=== PATIENT | male | born 1950 | race Caucasian/White ===

== ENCOUNTER 2022-12-23 15:08 | Outpatient (OUT) | payer MEDICARE, SELFPAY ==
[2022-12-23 15:46] LABS: Creatinine Urine Random 82.19 mg/dL (20.00-300.00); Protein Creatinine Ratio Urine 0.14; Total Protein Urine Random 11.1 mg/dL (<=11.9)
[2022-12-23 15:47] LABS: Bilirubin Urine NEGATIVE (NEGATIVE); Blood Urine NEGATIVE (NEGATIVE); Clarity Urine CLEAR (CLEAR); Color Urine LT. YELLOW (YELLOW); Glucose Urine UA NEGATIVE (NEGATIVE); Ketones Urine NEGATIVE (NEGATIVE); Leukocyte Esterase Urine NEGATIVE (NEGATIVE); Nitrite Urine NEGATIVE (NEGATIVE); Protein Urine NEGATIVE (NEG/TRACE); Urobilinogen Urine 0.2 EU/dL (0.2-1.0); pH Urine 5.5 (5.0-9.0)
[2022-12-23 16:27] LABS: Albumin Level 4.1 g/dL (3.4-5.0); Anion Gap 12.2; BUN Creatinine Ratio 14.9; Calcium 8.9 mg/dL (8.5-10.1); Carbon Dioxide 31.7 mmol/L (21.0-32.0); Chloride 103 mmol/L (98-107); Estimated GFR (African America >60 (>=60); Estimated GFR (Non-African Ame 52 (>=60); Glucose 125 mg/dL (74-106); Phosphorus 3.9 mg/dL (2.6-4.7); Potassium 3.9 mmol/L (3.5-5.1); Sodium 143 mmol/L (136-145)
== END 2022-12-23 15:09 ==
PROVIDERS: PCP Family Medicine
DX: E11.21 Type 2 diabetes mellitus with diabetic nephropathy (principal); I13.10 Hypertensive heart and chronic kidney disease without heart failure, with stage 1 through stage 4 chronic kidney disease, or unspecified chronic kidney disease; N20.2 Calculus of kidney with calculus of ureter
CPT/HCPCS: 36415; 80069; 81003; 82570; 84156

== ENCOUNTER 2023-02-07 13:54 | Outpatient (OUT) | payer MEDICARE, OTHER, SELFPAY ==
--- NOTE | 2023-02-07 14:59 | CA_ITS ---
Patient: LAURA JOLLY Exam Date: 02/07/2023 : 1950 Gender:M Ordering : LINDSAY SHELLEY Admission #: [id number] Family : Order #: [id number] CLICK HERE TO VIEW EXAM ECHOCARDIOGRAM REPORT PROCEDURE: CA ECHO DOPPLER COMPLETE INDICATIONS: Atypical atrial flutter COMPARISON: None. DESCRIPTION: COMPLETE ECHOCARDIOGRAM Real-time transthoracic echocardiography with 2D, M-mode, spectral and color flow Doppler performed. QUALITY: Technical quality was good. LEFT VENTRICLE: Normal chamber size. Borderline left ventricular hypertrophy. Global left ventricular systolic function is normal. LV EF: Estimated left ventricular ejection fraction is 55%. DIASTOLIC: Grade I diastolic dysfunction. ATRIAL SEPTUM: LEFT ATRIUM: Normal chamber size. RIGHT ATRIUM: Normal chamber size. RIGHT VENTRICLE: Normal chamber size. Normal right ventricular systolic function. TRICUSPID VALVE: Normal mobility and thickness. No stenosis with trivial regurgitation. No evidence of pulmonary hypertension. RVSP 27 mmHg MITRAL VALVE: Normal mobility and thickness. No evidence of mitral valve stenosis. There is no mitral annular calcification. Trivial mitral regurgitation. AORTIC VALVE: Normal trileaflet appearance. Thickened aortic valve. Normal leaflet mobility. No evidence of aortic valve stenosis. Trivial aortic regurgitation. AORTIC ROOT: Normal diameter and appearance. PULMONIC VALVE: Normal thickness and mobility. No stenosis. Trivial regurgitation. PERICARDIUM: No evidence of pericardial effusion. IVC: Collapses with inspirations. Normal size. PLEURA: CONCLUSION: 1. Normal left ventricular size and systolic function. LVEF is 55%. 2. Normal right ventricular size and systolic function. 3. Mild diastolic dysfunction. 4. No significant valvular dysfunction. 5. Normal right-sided pressures. Adult Echocardiography Procedure Report Left Ventricle LVEDD (3.7 - 5.6 cm): 3.19 cm LVESD (2.2 - 4.0 cm): 2.12 cm LVIVS thickness (0.6 - 1.2 cm): 1.10 cm LVPW thickness (0.5 - 1.0 cm): 0.99 cm e': 0.07 m/s E - e': 8.19 LVOT Max Gradient: 1.95 mm[Hg] LVOT Area (cm2): 0.70 m/s Peak Velocity (LVOT): 0.70 m/s Mean Velocity (LVOT): 0.48 m/s LVOT Diameter 2.25 cm Left Ventricular Ejection Fraction: 55% Left Atrium LA Volume Index (2D A2C): 27.49 ml/m2 Left Atrium Systolic Dimension: 2.74 cm Mitral Valve MV E to A Ratio: 0.57 Mitral Valve A-Wave Peak Velocity: 1.03 m/s Mitral Valve E-Wave Peak Velocity: 0.59 m/s Right Ventricle RV Internal Diastolic Dimension: 3.30 cm Aorta AO Root Diam: 3.42 cm Ascending Ao Diam: 3.27 cm Aortic Valve AoV Area (Peak Yves): 2.76 cm2, 2.76 cm2 AoV Area (VTI): 2.78 cm2, 2.78 cm2 Peak Velocity(Antegrade Flow): 1.01 m/s Peak Gradient(Antegrade Flow): 4.07 mm[Hg] Mean Velocity(Antegrade Flow): 0.70 m/s Mean Gradient(Antegrade Flow): 2.28 mm[Hg] Velocity Time Integral: 21.41 cm Tricuspid Valve Peak Velocity (Regurgitant Flow): 2.42 m/s Pulmonic Valve Mean Gradient: 2.08 mm[Hg] Mean Velocity: 0.66 m/s Peak Velocity: 1.13 m/s, 1.16 m/s Peak Gradient: 5.34 mm[Hg], 5.09 mm[Hg] Right Atrium Right Atrium Systolic Pressure: 37.97 ml, 37.97 ml Dictated by: Manuel Prieto M.D. on 02/09/2023 at 18:01 Approved by: Manuel Prieto M.D. on 02/09/2023 at 18:08
== END 2023-02-07 13:55 | disposition home or self-care (01) ==
LOC: CARD 13:55
PROVIDERS: PCP Family Medicine; Visit Provider Nurse Practitioner
DX: I48.4 Atypical atrial flutter (principal); I51.9 Heart disease, unspecified
CPT/HCPCS: 93306

== ENCOUNTER 2023-03-23 09:20 | Outpatient (OUT) | payer MEDICARE, OTHER, SELFPAY ==
[2023-03-23 11:17] LABS: Creatinine Urine Random 131.38 mg/dL (20.00-300.00); Microalbum Creatinine Ratio Ur 59.3 mg/g (0.0-29.9); Microalbumin Urine Random 7.8 mg/dL (<=30.0)
[2023-03-23 11:40] LABS: Alanine Aminotransferase 7 U/L (16-63); Albumin Globulin Ratio 0.9; Alkaline Phosphatase 92 U/L (46-116); Anion Gap 13.5; Aspartate Amino Transferase 20 U/L (15-37); BUN Creatinine Ratio 17.7; Bilirubin Total 1.7 mg/dL (0.2-1.0); Calcium 9.3 mg/dL (8.5-10.1); Carbon Dioxide 28.6 mmol/L (21.0-32.0); Chloride 102 mmol/L (98-107); Chol HDL Ratio 2.1; Cholesterol 103 mg/dL (<=200); Estimated GFR (African America >60 (>=60); Estimated GFR (Non-African Ame 57 (>=60); Globulin 4.3 g/dL; Glucose 173 mg/dL (74-106); HDL Cholesterol 50 mg/dL (40-60); Potassium 4.1 mmol/L (3.5-5.1); Sodium 140 mmol/L (136-145); Total Protein 8.3 g/dL (6.4-8.2); Triglycerides 115 mg/dL (<=150)
== END 2023-03-23 09:21 | disposition home or self-care (01) ==
LOC: LAB 09:23
PROVIDERS: PCP Family Medicine
DX: E11.22 Type 2 diabetes mellitus with diabetic chronic kidney disease (principal); E78.5 Hyperlipidemia, unspecified; E53.8 Deficiency of other specified B group vitamins
CPT/HCPCS: 36415; 80053; 80061; 82043; 82570; 82607

== ENCOUNTER 2023-05-02 15:19 | Outpatient (OUT) | payer MEDICARE, OTHER, SELFPAY ==
--- NOTE | 2023-05-02 15:28 | XR_ITS ---
[address] [address] Patient Name: LAURA JOLLY MRN: [id number] date: 1950 Sex: M Assigned Patient Location: [facility] Current Patient Location: Accession/Order Number: [id number] Exam Date: 05/02/2023 15:40 Report Date: 05/03/2023 07:32 At the request of: YASIR MOROCHO Procedure: XR abdomen 1V EXAMINATION: XR abdomen 1V HISTORY: Abdominal Pain COMPARISON: No relevant comparison available. FINDINGS: BOWEL GAS PATTERN: No abnormal dilation or deviation. CALCIFICATIONS: None significant. OTHER: Rotatory S-shaped scoliosis of the spine with moderate to severe degenerative changes. Left hip arthroplasty XR/XR abdomen 1V IMPRESSION: Nonobstructive bowel gas pattern Electronically authenticated by: FLYNN LAROSE Date: 05/03/2023 07:32
== END 2023-05-02 15:20 | disposition home or self-care (01) ==
PROVIDERS: PCP Family Medicine; Visit Provider Family Medicine
DX: R10.9 Unspecified abdominal pain (principal)
CPT/HCPCS: 74018

== ENCOUNTER 2023-05-09 11:11 | Outpatient (OUT) | payer MEDICARE, OTHER, SELFPAY ==
--- NOTE | 2023-05-09 11:17 | US_ITS ---
[address] [address] Patient Name: LAURA JOLLY MRN: [id number] date: 1950 Sex: M Assigned Patient Location: US Current Patient Location: Accession/Order Number: [id number] Exam Date: 05/09/2023 11:20 Report Date: 05/09/2023 13:59 At the request of: OBDULIA MELENDEZ Procedure: US abdomen complete EXAMINATION: US abdomen complete, 05/09/2023 11:20 AM EDT COMPARISON: None. HISTORY: Lower abdominal pain TECHNIQUE: The abdomen was scanned in standard fashion with specialized ultrasound transducer(s) using both lind scale and limited color Doppler techniques. Findings: Liver: The liver demonstrates normal homogeneous echotexture. No evidence of a focal hepatic mass or intrahepatic biliary ductal dilatation. The main portal vein is patent with antegrade flow, measuring 14.8 cm. Gallbladder: The gallbladder is well distended and of normal morphology. There is no wall thickening, pericholecystic fluid, sonographic Tiwari's sign nor evidence for cholelithiasis. Layering sludge is seen. Bile Ducts: Both the intra- and extrahepatic biliary system are of normal caliber. The common bile duct measures 2.3 mm in diameter. Pancreas: Visualized portions of the head and body of the pancreas are unremarkable. Kidneys: Both kidneys are of normal echotexture, without mass nor hydronephrosis. The craniocaudal dimensions are: right- 8.3 cm, left- 9.2 cm. Urinary bladder appears unremarkable. Spleen: The spleen is normal in size, measuring 12.3 cm in sagittal dimension. Aorta and IVC: The visualized portions of the aorta and IVC are unremarkable. The aorta measures 2.1cm in diameter and the IVC measures 0.9cm in diameter. Fluid: No evidence of ascites or pleural effusions. US/US abdomen complete Impression: 1. Gallbladder sludge. No evidence for acute cholecystitis. Otherwise no acute findings. Electronically authenticated by: KEEGAN BALBUENA Date: 05/09/2023 13:59
== END 2023-05-09 11:12 | disposition home or self-care (01) ==
LOC: US 11:11
PROVIDERS: PCP Family Medicine; Visit Provider Nurse Practitioner
DX: R10.30 Lower abdominal pain, unspecified (principal)
CPT/HCPCS: 76700

== ENCOUNTER 2023-05-30 08:09 | Emergency (ER) | payer MEDICARE, OTHER, SELFPAY ==
[2023-05-30 08:16] VITALS: BP 141/85; PULSE 78; RESP 20; TEMP 36.4; O2SAT 97; BMI 23.0
[2023-05-30 08:31] LABS: Glucometer 81 mg/dL (74-106)
--- NOTE | 2023-05-30 08:36 | ED.ABDPAIN1 ---
HPI - Abdominal Pain General Chief Complaint: Abdominal Pain Stated Complaint: ABDOMINAL PAIN Time Seen by Provider: 05/30/23 08:29 Source: patient Mode of arrival: walk-in Limitations: no limitations History of Present Illness HPI narrative: 72-year-old male presents for abdominal pain. He's had it for five months and was scheduled for a colonoscopy this afternoon. He did yesterday's bowel prep but hadn't yet taken this mornings. This is the same pain that he's been having for more than five months. No blood in his stool or fever or vomiting. Related Data Home Medications Medication Instructions Recorded Confirmed atorvastatin 40 mg tablet 40 mg PO BEDTIME 05/30/23 05/30/23 carbidopa 25 mg-levodopa 100 mg 1.5 tab PO BID 05/30/23 05/30/23 tablet furosemide 20 mg tablet 20 mg PO DAILY 05/30/23 05/30/23 gemfibrozil 600 mg tablet 600 mg PO DAILY 05/30/23 05/30/23 insulin aspart U-100 100 unit/mL 1 sliding scale dose subcut TID 05/30/23 05/30/23 (3 mL) subcutaneous pen (Novolog FlexPen U-100 Insulin aspart) insulin degludec 100 unit/mL (3 20 unit subcut DAILY 05/30/23 05/30/23 mL) subcutaneous pen (Tresiba FlexTouch U-100 insulin) metformin 1,000 mg tablet 1,000 mg PO DAILY 05/30/23 05/30/23 metoprolol succinate 100 mg 100 mg PO DAILY 05/30/23 05/30/23 tablet,extended release 24 hr potassium chloride 10 mEq 10 meq PO DAILY 05/30/23 05/30/23 tablet,extended release tamsulosin 0.4 mg capsule 0.4 mg PO Q24H 05/30/23 05/30/23 Previous Rx's Medication Instructions Recorded dicyclomine 10 mg capsule 10 mg PO QID PRN abdominal pain 05/30/23 #20 caps ondansetron 4 mg disintegrating 4 mg PO Q6H PRN nausea and 05/30/23 tablet vomiting #20 tabs Allergies Allergy/AdvReac Type Severity Reaction Status Date / Time ciprofloxacin [From Cipro] Allergy Unknown Verified 05/30/23 08:59 codeine Allergy Unknown Verified 05/30/23 08:59 Sulfa (Sulfonamide Allergy Rash Verified 05/30/23 08:16 Antibiotics) epinephrine AdvReac Severe heart Verified 05/30/23 08:59 racing Review of Systems ROS Narrative A ten point review of systems is negative except as noted above. PFSH PFSH Social History Smoking status: Never smoker Exam Narrative Exam Narrative: Nurses note and vital signs reviewed and patient is not hypoxic. General: The patient appears well and in no apparent distress. Patient is resting comfortably on cart. Skin: Warm, dry, no pallor noted. There is no rash noted. Head: Normocephalic, atraumatic Eye: Normal conjunctiva, no drainage Ears, Nose, Mouth, and Throat: oral mucosa is moist. Nares patent. Cardiovascular: Regular Rate and Rhythm Respiratory: Patient is in no distress, no accessory muscle use, lungs are clear to auscultation, no wheezing, rales or rhonchi Back: non-tender GI: soft, nontender, nondistended Musculoskeletal: The patient has no evidence of calf tenderness, no pitting edema, symmetrical pulses noted bilaterally Neurological: A&O, normal speech Psychiatric: Cooperative Constitutional Vital Signs, click to edit/add: Last Vital Signs Temp 97.6 F 05/30/23 08:16 Pulse 70 05/30/23 10:58 Resp 14 05/30/23 10:58 BP 110/74 05/30/23 10:58 Pulse Ox 92 L 05/30/23 10:58 O2 Del Method Room Air 05/30/23 10:58 Course Vital Signs Vital signs: Vital Signs Temperature 97.6 F 05/30/23 08:16 Pulse Rate 78 05/30/23 08:16 Respiratory Rate 20 05/30/23 08:16 Blood Pressure 141/85 05/30/23 08:16 Pulse Oximetry 97 05/30/23 08:16 Oxygen Delivery Method Room Air 05/30/23 08:16 Temperature 97.6 F 05/30/23 08:16 Pulse Rate 70 05/30/23 10:58 Respiratory Rate 14 05/30/23 10:58 Blood Pressure 110/74 05/30/23 10:58 Pulse Oximetry 92 L 05/30/23 10:58 Oxygen Delivery Method Room Air 05/30/23 10:58 MDM - Abdominal Pain MDM Narrative Medical decision making narrative: possible rectal masses identified on the CAT scan. Findings are discussed thoroughly with the patient. I've discussed the case with Dr. Kim as well and follow-up is arranged. The importance of colonoscopy was discussed thoroughly with the patient. Differential Diagnosis Differential diagnosis: Likely abdominal pain, constipation, diverticulitis, gastroenteritis and small bowel obstruction Lab Data Attestation: I reviewed the patient's lab results. Labs: Lab Results 05/30/23 05/30/23 Range/Units 08:29 08:45 WBC 12.7 H (4.0-11.0) 10^3/uL RBC 4.56 L (4.70-6.10) 10^6/uL Hgb 13.1 L (14.0-18.0) g/dL Hct 39.8 L (42.0-54.0) % MCV 87.3 (80.0-94.0) fL MCH 28.7 (25.9-34.0) pg MCHC 32.9 (29.9-35.2) g/dL RDW 13.3 (11.0-15.0) % Plt Count 213 (150-450) 10^3/uL MPV 8.9 L (9.5-13.5) fL Neut % (Auto) 82.6 H (43.0-75.0) % Lymph % (Auto) 10.0 L (20.5-60.0) % [place] % (Auto) 6.0 (1.7-12.0) % Eos % (Auto) 0.7 L (0.9-7.0) % Baso % (Auto) 0.5 (0.2-2.0) % Neut # (Auto) 10.5 H (1.4-6.5) 10^3/uL Lymph # (Auto) 1.3 (1.2-3.8) 10^3/uL [place] # (Auto) 0.8 (0.3-0.8) 10^3/uL Eos # (Auto) 0.1 (0.0-0.7) 10^3/uL Baso # (Auto) 0.1 (0.0-0.1) 10^3/uL Abs Immat Gran (auto) 0.03 (0.00-0.03) 10^3/uL Imm/Tot Granulo (auto) 0.2 (0.0-0.5) % Sodium 141 (136-145) mmol/L Potassium 3.1 L (3.5-5.1) mmol/L Chloride 98 (98-107) mmol/L Carbon Dioxide 30.3 (21.0-32.0) mmol/L Anion Gap 15.8 BUN 20.0 H (7.0-18.0) mg/dL Creatinine 1.17 (0.70-1.30) mg/dL Est GFR ( Amer) >60 (>=60) Est GFR (Non-Af Amer) >60 (>=60) BUN/Creatinine Ratio 17.1 Glucose 89 (74-106) mg/dL Calcium 8.6 (8.5-10.1) mg/dL POC Glucose 81 (74-106) mg/dL Imaging Data CT scan - abdomen: Radiologist's impression: Procedure: CT abdomen pelvis w con CT abdomen pelvis w con, 05/30/2023 10:14 AM EST INDICATION: low abd pain COMPARISON: This study was compared to the prior x-ray of the same date TECHNIQUE: Axial images of the abdomen were obtained after the administration of IV contrast. Multiplanar reformatted images were generated and reviewed as needed. Dose reduction techniques were achieved by using automated exposure control and/or adjustment of mA and/or kV according to patient size and/or use of iterative reconstruction technique. FINDINGS: There is status post left hip arthroplasty causing streak artifact that decreases the sensitivity for evaluation of the pelvis. Lungs: The base of lungs is clear. No pleural effusion is noted. Liver and gallbladder: The liver is unremarkable. There is cholelithiasis without pericholecystic fluid or wall thickening. No enlargement of intra or extrahepatic biliary ducts. Genitourinary system: No hydronephrosis. No nephrolithiasis. No abnormality of the urinary bladder is noted. Other solid abdominal organs: adrenal glands, pancreas, and spleen are unremarkable. Aorta: The infrarenal abdominal aorta is nonaneurysmal. Free fluid: There is minimal free fluid in the in the right upper quadrant. Lymph node: There is a 9 x 9 mm left obturator hypodense lesion likely a necrotic lymph node. No lymph node enlargement by size criteria in the abdomen is noted. Stomach and Bowel: No abnormality of the stomach is noted. No abnormality of small bowel is noted. There is enlargement of the large bowel measuring up to 6.8 cm in the cecum. The distention of the colon extends to the rectum where there is a possible mass versus folded rectum measuring approximately 3.1 x 3.1 x 2.8 cm (AP, transverse, cc). This lesion is approximately 5 cm from anus. Bone: There is no suspicious osteolytic or osteoblastic lesion. S-shaped thoracolumbar scoliosis is noted. Lower lumbar spine degenerative changes are noted. IMPRESSION: Limited study due to presence of the left hip arthroplasty causing a streak artifact for evaluation of pelvis. However, there is a rectal mass (and less likely folded, superimposed rectum) causing distention of the colon. A left obturator hypodense lesion is noted likely necrotic lymph node. Correlation with sigmoidoscopy/colonoscopy is recommended. Electronically authenticated by: NAPOLEON RESTREPO Date: 05/30/2023 11:24 Discharge Plan Discharge Chief Complaint: Abdominal Pain Clinical Impression: Rectal mass, Abdominal pain Patient Disposition: Home, Self-Care Time of Disposition Decision: 11:44 Condition: Good Mode of Transportation: Private Vehicle Prescriptions / Home Meds: New dicyclomine 10 mg capsule 10 mg PO QID PRN (Reason: abdominal pain) Qty: 20 0RF ondansetron 4 mg tablet,disintegrating 4 mg PO Q6H PRN (Reason: nausea and vomiting) Qty: 20 0RF No Action metoprolol succinate 100 mg tablet extended release 24 hr 100 mg PO DAILY metformin 1,000 mg tablet 1,000 mg PO DAILY tamsulosin 0.4 mg capsule 0.4 mg PO Q24H potassium chloride 10 mEq tablet extended release 10 meq PO DAILY furosemide 20 mg tablet 20 mg PO DAILY gemfibrozil 600 mg tablet 600 mg PO DAILY carbidopa-levodopa 25-100 mg tablet 1.5 tab PO BID atorvastatin 40 mg tablet 40 mg PO BEDTIME insulin aspart U-100 [Novolog FlexPen U-100 Insulin] 100 unit/mL (3 mL) insulin pen 1 sliding scale dose SUBCUT TID insulin degludec [Tresiba FlexTouch U-100] 100 unit/mL (3 mL) insulin pen 20 unit SUBCUT DAILY Instructions: Abdominal Pain (ED), Rectal Pain (ED) Stand Alone Forms: Portal Instructions Referrals: YASIR KIM [Primary Care Provider] - 1 week
--- NOTE | 2023-05-30 08:46 | XR_ITS ---
The [address] [address] Patient Name: LAURA JOLLY MRN: [id number] date: 1950 Sex: M Assigned Patient Location: ER Current Patient Location: ER Accession/Order Number: [id number] Exam Date: 05/30/2023 09:13 Report Date: 05/30/2023 09:44 At the request of: ROSELIA HUERTA Procedure: XR acute abdomen series EXAMINATION: XR acute abdomen series HISTORY: pain ; chronic abdominal pain; patient is prepping for a colonoscopy today COMPARISON: No relevant comparison available. FINDINGS: LUNGS: No infiltrate, pneumothorax, or pleural effusion. Loop recorder projecting over left lung base. MEDIASTINUM: No abnormal widening. BOWEL GAS PATTERN: Air throughout the small and large bowel with multiple air-fluid levels within the colon. FREE AIR: None. CALCIFICATIONS: None significant. BONES: Marked scoliosis of thoracic and lumbar spine. Prior right shoulder and left hip replacements. OTHER: Negative. XR/XR acute abdomen series IMPRESSION: 1. No acute cardiopulmonary process. 2. Air and fluid throughout the small and large bowel consistent with history of prepping for colonoscopy today. Consideration would also be given to enteritis, ileus, and partial obstruction. Electronically authenticated by: ADILENE MANE Date: 05/30/2023 09:44
[2023-05-30 08:56] LABS: Basophils Absolute Auto 0.1 10^3/uL (0.0-0.1); Basophils Percent Auto 0.5 % (0.2-2.0); Eosinophils Absolute Auto 0.1 10^3/uL (0.0-0.7); Eosinophils Percent Auto 0.7 % (0.9-7.0); Hematocrit 39.8 % (42.0-54.0); Hemoglobin 13.1 g/dL (14.0-18.0); Immature Granulocytes Abs Auto 0.03 10^3/uL (0.00-0.03); Immature Granulocytes Pct Auto 0.2 % (0.0-0.5); Lymphocytes Absolute Auto 1.3 10^3/uL (1.2-3.8); Mean Corpuscular HGB Conc 32.9 g/dL (29.9-35.2); Mean Corpuscular Hemoglobin 28.7 pg (25.9-34.0); Mean Corpuscular Volume 87.3 fL (80.0-94.0); Mean Platelet Volume 8.9 fL (9.5-13.5); Monocytes Absolute Auto 0.8 10^3/uL (0.3-0.8); Neutrophils Absolute Auto 10.5 10^3/uL (1.4-6.5); Neutrophils Percent Auto 82.6 % (43.0-75.0); Platelet Count 213 10^3/uL (150-450); Red Blood Count 4.56 10^6/uL (4.70-6.10); Red Cell Distribution Width 13.3 % (11.0-15.0); White Blood Count 12.7 10^3/uL (4.0-11.0)
[2023-05-30] MEDS: 0.9 % SODIUM CHLORIDE 500 ML IV (08:56)
[2023-05-30 09:06] LABS: Anion Gap 15.8; BUN Creatinine Ratio 17.1; Calcium 8.6 mg/dL (8.5-10.1); Carbon Dioxide 30.3 mmol/L (21.0-32.0); Chloride 98 mmol/L (98-107); Estimated GFR (African America >60 (>=60); Estimated GFR (Non-African Ame >60 (>=60); Glucose 89 mg/dL (74-106); Potassium 3.1 mmol/L (3.5-5.1); Sodium 141 mmol/L (136-145)
--- NOTE | 2023-05-30 09:55 | CT_ITS ---
The [address] [address] Patient Name: LAURA JOLLY MRN: [id number] date: 1950 Sex: M Assigned Patient Location: ER Current Patient Location: Accession/Order Number: [id number] Exam Date: 05/30/2023 10:14 Report Date: 05/30/2023 11:24 At the request of: ROSELIA HUERTA Procedure: CT abdomen pelvis w con CT abdomen pelvis w con, 05/30/2023 10:14 AM EST INDICATION: low abd pain COMPARISON: This study was compared to the prior x-ray of the same date TECHNIQUE: Axial images of the abdomen were obtained after the administration of IV contrast. Multiplanar reformatted images were generated and reviewed as needed. Dose reduction techniques were achieved by using automated exposure control and/or adjustment of mA and/or kV according to patient size and/or use of iterative reconstruction technique. FINDINGS: There is status post left hip arthroplasty causing streak artifact that decreases the sensitivity for evaluation of the pelvis. Lungs: The base of lungs is clear. No pleural effusion is noted. Liver and gallbladder: The liver is unremarkable. There is cholelithiasis without pericholecystic fluid or wall thickening. No enlargement of intra or extrahepatic biliary ducts. Genitourinary system: No hydronephrosis. No nephrolithiasis. No abnormality of the urinary bladder is noted. Other solid abdominal organs: adrenal glands, pancreas, and spleen are unremarkable. Aorta: The infrarenal abdominal aorta is nonaneurysmal. Free fluid: There is minimal free fluid in the in the right upper quadrant. Lymph node: There is a 9 x 9 mm left obturator hypodense lesion likely a necrotic lymph node. No lymph node enlargement by size criteria in the abdomen is noted. Stomach and Bowel: No abnormality of the stomach is noted. No abnormality of small bowel is noted. There is enlargement of the large bowel measuring up to 6.8 cm in the cecum. The distention of the colon extends to the rectum where there is a possible mass versus folded rectum measuring approximately 3.1 x 3.1 x 2.8 cm (AP, transverse, cc). This lesion is approximately 5 cm from anus. Bone: There is no suspicious osteolytic or osteoblastic lesion. S-shaped thoracolumbar scoliosis is noted. Lower lumbar spine degenerative changes are noted. CT/CT abdomen pelvis w con IMPRESSION: Limited study due to presence of the left hip arthroplasty causing a streak artifact for evaluation of pelvis. However, there is a rectal mass (and less likely folded, superimposed rectum) causing distention of the colon. A left obturator hypodense lesion is noted likely necrotic lymph node. Correlation with sigmoidoscopy/colonoscopy is recommended. Electronically authenticated by: NAPOLEON RESTREPO Date: 05/30/2023 11:24
[2023-05-30 10:58] VITALS: BP 110/74; PULSE 70; RESP 14; O2SAT 92
[2023-05-30 12:10] VITALS: BP 115/77
--- OUTSIDE RECORDS SUMMARY | 2023-07-05 18:38 | XMS_ITS | CCD ---
Author Name Unknown Address [address] [place] [address] Organization [facility] Care Team Providers Care Junior Graphic Designer Name Role Phone ELIDIA MACHADO Referring Unavailable ELIDIA MACHADO Primary Care Unavailable RAMSEY MENDEZ Attending UnaRAMSEY Murillo Admitting Unava ilROBERT Howard Admitting Unavailable ROBERT ORDAZ Attending Unavailable ELIDIA MACHADO Primary Care Unavailable CAROLINE Referring Unavailable GA Procedure Practitioner Unavailab ANGELLA Butler Surgeon Unavailable VI MERCADO Attending Unavailable TRUE PERALTA Attending Unavailable TRUE PERALTA Referring Unavailable PHYSICIAN PHYSICIAN, PCP PCP UNKNOWN~[id number] Primary Care Unavailable [facility] Consulting Unavailable TU BALBUENA Admitting Unavailable ELIDIA MACHADO Primary Care Unavailable JOHN BALBUENA Attending Unavailable DENY PETE Consulting Unavailable ELIDIA MACHADO Primary Care Unavailable [facility] Consulting Unavasyl CRAWFORD, ABBE ESTEBAN Admitting Unavailable ERICKA CHENG Attending Unavailable YEMI SCHUMACHER Consulting Trice VI Meredith Referring Unavailable ELIDIA MACHADO Primary Care Unavailable Mapus, Tondra Unavailable ELIDIA MACHADO Primary Care Physician TRINITY ., DR ELIDIA Sierra Primary Care Unavailable MAPUS, TONDRA Consulting Unavailable REQUEST, DR RICHARDS LISTED Admitting Unavaila ble REQUEST, DR RICHARDS LISTED Attending Unavaila ble MACHADO ., DR ELIDIA Sierra Consulting Unavailable MACHADO ., DR ELIDIA Sierra Primary Care Unavailable MACHADO ., DR ELIDIA Sierra Attending Unavailable MACHADO ., DR ELIDIA Sierra Admitting Unavailable MACHADO ., DR ELIDIA Sierra Primary Care Unavailable DANTE HOLLOWAY Attending Unavailable AKKINA, DANTE Admitting Unavailable AKKINA, DANTE Consulting Unavailable MACHADO ., DR ELIDIA Sierra Primary Care Unavailable MACHADO ., DR ELIDIA Sierra Consulting Unavailable MACHADO ., DR ELIDIA Sierra Attending Unavailable MACHADO ., DR ELIDIA Sierra Admitting Unavailable YASIR MOROCHO Primary Care Unavailable MACHADO ., DR ELIDIA Sierra Attending Unavailable MACHADO ., DR ELIDIA Sirera Admitting Unavailable MACHADO ., DR ELIDIA Sierra Consulting Unavailable MACHADO ., DR ELIDIA Sierra Primary Care Unavailable ALBER SANCHEZ Attending Unavailable ALBER SANCHEZ Admitting Unavailable MACHADO ., DR ELIDIA Sierra Primary Care Unavailable ZAHLER, LORENZA Attending Unavailable ZAHLER, LORENZA Admitting Unavailable ZAHLER, LORENZA Consulting Unavailable MACHADO ., DR ELIDIA Sierra Primary Care Unavailable MACHADO ., DR ELIDIA Sierra Attending Unavailable MACHADO ., DR ELIDIA Sierra Admitting Unavailable ESTIVEN, ASTRID Admitting Unavailable YASIR MOROCHO Primary Care Unavailable ESTIVEN, ASTRID Attending Unavailable MACHADO ., DR ELIDIA Sierra Primary Care Unavailable RUFF ., DR BANUELOS Attending Unavailable RUFF ., DR BANUELOS Admitting Unavailable RUFF ., DR BANUELOS Consulting Unavailable [place], DR FLYNN Clifton Consulting Unavailable MACHADO ., DR ELIDIA Sierra Primary Care Unavailable RUFF ., DR BANUELOS Attending Unavailable RUFF ., DR BANUELOS Admitting Unavailable RUFF ., DR BANUELOS Consulting Unavailable ZIEBER, DR ADILENE Pack Consulting Unavailable MACHADO ., DR ELIDIA Sierra Primary Care Unavailable AKKINA, DANTE Attending Unavailable AKKINA, DANTE Admitting Unavailable AKKINA, DANTE Consulting Unavailable MACHADO ., DR ELIDIA Sierra Primary Care Unavailable ALBER SANCHEZ Attending Unavailable ALBER SANCHEZ Admitting Unavailable ALBER SANCHEZ Consulting Unavailable Yasir Morocho. Primary Care Physician Nusrat Chapman Attending Unavailable Nusrat Chapman Admitting Unavailable MachadoElidia Primary Care Unavailable ALBER SANCHEZ Attending Unavailable BERENICE SHARPE Attending Unavailable ALBER SANCHEZ Referring Unavailable LINDSAY SHELLEY Attending Unavailable LINDSAY SHELLEY Attending Unavailable ALBER SANCHEZ Referring Unavailable ALBER SANCHEZ Referring Unavailable ALBER SANCHEZ Admitting Unavailable ALBER SANCHEZ Attending Unavailable ALBER SANCHEZ Admitting Unavailable ALBER SANCHEZ Attending Unavailable CHARI MEADE Attending Unavailable Yasir Morocho. Attending Unavailable Mourany, Mango E. Attending Unavailable Ross, Yasir E. Referring Unavailable Mourany, Mango E. Attending Unavailable Ross, Yasir E. Referring Unavailable Ross, Yasir E. Attending Unavailable Ross, Yasir E. Attending Unavailable Ross, Yasir E. Attending Unavailable Ross, Yasir E. Attending Unavailable RUFF, Jens Pack Attending Unavailable Ross, Yasir E. Attending Unavailable Ross, Yasir E. Attending Unavailable RUFFJens R Attending Unavailable Ross, Yasir E. Admitting Unavailable Ross, Yasir E. Attending Unavailable Ross, Yasir E. Referring Unavailable Ross, Yasir E. Admitting Unavailable Ross, Yasir E. Attending Unavailable Ross, Yasir E. Admitting Unavailable Ross, Yasir E. Attending Unavailable Ross, Yasir E. Admitting Unavailable Ross, Yasir E. Attending Unavailable Carrillo, Ganga X Consulting Unavailable Deny Chicas Attending Unavailabl e RADHA, Paoa Admitting Unavailable Carrillo, Ganga X Consulting Unavailable Carrillo, Ganga X Consulting Unavailable Sridhar, Angeles Consulting Unavailable Sridhar, Angeles Consulting Unavailable Sridhar, Angeles Consulting Unavailable Mourany, Mango E. Admitting Unavailable Mourany, Mango E. Attending Unavailable Mourany, Mango E. Referring Unavailable Ross, Yasir E. Attending Unavailable Allergies Allergy Classification Reported Allergen(s) Allergy Type Date of Onset Reaction(s) Facility (2 sources) Ciprofloxacin Drug Allergy 02-07-20 13 [facility] (1 source) Codeine Drug Allergy 10-18-19 19 [facility] (6 sources) EPINEPHrine; Translations: [EPINEPHRINE] Drug Allergy 02-07-20 13 [facility] (2 sources) Sulfonamides (Antibiotic) Drug allergy (disorder) 03-13-20 12 [facility] (3 sources) Ciprofloxacin; Translations: [CIPROFLOXACIN HCL] Drug Allergy 08-30-19 22 [facility] Repository (4 sources) Sulfonamides (Antibiotic); Translations: [SULFA (SULFONAMIDE ANTIBIOTICS)] Propensity to adverse reactions to drug (disorder) 08-25-19 18 [facility] (6 sources) Sulfonamides (Antibiotic) Propensity to adverse reactions Unknown [employer] Other (6 sources) epinefrine Propensity to adverse reactions Unknown [employer] Other (11 sources) Allopurinol; Translations: [allopurinol] Drug Allergy 10-06-19 Eruption of skin (disorder) [facility] (11 sources) Codeine; Translations: [codeine] Drug Allergy 10-06-19 Unknown (qualifier value) [facility] (9 sources) EPINEPHrine; Translations: [epinephrine] Drug Allergy Tachycardia (finding) [facility] (10 sources) Sulfonamides (Antibiotic); Translations: [sulfa drugs] Drug allergy Unknown (qualifier value) [facility] (2 sources) Amoxicillin Drug Allergy 01-25-20 14 [facility] (1 source) Codeine Drug Allergy 02-07-20 13 [facility] (1 source) EPINEPHrine Drug Allergy 08-25-19 18 [facility] Repository Medications Current Medications Medication Drug Class(es) Dates Sig (Normalized) Sig (Original) Acetaminophen (2 sources) Start: 06-17-2023 take 640 mg by mouth every six hours as needed for pain acetaminophen 160 mg/5 mL oral liquid 640 mg = 20 mL, Oral, q6hr, PRN Pain, Refills(s) 0 Start Date: 06/17/23 Status: Ordered albuterol 0.83 mg/ml inhalation solution (2 sources) beta2-Adrenergic Agonist Start: 06-17-2023 take 2.5 mg by inhalation every four hours albuterol 0.083% Inh Lizbeth 3 mL 2.5 mg, 3 mL, NEB, q4hr Shortness of breath or wheezing, Refill(s) 0 Start Date: 06/17/23 Status: Ordered amantadine hydrochloride 100 mg oral capsule (9 sources) Influenza A M2 Protein Inhibitor Start: 04-27-2021 take 1 capsule by mouth once daily amantadine 100 mg Cap 100 mg = 1 cap(s), Oral, Daily, Other (see comment) Start Date: 04/27/21 Status: Ordered amoxicillin 500 mg oral tablet (1 source) Penicillin-class Antibacterial Start: 04-20-2023 End: 04-25-2023 take 1 tablet by mouth twice daily amoxicillin 500 mg oral tablet 500 mg = 1 tab(s), Oral, BID, X 5 day(s), # 10 tab(s), Refills(s) 0, Pharmacy: [facility], 172, cm, 04/19/23 16:43:00 EDT, Height/Length Dosing, 75.8, kg, 04/19/23 16:43:00 EDT, Weight Dosing Start Date: 04/20/23 Stop Date: 04/25/23 Status: Ordered apixaban 5 mg oral tablet (9 sources) Factor Xa Inhibitor Start: 04-27-2021 take 1 tablet by mouth twice daily Eliquis 5 mg oral tablet 5 mg = 1 tab(s), Oral, BID, Blood Thinner Start Date: 04/27/21 Status: Ordered Artificial Tears (2 sources) Start: 06-17-2023 take 1 drop(s) into the eye(s) twice daily Artificial Tears 1 drop(s), OPTH, BID Dry eyes, Refill(s) 0 Start Date: 06/17/23 Status: Ordered atorvastatin 40 mg oral tablet (15 sources) HMG-CoA Reductase Inhibitor Start: 06-17-2023 take 1 tablet by mouth once daily atorvastatin 40 mg Tab 40 mg = 1 tab(s), Oral, Daily, Refills(s) 0 Start Date: 06/17/23 Status: Ordered Start: 04-27-2021 take 1 tablet by margie th once daily atorvastatin 40 mg Tab 40 mg = 1 tab(s), Oral, Daily, Refills(s) 0, High cholesterol Start Date: 04/27/21 Status: Ordered carbidopa 25 mg oral tablet (1 source) Aromatic Amino Acid Decarboxylation Inhibitor Start: 04-27-2021 take 1 mg by mouth three times daily carbidopa 25 mg oral tablet mg tab(s), Oral, TID, Refills(s) 0 Start Date: 04/27/21 Status: Ordered carbidopa 25 mg / levodopa 100 mg oral tablet (14 sources) Aromatic Amino Acid Decarboxylation Inhibitor, Aromatic Amino Acid Start: 06-17-2023 take 1 tablet by mouth three times daily carbidopa-levodop a 25 mg-100 mg Tab 1 tab(s), Oral, TID, Refill(s) 0 Start Date: 06/17/23 Status: Ordered Start: 01-05-2023 carbidopa-levo dopa 25-100 mg, Oral, TID, Refill(s) 0, Other (see comment) Start Date: 01/05/23 Status: Ordered Start: 01-05-2023 carbidopa-levo dopa 25-100 mg, Oral, TID, Refill(s) 0 Start Date: 01/05/23 Status: Ordered take 1 tablet by margie two times weekly Carbidopa-Levodopa 25-100 MG 1 tablet Orally Two times a Week for 30 day(s) Active take 1 tablet by margie th two times weekly Carbidopa-Levodopa 25-100 MG 1 tablet Orally Two times a Week for 30 day(s) Active take 1 tablet by margie th every eight hours Carbidopa-Levodopa 25-250 MG 1 tablet Orally Three times a day for 30 day(s) Active take 1 tablet by margie th every twelve hours Carbidopa-Levodopa 25-100 MG 1 tablet Orally 2 times a day for 30 day(s) Active take 1 tablet by margie every twelve hours Carbidopa-Levodopa 25-250 MG 1 tablet Orally 2 times a day for 30 day(s) Active dicyclomine hydrochloride 10 mg oral capsule (1 source) Anticholinergic Start: 05-31-2023 End: 06-10-2023 take 1 capsule by mouth four times daily dicyclomine 10 mg Cap 10 mg = 1 cap(s), Oral, QID, X 10 day(s), # 40 cap(s), Refills(s) 0 Start Date: 05/31/23 Stop Date: 06/10/23 Status: Ordered docusate sodium 100 mg oral tablet (2 sources) Start: 01-05-2023 take 100 mg by mouth once daily Dulcolax Stool Softener 100 mg, Oral, Daily, Refills(s) 0, Constipation Start Date: 01/05/23 Status: Ordered Fish Oils (15 sources) Start: 04-27-2021 Fish Oil Oral, Refill(s) 0, Prophylaxis Start Date: 04/27/21 Status: Ordered Start: 04-27-2021 Fish Oil Oral, Refill(s) 0 Start Date: 04/27/21 Status: Ordered take 1 capsule by mo [facility] once daily Fish Oil 1000 mg 1 capsule Orally Daily Active furosemide 20 mg oral tablet (12 sources) Loop Diuretic Start: 06-13-2023 take 1 tablet by mouth once daily in the morning furosemide 20 mg Tab See Instructions, TAKE ONE TABLET BY MOUTH ONCE DAILY IN THE MORNING, # 30 EA, Refills(s) 0, Pharmacy: [facility], 172, cm, 05/31/23 13:36:00 EST, Height/Length Dosing, 71.1, kg, 05/31/23 13:36:00 EST, Weight Dosing Start Date: 06/13/23 Status: Ordered Start: 05-18-2023 take 1 tablet by margie th once daily in the morning furosemide 20 mg Tab See Instructions, TAKE ONE TABLET BY MOUTH ONCE DAILY IN THE MORNING, # 30 EA, Refills(s) 0, Pharmacy: [facility], 172, cm, 05/02/23 14:54:00 EDT, Height/Length Dosing, 74, kg, 05/02/23 14:54:00 EDT, Weight Dosing Start Date: 05/18/23 Status: Ordered Start: 04-11-2023 take 1 tablet by margie th once daily in the morning furosemide 20 mg Tab See Instructions, TAKE ONE TABLET BY MOUTH ONCE DAILY IN THE MORNING, # 30 EA, Refills(s) 0, Pharmacy: [facility], 172, cm, 03/31/23 13:39:00 EDT, Height/Length Dosing, 78, kg, 03/31/23 13:39:00 EDT, Weight Dosing Start Date: 04/11/23 Status: Ordered Start: 03-14-2023 take 1 tablet by margie th once daily in the morning furosemide 20 mg Tab See Instructions, TAKE ONE TABLET BY MOUTH ONCE DAILY IN THE MORNING , # 30 EA, Refills(s) 0, Pharmacy: [facility], 172, cm, 01/11/23 10:25:00 EDT, Height/Length Dosing, 78, kg, 01/11/23 10:25:00 EDT, Weight Dosing Start Date: 03/14/23 Status: Ordered Start: 07-30-2022 take 1 tablet by margie th once daily in the morning furosemide 20 mg Tab See Instructions, TAKE ONE TABLET BY MOUTH ONCE DAILY IN THE MORNING , # 30 EA, Refills(s) 0, Pharmacy: [facility], 177.8, cm, 12/06/22 10:45:00 EDT, Height/Length Dosing, 79.3, kg, 12/06/22 10:45:00 EDT, Weight Dosing Start Date: 12/16/22 Status: Ordered Furosemide Activ e gemfibrozil 600 mg oral tablet (15 sources) Peroxisome Proliferator Receptor alpha Agonist Start: 05-18-2023 take 1 tablet by mouth once daily gemfibrozil 600 mg Tab 600 mg = 1 tab(s), Oral, Daily, # 90 tab(s), Refills(s) 1, Pharmacy: [facility], 172, cm, 05/02/23 14:54:00 EDT, Height/Length Dosing, 74, kg, 05/02/23 14:54:00 EDT, Weight Dosing Start Date: 05/18/23 Status: Ordered Start: 04-27-2021 take 1 tablet by margie th once daily gemfibrozil 600 mg Tab 600 mg = 1 tab(s), Oral, Daily, High cholesterol Start Date: 04/27/21 Status: Ordered HYDROmorphone (2 sources) Opioid Agonist Start: 06-17-2023 take 0.2 mg intravenously every four hours as needed for pain HYDROmorphone 0.2 mg = 0.2 mL, IV Push, q4hr, PRN Breakthrough Pain, Refills(s) 0 Start Date: 06/17/23 Status: Ordered Insulin, Aspart, Human (10 sources) Insulin Analog Start: 01-05-2023 insulin aspart SubCutaneous, TIDAC, Refills(s) 0, Blood glucose Start Date: 01/05/23 Status: Ordered Start: 01-05-2023 insulin aspart SubCutaneous, TIDAC, Refills(s) 0 Start Date: 01/05/23 Status: Ordered Start: 09-01-2022 NovoLOG FlexPe n 100 UNIT/ML 1:10 ac tid. Corrective scale 1:40 ac tid Subcutaneous As Directed for 30 day(s) (expect up to 30 units/day) Aug, Active Tresiba (10 sources) Insulin Analog Start: 01-05-2023 inject 16 [IU] by subcutaneous injection once daily Tresiba 16 unit(s), SubCutaneous, Daily, Refills(s) 0, Blood glucose Start Date: 01/05/23 Status: Ordered Start: 01-05-2023 inject 16 [IU] by jones bcutaneous injection once daily Tresiba 16 unit(s), SubCutaneous, Daily, Refills(s) 0 Start Date: 01/05/23 Status: Ordered Start: 09-01-2022 inject 20 [IU] by jones bcutaneous injection once daily in the morning Tresiba FlexTouch 100 UNIT/ML 20 units in am Subcutaneous as directed for 30 days (titrate up to max 30 units/day) Aug, Active inject 16 [IU] by jones bcutaneous injection once daily in the morning Tresiba FlexTouch 100 UNIT/ML 16 units in am Subcutaneous as directed for 30 days (titrate up to max 30 units/day) Active insulin isophane, human 100 unt/ml injectable suspension (4 sources) NovoLIN N ReliOn 100 UNIT/ML 20 units in am Subcutaneous as directed Active inject 25 [IU] by jones bcutaneous injection in the morning, then inject 11 [IU] by subcutaneous injection once daily at bedtime NovoLIN N ReliOn 100 UNIT/ML 25 units in am 11 units qhs Subcutaneous as directed Active insulin isophane / insulin, regular, human (1 source) Insulin Start: 04-27-2021 Novolin 70/30 SubCutaneous, Refill(s) 0 Start Date: 04/27/21 Status: Ordered insulin, regular, human 100 unt/ml injectable solution (4 sources) Insulin NovoLIN R ReliOn 100 UNIT/ML 1:10carb ratio ac tid Corrective scale 1:40 ac tid SQ As Directed Active NovoLIN R ReliOn 100 UNIT/ML 1:5 carb ratio ac tid Corrective scale 1:20 ac tid SQ As Directed Active melatonin 3 mg oral tablet (2 sources) Start: 06-17-2023 take 1 tablet by mouth at bedtime as needed for sleep melatonin 3 mg Tab 3 mg = 1 tab(s), Oral, Bedtime, PRN Sleep, Refills(s) 0 Start Date: 06/17/23 Status: Ordered metFORMIN hydrochloride 1000 mg oral tablet (15 sources) Biguanide Start: 06-13-2023 take 1 tablet by mouth once daily metformin 1000 mg Tab See Instructions, TAKE ONE TABLET BY MOUTH ONCE DAILY, # 30 EA, Refills(s) 0, Pharmacy: [facility], 172, cm, 05/31/23 13:36:00 EST, Height/Length Dosing, 71.1, kg, 05/31/23 13:36:00 EST, Weight Dosing Start Date: 06/13/23 Status: Ordered Start: 05-18-2023 take 1 tablet by margie th once daily metformin 1000 mg Tab See Instructions, TAKE ONE TABLET BY MOUTH DAILY, # 30 EA, Refills(s) 0, Pharmacy: [facility], 172, cm, 05/02/23 14:54:00 EDT, Height/Length Dosing, 74, kg, 05/02/23 14:54:00 EDT, Weight Dosing Start Date: 05/18/23 Status: Ordered Start: 04-12-2023 take 1 tablet by margie th once daily metformin 1000 mg Tab 1,000 mg, Oral, Daily, Pt needs an apt, # 30 tab(s), Refills(s) 0, Pharmacy: [facility], 172, cm, 03/31/23 13:39:00 EDT, Height/Length Dosing, 78, kg, 03/31/23 13:39:00 EDT, Weight Dosing Start Date: 04/12/23 Status: Ordered Start: 04-27-2021 take 1000 mg by mout h twice daily metformin 1,000 mg, Oral, BID, Refills(s) 0, Blood Thinner Start Date: 04/27/21 Status: Ordered take 1 tablet by margie th once daily metFORMIN HCl 1000 MG 1 tablet with meal Orally daily Active 24 hr metoprolol succinate 100 mg extended release oral tablet (12 sources) beta-Adrenergic Pedro Start: 05-23-2023 take 1 tablet by mouth once daily metoprolol 100 mg ER Tab 100 mg = 1 tab(s), Oral, Daily, # 90 tab(s), Refills(s) 0, Pharmacy: [facility], 172, cm, 05/02/23 14:54:00 EDT, Height/Length Dosing, 74, kg, 05/02/23 14:54:00 EDT, Weight Dosing Start Date: 05/23/23 Status: Ordered Start: 02-16-2023 take 1 tablet by margie th once daily metoprolol 100 mg ER Tab 100 mg = 1 tab(s), Oral, Daily, # 90 tab(s), Refills(s) 0, Pharmacy: [facility], 172, cm, 01/11/23 10:25:00 EDT, Height/Length Dosing, 78, kg, 01/11/23 10:25:00 EDT, Weight Dosing Start Date: 02/16/23 Status: Ordered Start: 12-16-2022 take 1 tablet by margie th once daily metoprolol 100 mg ER Tab 100 mg = 1 tab(s), Oral, Daily, # 90 tab(s), Refills(s) 0, Pharmacy: [facility], 177.8, cm, 12/06/22 10:45:00 EDT, Height/Length Dosing, 79.3, kg, 12/06/22 10:45:00 EDT, Weight Dosing Start Date: 12/16/22 Status: Ordered Start: 07-30-2022 metoprolol 100 mg ER Tab 60 tab(s), Refills(s) 0 Start Date: 07/30/22 Status: Ordered take 1 tablet by margie th every twelve hours Metoprolol Tartrate 100 MG 1 tablet with food Orally Twice a day Active Metoprolol Tartr ate Active OneTouch Ultra 2 (6 sources) GamisfactionTouch Ultra 2 To test blood sugar SQ TID for 90 days E11.65 Active OneTouch Ultra 2 w/Device (6 sources) Start: 12-18-2019 OneTouch Ultra 2 w/Device as directed In vitro Daily for 365 days Dec, Active oxyCODONE hydrochloride 10 mg oral tablet (2 sources) Opioid Agonist Start: 06-17-2023 oxyCODONE 10 mg ER Tab 10 mg = 1 tab(s), Oral, q4hr, PRN Pain 8-10, Refills(s) 0 Start Date: 06/17/23 Status: Ordered potassium bicarbonate 25 meq effervescent oral tablet (2 sources) take 2 tablets by mouth every twenty-four hours Effer-K 25 MEQ 2 tablets Orally Once a day Active Potassium Chloride (12 sources) Start: 06-13-2023 take 1 tablet by mouth once daily Potassium Chloride (Brt-Vjrq-Qad 10) 10 mEq oral tablet, extended release See Instructions, TAKE ONE TABLET BY MOUTH ONCE DAILY, # 30 EA, Refills(s) 0, Pharmacy: [facility], 172, cm, 05/31/23 13:36:00 EST, Height/Length Dosing, 71.1, kg, 05/31/23 13:36:00 EST, Weight Dosing Start Date: 06/13/23 Status: Ordered Start: 05-18-2023 take 1 tablet by margie th once daily Potassium Chloride (Kdo-Vtiy-Wrf 10) 10 mEq oral tablet, extended release See Instructions, TAKE ONE TABLET BY MOUTH ONCE DAILY, # 30 EA, Refills(s) 0, Pharmacy: [facility], 172, cm, 05/02/23 14:54:00 EDT, Height/Length Dosing, 74, kg, 05/02/23 14:54:00 EDT, Weight Dosing Start Date: 05/18/23 Status: Ordered Start: 04-11-2023 take 1 tablet by margie th once daily Potassium Chloride (Gqh-Fobs-Tfn 10) 10 mEq oral tablet, extended release See Instructions, TAKE ONE TABLET BY MOUTH ONCE DAILY, # 30 EA, Refills(s) 0, Pharmacy: [facility], 172, cm, 03/31/23 13:39:00 EDT, Height/Length Dosing, 78, kg, 03/31/23 13:39:00 EDT, Weight Dosing Start Date: 04/11/23 Status: Ordered Start: 03-14-2023 take 1 tablet by margie th once daily Potassium Chloride (Ieo-Gbqj-Tjd 10) 10 mEq oral tablet, extended release See Instructions, TAKE ONE TABLET BY MOUTH ONCE DAILY , # 30 EA, Refills(s) 0, Pharmacy: [facility], 172, cm, 01/11/23 10:25:00 EDT, Height/Length Dosing, 78, kg, 01/11/23 10:25:00 EDT, Weight Dosing Start Date: 03/14/23 Status: Ordered Start: 12-16-2022 take 1 tablet by margie th once daily Potassium Chloride (Mbv-Jyvv-Znp 10) 10 mEq oral tablet, extended release See Instructions, TAKE ONE TABLET BY MOUTH ONCE DAILY , # 30 EA, Refills(s) 0, Pharmacy: [facility], 177.8, cm, 12/06/22 10:45:00 EDT, Height/Length Dosing, 79.3, kg, 12/06/22 10:45:00 EDT, Weight Dosing Start Date: 12/16/22 Status: Ordered Start: 07-30-2022 Potassium Chlo ride (Utu-Rqdu-Neb 10) 10 mEq oral tablet, extended release Refills(s) 0 Start Date: 07/30/22 Status: Ordered take 1 tablet by margie th every twenty-four hours Potassium Chloride ER 10 MEQ 1 tablet with food Orally Once a day Active Potassium Chlori de Active tamsulosin hydrochloride 0.4 mg oral capsule (15 sources) alpha-Adrenergic Pedro Start: 05-23-2023 End: 06-16-2023 take 1 capsule by mouth once daily Flomax 0.4 mg Cap 0.4 mg = 1 cap(s), Oral, Daily, # 90 cap(s), Refills(s) 3, Pharmacy: [facility], 172, cm, 05/02/23 14:54:00 EDT, Height/Length Dosing, 74, kg, 05/02/23 14:54:00 EDT, Weight Dosing Start Date: 05/23/23 Status: Ordered Start: 04-14-2022 take 1 capsule by mo [facility] once daily Flomax 0.4 mg Cap 0.4 mg = 1 cap(s), Oral, Daily, # 90 cap(s), Refills(s) 3, Pharmacy: [facility], 178, cm, 07/27/21 15:05:00 EST, Height/Length Dosing, 81.8, kg, 07/27/21 15:05:00 EST, Weight Dosing Start Date: 04/14/22 Status: Ordered vitamin b12 1 mg oral tablet (3 sources) Vitamin B12 take 1 tablet by margie th every twenty-four hours Vitamin B-12 1000 MCG 1 tablet Orally Once a day Active Completed/Discontinued Medications Medication Drug Class(es) Dates Sig (Normalized) Sig (Original) aspirin 81 mg chewable tablet (4 sources) Platelet Aggregation Inhibitor, Nonsteroidal Anti-inflammatory Drug take 1 tablet by mouth every twenty-four hours Aspirin 81 MG 1 tablet Orally Once a day Not-Taking atenolol 25 mg oral tablet (4 sources) beta-Adrenergic Pedro Atenolol 25 MG Oral for 30 Not-Taking Insulin Lispro (3 sources) Insulin Analog Start: 06-10-2023 End: 06-10-2023 Insulin Lispro Sliding Scale 0-10 Unit(s), Injection-Insulin , SubCutaneous, Start date 06/10/23 6:00:00 AM EST Start Date: 06/10/23 Stop Date: 06/10/23 Status: Completed Start: 06-10-2023 End: 06-10-2023 Insulin Lispro Sliding Scale 0-10 Unit(s), Injection-Insulin, SubCutaneous, Start date 06/10/23 12:00:00 AM EST Start Date: 06/10/23 Stop Date: 06/10/23 Status: Completed Start: 06-08-2023 End: 06-08-2023 Insulin Lispro Sliding Scale 0-10 Unit(s), Injection-Insulin, SubCutaneous, Start date 06/08/23 6:00:00 PM EST Start Date: 06/08/23 Stop Date: 06/08/23 Status: Completed lisinopril 10 mg oral tablet (4 sources) Angiotensin Converting Enzyme Inhibitor take 1 tablet by mouth every twenty-four hours Lisinopril 10 MG 1 tablet Orally Once a day Not-Taking metoprolol 1 mg/mL Inj (2 sources) Start: End: metoprolol 1 mg/mL Inj 5 mg = 5 mL, Injection, IV Push, Start date 06/16/23 6:00:00 PM EST, 06/04/23 6:00:00 EST Start Date: 06/16/23 Stop Date: 06/16/23 Status: Completed Start: 06-16-2023 End: 06-16-2023 metoprolol 1 mg/mL Inj 5 mg = 5 mL, Injection, IV Push, Start date 06/16/23 12:00:00 PM EST, 06/04/23 6:00:00 EST Start Date: 06/16/23 Stop Date: 06/16/23 Status: Completed One Touch Ultra Mini Glucome ter 1 meter (4 sources) Start: 12-18-2019 One Touch Ultr a Mini Glucometer 1 meter one touch ultra 2 SQ as directed for 365 days Dec, Not-Taking Start: 12-18-2019 One Touch Ultr a Mini Glucometer 1 meter one touch ultra 2 SQ as directed for 365 days Dec, Active sotalol hydrochloride 80 mg oral tablet (4 sources) Antiarrhythmic take 0.5 tablet by mouth every twelve hours Sotalol HCl 80 MG 0.5 tablet Orally every 12 hrs for 30 day(s) Not-Taking Vitamin B-12 1000 MCG (1 source) take 1 tablet by mouth once daily Vitamin B-12 1000 MCG 1 tablet Orally Once a day Not-Taking Problems Active Problems Problem Classification Problem Date Documented Date Episodic/Chronic Abdominal pain (5 sources) Lower abdominal pain; Translations: [Lower abdominal pain, unspecified] Onset: 3 Episodic Acute and unspecified renal failure (1 source) Acute renal failure syndrome; Translations: [Acute kidney failure, unspecified] Onset: 3 Episodic Administrative/social admission (6 sources) Dietary counseling and surveillance; Translations: [Dietary counseling and surveillance Z71.3] Onset: 1 Resolved: 2 Episodic Allergic reactions (1 source) Allergy status to sulfonamides status; Translations: [ALLERGY STATUS TO SULFONAMIDES STATUS] Onset: 9 Episodic Anal and rectal conditions (2 sources) Anorectal disorder; Translations: [Other specified diseases of anus and rectum] Onset: 3 Episodic Calculus of urinary tract (20 sources) Kidney stone; Translations: [Calculus of kidney] Onset: 3 Episodic Cardiac dysrhythmias (20 sources) Unspecified atrial fibrillation; Translations: [Unspecified atrial flutter] Onset: 9 Chronic Cataract (4 sources) Age-related nuclear cataract, left eye; Translations: [AGE-REL NUCLEAR CATARACT LT EYE] Onset: 3 Chronic Chronic kidney disease (10 sources) Chronic kidney disease, stage 3 (moderate); Translations: [Chronic kidney disease stage 3] Onset: 9 11-17-2022 Chronic Congestive heart failure; nonhypertensive (16 sources) Acute combined systolic (congestive) and diastolic (congestive) heart failure; Translations: [Heart failure, unspecified] Onset: 2 Chronic Coronary atherosclerosis and other heart disease (1 source) Atherosclerotic heart disease of [place] coronary artery without angina pectoris; Translations: [ATHSCL HEART DISEASE OF [place] CORONARY ARTERY W/O ANG PCTRS] Onset: 9 Chronic Deficiency and other anemia (1 source) Iron deficiency anemia secondary to blood loss (chronic); Translations: [IRON DEFIC ANEMIA SEC BLD LOSS CHRN] Onset: 2 Chronic Deficiency and other anemia (9 sources) Anemia; Translations: [Anemia, unspecified] Onset: 3 11-17-2022 Episodic Diabetes mellitus with complications (20 sources) Type 2 diabetes mellitus with diabetic chronic kidney disease; Translations: [Type II diabetes mellitus uncontrolled] Onset: 9 Resolved: 2 Chronic Diabetes mellitus without complication (16 sources) Type 2 diabetes mellitus; Translations: [Type 2 diabetes mellitus without complications] Onset: 3 04-24-2021 Chronic Diabetes mellitus without complication (1 source) Diabetes mellitus without complication; Translations: [Type 2 diabetes mellitus with diabetic chronic kidney disease] Onset: 3 Disorders of lipid metabolism (20 sources) Hyperlipidemia, unspecified; Translations: [Hypertriglyceridemia] Onset: 9 Resolved: 2 Chronic Essential hypertension (20 sources) Essential hypertension; Translations: [Essential (primary) hypertension] Onset: 1 Resolved: 2 Chronic Fluid and electrolyte disorders (2 sources) Hypokalemia; Translations: [Hypokalemia] Onset: 3 Episodic Gastrointestinal hemorrhage (13 sources) Melena; Translations: [Hemorrhage of rectum and anus] Onset: 3 Episodic Genitourinary symptoms and ill-defined conditions (20 sources) Albuminuria ; Translations: [Proteinuria, unspecified] 04-27-2021 Episodic Hyperplasia of prostate (16 sources) Benign prostatic hypertrophy without outflow obstruction; Translations: [Benign prostatic hyperplasia without lower urinary tract symptoms] Onset: 3 Chronic Hypertension with complications and secondary hypertension (1 source) Hypertensive chronic kidney disease with stage 1 through stage 4 chronic kidney disease, or unspecified chronic kidney disease; Translations: [HYPERTENSIVE CHRONIC KIDNEY DISEASE W STG 1-4/UNSP CHR KDNY] Onset: 9 Chronic Nonspecific chest pain (1 source) Chest pain, unspecified; Translations: [CHEST PAIN, UNSPECIFIED] Onset: 9 Episodic Nutritional deficiencies (16 sources) Vitamin D deficiency; Translations: [Vitamin D deficiency, unspecified] Onset: 1 Resolved: 2 Chronic Nutritional deficiencies (7 sources) Deficiency of other specified B group vitamins; Translations: [Vitamin B 12 deficiency E53.8] Onset: 1 Resolved: 2 Episodic Other aftercare (1 source) termite helper (current) use of anticoagulants; Translations: [CLEANER FURNITURE (CURRENT) USE OF ANTICOAGULANTS] Onset: 9 Episodic Other aftercare (1 source) residential (current) use of aspirin; Translations: [CORRECTION (CURRENT) USE OF ASPIRIN] Onset: 9 Episodic Other aftercare (1 source) termite helper (current) use of antithrombotics/antipla telets; Translations: [CLEANER FURNITURE (CURRENT) USE OF ANTITHROMBOTICS/ANTIPLA TELETS] Onset: 9 Episodic Other aftercare (7 sources) Long-term current use of insulin; Translations: [termite helper (current) use of insulin] Onset: 3 Episodic Other connective tissue disease (1 source) Presence of right artificial shoulder joint; Translations: [PRESENCE RT ARTIFICIAL SHOULDER JNT] Onset: 3 Chronic Other connective tissue disease (1 source) Presence of unspecified artificial hip joint; Translations: [PRESENCE UNS ARTIFICIAL HIP JOINT] Onset: 3 Chronic Other endocrine disorders (6 sources) 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; Translations: [Other hypoglycemia] Chronic Other injuries and conditions due to external causes (8 sources) H/O: hip fracture 12-06-2022 Episodic Other lower respiratory disease (1 source) Shortness of breath; Translations: [SHORTNESS OF BREATH] Onset: 9 Episodic Other nervous system disorders (1 source) Other abnormalities of gait and mobility; Translations: [OTHER ABNORMALITIES GAIT AND MOBILITY] Onset: 3 Episodic Other nutritional; endocrine; and metabolic disorders (6 sources) Obese class II; Translations: [Body mass index (BMI) 38.0-38.9, adult] Chronic Other nutritional; endocrine; and metabolic disorders (2 sources) Hypocalcemia; Translations: [HYPOCALCEMIA] Onset: 2 Chronic Other nutritional; endocrine; and metabolic disorders (8 sources) Hyperbilirubinemia 12-07-2022 Chronic Other nutritional; endocrine; and metabolic disorders (8 sources) Hypocalcemia 11-17-2022 Chronic Other nutritional; endocrine; and metabolic disorders (15 sources) Overweight; Translations: [Overweight] Onset: 3 Episodic Other nutritional; endocrine; and metabolic disorders (9 sources) Overweight in adulthood with body mass index of 25 or more but less than 30; Translations: [Body mass index (BMI) 26.0-26.9, adult] Onset: 3 Episodic Parkinson`s disease (16 sources) Parkinson's disease; Translations: [Parkinson's disease] Onset: 2 Chronic Residual codes; unclassified (3 sources) Body mass index (BMI) 24.0-24.9, adult Onset: 2 Resolved: 2 Episodic Screening and history of mental health and substance abuse codes (1 source) Personal history of nicotine dependence; Translations: [PERSONAL HISTORY OF NICOTINE DEPENDENCE] Onset: 9 Episodic Unclassified (2 sources) ABN EKG/ CATH Onset: 9 Unclassified (9 sources) Finding of sensation of bladder 04-27-2021 Unclassified (1 source) CONTACT W/AND (SUSP) EXPOS COVID-19; Translations: [CONTACT W/AND (SUSP) EXPOS COVID-19] Onset: 2 Unclassified (2 sources) A FLUTTER Onset: 2 Past or Other Problems Problem Classification Problem Date Documented Da te Episodic/Chronic Malaise and fatigue (1 source) Other fatigue; Translations: [OTHER FATIGUE] Onset: 12-23-2021 Episodic Other aftercare (2 sources) termite helper (current) use of insulin; Translations: [CORRECTION (CURRENT) USE OF INSULIN] Onset: 09-22-2018 Episodic Other aftercare (1 source) residential (current) use of oral hypoglycemic drugs; Translations: [CLEANER FURNITURE USE ORAL HYPOGLYCEMIC DX] Onset: 08-20-2022 Episodic Other connective tissue disease (2 sources) Repeated falls; Translations: [Repeated falls] Onset: 06-16-2022 Episodic Other eye disorders (1 source) Floppy iris syndrome; 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] Onset: 08-20-2022 Episodic Other nutritional; endocrine; and metabolic disorders (1 source) Body mass index (BMI) 26.0-26.9, adult; Translations: [BMI 26.0-26.9,adult Z68.26] Onset: 04-14-2021 Resolved: 04-14-2021 Episodic Other nutritional; endocrine; and metabolic disorders (1 source) Body mass index (BMI) 25.0-25.9, adult Onset: 08-03-2021 Resolved: 08-03-2021 Episodic Residual codes; unclassified (1 source) Body mass index (BMI) 23.0-23.9, adult Onset: 03-29-2022 Resolved: 03-29-2022 Episodic Results Test Name Value Interpretation Reference Range Facil ity Coding Queryon 06-30-2023 Coding Query Normal [facility] RAD - MISCon 06-27-2023 RAD - MISC [id number] IFF Normal [facility] Insurance Correspondence Off iceon 06-24-2023 Insurance Correspondence Office [id number] Normal [facility] Consultation Noteon 06-22-20 Consultation Note Normal [facility] Comment on above: Result Comment: Elec tronically Signed By: Xiao Laguerre PA-C\.br\Date and Time Signed: 06/03/23 11:57 EST\.br\Electronically Co-Signed By: Ganga Carrillo MD\.br\Date and Time Co- Signed: 06/22/23 16:06 EST KRAS Mutation Analysis, [facility] n 06-21-2023 Amino acid change Molgen Nom (Bld/Tiss) p.Ryp70Xqb Invalid Interpretation Code [facility] Comment on above: Performed By: #### 1 [id number] ####[facility] [address] [place] [address] DNA change Molgen Nom (Bld/Tiss) c.35G>A Invalid Interpretation Code [facility] Comment on above: Performed By: #### 1 [id number] ####[facility] [address] [place] [address] KRAS gene mutations tested for [employer] Nom (Bld/Tiss) Comment Invalid Interpretation Code [facility] Comment on above: Result Comment: The therascreen KRAS RGQ PCR Kit is a real- time qualitative PCRassay used on the [employer] (PEX Card) instrument for thedetection of 7 somatic mutations in the human KRAS oncogene usingDNA extracted from formalin fixed paraffin embedded (FFPE) colorectalcancer (CRC) tissue and non-small cell lung cancer (NSCLC) tissue.The therascreen KRAS RGQ PCR Kit is intended to aid in theidentification of CRC patients for treatment with Erbitux(R)(cetuximab) or with Vectibix(R) (panitumumab) based on a KRAS NoMutation Detected test result. The therascreen KRAS RGQ PCR Kit isalso intended to aid in the identification of NSCLC patients fortreatment with LUMAKRASTM (sotorasib) based on a KRAS G12C MutationDetected result.Mutations in the KRAS oncogene are frequently found in human cancers(1-3). The presence of these mutations correlates with a lack ofresponse to certain EGFR inhibitor cancer therapies in patients withmetastatic colorectal cancer (mCRC) (4, 5-13). Such mutations in theKRAS oncogene are present in around 40% of mCRC cases (14). The MWTRL20D mutation specifically results in the expression of a form of theKRAS protein in which the Glycine residue at amino acid position 12is replaced by a Cysteine residue. In NSCLC patients, this indicatespotential eligibility for treatment with the targeted KRas inhibitorLUMAKRASTM (sotorasib). This mutation is estimated to be present inaround 13% of NSCLC cases. The therascreen KRAS RGQ PCR Kit enablesthe detection of seven mutations in codons 12 and 13 of the KRASoncogene against a background of wildtype genomic DNA (below). Basedon data in the COSMIC database (2011 v59), the seven mutationsdetected by the KRAS Kit account for >97% of all reported KRASmutations in CRC patients.Samples with results reported as no mutations detected may harborKRAS mutations that are not detected by the assay.Detection of mutation is dependent on sample integrity and the amountof amplifiable DNA present in the specimen. The methods used in thisassay are highly selective and, depending on the total amount of DNApresent, can detect approximately 1-5% of mutant in a background ofwild-type genomic DNA.Mutations: c.35G>A (p.Lpn26Qmo), c.35G>C (p.Tdj89Vwq),c.35G>T (p.Lhn06Wxl), c.34G>A (p.Mzu33Dxn),c.34G>C (p.Vns08Nmt), c.34G>T (p.Trv31Hid),c.38G>A (p.Juo61Ide)Methodology:DNA is isolated from FFPE specimen. DNA analysis of the mutations inthe KRAS gene is performed using ARMS and Scorpions technology.References:1. Qiagen therascreen KRAS RGQ PCR Kit Instructions for Use(Handbook),12/2020.2. Teodoro Vang et al.(2007) Clinical relevance of KRAS mutationdetection in metastatic colorectal cancer treated by Cetuximab pluschemotherapy. [place] Journal of Cancer 96:1166.3. Jana Pereira et al. (2012) Addition of Cetuximab to chemotherapy asfirst-line treatment for KRAS wild-type metastatic colorectalcancer: pooled analysis of the CRYSTAL and OPUS randomized clinicaltrials. Eur J Cancer 48(10): 5925-9538.4. Grzegorz Wilson et al. (2012) Association of KRAS G13D tumor mutationwith outcome in patients with metastatic colorectal cancer treatedwith first-line chemotherapy with or without cetuximab.J Clin Oncol. January 09 (Epub ahead of print)5. Nessa Garrett et al (2009) Evolving role of cetuximab in the treatmentof colorectal cancer. Cancer Manag Res. 23(1):79-88. Performed By: #### 1 [id number] ####[facility] [address] [place] [address] KRAS gene targeted mutation analysis [facility] Nom (Bld/Tiss) Comment Invalid Interpretation Code [facility] Comment on above: Result Comment: K-ra s mutation was identified in the provided specimen of thisindividual. Results should be interpreted in conjunction withclinical and other laboratory findings for the most accurateinterpretation. Performed By: #### 1 [id number] ####[facility] [address] [place] [address] director sales support name Nom (Provider) Comment Invalid Interpretation Code [facility] Comment on above: Result Comment: Karina Campbell, PhD, FACMGDirector, Molecular OncologyLabco Center for Molecular Biology and PathologyPagosa [place], [place] [phone] therascreen KRAS RGQ PCR Kit is a real-time qualitative PCRassay used on the [employer] (PEX Card) instrument for thedetection of 7 somatic mutations in the human KRAS oncogeneusing DNA extracted from formalin fixed paraffin embedded(FFPE) colorectal cancer (CRC) tissue and non-small cell lungcancer (NSCLC) tissue. The therascreen KRAS RGQ PCR Kit isintended to aid in the identification of CRC patients fortreatment with Erbitux(R) (cetuximab) or with Vectibix(R)(panitumumab) based on a KRAS No Mutation Detected test result.The therascreen KRAS RGQ PCR Kit is also intended to aid in theidentification of NSCLC patients for treatment with LUMAKRASTM(sotorasib) or KRAZATI(R) (adagrasib) based on a KRAS D50SKdxnurkl Detected result.Mutations in the KRAS oncogene are frequently found in humancancers (1-3). The presence of these mutations correlates witha lack of response to certain EGFR inhibitor cancer therapiesin patients with metastatic colorectal cancer (mCRC). Suchmutations in the KRAS oncogene are present in around 40% ofmCRC cases. The KRAS G12C mutation specifically results in theexpression of a form of the KRAS protein in which the Glycineresidue at amino acid position 12 is replaced by a Cysteineresidue. In NSCLC patients, this indicates potentialeligibility for treatment with the targeted KRAS inhibitorLUMAKRASTM (sotorasib). This mutation is estimated to bepresent in around 13% of NSCLC cases. The therascreen KRAS RGQPCR Kit enables the detection of seven mutations in codons 12and 13 of the KRAS oncogene against a background of wildtypegenomic DNA (below). Based on data in the COSMIC database(2011 v59), the seven mutations detected by the KRAS Kitaccount for >97% of all reported KRAS mutations in CRCpatients.Samples with results reported as no mutations detected [place] KRAS mutations that are not detected by the assay.Detection of mutation is dependent on sample integrity and theamount of amplifiable DNA present in the specimen. The methodsused in this assay are highly selective and, depending on thetotal amount of DNA present, can detect approximately 1-5% ofmutant in a background of wild-type genomic DNA.Mutations: c.35G>A (p.Vcr63Ycg), c.35G>C (p.Drz04Pue),c.35G>T (p.Qym26Gxr), c.34G>A (p.Caa15Zcy),c.34G>C (p.Ksc94Lqv), c.34G>T (p.Hig20Gtd),c.38G>A (p.Amd85Vqw)DNA is isolated from FFPE specimen. DNA analysis of the mutationsin the KRAS gene is performed using ARMS and ScorpionstechnologyReferences:1. Jana Pereira et al. (2012) Addition of Cetuximab tochemotherapy as first-line treatment for KRAS wild- typecolorectal cancer: pooled analysis of the of the CRYSTAL andOPUS randomized clinical trials. Eur J Cancer 48(10):1466- 1475.2. Teodoro Vang et al.(2007) Clinical relevance of KRAS mutationdetection in metastatic colorectal cancer treated byCetuximab plus chemotherapy. [place] Journal of Btqrfa27:1166.3. Qiagen therascreen KRAS RGQ PCR Kit Instructions for Use(Handbook), 07/2022.4. Schmike G et al (2009) Evolving role of cetuximab in thetreatment of colorectal cancer. Cancer Manag Res.23(1):79-88.5. Grzegorz Wilson et al. (2012) Association of KRAS G13D tumormutation with outcome in patients with metastatic colorectalcancer treated with first-line chemotherapy with or withoutcetuximab. J Clin Oncol. January 09 (Epub ahead of print)Performed at: [facility] [id number] [facility] [place], [place] [id number] [facility] Jalil ChaveznPerformed at: [place] [facility] [id number] [facility], [place] [id number] [facility] Jalil Marquez Performed By: #### 1 [id number] ####[facility] [address] [place] [address] Specimen preparation Nom (Unsp spec) Completed Invalid Interpretation Code [facility] Comment on above: Performed By: #### 1 [id number] ####[facility] [address] [place] [address] Unique bar code number Nom (Current sample) [ID] Comment: Invalid Interpretation Code [facility]as[facility] Comment on above: Result Comment: 162-[id number] Performed By: #### 1 [id number] ####[facility] [place] [address] Discharge Instructionson Discharge Instructions [id number] Normal [facility] EMS Documentationon 06-18-20 23 EMS Documentation [id number] Normal [facility] Transfer Documentson 023 Transfer Documents [id number] Normal [facility] Inpatient Clinical Summaryon 06-17-2023 Inpatient Clinical Summary Normal [facility] Inpatient Patient Summaryon 06-17-2023 Inpatient Patient Summary Normal [address] [place] [address]- \.br\ New Follow Up Appointments after Discharge\.br\ Follow Up with Paramedicine When: \.br\ Comments:\.br\ Paramedicine will contact you for a home visit once a week x4 weeks. Thank you.\.br\ Follow Up with Yasir Morocho When: Within 1 to 2 weeks\.br\ Comments:\.br\ Please follow up with your PCP if needed. Thank you.\.br\ Where:\.br\ [address]\.br\ [place] [address]-\.br\ Business (2)\.br\ Medications\.br\ What How Much When Why Instructions Next Dose\.br\ New acetaminophen (acetaminophen 160 mg/ 5 mL oral liquid) 20 Milliliter By Mouth Every 6 hours as needed for Pain\.br\ New albuterol (albuterol 0.083% Inh Lizbeth 3 mL) 3 Milliliter Nebulized inhalation (aerosol) Every 4 hours as needed for Shortness of breath or wheezing\.br\ New HYDROmorphone 0.2 Milligram IV Push Every 4 hours as needed for Breakthrough Pain\.br\ New melatonin (melatonin 3 mg Tab) 1 Tablets By Mouth At bedtime as needed for Sleep Rectal mass CHRIS (acute kidney injury) Hypokalemia Atrial fibrillation Anemia\.br\ New ocular lubricant (Artificial Tears) 1 Drops Ophthalmic 2 times a day as needed for Dry eyes\.br\ New oxycodone (oxyCODONE 10 mg ER Tab) 1 Tablets By Mouth Every 4 hours as needed for Pain 8-10\.br\ Changed atorvastatin (atorvastatin 40 mg Tab) 1 Tablets By Mouth Every day\.br\ Changed carbidopa-levodopa (carbidopa-levodopa 25 mg-100 mg Tab) 1 Tablets By Mouth 3 times a day\.br\ Changed metformin (metformin 1000 mg Tab) See instructions TAKE ONE TABLET BY MOUTH ONCE DAILY \.br\ Unchanged furosemide (furosemide 20 mg Tab) See instructions TAKE ONE TABLET BY MOUTH ONCE DAILY IN THE MORNING \.br\ Unchanged gemfibrozil (gemfibrozil 600 mg Tab) 1 Tablets By Mouth Every day\.br\ Unchanged insulin aspart Subcutaneous Before meals\.br\ Unchanged insulin degludec (Tresiba) 16 Units Subcutaneous Every day\.br\ Unchanged metoprolol (metoprolol 100 mg ER Tab) 1 Tablets By Mouth Every day\.br\ Unchanged omega-3 polyunsaturated fatty acids (Fish Oil) By Mouth\.br\ Unchanged potassium chloride (Potassium Chloride (Dqe-Zrtm-Zfg 10) 10 mEq oral tablet, extended release) See instructions TAKE ONE TABLET BY MOUTH ONCE DAILY \.br\ Unchanged tamsulosin (Flomax 0.4 mg Cap) 1 Capsules By Mouth Every day\.br\ Test Results\.br\ CBC \.br\ BMP \.br\ WBC: 13.6 E9/L High (06/15/23 06:05:00)\.br\ Glucose Lvl: 153 mg/dL (06/15/23 06:06:00)\.br\ RBC: 2.4 E12/L Low (06/15/23 06:05:00)\.br\ BUN: 9 mg/dL (06/15/23 06:06:00)\.br\ HGB: 6.9 gm/dL Critical (06/15/23 06:05:00)\.br\ Creatinine: 0.7 mg/dL (06/15/23 06:06:00)\.br\ Hct: 19.9 % Low (06/15/23 06:05:00)\.br\ BUN/Creat Ratio: 13 (06/15/23 06:06:00)\.br\ MCV: 84 fL (06/15/23 06:05:00)\.br\ Sodium Lvl: 137 mmol/L (06/15/23 06:06:00)\.br\ MCH: 29.2 pg (06/15/23 06:05:00)\.br\ Potassium Lvl: 2.9 mmol/L Low (06/15/23 06:06:00)\.br\ MCHC: 34.7 gm/dL (06/15/23 06:05:00)\.br\ Chloride: 108 mmol/L (06/15/23 06:06:00)\.br\ RDW: 14.7 % High (06/15/23 06:05:00)\.br\ CO2: 28 mmol/L (06/15/23 06:06:00)\.br\ Platelet: 330 E9/L (06/15/23 06:05:00)\.br\ AGAP: 4 mEq/L Low (06/15/23 06:06:00)\.br\ MPV: 6.1 fL Low (06/15/23 06:05:00)\.br\ Calcium Lvl: 7.1 mg/dL Low (06/15/23 06:06:00)\.br\ Allergies\.br\ EPINEPHrine (Racing heart beat)\.br\ allopurinol (Rash)\.br\ codeine (Unknown)\.br\ sulfa drugs (Unknown)\.br\ Problems\.br\ Ongoing - Any problem that you are currently receiving treatment for.\.br\ Anemia\.br\ Atrial fibrillation\.br\ BMI 26.0-26.9,adult\.br\ BPH (benign prostatic hyperplasia)\.br\ BRBPR (bright red blood per rectum)\.br\ CHF (congestive heart failure)\.br\ Chronic kidney disease (CKD), stage III (moderate)\.br\ Feeling of incomplete bladder emptying\.br\ Hx of fracture of hip\.br\ Hyperbilirubinemia\.br\ Hypercholesterolemia\.br\ Hypertension\.br\ Hypocalcemia\.br\ Kidney stone\.br\ Lower abdominal pain\.br\ Nephrolithiasis, uric acid\.br\ Nocturia\.br\ Overweight\.br\ Parkinson's disease\.br\ Poor urinary stream\.br\ Type 2 diabetes mellitus with diabetic dermatitis, with long-term current use of insulin\.br\ Vitamin D deficiency\.br\ Devices Implanted/Removed This Visit\.br\ Notice: You have devices implanted this visit that may not be MRI compatible.\.br\ Implanted\.br\ COLON RESECTION\.br\ Ureter L\.br\ STENT URETERAL 6FR LENGTH 22-32CM [[id number]] 06/04/2023, Unknown - LEIDA: {[id number]{[id number]\.br\ Education Materials\.br\ Acute Kidney Injury, Adult\.br\ \.br\ Acute kidney injury is a sudden worsening of kidney function. The kidneys are a pair of organs that do many important jobs in the body, including:\.br\ ? \.br\ Make urine.\.br\ ? \.br\ Make hormones.\.br\ ? \.br\ Keep the right amount of fluids and chemicals in the body.\.br\ This condition ranges from mild to severe. Over time, it may develop into long-lasting (chronic) kidney disease. Finding it and treating it early may keep it from becoming a long-lasting disease.\.br\ What are the causes?\.br\ Common causes of this condition include:\.br\ ? \.br\ A problem with blood flow to the kidneys. This may be caused by:\.br\ ? \.br\ Low blood pressure or shock.\.br\ ? \.br\ Blood loss.\.br\ ? \.br\ Heart and blood vessel disease.\.br\ ? \.br\ Severe lo.\.br\ ? \.br\ Liver disease.\.br\ ? \.br\ Direct damage to the kidneys. This may be caused by:\.br\ ? \.br\ Certain medicines.\.br\ ? \.br\ A kidney infection.\.br\ ? \.br\ Poisoning.\.br\ ? \.br\ Being around or in contact with toxic substances.\.br\ ? \.br\ A wound from surgery.\.br\ ? \.br\ A hard, direct hit to the kidney area.\.br\ ? \.br\ A sudden block in urine flow. This may be caused by:\.br\ ? \.br\ Cancer.\.br\ ? \.br\ Kidney stones.\.br\ ? \.br\ An enlarged prostate.\.br\ What increases the risk?\.br\ ? \.br\ Being older than age 65.\.br\ ? \.br\ Being female.\.br\ ? \.br\ Being in the hospital. This is especially true if you are very sick.\.br\ ? \.br\ Having certain conditions, such as:\.br\ ? \.br\ Long-lasting kidney or liver disease.\.br\ ? \.br\ Diabetes.\.br\ ? \.br\ Heart disease and heart failure.\.br\ ? \.br\ Lung disease.\.br\ What are the signs or symptoms?\.br\ This condition may not cause symptoms until it becomes severe. Symptoms can include:\.br\ ? \.br\ Feeling very tired or having trouble staying awake.\.br\ ? \.br\ Nausea or vomiting.\.br\ ? \.br\ Swelling (edema) of the face, legs, ankles, or feet.\.br\ ? \.br\ Pain in the belly or pain along the side of your stomach (flank).\.br\ ? \.br\ Urine changes, such as:\.br\ ? \.br\ Making little or no urine.\.br\ ? \.br\ Passing urine with a weak flow.\.br\ ? \.br\ Muscle twitches and cramps, most often in the legs.\.br\ ? \.br\ Confusion or trouble concentrating.\.br\ ? \.br\ Not feeling the urge to eat.\.br\ ? \.br\ Fever.\.br\ How is this diagnosed?\.br\ This condition may be diagnosed based on:\.br\ ? \.br\ Your symptoms.\.br\ ? \.br\ Your medical history.\.br\ ? \.br\ A physical exam.\.br\ You may have other tests, such as:\.br\ ? [facility] Inpatient Patient Summary Normal [facility] Interdisciplinary Note - Abdelrahman e Manageron 06-17-2023 Interdisciplinary Note - Abdelrahman e Rotational Moulding Operator CRM met family and pt on elevator down to transport. Pt will dc to [facility] for respite stay. [facility] to transport this AM. Pt will then dc to [facility], then home to [facility]. ANt dc today. CRM to follow. Normal [facility] Comment on above: Result Comment: Elec tronically Signed By: Demi Franz\.br\Date and Time Signed: 06/17/23 08:48 EST Progress Note-Physicianon Progress Note-Physician Normal [facility] Comment on above: Result Comment: Elec tronically Signed By: Jeferson May PA-C\.br\Date and Time Signed: 06/11/23 13:12 EST\.br\Electronically Co-Signed By: Deny Chicas DO\.br\Date and Time Co-Signed: 06/17/23 09:37 EST Progress Note-Physician Normal [facility] Comment on above: Result Comment: Elec tronically Signed By: Xiao Laguerre PA-C\.br\Date and Time Signed: 06/16/23 13:25 EST\.br\Electronically Co-Signed By: Anila Alvarado MD\.br\Date and Time Co- Signed: 06/17/23 06:38 EST CHEMISTRYOrdered By: Miah GUERRIER User on 06-16-2023 Glucose [Mass/Vol] 155 mg/dL High 55 - 99 mg/dL [facility] C POC Subsection Comment on above: Result Comment: Chidi bustamante RN/ POC Username CHACHO LAI Invalid Interpre tation Code [facility] [place] Subsection Sodium [Moles/Vol] 520840922815 mmol/L Invalid I nterpretation Code [facility] [place] POC Subsection Sodium [Moles/Vol] 941676660 mmol/L Invalid Inte rpretation Code [facility] [place] POC Subsection Capillary Glucose POCon 05-20 Glucose [Mass/Vol] 155 mg/dL High 55-99 [facility] Comment on above: Result Comment: Chidi bustamante RN/ Performed By: #### 2 [id number] ####[facility] [address] [place] [address] Glucose [Mass/Vol] 172 mg/dL High 55-99 [facility] Comment on above: Result Comment: Chidi bustamante RN/ Performed By: #### 2 [id number] ####[facility] [address] [place] [address] Interdisciplinary Note - Abdelrahman e Manageron 06-16-2023 Interdisciplinary Note - Systems Test Analyst Normal [facility] Comment on above: Result Comment: Elec tronically Signed By: Demi Franz\.br\Date and Time Signed: 06/16/23 13:29 EST Progress Note-Physicianon Progress Note-Physician Normal [facility] Comment on above: Result Comment: Elec tronically Signed By: Xiao Laguerre PA-C\.br\Date and Time Signed: 06/15/23 13:51 EST\.br\Electronically Co-Signed By: Anila Alvarado MD\.br\Date and Time Co- Signed: 06/16/23 09:53 EST Auto Diffon 06-15-2023 Basophils/100 WBC (Bld) 0.4 % Normal 0.0-2.0 [facility] Comment on above: Order Comment: Order Added by Discern Expert. Performed By: #### 2 134895, 1264958, 0347102, 7157776, 2049275, 61871731 ####[facility] [address] [place] [address] Basophils/Leukocytes Auto (B ld) [Pure # fraction] 0.0 E9/L Normal 0.0-0.2 [facility] Comment on above: Order Comment: Order Added by Discern Expert. Performed By: #### 2 178502, 6533396, 7090097, 1163842, 0502136, 34459428 ####[address] [address] Eosinophils/100 WBC (Bld) 0.8 % Normal 0.0-8.0 [facility] Comment on above: Order Comment: Order Added by Discern Expert. Performed By: #### 2 549919, 2846997, 0185124, 7061361, 1183179, 26053686 ####[address] [address] Eosinophils/Leukocytes Auto (Bld) [Pure # fraction] 0.1 E9/L Normal 0.0-0.5 [facility] Comment on above: Order Comment: Order Added by Discern Expert. Performed By: #### 2 412660, 1186131, 3591064, 9005755, 7683215, 74668939 ####[address] [address] Lymphocytes/100 WBC (Bld) 11.1 % Low 14.0-50.0 [facility] Comment on above: Order Comment: Order Added by Discern Expert. Performed By: #### 2 723951, 8240696, 6617402, 0862958, 2851350, 33836224 ####[address] [address] Lymphocytes/Leukocytes Auto (Bld) [Pure # fraction] 1.5 E9/L Normal 1.0-4.0 [facility] Comment on above: Order Comment: Order Added by Discern Expert. Performed By: #### 2 882535, 3553150, 7117854, 9596868, 9027469, 62087913 ####[address] [address] Monocytes/100 WBC (Bld) 6.7 % Normal 4.0-14.0 [facility] Comment on above: Order Comment: Order Added by Discern Expert. Performed By: #### 2 747948, 1055101, 3117311, 8362522, 2537004, 37817856 ####[facility] [address] [place] [address] Monocytes/Leukocytes Auto (B ld) [Pure # fraction] 0.9 E9/L Normal 0.2-1.0 [facility] Comment on above: Order Comment: Order Added by Discern Expert. Performed By: #### 2 213064, 2586986, 8340975, 0123520, 5137624, 50053076 ####[address] [place] [address] Neutrophils/100 WBC (Bld) 81.0 % High 36.0-75.0 [facility] Comment on above: Order Comment: Order Added by Discern Expert. Performed By: #### 2 070845, 2690484, 2323467, 3300207, 2857629, 86070404 ####[address] [place] [address] Neutrophils/Leukocytes Auto (Bld) [Pure # fraction] 11.0 E9/L High 2.0-7.5 [facility] Comment on above: Order Comment: Order Added by Discern Expert. Performed By: #### 2 514288, 3149086, 0261190, 1417197, 5563834, 35935564 ####[address] [place] [address] BMPon 06-15-2023 Anion gap [Moles/Vol] 4 mmol/L Low 6-16 [facility] Comment on above: Performed By: #### 2 570247, 3826042, 7439822, 4719638, 5112543, 74636226 ####[address] [place] [address] Calcium [Mass/Vol] 7.1 mg/dL Low 8.9-11.1 [facility] Comment on above: Performed By: #### 2 718430, 0789311, 0423592, 6069286, 8144392, 10478895 ####[facility] [address] [place] [address] Chloride [Moles/Vol] 108 mmol/L Normal 101-111 [facility] Comment on above: Performed By: #### 2 398110, 3545516, 9211905, 7953733, 4973482, 40322933 ####[facility] [address] [place] [address] CO2 [Moles/Vol] 28 mmol/L Normal 21-31 [facility] Comment on above: Performed By: #### 2 002788, 8376506, 2622148, 8393103, 2414367, 33700966 ####[facility] [address] [place] [address] Creatinine [Mass/Vol] 0.7 mg/dL Normal 0.5-1.3 [facility] Comment on above: Performed By: #### 2 462630, 9608346, 7877598, 0583374, 0970342, 33478483 ####[facility] [address] [place] [address] Glucose [Mass/Vol] 153 mg/dL Normal 55-199 [facility] Comment on above: Result Comment: If t his glucose result represents a fasting glucose, interpretation should refer to the following reference range: 55-99 mg/dL Performed By: #### 2 088219, 1475828, 8455444, 4056922, 8339936, 36524033 ####[facility] [address] [place] [address] Potassium [Moles/Vol] 2.9 mmol/L Low 3.5-5.3 [facility] Comment on above: Performed By: #### 2 338007, 0116025, 0277275, 7113854, 6061961, 48051029 ####[facility] [address] [place] [address] Sodium [Moles/Vol] 137 mmol/L Normal 135-145 [facility] Comment on above: Performed By: #### 2 811498, 5431110, 3887557, 3245229, 4907444, 56095608 ####[facility] [address] [place] [address] Urea nitrogen [Mass/Vol] 9 mg/dL Normal 5-21 [facility] Comment on above: Performed By: #### 2 850510, 8782238, 2078202, 8172585, 1500087, 51579395 ####[facility] [address] [place] [address] Urea nitrogen/Creatinine [Ma ss ratio] 13 No Units Normal 10-20 [facility] Comment on above: Performed By: #### 2 450113, 5947496, 0892608, 1214008, 2412289, 83844920 ####[facility] [address] [place] [address] CBC w/ Auto Diffon 3 Erythrocyte distribution wid th (RBC) [Ratio] 14.7 % High 10.9-14.2 [facility] Comment on above: Performed By: #### 2 681977, 5667256, 3103300, 7660264, 5389312, 00043728 ####[facility] [address] [place] [address] Hematocrit (Bld) [Volume fraction] 19.9 % Low 3 7.7-49.0 [facility] Comment on above: Performed By: #### 2 748225, 3943400, 4838533, 3231897, 2131648, 98196610 ####[facility] [address] [place] [address] Hemoglobin (Bld) [Mass/Vol] 6.9 g/dL Abnormal 13.5-17. 5 [facility] Comment on above: Result Comment: Slid e reviewed by KDResults Called To Mira Delong/Manda By AYAKA And Read Back For Confirmation On 06/15/2023 07:32:03 ESTResults Verified By Repeat Analysis. Performed By: #### 2 289669, 2991073, 1054475, 7682563, 7517033, 69540848 ####[facility] [address] [place] [address] MCH (RBC) [Entitic mass] 29.2 pg Normal 27.0-34.0 [facility] Comment on above: Performed By: #### 2 338690, 3542685, 5076953, 6922897, 9218681, 53106762 ####[facility] [address] [place] [address] MCHC (RBC) [Mass/Vol] 34.7 g/dL Normal 31.4-36.0 [facility] Comment on above: Performed By: #### 2 548667, 2130774, 5606405, 4457282, 2945840, 46376445 ####[address] [place] [address] MCV (RBC) [Entitic vol] 84.0 fL Normal 80.0-100.0 [facility] Comment on above: Performed By: #### 2 784284, 0418787, 8851724, 0055214, 7841628, 39032279 ####[address] [address] Platelet mean volume (Bld) [ Entitic vol] 6.1 fL Low 6.4-10.8 [facility] Comment on above: Performed By: #### 2 352314, 2491614, 6725248, 8194683, 9883754, 41661801 ####[address] [address] Platelets (Bld) [#/Vol] 330.0 E9/L Normal 150.0-500.0 [facility] Comment on above: Performed By: #### 2 887949, 6929007, 1656647, 3568650, 8960896, 02151537 ####[facility] [address] [place] [address] RBC (Bld) [#/Vol] 2.4 E12/L Low 4.3-5.9 [facility] Comment on above: Performed By: #### 2 941973, 8753628, 3065738, 0409140, 7673868, 11513377 ####[facility] [address] [place] [address] WBC corrected for nucl RBC A uto (Bld) [#/Vol] 13.6 E9/L High 4.0-11.0 [facility] Comment on above: Performed By: #### 2 358491, 6957944, 0530329, 7854281, 1230737, 16786181 ####[facility] [address] [place] [address] CHEMISTRYOrdered By: Lab ROP User on 06-15-2023 Glucose [Mass/Vol] 172 mg/dL High 55 - 99 mg/dL [facility] C POC Subsection Comment on above: Result Comment: Chidi bustamante RN/ POC Username DAVID BOWLING Invalid Interpr etation Code FT POC Subsection Sodium [Moles/Vol] 820705093935 mmol/L Invalid Interpretation Code FT POC Subsection Sodium [Moles/Vol] 076958322 mmol/L Invalid Interpretation Code FT POC Subsection Glucose [Mass/Vol] 196 mg/dL High 55 - 99 mg/dL [facility] POC Subsection Comment on above: Result Comment: Chidi bustamante RN/ POC Username SHONNA DOWNING Invalid Interpre tation Code FT POC Subsection Sodium [Moles/Vol] 774788465231 mmol/L Invalid I nterpretation Code FT POC Subsection Sodium [Moles/Vol] 654064501 mmol/L Invalid Inte rpretation Code [facility] [place] P[place] Subsection CHEMISTRYOrdered By: SYSTEM SYSTEM on 06-15-2023 Anion gap [Moles/Vol] 4 mmol/L Low 6 - 16 mEq/L [facility] Calcium [Mass/Vol] 7.1 mg/dL Low 8.9 - 11.1 mg/dL [facility] Chloride [Moles/Vol] 108 mmol/L Normal 101 - 111 mmol/ L [facility] CO2 [Moles/Vol] 28 mmol/L Normal 21 - 31 mmol/L [facility] Creatinine [Mass/Vol] 0.7 mg/dL Normal 0.5 - 1.3 mg/d L [facility] GFR/1.73 sq M.predicted among non-blacks MDRD (S/P/Bld) [Vol rate/Area] 97 mL/min/1.73 m2 Normal >=59mL/min/1.73 m2 [facility] Comment on above: Interpretive Data: C hronic kidney disease could be indicated at eGFR's of less than 60 mL/min/1.73m2. Kidney failure is indicated at less than 15 mL/min/1.73m2. Glucose [Mass/Vol] 153 mg/dL Normal 55 - 199 mg/dL [facility]isol Comment on above: Interpretive Data: I f this glucose result represents a fasting glucose, interpretation should refer to the following reference range: 55-99 mg/dL Magnesium [Mass/Vol] 1.6 mg/dL Normal 1.3 - 2.4 mg/dL [facility] Remisol Phosphate [Mass/Vol] 1.4 mg/dL Low 1.9 - 4.6 mg/dL [facility] Remisol Potassium [Moles/Vol] 2.9 mmol/L Low 3.5 - 5.3 mmol /L [facility] Remisol Sodium [Moles/Vol] 137 mmol/L Normal 135 - 145 mmol/L [facility] Remisol Urea nitrogen [Mass/Vol] 9 mg/dL Normal 5 - 21 mg/d L [facility] Remisol Urea nitrogen/Creatinine [Mass ratio] 13 mg/mg Normal 10 - 20 [facility] Remisol Capillary Glucose POCon 05-19 Glucose [Mass/Vol] 196 mg/dL High 55-99 [facility] Comment on above: Result Comment: Chidi CLINTON Performed By: #### 2 [id number] ####[facility] [address] [place] [address] Glucose [Mass/Vol] 191 mg/dL High 55-99 [facility] Comment on above: Result Comment: Chidi [place]ON Performed By: #### 2 01703891 ####[facility] [address] [place] [address] Glucose [Mass/Vol] 136 mg/dL High 55-99 [facility] Comment on above: Result Comment: Chidi [place]ON Performed By: #### 2 24863678 ####[facility] [address] [place] [address] Glucose [Mass/Vol] 160 mg/dL High 55-99 [facility] Comment on above: Result Comment: Chidi bustamante RN/ Performed By: #### 2 [id number] ####[facility] [address] [place] [address] HEMATOLOGYOrdered By: SYSTEM SYSTEM on 06-15-2023 Basophils/100 WBC (Bld) 0.4 % Normal 0.0 - 2.0 % [facility] HemeAutoSS Basophils/Leukocytes Auto (B ld) [Pure # fraction] 0.0 E9/L Normal 0.0 - 0.2 E9/L [facility] HemeAutoSS Eosinophils/100 WBC (Bld) 0.8 % Normal 0.0 - 8.0 % [facility] HemeAutoSS Eosinophils/Leukocytes Auto (Bld) [Pure # fraction] 0.1 E9/L Normal 0.0 - 0.5 E9/L [facility] HemeAutoS S Lymphocytes/100 WBC (Bld) 11.1 % Low 14.0 - 50. 0 % [facility] HemeAutoSS Lymphocytes/Leukocytes Auto (Bld) [Pure # fraction] 1.5 E9/L Normal 1.0 - 4.0 E9/L [facility] HemeAutoS S Monocytes/100 WBC (Bld) 6.7 % Normal 4.0 - 14.0 % [facility] HemeAutoSS Monocytes/Leukocytes Auto (B ld) [Pure # fraction] 0.9 E9/L Normal 0.2 - 1.0 E9/L [facility] HemeAutoSS Neutrophils/100 WBC (Bld) 81.0 % High 36.0 - 75. 0 % [facility] HemeAutoSS Neutrophils/Leukocytes Auto (Bld) [Pure # fraction] 11.0 E9/L High 2.0 - 7.5 E9/L [facility] HemeAutoS S HEMATOLOGYOrdered By: Candace Cannon on 06-15-2023 Erythrocyte distribution width (RBC) [Ratio] 14.7 % High 10.9 - 14.2 % [facility] HemeAutoSS Hematocrit (Bld) [Volume fraction] 19.9 % Low 37.7 - 49.0 % [facility] HemeAutoS S Hemoglobin (Bld) [Mass/Vol] 6.9 g/dL Invalid Interpretation Code 13.5 - 17.5 gm/dL [facility]eAutoSS Comment on above: Result Comment: Wadeid e reviewed by KD Results Called To Mira Delong/Manda By KD And Read Back For Confirmation On 06/15/2023 07:32:03 EST Results Verified By Repeat Analysis. MCH (RBC) [Entitic mass] 29.2 pg Normal 27.0 - 34.0 pg [facility] HemeAutoSS MCHC (RBC) [Mass/Vol] 34.7 g/dL Normal 31.4 - 36.0 gm /dL [facility] HemeAutoSS MCV (RBC) [Entitic vol] 84.0 fL Normal 80.0 - 100.0 fL [facility] HemeAutoSS Platelet mean volume (Bld) [Entitic vol] 6.1 fL Low 6.4 - 10.8 fL [facility] HemeAutoSS Platelets (Bld) [#/Vol] 330.0 E9/L Normal 150.0 - 500. 0 E9/L [facility] HemeAutoSS RBC (Bld) [#/Vol] 2.4 E12/L Low 4.3 - 5.9 E12/L [facility] HemeAutoSS WBC corrected for nucl RBC A uto (Bld) [#/Vol] 13.6 E9/L High 4.0 - 11.0 E9/L [facility] HemeAutoSS Interdisciplinary Note - Abdelrahman e Manageron 06-15-2023 Interdisciplinary Note - Systems Test Analyst Normal [facility] Comment on above: Result Comment: Elec tronically Signed By: Demi Franz\Date and Time Signed: 06/15/23 12:50 EST Magnesiumon 06-15-2023 Magnesium [Mass/Vol] 1.6 mg/dL Normal 1.3-2.4 [facility] Comment on above: Performed By: #### 2 464092, 2146259, 7186250, 5128271, 3877573, 44286299 ####[facility] [address] [place] [address] Phosphoruson 06-15-2023 Phosphate [Mass/Vol] 1.4 mg/dL Low 1.9-4.6 [facility] Comment on above: Performed By: #### 2 022441, 3978220, 5507741, 0979342, 1375973, 19484993 ####[place] [address] Physician Orderon 06-15-2023 Physician Order [id number] Normal [facility] eGFRon 06-15-2023 GFR/1.73 sq M.predicted adin g non-blacks MDRD (S/P/Bld) [Vol rate/Area] 97 mL/min/1.73 m2 Normal >=59 [facility] Comment on above: Order Comment: Order added by Discern Expert. 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 Kidney failure is indicated at less than 15 mL/min/1.73m2. Performed By: #### 2 926347, 2053835, 0415285, 6498433, 4199170, 95092375 ####[facility] [address] [place] [address] Auto Diffon 06-14-2023 Basophils/100 WBC (Bld) 0.1 % Normal 0.0-2.0 [facility] Comment on above: Order Comment: Order Added by Discern Expert. Performed By: #### 2 234421, 22599384, 5956480, 5330954, 9957378, 6317798 ####[facility] [address] [place] [address] Basophils/Leukocytes Auto (B ld) [Pure # fraction] 0.0 E9/L Normal 0.0-0.2 [facility] Comment on above: Order Comment: Order Added by Discern Expert. Performed By: #### 2 326716, 33582941, 4258186, 3848916, 4541715, 0173033 ####[address] [address] Eosinophils/100 WBC (Bld) 0.7 % Normal 0.0-8.0 [facility] Comment on above: Order Comment: Order Added by Discern Expert. Performed By: #### 2 457971, 09930660, 8011232, 0047780, 9152483, 6314109 ####[facility] [address] [place] [address] Eosinophils/Leukocytes Auto (Bld) [Pure # fraction] 0.1 E9/L Normal 0.0-0.5 [facility] Comment on above: Order Comment: Order Added by Discern Expert. Performed By: #### 2 664500, 13013770, 2343937, 9136831, 3138773, 0821021 ####[address] [place] [address] Lymphocytes/100 WBC (Bld) 7.8 % Low 14.0-50.0 [facility] Comment on above: Order Comment: Order Added by Discern Expert. Performed By: #### 2 581506, 05251532, 5045981, 7186866, 8734104, 9327379 ####[address] [address] Lymphocytes/Leukocytes Auto (Bld) [Pure # fraction] 1.2 E9/L Normal 1.0-4.0 [facility] Comment on above: Order Comment: Order Added by Discern Expert. Performed By: #### 2 833486, 06857575, 6987693, 3478241, 1879547, 5367666 ####[address] [place] [address] Monocytes/100 WBC (Bld) 7.1 % Normal 4.0-14.0 [facility] Comment on above: Order Comment: Order Added by Discern Expert. Performed By: #### 2 784554, 15376910, 3117284, 5047899, 9540876, 7248790 ####[address] [place] [address] Monocytes/Leukocytes Auto (B ld) [Pure # fraction] 1.1 E9/L High 0.2-1.0 [facility] Comment on above: Order Comment: Order Added by Discern Expert. Performed By: #### 2 147684, 01948047, 3861294, 0964346, 3226600, 9911364 ####[facility] [address] [place] [address] Neutrophils/100 WBC (Bld) 84.3 % High 36.0-75.0 [facility] Comment on above: Order Comment: Order Added by Discern Expert. Performed By: #### 2 232128, 27615505, 6001507, 5682849, 9289820, 6778373 ####[facility] [address] [place] [address] Neutrophils/Leukocytes Auto (Bld) [Pure # fraction] 13.2 E9/L High 2.0-7.5 [facility] Comment on above: Order Comment: Order Added by Discern Expert. Performed By: #### 2 781963, 48245917, 8836933, 8963596, 6086220, 5905066 ####[facility] [address] [place] [address] BMPon 06-14-2023 Potassium [Moles/Vol] 3.2 mmol/L Low 3.5-5.3 [facility] Comment on above: Performed By: #### 2 000787, 49363094, 6345924, 3775849, 4199935, 0373843 ####[facility] [address] [place] [address] Anion gap [Moles/Vol] 9 mmol/L Normal 6-16 [facility] Comment on above: Performed By: #### 2 908545, 85581685, 1706330, 6212847, 5550298, 9790283 ####[facility] [address] [place] [address] Calcium [Mass/Vol] 7.4 mg/dL Low 8.9-11.1 [facility] Comment on above: Performed By: #### 2 707397, 07939622, 5699724, 4491813, 2302270, 2823753 ####[facility] [address] [place] [address] Chloride [Moles/Vol] 107 mmol/L Normal 101-111 [facility] Comment on above: Performed By: #### 2 705946, 09132288, 0923366, 2977509, 9009134, 9635381 ####[facility] [address] [place] [address] CO2 [Moles/Vol] 27 mmol/L Normal 21-31 [facility] Comment on above: Performed By: #### 2 126332, 81496887, 3101872, 0186558, 9427078, 4604056 ####[facility] [address] [place] [address] Creatinine [Mass/Vol] 0.8 mg/dL Normal 0.5-1.3 [facility] Comment on above: Performed By: #### 2 707287, 74337682, 3477390, 1551741, 0521132, 1316713 ####[facility] [address] [place] [address] Glucose [Mass/Vol] 184 mg/dL Normal 55-199 [facility] Comment on above: Result Comment: If t his glucose result represents a fasting glucose, interpretation should refer to the following reference range: 55-99 mg/dL Performed By: #### 2 504887, 76146041, 8301093, 4490321, 7917511, 2269438 ####[facility] [address] [place] [address] Sodium [Moles/Vol] 140 mmol/L Normal 135-145 [facility] Comment on above: Performed By: #### 2 594968, 40290171, 3881447, 8177006, 7280238, 0595759 ####[facility] [address] [place] [address] Urea nitrogen [Mass/Vol] 9 mg/dL Normal 5-21 [facility] Comment on above: Performed By: #### 2 807512, 34697373, 4398478, 8365606, 7247842, 2364414 ####[facility] [address] [place] [address] Urea nitrogen/Creatinine [Ma ss ratio] 11 No Units Normal 10-20 [facility] Comment on above: Performed By: #### 2 869118, 85622042, 8569265, 8134283, 3285969, 7140258 ####[facility] [address] [place] [address] CBC w/ Auto Diffon 3 Erythrocyte distribution wid th (RBC) [Ratio] 14.7 % High 10.9-14.2 [facility] Comment on above: Performed By: #### 2 773714, 96128880, 7420155, 0513428, 2047104, 2861413 ####[facility] [address] [place] [address] Hematocrit (Bld) [Volume fraction] 22.3 % Low 3 7.7-49.0 [facility] Comment on above: Performed By: #### 2 488598, 33577842, 1379058, 0249459, 3888739, 7669588 ####[address] [address] Hemoglobin (Bld) [Mass/Vol] 7.4 g/dL Low 13.5-17. 5 [facility] Comment on above: Performed By: #### 2 950864, 55924953, 5507897, 2557654, 0088132, 8337557 ####[address] [address] MCH (RBC) [Entitic mass] 28.1 pg Normal 27.0-34.0 [facility] Comment on above: Performed By: #### 2 406223, 64310083, 1128336, 2414757, 4452405, 4062391 ####[address] [place] [address] MCHC (RBC) [Mass/Vol] 33.4 g/dL Normal 31.4-36.0 [facility] Comment on above: Performed By: #### 2 779525, 94998248, 3967340, 0161798, 2487353, 6027401 ####[address] [place] [address] MCV (RBC) [Entitic vol] 84.2 fL Normal 80.0-100.0 [facility] Comment on above: Performed By: #### 2 516596, 47004642, 6674195, 7197435, 3108243, 8274546 ####[facility] [address] [place] [address] Platelet mean volume (Bld) [ Entitic vol] 6.2 fL Low 6.4-10.8 [facility] Comment on above: Performed By: #### 2 807019, 96211001, 3501336, 7458164, 9595635, 1590370 ####[address] [place] [address] Platelets (Bld) [#/Vol] 292.0 E9/L Normal 150.0-500.0 [facility] Comment on above: Performed By: #### 2 556978, 10457306, 3359398, 4424543, 2158117, 0453941 ####[address] [address] RBC (Bld) [#/Vol] 2.6 E12/L Low 4.3-5.9 [facility] Comment on above: Performed By: #### 2 105034, 24568493, 9686183, 7168130, 2425229, 1968947 ####[facility] [address] [place] [address] WBC corrected for nucl RBC A uto (Bld) [#/Vol] 15.6 E9/L High 4.0-11.0 [facility] Comment on above: Result Comment: Slid e reviewed by BRChinyere Performed By: #### 2 859365, 36649362, 7772340, 6173717, 3565695, 1206222 ####[address] [place] [address] CHEMISTRYOrdered By: SYSTEM SYSTEM on 06-14-2023 Anion gap [Moles/Vol] 9 mmol/L Normal 6 - 16 mEq/L [facility] [place]isol Calcium [Mass/Vol] 7.4 mg/dL Low 8.9 - 11.1 mg/dL [facility] Chloride [Moles/Vol] 107 mmol/L Normal 101 - 111 mmol/ L [facility] CO2 [Moles/Vol] 27 mmol/L Normal 21 - 31 mmol/L [facility] Creatinine [Mass/Vol] 0.8 mg/dL Normal 0.5 - 1.3 mg/d L [facility] [place] Remisol GFR/1.73 sq M.predicted among non-blacks MDRD (S/P/Bld) [Vol rate/Area] 93 mL/min/1.73 m2 Normal >=59mL/min/1.73 m2 F [facility] Chem S Comment on above: Interpretive Data: C hronic kidney disease could be indicated at eGFR's of less than 60 mL/min/1.73m2. Kidney failure is indicated at less than 15 mL/min/1.73m2. Glucose [Mass/Vol] 184 mg/dL Normal 55 - 199 mg/dL [facility] Comment on above: Interpretive Data: I f this glucose result represents a fasting glucose, interpretation should refer to the following reference range: 55-99 mg/dL Magnesium [Mass/Vol] 1.7 mg/dL Normal 1.3 - 2.4 mg/dL [facility] [place] Remisol Phosphate [Mass/Vol] 1.2 mg/dL Low 1.9 - 4.6 mg/dL [facility] [place] Remisol Sodium [Moles/Vol] 140 mmol/L Normal 135 - 145 mmol/L [facility] [place] Remisol Urea nitrogen [Mass/Vol] 9 mg/dL Normal 5 - 21 mg/d L [facility] [place] Remisol Urea nitrogen/Creatinine [Mass ratio] 11 mg/mg Normal 10 - 20 [facility] [place] Remisol CHEMISTRYOrdered By: Erica cha on 06-14-2023 Potassium [Moles/Vol] 3.2 mmol/L Low 3.5 - 5.3 mmol /L [facility] [place] Remisol Capillary Glucose POCon 05-19 Glucose [Mass/Vol] 172 mg/dL High 55-99 [facility] Comment on above: Result Comment: Chidi bustamante RN/ Performed By: #### 2 [id number] ####[facility] [address] [place] [address] Glucose [Mass/Vol] 170 mg/dL High 55-99 [facility] Comment on above: Result Comment: Chidi bustamante RN/ Performed By: #### 2 [id number] ####[facility] [address] [place] [address] Glucose [Mass/Vol] 157 mg/dL High 55-99 [facility] Comment on above: Result Comment: Chidi bustamante RN/ Performed By: #### 2 [id number] ####[facility] [address] [place] [address] Glucose [Mass/Vol] 182 mg/dL High 55-99 [facility] Comment on above: Result Comment: Chidi bustamante RN/ Performed By: #### 2 [id number] ####[facility] [address] [place] [address] Coding Queryon 06-14-2023 Coding Query Normal [facility] HEMATOLOGYOrdered By: SYSTEM SYSTEM on 06-14-2023 Basophils/100 WBC (Bld) 0.1 % Normal 0.0 - 2.0 % [facility] HemeAutoSS Basophils/Leukocytes Auto (B ld) [Pure # fraction] 0.0 E9/L Normal 0.0 - 0.2 E9/L [facility] HemeAutoSS Eosinophils/100 WBC (Bld) 0.7 % Normal 0.0 - 8.0 % [facility] HemeAutoSS Eosinophils/Leukocytes Auto (Bld) [Pure # fraction] 0.1 E9/L Normal 0.0 - 0.5 E9/L [facility] HemeAutoS S Lymphocytes/100 WBC (Bld) 7.8 % Low 14.0 - 50. 0 % [facility] HemeAutoSS Lymphocytes/Leukocytes Auto (Bld) [Pure # fraction] 1.2 E9/L Normal 1.0 - 4.0 E9/L [facility] HemeAutoS S Monocytes/100 WBC (Bld) 7.1 % Normal 4.0 - 14.0 % [facility] HemeAutoSS Monocytes/Leukocytes Auto (B ld) [Pure # fraction] 1.1 E9/L High 0.2 - 1.0 E9/L [facility]eAutoSS Neutrophils/100 WBC (Bld) 84.3 % High 36.0 - 75. 0 % [facility] HemeAutoSS Neutrophils/Leukocytes Auto (Bld) [Pure # fraction] 13.2 E9/L High 2.0 - 7.5 E9/L [facility] HemeAutoS S HEMATOLOGYOrdered By: Brennon Carter on 06-14-2023 Erythrocyte distribution wid th (RBC) [Ratio] 14.7 % High 10.9 - 14.2 % [facility] HemeAutoSS Hematocrit (Bld) [Volume fraction] 22.3 % Low 37.7 - 49.0 % [facility] HemeAutoSS Hemoglobin (Bld) [Mass/Vol] 7.4 g/dL Low 13.5 - 1 7.5 gm/dL [facility] HemeAutoSS MCH (RBC) [Entitic mass] 28.1 pg Normal 27.0 - 34.0 pg [facility] HemeAutoSS MCHC (RBC) [Mass/Vol] 33.4 g/dL Normal 31.4 - 36.0 gm /dL [facility] HemeAutoSS MCV (RBC) [Entitic vol] 84.2 fL Normal 80.0 - 100.0 fL [facility] HemeAutoSS Platelet mean volume (Bld) [Entitic vol] 6.2 fL Low 6.4 - 10.8 fL [facility] HemeAutoSS Platelets (Bld) [#/Vol] 292.0 E9/L Normal 150.0 - 500. 0 E9/L [facility]eAutoSS RBC (Bld) [#/Vol] 2.6 E12/L Low 4.3 - 5.9 E12/L [facility] HemeAutoSS WBC corrected for nucl RBC A uto (Bld) [#/Vol] 15.6 E9/L High 4.0 - 11.0 E9/L [facility]eAutoSS Comment on above: Result Comment: Slid e reviewed by BRChinyere Interdisciplinary Note - Abdelrahman e Manageron 06-14-2023 Interdisciplinary Note - Systems Test Analyst [facility] Comment on above: Result Comment: Elec tronically Signed By: Demi Franz\Date and Time Signed: 06/14/23 12:07 EST Magnesiumon 06-14-2023 Magnesium [Mass/Vol] 1.7 mg/dL Normal 1.3-2.4 [facility] Comment on above: Performed By: #### 2 540095, 42363375, 3914920, 5235295, 5795468, 8340684 ####[facility] [address] [place] [address] Oncology Progress Noteon Oncology Progress Note Normal Fi [facility] Phosphoruson 06-14-2023 Phosphate [Mass/Vol] 1.2 mg/dL Low 1.9-4.6 Fish [facility] Comment on above: Performed By: #### 2 787059, 72206176, 3877092, 1577120, 6864495, 0536263 ####[facility] [address] [place] [address] Progress Note-Physicianon Progress Note-Physician Normal [facility] Comment on above: Result Comment: Elec tronically Signed By: Xiao Laguerre PA-C\.br\Date and Time Signed: 06/14/23 13:06 EST\.br\Electronically Co-Signed By: Anila Alvarado MD\.br\Date and Time Co- Signed: 06/14/23 19:41 EST Progress Note-Physician Normal [facility] Comment on above: Result Comment: Elec tronically Signed By: Xiao Laguerre PA-C\.br\Date and Time Signed: 06/13/23 11:06 EST\.br\Electronically Co-Signed By: Anila Alvarado MD\.br\Date and Time Co- Signed: 06/13/23 22:13 EST eGFRon 06-14-2023 GFR/1.73 sq M.predicted adin g non-blacks MDRD (S/P/Bld) [Vol rate/Area] 93 mL/min/1.73 m2 Normal >=59 [facility] Comment on above: Order Comment: Order added by Discern Expert. 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 Kidney failure is indicated at less than 15 mL/min/1.73m2. Performed By: #### 2 579743, 18209472, 9032371, 4991408, 0687964, 1782937 ####[facility] [address] [place] [address] Auto Diffon 06-13-2023 Basophils/100 WBC (Bld) 0.1 % Normal 0.0-2.0 [facility] Comment on above: Order Comment: Order Added by Discern Expert. Performed By: #### 2 484869, 0831410, 0463388, 8963401, 4906256, 1098928, 1363174, 5739140, 6823786, 2445876, 50118320, 4031287 ####[facility] [address] [place] [address] Basophils/Leukocytes Auto (B ld) [Pure # fraction] 0.0 E9/L Normal 0.0-0.2 [facility] Comment on above: Order Comment: Order Added by Discern Expert. Performed By: #### 2 726481, 4894638, 0589280, 2069185, 8057708, 7286452, 5180848, 6988554, 4529225, 7173216, 56192988, 7810161 ####[facility] [address] [place] [address] Eosinophils/100 WBC (Bld) 0.5 % Normal 0.0-8.0 [facility] Comment on above: Order Comment: Order Added by Discern Expert. Performed By: #### 2 000523, 3684809, 3563270, 4463981, 5708751, 4100701, 1489928, 2238417, 7178249, 8000839, 35166956, 8351524 ####[facility] [address] [place] [address] Eosinophils/Leukocytes Auto (Bld) [Pure # fraction] 0.1 E9/L Normal 0.0-0.5 [facility] Comment on above: Order Comment: Order Added by Discern Expert. Performed By: #### 2 511574, 7280492, 6805714, 0081628, 5433948, 4121786, 9389083, 5133946, 1826217, 9176692, 96534336, 1869485 ####[facility] [address] [place] [address] Lymphocytes/100 WBC (Bld) 7.0 % Low 14.0-50.0 [facility] Comment on above: Order Comment: Order Added by Discern Expert. Performed By: #### 2 897140, 5436293, 8600204, 5359784, 2883655, 4612228, 0113774, 3711720, 4508733, 6873236, 40599718, 3291283 ####[facility] [address] [place] [address] Lymphocytes/Leukocytes Auto (Bld) [Pure # fraction] 1.2 E9/L Normal 1.0-4.0 [facility] Comment on above: Order Comment: Order Added by Discern Expert. Performed By: #### 2 325163, 8521246, 7702299, 4555490, 8618585, 0123857, 7418586, 6185091, 1192532, 5339351, 70331007, 8840226 ####[facility] [address] [place] [address] Monocytes/100 WBC (Bld) 6.6 % Normal 4.0-14.0 [facility] Comment on above: Order Comment: Order Added by Discern Expert. Performed By: #### 2 471222, 7171776, 0177375, 4467608, 2678067, 8728052, 2386872, 7642732, 9106103, 6228510, 85666425, 7193026 ####[facility] [address] [place] [address] Monocytes/Leukocytes Auto (B ld) [Pure # fraction] 1.2 E9/L High 0.2-1.0 [facility] Comment on above: Order Comment: Order Added by Discern Expert. Performed By: #### 2 779785, 9115098, 9185192, 9233989, 4489623, 3681150, 0002783, 9532599, 8304884, 9613848, 10524900, 0073942 ####[facility] [address] [place] [address] Neutrophils/100 WBC (Bld) 85.8 % High 36.0-75.0 [facility] Comment on above: Order Comment: Order Added by Discern Expert. Performed By: #### 2 260062, 3331322, 4429631, 4148081, 7908868, 2512018, 4798916, 0735927, 5327404, 3250819, 26772777, 2535511 ####[facility] [address] [place] [address] Neutrophils/Leukocytes Auto (Bld) [Pure # fraction] 15.1 E9/L High 2.0-7.5 [facility] Comment on above: Order Comment: Order Added by Discern Expert. Performed By: #### 2 627954, 0244362, 8803554, 4241840, 0371778, 2666260, 7868655, 4338947, 5295110, 1427839, 39899119, 9349514 ####[facility] [address] [place] [address] BMPon 06-13-2023 Anion gap [Moles/Vol] 10 mmol/L Normal 6-16 [facility] Comment on above: Performed By: #### 2 277973, 0704939, 2331017, 6972247, 3483797, 5327555, 3413536, 4128381, 5272353, 8250435, 62606074, 5136123 ####[facility] [address] [place] [address] Calcium [Mass/Vol] 7.3 mg/dL Low 8.9-11.1 [facility] Comment on above: Performed By: #### 2 506225, 0010547, 1126047, 5269691, 3787956, 7391432, 7195678, 2133887, 1567976, 2637664, 31811722, 7495539 ####[facility] [address] [place] [address] Chloride [Moles/Vol] 108 mmol/L Normal 101-111 [facility] Comment on above: Performed By: #### 2 853857, 4356351, 9783682, 0966729, 2993522, 3733341, 8956133, 3880260, 7808998, 3773978, 24345763, 5803537 ####[facility] [address] [place] [address] CO2 [Moles/Vol] 23 mmol/L Normal 21-31 [facility] Comment on above: Performed By: #### 2 533683, 9511719, 3018481, 9885213, 9359827, 1051162, 3396521, 4708334, 5960772, 8693937, 13461382, 3803704 ####[facility] [address] [place] [address] Creatinine [Mass/Vol] 0.7 mg/dL Normal 0.5-1.3 [facility] Comment on above: Performed By: #### 2 293130, 6965891, 3735079, 4720900, 6570909, 9450371, 1662548, 1830953, 4736419, 4659169, 07706349, 8890708 ####[facility] [address] [place] [address] Glucose [Mass/Vol] 152 mg/dL Normal 55-199 [facility] Comment on above: Result Comment: If t his glucose result represents a fasting glucose, interpretation should refer to the following reference range: 55-99 mg/dL Performed By: #### 2 086440, 7969290, 7322116, 7451383, 9571093, 2293524, 9089713, 3253167, 0862066, 0235322, 60647317, 6522700 ####[facility] [address] [place] [address] Potassium [Moles/Vol] 2.7 mmol/L Abnormal 3.5-5.3 [facility] Comment on above: Result Comment: Crit ical Result verified by repeat analysis\Critical Result S_K:2.7 Called to SARAH DOWD AT 3S by ERICA PRASAD And Read Back For Confirmation at: 06/13/2023 07:22:06 Performed By: #### 2 721328, 0766940, 4838653, 8423973, 7602625, 7117281, 6956627, 7343985, 9512508, 4675493, 34401267, 4247476 ####[facility] [address] [place] [address] Sodium [Moles/Vol] 138 mmol/L Normal 135-145 [facility] Comment on above: Performed By: #### 2 179157, 3209430, 6837677, 0094743, 8645914, 0062633, 1088162, 0431998, 9457966, 6741373, 61258295, 8114958 ####[facility] [address] [place] [address] Urea nitrogen [Mass/Vol] 9 mg/dL Normal 5-21 [facility] Comment on above: Performed By: #### 2 141809, 3946243, 0275508, 9978024, 1403425, 7043534, 6066585, 4958636, 0482687, 5743005, 66180697, 0693971 ####[facility] [address] [place] [address] Urea nitrogen/Creatinine [Ma ss ratio] 13 No Units Normal 10-20 [facility] Comment on above: Performed By: #### 2 109377, 1225143, 5325584, 2136689, 3136012, 6275778, 2846731, 2297068, 5577045, 7897188, 79366062, 9390506 ####[facility] [address] [place] [address] CBC w/ Auto Diffon 3 Erythrocyte distribution wid th (RBC) [Ratio] 14.6 % High 10.9-14.2 [facility] Comment on above: Performed By: #### 2 945561, 1018750, 0633547, 5960964, 4413636, 4918985, 2706010, 4869997, 8026743, 0308595, 42332776, 3381553 ####[facility] [address] [place] [address] Hematocrit (Bld) [Volume fraction] 24.0 % Low 3 7.7-49.0 [facility] Comment on above: Performed By: #### 2 817572, 9709773, 9431739, 9157376, 0157912, 0743540, 6128996, 8994408, 6824643, 4460432, 44801030, 2800991 ####[facility] [address] [place] [address] Hemoglobin (Bld) [Mass/Vol] 8.1 g/dL Low 13.5-17. 5 [facility] Comment on above: Performed By: #### 2 198384, 3413946, 2017002, 3855256, 9522393, 4384344, 4321245, 8033775, 9259791, 9921821, 81217727, 7282831 ####[facility] [address] [place] [address] MCH (RBC) [Entitic mass] 27.8 pg Normal 27.0-34.0 [facility] Comment on above: Performed By: #### 2 685401, 3567622, 2827309, 9001430, 6478879, 9156604, 3144370, 2485320, 2769373, 2160195, 16316436, 0909209 ####[facility] [address] [place] [address] MCHC (RBC) [Mass/Vol] 33.6 g/dL Normal 31.4-36.0 [facility] Comment on above: Performed By: #### 2 380704, 6203046, 4910249, 7753111, 5920959, 1921200, 1503316, 8446221, 2861099, 7302457, 24252422, 7673424 ####[facility] [address] [place] [address] MCV (RBC) [Entitic vol] 83.0 fL Normal 80.0-100.0 [facility] Comment on above: Performed By: #### 2 283663, 5528883, 6204713, 3017886, 6763090, 2330992, 4675252, 5045509, 6890313, 9277565, 11563155, 4283589 ####[facility] [address] [place] [address] Platelet mean volume (Bld) [ Entitic vol] 6.1 fL Low 6.4-10.8 [facility] Comment on above: Performed By: #### 2 696539, 7760552, 8188878, 9275186, 1492242, 1340836, 6947649, 0993015, 4898682, 0188824, 48230903, 0821601 ####[facility] [address] [place] [address] Platelets (Bld) [#/Vol] 302.0 E9/L Normal 150.0-500.0 [facility] Comment on above: Performed By: #### 2 967224, 4605858, 0205169, 8903969, 3855457, 9413817, 4064413, 8236774, 1206252, 6900994, 32284129, 1243884 ####[facility] [address] [place] [address] RBC (Bld) [#/Vol] 2.9 E12/L Low 4.3-5.9 [facility] Comment on above: Performed By: #### 2 938133, 6587136, 9926875, 4463425, 5462179, 1148132, 0969700, 4512582, 3155708, 8515869, 33709183, 3809775 ####[facility] [address] [place] [address] WBC corrected for nucl RBC A uto (Bld) [#/Vol] 17.6 E9/L High 4.0-11.0 [facility] Comment on above: Result Comment: Slid e reviewed by BRChinyere Performed By: #### 2 041906, 0218188, 5762609, 1436888, 0148644, 2421922, 7339751, 7502198, 9398730, 0906626, 01762183, 2664443 ####[facility] [address] [place] [address] CHEMISTRYOrdered By: SYSTEM SYSTEM on 06-13-2023 Anion gap [Moles/Vol] 10 mmol/L Normal 6 - 16 mEq/L [facility] Calcium [Mass/Vol] 7.3 mg/dL Low 8.9 - 11.1 mg/dL [facility] Chloride [Moles/Vol] 108 mmol/L Normal 101 - 111 mmol/ L [facility] CO2 [Moles/Vol] 23 mmol/L Normal 21 - 31 mmol/L [facility] Cobalamin (Vitamin B12) [Mass/Vol] 1213 pg/mL Normal 5 0 - 1500 pg/mL [facility] Creatinine [Mass/Vol] 0.7 mg/dL Normal 0.5 - 1.3 mg/d L [facility] Ferritin [Mass/Vol] 134 ng/mL Normal 24 - 336 ng/mL [facility] Comment on above: Interpretive Data: N ORMALS MEN <30 YRS 16-132 ng/mL MEN >30 YRS 8-338 ng/mL WOMEN (PREMEN) 6-104 ng/mL WOMEN (POSTMEN) 12-210 ng/mL Folate [Mass/Vol] 5.3 ng/mL Low >=6.7ng/mL [facility] Re misol GFR/1.73 sq M.predicted among non-blacks MDRD (S/P/Bld) [Vol rate/Area] 97 mL/min/1.73 m2 Normal >=59mL/min/1.73 m2 F [facility] Chem S Comment on above: Interpretive Data: C hronic kidney disease could be indicated at eGFR's of less than 60 mL/min/1.73m2. Kidney failure is indicated at less than 15 mL/min/1.73m2. Glucose [Mass/Vol] 152 mg/dL Normal 55 - 199 mg/dL [facility] Comment on above: Interpretive Data: I f this glucose result represents a fasting glucose, interpretation should refer to the following reference range: 55-99 mg/dL Iron [Mass/Vol] 25 ug/dL Low 35 - 153 mcg/dL [facility] Iron binding capacity [Mass/Vol] 161 ug/dL Low 250 - 400 mcg/dL [facility] Iron saturation [Mass fraction] 16 % Low 20 - 50 % [facility] Magnesium [Mass/Vol] 1.7 mg/dL Normal 1.3 - 2.4 mg/dL [facility] Phosphate [Mass/Vol] 1.5 mg/dL Low 1.9 - 4.6 mg/dL [facility] Potassium [Moles/Vol] 2.7 mmol/L Invalid In terpretation Code 3.5 - 5.3 mmol/L [facility] Comment on above: Result Comment: Crit ical Result verified by repeat analysis\Critical Result S_K:2.7 Called to SARAH DOWD AT 3S by ERICA PRASAD And Read Back For Confirmation at: 06/13/2023 07:22:06 Sodium [Moles/Vol] 138 mmol/L Normal 135 - 145 mmol/L [facility] Transferrin [Mass/Vol] 115 mg/dL Low 200 - 370 mg/ dL [facility] Urea nitrogen [Mass/Vol] 9 mg/dL Normal 5 - 21 mg/d L [facility] Urea nitrogen/Creatinine [Ma ss ratio] 13 mg/mg Normal 10 - 20 [facility] Vancomycin peak [Moles/Vol] 31 microgram/mL Normal 20 - 40 mcg/mL [facility] Capillary Glucose POCon 11-2 Glucose [Mass/Vol] 196 mg/dL High 55-99 [facility] Comment on above: Result Comment: Chidi [place] Performed By: #### 2 [id number] ####[facility] [address] [place] [address] Glucose [Mass/Vol] 150 mg/dL High 55-99 [facility] Comment on above: Result Comment: Chidi [place] Performed By: #### 2 [id number] ####[facility] [address] [place] [address] Glucose [Mass/Vol] 140 mg/dL High 55-99 [facility] Comment on above: Result Comment: Eri villa Meter Performed By: #### 2 [id number] ####[facility] [address] [place] [address] Glucose [Mass/Vol] 145 mg/dL High 55-99 [facility] Comment on above: Result Comment: Chidi bustamante RN/ Performed By: #### 2 [id number] ####[facility] [address] [place] [address] Ferritinon 06-13-2023 Ferritin [Mass/Vol] 134 ng/mL Normal 24-336 [facility] Comment on above: Result Comment: NORM ALS MEN <30 YRS 16-132 ng/mL MEN >30 YRS 8-338 ng/mL WOMEN (PREMEN) 6-104 ng/mL WOMEN (POSTMEN) 12-210 ng/mL Performed By: #### 2 [id number], [id number], [id number], [id number], [id number], [id number], [id number], [id number], [id number], [id number] ####[facility] [id number] [place] [address] Folateon 06-13-2023 Folate [Mass/Vol] 5.3 ng/mL Low >=6.7 [facility] Comment on above: Performed By: #### 2 [id number], [id number], [id number], [id number], [id number], 9876047, 0671523, [id number], [id number], [id number], [id number] ####[facility] [id number] [place] [address] HEMATOLOGYOrdered By: SYSTEM SYSTEM on 06-13-2023 Basophils/100 WBC (Bld) 0.1 % Normal 0.0 - 2.0 % [facility] Basophils/Leukocytes Auto (B ld) [Pure # fraction] 0.0 E9/L Normal 0.0 - 0.2 E9/L [facility] Eosinophils/100 WBC (Bld) 0.5 % Normal 0.0 - 8.0 % [facility] Eosinophils/Leukocytes Auto (Bld) [Pure # fraction] 0.1 E9/L Normal 0.0 - 0.5 E9/L [facility] S Lymphocytes/100 WBC (Bld) 7.0 % Low 14.0 - 50. 0 % [facility] Lymphocytes/Leukocytes Auto (Bld) [Pure # fraction] 1.2 E9/L Normal 1.0 - 4.0 E9/L [facility] S Monocytes/100 WBC (Bld) 6.6 % Normal 4.0 - 14.0 % [facility] Monocytes/Leukocytes Auto (B ld) [Pure # fraction] 1.2 E9/L High 0.2 - 1.0 E9/L [facility] Neutrophils/100 WBC (Bld) 85.8 % High 36.0 - 75. 0 % [facility] Neutrophils/Leukocytes Auto (Bld) [Pure # fraction] 15.1 E9/L High 2.0 - 7.5 E9/L [facility] S HEMATOLOGYOrdered By: Brennon Carter on 06-13-2023 Erythrocyte distribution wid th (RBC) [Ratio] 14.6 % High 10.9 - 14.2 % [facility] Hematocrit (Bld) [Volume fraction] 24.0 % Low 37.7 - 49.0 % [facility] Hemoglobin (Bld) [Mass/Vol] 8.1 g/dL Low 13.5 - 1 7.5 gm/dL [facility] MCH (RBC) [Entitic mass] 27.8 pg Normal 27.0 - 34.0 pg [facility] MCHC (RBC) [Mass/Vol] 33.6 g/dL Normal 31.4 - 36.0 gm /dL [facility] MCV (RBC) [Entitic vol] 83.0 fL Normal 80.0 - 100.0 fL [facility] Platelet mean volume (Bld) [Entitic vol] 6.1 fL Low 6.4 - 10.8 fL [facility] Platelets (Bld) [#/Vol] 302.0 E9/L Normal 150.0 - 500. 0 E9/L [facility] RBC (Bld) [#/Vol] 2.9 E12/L Low 4.3 - 5.9 E12/L [facility] WBC corrected for nucl RBC A uto (Bld) [#/Vol] 17.6 E9/L High 4.0 - 11.0 E9/L [facility] Comment on above: Result Comment: Slid e reviewed by BR. Interdisciplinary Note - Abdelrahman e Manageron 06-13-2023 Interdisciplinary Note - Systems Test Analyst Normal [facility] Comment on above: Result Comment: Elec tronically Signed By: Radha HUGHES, Leatha.br\Date and Time Signed: 06/13/23 12:04 EST Ironon 06-13-2023 Iron [Mass/Vol] 25 microgram/dL Low 35-153 [facility] Comment on above: Performed By: #### 2 765824, 9344179, 1136255, 2568637, 6391387, 5384616, 2869458, 8322027, 0361393, 4250829, 76336742, 2077176 ####[facility] [address] [place] [address] Iron Saturationon 06-13-2023 Iron binding capacity [Mass/Vol] 161 microgram/dL Low 250-400 [facility] Comment on above: Performed By: #### 2 238179, 7545698, 9626375, 5422355, 6225882, 3226129, 3738772, 3099898, 1828372, 1911148, 55255033, 9109286 ####[facility] [address] [place] [address] Iron saturation [Mass fraction] 16 % Low 20-5 0 [facility] Comment on above: Performed By: #### 2 604821, 3453865, 9658279, 3631740, 7484925, 2180396, 9153007, 6709262, 8420205, 0433318, 70999344, 9188322 ####[facility] [address] [place] [address] Magnesiumon 06-13-2023 Magnesium [Mass/Vol] 1.7 mg/dL Normal 1.3-2.4 [facility] Comment on above: Performed By: #### 2 308158, 9373497, 3341037, 5829703, 1554642, 3010836, 4171727, 9751093, 4290268, 7490514, 92345803, 4391796 ####[facility] [address] [place] [address] Monitor Recordon 06-13-2023 Monitor Record [id number]#1.00TIFF Normal [facility] Monitor Record [id number]#1.00TIFF Normal [facility] Monitor Record [id number]#1.00TIFF Normal [facility] Oncology Progress Noteon Oncology Progress Note Normal [facility] Phosphoruson 06-13-2023 Phosphate [Mass/Vol] 1.5 mg/dL Low 1.9-4.6 [facility] Comment on above: Performed By: #### 2 777566, 7942509, 7447668, 5911184, 0458990, 7209018, 5987841, 0415372, 0286259, 1515297, 30634352, 4728654 ####[facility] [address] [place] [address] Progress Note - Pharmacyon 1 08-13-2022 Progress Note - Pharmacy Normal [facility] Transferrinon 06-13-2023 Transferrin [Mass/Vol] 115 mg/dL Low 200-370 [facility] Comment on above: Performed By: #### 2 597887, 7506302, 6382396, 0154858, 9280443, 1651937, 8192545, 7594029, 3857890, 9313128, 24324354, 4104184 ####[facility] [address] [place] [address] Vanco Peakon 06-13-2023 VANCOMYCIN 31 microgram/mL Normal 20-40 [facility] Comment on above: Performed By: #### 2 066130 ####[facility] [address] [place] [address] Vit B12on 06-13-2023 Cobalamin (Vitamin B12) [Mass/Vol] 1213 pg/mL Normal 50-1500 [facility] Comment on above: Performed By: #### 2 268920, 9273957, 2299852, 6187269, 4741752, 1182421, 7556632, 9502045, 4555186, 7810282, 42529009, 6219021 ####[facility] [address] [place] [address] eGFRon 06-13-2023 GFR/1.73 sq M.predicted adin g non-blacks MDRD (S/P/Bld) [Vol rate/Area] 97 mL/min/1.73 m2 Normal >=59 [facility] Comment on above: Order Comment: Order added by Discern Expert. 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 Kidney failure is indicated at less than 15 mL/min/1.73m2. Performed By: #### 2 119924, 7719672, 2489763, 2349919, 7629759, 9367378, 1604183, 9916940, 6139298, 0714000, 29330327, 3594385 ####[facility] [address] [place] [address] Auto Diffon 06-12-2023 Basophils/100 WBC (Bld) 0.1 % Normal 0.0-2.0 [facility] Comment on above: Order Comment: Order Added by Discern Expert. Performed By: #### 2 280155, 2738076, 7550977, 8713858, 5066038, 23391365 ####[facility] [address] [place] [address] Basophils/Leukocytes Auto (B ld) [Pure # fraction] 0.0 E9/L Normal 0.0-0.2 [facility] Comment on above: Order Comment: Order Added by Discern Expert. Performed By: #### 2 106143, 3216052, 1152563, 0406628, 9564057, 25441322 ####[facility] [address] [place] [address] Eosinophils/100 WBC (Bld) 0.3 % Normal 0.0-8.0 [facility] Comment on above: Order Comment: Order Added by Discern Expert. Performed By: #### 2 332523, 7298067, 6383747, 5332195, 4982928, 37471762 ####[address] [address] Eosinophils/Leukocytes Auto (Bld) [Pure # fraction] 0.1 E9/L Normal 0.0-0.5 [facility] Comment on above: Order Comment: Order Added by Discern Expert. Performed By: #### 2 218213, 5933159, 9996317, 2957347, 0306304, 06986807 ####[address] [address] Lymphocytes/100 WBC (Bld) 7.1 % Low 14.0-50.0 [facility] Comment on above: Order Comment: Order Added by Discern Expert. Performed By: #### 2 191803, 9453905, 9655528, 8028950, 0123222, 71528930 ####[address] [address] Lymphocytes/Leukocytes Auto (Bld) [Pure # fraction] 1.1 E9/L Normal 1.0-4.0 [facility] Comment on above: Order Comment: Order Added by Discern Expert. Performed By: #### 2 500650, 4538817, 4273570, 2795977, 1464905, 95824130 ####[address] [address] Monocytes/100 WBC (Bld) 6.0 % Normal 4.0-14.0 [facility] Comment on above: Order Comment: Order Added by Discern Expert. Performed By: #### 2 003028, 1090621, 5691603, 2075752, 0249291, 58433976 ####[address] [address] Monocytes/Leukocytes Auto (B ld) [Pure # fraction] 1.0 E9/L Normal 0.2-1.0 [facility] Comment on above: Order Comment: Order Added by Discern Expert. Performed By: #### 2 973810, 4756833, 1357497, 3482165, 5892688, 07638324 ####[facility] [address] [place] [address] Neutrophils/100 WBC (Bld) 86.5 % High 36.0-75.0 [facility] Comment on above: Order Comment: Order Added by Discern Expert. Performed By: #### 2 678244, 8693862, 4030581, 2388957, 0338248, 69628634 ####[facility] [address] [place] [address] Neutrophils/Leukocytes Auto (Bld) [Pure # fraction] 14.0 E9/L High 2.0-7.5 [facility] Comment on above: Order Comment: Order Added by Discern Expert. Performed By: #### 2 053163, 3387250, 4552706, 4448634, 4418125, 23838095 ####[facility] [address] [place] [address] BMPon 06-12-2023 Anion gap [Moles/Vol] 7 mmol/L Normal 6-16 [facility] Comment on above: Performed By: #### 2 283762, 3275618, 6360089, 4584523, 6996345, 58094670 ####[facility] [address] [place] [address] Calcium [Mass/Vol] 7.2 mg/dL Low 8.9-11.1 [facility] Comment on above: Performed By: #### 2 552361, 9730423, 1423382, 1535117, 2815823, 76056331 ####[facility] [address] [place] [address] Chloride [Moles/Vol] 108 mmol/L Normal 101-111 [facility] Comment on above: Performed By: #### 2 305164, 1856596, 4528884, 5053067, 7663534, 81673695 ####[facility] [address] [place] [address] CO2 [Moles/Vol] 25 mmol/L Normal 21-31 [facility] Comment on above: Performed By: #### 2 613092, 1036596, 4379815, 1078824, 5089808, 60215878 ####[facility] [address] [place] [address] Creatinine [Mass/Vol] 0.8 mg/dL Normal 0.5-1.3 [facility] Comment on above: Performed By: #### 2 480976, 4966995, 9284068, 0221521, 1578927, 53223736 ####[facility] [address] [place] [address] Glucose [Mass/Vol] 164 mg/dL Normal 55-199 [facility] Comment on above: Result Comment: If t his glucose result represents a fasting glucose, interpretation should refer to the following reference range: 55-99 mg/dL Performed By: #### 2 661182, 9690938, 6660285, 5871529, 0412558, 70075689 ####[facility] [address] [place] [address] Potassium [Moles/Vol] 3.0 mmol/L Low 3.5-5.3 [facility] Comment on above: Performed By: #### 2 147476, 2329121, 7395778, 3319417, 1284041, 00079141 ####[facility] [address] [place] [address] Sodium [Moles/Vol] 137 mmol/L Normal 135-145 [facility] Comment on above: Performed By: #### 2 819906, 8765401, 7416978, 1430026, 6734415, 07699374 ####[facility] [address] [place] [address] Urea nitrogen [Mass/Vol] 12 mg/dL Normal 5-21 [facility] Comment on above: Performed By: #### 2 342794, 3231699, 5403411, 1259775, 1147177, 53695600 ####[facility] [address] [place] [address] Urea nitrogen/Creatinine [Ma ss ratio] 15 No Units Normal 10-20 [facility] Comment on above: Performed By: #### 2 773872, 2700156, 8509196, 4685830, 6457252, 48696067 ####[facility] [address] [place] [address] CBC w/ Auto Diffon 3 Erythrocyte distribution wid th (RBC) [Ratio] 14.7 % High 10.9-14.2 [facility] Comment on above: Performed By: #### 2 376218, 7781864, 5051581, 6155395, 6182404, 64189580 ####[address] [place] [address] Hematocrit (Bld) [Volume fraction] 23.4 % Low 3 7.7-49.0 [facility] Comment on above: Performed By: #### 2 685371, 5408807, 2135805, 0575919, 2363858, 14661186 ####[facility] [address] [place] [address] Hemoglobin (Bld) [Mass/Vol] 7.9 g/dL Low 13.5-17. 5 [facility] Comment on above: Performed By: #### 2 684177, 0904431, 9837584, 8760311, 1574996, 78034066 ####[facility] [address] [place] [address] MCH (RBC) [Entitic mass] 28.1 pg Normal 27.0-34.0 [facility] Comment on above: Performed By: #### 2 137056, 3216868, 2675626, 7048912, 2074019, 37839095 ####[address] [place] [address] MCHC (RBC) [Mass/Vol] 33.8 g/dL Normal 31.4-36.0 [facility] Comment on above: Performed By: #### 2 924048, 3108876, 3202139, 5317688, 6043827, 53911673 ####[facility] [address] [place] [address] MCV (RBC) [Entitic vol] 83.0 fL Normal 80.0-100.0 [facility] Comment on above: Performed By: #### 2 224086, 7364339, 1647158, 8188494, 8243308, 96557747 ####[facility] [address] [place] [address] Platelet mean volume (Bld) [ Entitic vol] 6.3 fL Low 6.4-10.8 [facility] Comment on above: Performed By: #### 2 109599, 3116224, 3500386, 8124873, 8540796, 66185844 ####[facility] [address] [place] [address] Platelets (Bld) [#/Vol] 267.0 E9/L Normal 150.0-500.0 [facility] Comment on above: Performed By: #### 2 715800, 7432626, 3873800, 2211414, 8890283, 97267006 ####[address] [place] [address] RBC (Bld) [#/Vol] 2.8 E12/L Low 4.3-5.9 [facility] Comment on above: Performed By: #### 2 652348, 9256354, 1670090, 4325947, 8832823, 85015308 ####[address] [place] [address] WBC corrected for nucl RBC A uto (Bld) [#/Vol] 16.2 E9/L High 4.0-11.0 [facility] Comment on above: Performed By: #### 2 960561, 4981507, 0677889, 3434178, 6144239, 83557462 ####[facility] [address] [place] [address] Capillary Glucose POCon 05-19 Glucose [Mass/Vol] 167 mg/dL High [address] [place] [address] Comment on above: Result Comment: Chidi [place] Performed By: #### 2 82211443 ####[facility] [address] [place] [address] Glucose [Mass/Vol] 158 mg/dL High [address] [place] [address] Comment on above: Result Comment: Chidi [place] Performed By: #### 2 93320492 ####[facility] [address] [place] [address] Glucose [Mass/Vol] 153 mg/dL [address] Comment on above: Performed By: #### 2 84572425 ####[facility] [address] [place] [address] Magnesiumon 06-12-2023 Magnesium [Mass/Vol] 1.8 mg/dL Normal 1.3-2.4 [facility] Comment on above: Performed By: #### 2 025315, 0428210, 5878485, 3418052, 6416332, 77680725 ####[facility] [address] [place] [address] Magnesium [Mass/Vol] 1.9 mg/dL Normal 1.3-2.4 [facility] Comment on above: Performed By: #### 2 444371 ####[facility] [address] [place] [address] Monitor Recordon 06-12-2023 Monitor Record [id number]#1.00TIFF Normal [facility] Monitor Record [id number]#1.00TIFF Normal [facility] Monitor Record [id number]#1.00TIFF Normal [facility] Phosphoruson 06-12-2023 Phosphate [Mass/Vol] 2.1 mg/dL Normal 1.9-4.6 [facility] Comment on above: Performed By: #### 2 824458, 9107013, 6528709, 6161399, 3046410, 02424291 ####[facility] [address] [place] [address] Potassiumon 06-12-2023 Potassium [Moles/Vol] 2.7 mmol/L Abnormal 3.5-5.3 Fis her [facility] Comment on above: Result Comment: Crit ical Result verified by repeat analysis\Critical Result S_K:2.7 Called to CHACHO LAI AT 3S by SOM MILNER And Read Back For Confirmation at: 06/12/2023 00:08:50 Performed By: #### 2 647912 ####[facility] [address] [place] [address] Progress Note-Physicianon Progress Note-Physician Normal [facility] Comment on above: Result Comment: Elec tronically Signed By: Juan Francisco WILLIAMSON, Deny Edouard\.br\Date and Time Signed: 06/12/23 11:29 EST eGFRon 06-12-2023 GFR/1.73 sq M.predicted adin g non-blacks MDRD (S/P/Bld) [Vol rate/Area] 93 mL/min/1.73 m2 Normal >=59 [facility] Comment on above: Order Comment: Order added by Discern Expert. 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 Kidney failure is indicated at less than 15 mL/min/1.73m2. Performed By: #### 2 082529, 1887493, 3809993, 6551119, 5401896, 19147261 ####[facility] [address] [place] [address] .Manual Abson 06-11-2023 Basophils/Leukocytes Manual cnt (Bld) [Pure # fraction] 0.0 E9/L Normal 0.0-0.2 [facility] Comment on above: Performed By: #### 3 9398401, 1198624, 2719941, 30881211, 9776784, 0060850, 6947729 ####[address] [place] [address] Eosinophils/Leukocytes Manua l cnt (Bld) [Pure # fraction] 0.3 E9/L Normal 0.0-0.5 [facility] Comment on above: Performed By: #### 3 2744361, 1386312, 0710743, 96204590, 6926867, 7211542, 7649143 ####[address] [address] Lymphocytes/Leukocytes Manua l cnt (Bld) [Pure # fraction] 0.8 E9/L Low 1.0-4.0 [facility] Comment on above: Performed By: #### 3 2839722, 1296222, 1389553, 19700504, 4132544, 6881026, 0474246 ####[address] [address] Monocytes/Leukocytes Manual cnt (Bld) [Pure # fraction] 0.8 E9/L Normal 0.2-1.0 [facility] Comment on above: Performed By: #### 3 9503212, 1842690, 7178214, 26735933, 0321091, 6323801, 8309081 ####[address] [address] Neutrophils/Leukocytes Auto (Bld) [Pure # fraction] 25.0 E9/L High 2.0-7.5 [facility] Comment on above: Performed By: #### 3 4527179, 2464458, 9336342, 12156284, 6244494, 1459953, 9486389 ####[address] [place] [address] Auto Diffon 06-11-2023 Basophils/100 WBC (Bld) 0.1 % Normal 0.0-2.0 [facility] Comment on above: Order Comment: Order Added by Discern Expert. Performed By: #### 2 745953, 5188724, 5275086, 74058791 ####[address] [address] Basophils/Leukocytes Auto (B ld) [Pure # fraction] 0.0 E9/L Normal 0.0-0.2 [facility] Comment on above: Order Comment: Order Added by Discern Expert. Performed By: #### 2 224022, 3305798, 1181446, 91714470 ####[address] [address] Eosinophils/100 WBC (Bld) 0.2 % Normal 0.0-8.0 [facility] Comment on above: Order Comment: Order Added by Rosalia Expert. Performed By: #### 2 460588, 9824419, 9863913, 96721470 ####[address] [address] Eosinophils/Leukocytes Auto (Bld) [Pure # fraction] 0.0 E9/L Normal 0.0-0.5 [facility] Comment on above: Order Comment: Order Added by Rosalia Expert. Performed By: #### 2 409102, 1504956, 3460418, 02940682 ####[address] [address] Lymphocytes/100 WBC (Bld) 6.2 % Low 14.0-50.0 [facility] Comment on above: Order Comment: Order Added by Rosalia Expert. Performed By: #### 2 289658, 2541770, 2594383, 17444837 ####[address] [address] Lymphocytes/Leukocytes Auto (Bld) [Pure # fraction] 1.3 E9/L Normal 1.0-4.0 [facility] Comment on above: Order Comment: Order Added by Rosalia Expert. Performed By: #### 2 934379, 5847573, 5021323, 17977196 ####[address] [address] Monocytes/100 WBC (Bld) 4.1 % Normal 4.0-14.0 [facility] Comment on above: Order Comment: Order Added by Discern Expert. Performed By: #### 2 982817, 9875833, 6389392, 12143070 ####[facility] [address] [place] [address] Monocytes/Leukocytes Auto (B ld) [Pure # fraction] 0.9 E9/L Normal 0.2-1.0 [facility] Comment on above: Order Comment: Order Added by Discern Expert. Performed By: #### 2 805430, 7531683, 9672636, 90772312 ####[facility] [address] [place] [address] Neutrophils/100 WBC (Bld) 89.4 % High 36.0-75.0 [facility] Comment on above: Order Comment: Order Added by Discern Expert. Performed By: #### 2 825324, 1095834, 1522603, 71976297 ####[facility] [address] [place] [address] Neutrophils/Leukocytes Auto (Bld) [Pure # fraction] 18.7 E9/L High 2.0-7.5 [facility] Comment on above: Order Comment: Order Added by Discern Expert. Performed By: #### 2 967989, 8316442, 5449284, 61152479 ####[facility] [address] [place] [address] BMPon 06-11-2023 Anion gap [Moles/Vol] 8 mmol/L Normal 6-16 [facility] Comment on above: Performed By: #### 2 779645, 16224766 ####[facility] [address] [place] [address] Calcium [Mass/Vol] 6.7 mg/dL Abnormal 8.9-11.1 [facility] Comment on above: Result Comment: Crit ical Result verified by repeat analysis\Critical Result S_CA.7 Called to FRANK CANAS AT 3S by CHARBEL CHRISTIANSON And Read Back For Confirmation at: 06/11/2023 21:45:40 Performed By: #### 2 518537, 53470404 ####[facility] [address] [place] [address] Chloride [Moles/Vol] 108 mmol/L Normal 101-111 [facility] Comment on above: Performed By: #### 2 182335, 74256807 ####[facility] [address] [place] [address] CO2 [Moles/Vol] 24 mmol/L Normal 21-31 [facility] Comment on above: Performed By: #### 2 894417, 31249733 ####[facility] [address] [place] [address], [place] [address] Creatinine [Mass/Vol] 0.8 mg/dL Normal 0.5-1.3 [facility] Comment on above: Performed By: #### 2 877842, 15595412 ####[facility] [address] [place] [address] Glucose [Mass/Vol] 157 mg/dL Normal 55-199 [facility] Comment on above: Result Comment: If t his glucose result represents a fasting glucose, interpretation should refer to the following reference range: 55-99 mg/dL Performed By: #### 2 895855, 58882912 ####[facility] [address] [place] [address] Potassium [Moles/Vol] 2.6 mmol/L Abnormal 3.5-5.3 [facility] Comment on above: Result Comment: Crit ical Result verified by repeat analysis\Critical Result S_K:2.6 Called to FRANK CANAS AT 3S by CHARBEL CHRISTIANSON And Read Back For Confirmation at: 06/11/2023 21:45:40 Performed By: #### 2 890845, 91983031 ####[facility] [address] [facility] [place] [address] Sodium [Moles/Vol] 137 mmol/L Normal 135-145 [facility] Comment on above: Performed By: #### 2 136431, 04991208 ####[facility] [address] [place] [address] Urea nitrogen [Mass/Vol] 13 mg/dL Normal 5-21 [facility] Comment on above: Performed By: #### 2 026801, 49110090 ####[facility] [address] [place] [address] Urea nitrogen/Creatinine [Ma ss ratio] 16 No Units Normal 10-20 [facility] Comment on above: Performed By: #### 2 409570, 78737866 ####[facility] [address] [place] [address] Anion gap [Moles/Vol] 10 mmol/L Normal 6-16 [facility] Comment on above: Performed By: #### 2 405862, 9817336, 1173752, 09579365 ####[facility] [address] [place] [address] Calcium [Mass/Vol] 7.0 mg/dL Abnormal 8.9-11.1 [facility] Comment on above: Result Comment: Crit ical Result verified by previous result\Critical Result S_CA.0 Called to STARR JENNINGS AT 3S by MARU BOYD And Read Back For Confirmation at: 06/11/2023 14:05:59 Performed By: #### 2 069717, 2968874, 1612711, 76283146 ####[facility] [address] [place] [address] Chloride [Moles/Vol] 106 mmol/L Normal 101-111 Fish [facility] Comment on above: Performed By: #### 2 928843, 0954929, 0909070, 74759717 ####[facility] [address] [place] [address] CO2 [Moles/Vol] 25 mmol/L Normal 21-31 [facility] Comment on above: Performed By: #### 2 721868, 4847467, 3780702, 13974294 ####[facility] [address] [place] [address] Creatinine [Mass/Vol] 0.9 mg/dL Normal 0.5-1.3 [facility] Comment on above: Performed By: #### 2 585486, 1010677, 3188710, 86103012 ####[facility] [address] [place] [address] Glucose [Mass/Vol] 175 mg/dL Normal 55-199 [facility] Comment on above: Result Comment: If t his glucose result represents a fasting glucose, interpretation should refer to the following reference range: 55-99 mg/dL Performed By: #### 2 156770, 8588104, 8103655, 82374113 ####[facility] [address] [place] [address] Potassium [Moles/Vol] 2.7 mmol/L Abnormal 3.5-5.3 [facility] Comment on above: Result Comment: Crit ical Result verified by previous result\Critical Result S_K:2.7 Called to STARR JENNINGS AT 3S by MARU BOYD And Read Back For Confirmation at: 06/11/2023 14:05:59 Performed By: #### 2 124501, 2952834, 9386196, 12923231 ####[facility] [address] [place] [address] Sodium [Moles/Vol] 138 mmol/L Normal 135-145 [facility] Comment on above: Performed By: #### 2 486429, 0361893, 2790331, 21366134 ####[facility] [address] [place] [address] Urea nitrogen [Mass/Vol] 13 mg/dL Normal 5-21 [facility] Comment on above: Performed By: #### 2 465953, 0055315, 0647972, 68267595 ####[facility] [address] [place] [address] Urea nitrogen/Creatinine [Ma ss ratio] 14 No Units Normal 10-20 [facility] Comment on above: Performed By: #### 2 115849, 4277960, 6254359, 22989538 ####[facility] [address] [place] [address] Anion gap [Moles/Vol] 10 mmol/L Normal 6-16 [facility] Comment on above: Performed By: #### 3 5230023, 4713808, 5490198, 72394411, 8046896, 9454278, 0881079 ####[facility] [address] [place] [address] Calcium [Mass/Vol] 7.1 mg/dL Low 8.9-11.1 [facility] Comment on above: Performed By: #### 3 7302753, 3404363, 7411776, 80477419, 4982293, 4563493, 2366465 ####[facility] [address] [place] [address] Chloride [Moles/Vol] 107 mmol/L Normal 101-111 [facility] Comment on above: Performed By: #### 3 3233811, 6587940, 0393374, 16326744, 0056244, 9633328, 9933363 ####[facility] [address] [place] [address] CO2 [Moles/Vol] 24 mmol/L Normal 21-31 [facility] Comment on above: Performed By: #### 3 7605174, 6240571, 5871323, 30585612, 4909296, 3907854, 3772089 ####[facility] [address] [place] [address] Creatinine [Mass/Vol] 0.9 mg/dL Normal 0.5-1.3 [facility] Comment on above: Performed By: #### 3 9570812, 3696613, 9861873, 71964119, 1666791, 0863174, 0889716 ####[facility] [address] [place] [address] Glucose [Mass/Vol] 162 mg/dL Normal 55-199 [facility] Comment on above: Result Comment: If t his glucose result represents a fasting glucose, interpretation should refer to the following reference range: 55-99 mg/dL Performed By: #### 3 0574191, 4716296, 0065946, 44075430, 1481280, 0672365, 6101529 ####[facility] [address] [place] [address] Potassium [Moles/Vol] 2.9 mmol/L Low 3.5-5.3 [facility] Comment on above: Performed By: #### 3 0760567, 7764700, 0967293, 44071310, 3319357, 1228291, 0845796 ####[facility] [address] [place] [address] Sodium [Moles/Vol] 138 mmol/L Normal 135-145 [facility] Comment on above: Performed By: #### 3 5975553, 8833138, 9991705, 19091578, 0573722, 4137388, 3452452 ####[facility] [address] [place] [address] Urea nitrogen [Mass/Vol] 12 mg/dL Normal 5-21 [facility] Comment on above: Performed By: #### 3 9780974, 9369236, 2134177, 48726621, 6706773, 9720728, 3082210 ####[facility] [address] [place] [address] Urea nitrogen/Creatinine [Ma ss ratio] 13 No Units Normal 10-20 [facility] Comment on above: Performed By: #### 3 9162378, 3557350, 2153720, 55552353, 0654917, 8987802, 4730449 ####[facility] [address] [place] [address] CBC w/ Auto Diffon 3 Erythrocyte distribution wid th (RBC) [Ratio] 14.9 % High 10.9-14.2 [facility] Comment on above: Performed By: #### 2 423283, 1192600, 1776138, 34503911 ####[facility] [address] [place] [address] Hematocrit (Bld) [Volume fraction] 25.9 % Low 3 7.7-49.0 [facility] Comment on above: Performed By: #### 2 959564, 7852383, 8304033, 88518673 ####[facility] [address] [place] [address] Hemoglobin (Bld) [Mass/Vol] 8.6 g/dL Low 13.5-17. 5 [facility] Comment on above: Performed By: #### 2 065806, 2557611, 8532082, 17304303 ####[facility] [address] [place] [address] MCH (RBC) [Entitic mass] 27.6 pg Normal 27.0-34.0 [facility] Comment on above: Performed By: #### 2 608811, 5221272, 2750164, 55408096 ####[facility] [address] [place] [address] MCHC (RBC) [Mass/Vol] 33.1 g/dL Normal 31.4-36.0 [facility] Comment on above: Performed By: #### 2 403114, 0899557, 9345075, 97149119 ####[facility] [address] [place] [address] MCV (RBC) [Entitic vol] 83.4 fL Normal 80.0-100.0 [facility] Comment on above: Performed By: #### 2 817064, 0708919, 9766460, 27924236 ####[facility] [address] [place] [address] Platelet mean volume (Bld) [Entitic vol] 6.6 fL Normal 6.4-10.8 [facility] Comment on above: Performed By: #### 2 591805, 5244202, 0715243, 78148015 ####[facility] [address] [place] [address] Platelets (Bld) [#/Vol] 287.0 E9/L Normal 150.0-500.0 [facility] Comment on above: Performed By: #### 2 129892, 7270454, 2433665, 30243730 ####[facility] [address] [place] [address] RBC (Bld) [#/Vol] 3.1 E12/L Low 4.3-5.9 [facility] Comment on above: Performed By: #### 2 448793, 8889456, 7390936, 67685697 ####[address] [place] [address] WBC corrected for nucl RBC A uto (Bld) [#/Vol] 20.9 E9/L High 4.0-11.0 [facility] Comment on above: Performed By: #### 2 678296, 3460634, 0657526, 85553814 ####[address] [place] [address] Erythrocyte distribution wid th (RBC) [Ratio] 14.8 % High 10.9-14.2 [facility] Comment on above: Performed By: #### 3 8620436, 1602914, 9813461, 53775790, 5708633, 1867141, 9273121 ####[address] [place] [address] Hematocrit (Bld) [Volume fraction] 26.2 % Low 3 7.7-49.0 [facility] Comment on above: Performed By: #### 3 3343441, 7355796, 9702476, 96757108, 6338580, 0384849, 8632613 ####[facility] [address] [place] [address] Hemoglobin (Bld) [Mass/Vol] 8.7 g/dL Low 13.5-17. 5 [facility] Comment on above: Performed By: #### 3 4371939, 8851311, 7356931, 36914051, 5029816, 9707081, 8582829 ####[facility] [address] [place] [address] MCH (RBC) [Entitic mass] 27.9 pg Normal 27.0-34.0 [facility] Comment on above: Performed By: #### 3 3315895, 0124074, 6381212, 51877260, 3126482, 1956562, 1814267 ####[facility] [address] [place] [address] MCHC (RBC) [Mass/Vol] 33.2 g/dL Normal 31.4-36.0 [facility] Comment on above: Performed By: #### 3 4434750, 8778148, 0450055, 61116635, 5669458, 7571783, 2345993 ####[facility] [address] [place] [address] MCV (RBC) [Entitic vol] 84.1 fL Normal 80.0-100.0 [facility] Comment on above: Performed By: #### 3 7423928, 3797562, 0970787, 77436457, 3387013, 7098126, 7518342 ####[address] [address] Platelet mean volume (Bld) [Entitic vol] 7.3 fL Normal 6.4-10.8 [facility] Comment on above: Performed By: #### 3 4705694, 0626491, 3646735, 28671621, 4055580, 7227201, 8192546 ####[facility] [address] [place] [address] Platelets (Bld) [#/Vol] 286.0 E9/L Normal 150.0-500.0 [facility] Comment on above: Performed By: #### 3 2562064, 7588965, 2263908, 79269615, 0446354, 5531529, 2760005 ####[facility] [address] [place] [address] RBC (Bld) [#/Vol] 3.1 E12/L Low 4.3-5.9 [facility] Comment on above: Performed By: #### 3 1422712, 5244673, 4207308, 42889007, 1891083, 7156421, 4374778 ####[facility] [address] [place] [address] WBC corrected for nucl RBC A uto (Bld) [#/Vol] 26.9 E9/L High 4.0-11.0 [facility] Comment on above: Performed By: #### 3 1430323, 6531873, 3208970, 30300433, 8590781, 8473734, 4642573 ####[facility] [address] [place] [address] Capillary Glucose POCon 05-19 Glucose [Mass/Vol] 132 mg/dL High 55-99 [facility] Comment on above: Result Comment: Chidi [place] Performed By: #### 2 64794935 ####[facility] [address] [place] [address] Glucose [Mass/Vol] 159 mg/dL High 55-[address] [place] [address] Comment on above: Result Comment: Chidi [place] Performed By: #### 2 16639312 ####[facility] [address] [place] [address] Glucose [Mass/Vol] 149 mg/dL High 55-99 [facility] Comment on above: Result Comment: Chidi [place] Performed By: #### 2 37102942 ####[facility] [address] [place] [address] Glucose [Mass/Vol] 185 mg/dL High 55-99 [facility] Comment on above: Result Comment: Chidi [place] Performed By: #### 2 41799646 ####[facility] [address] [place] [address] HEMATOLOGYOrdered By: Demi Clifford on 06-11-2023 Anisocytosis Ql (Bld) Present (06/11/23 5:48 AM) Normal [facility] Band form neutrophils/100 WBC (Bld) 0 % Normal 0 - 10 % [facility] Basophils/100 WBC (Bld) 0 % Normal 0 - 2 % [facility] Basophils/Leukocytes Manual cnt (Bld) [Pure # fraction] 0.0 E9/L Normal 0.0 - 0.2 E9/L [facility] Eosinophils/100 WBC (Bld) 1 % Normal 0 - 8 % [facility] Eosinophils/Leukocytes Manual cnt (Bld) [Pure # fraction] 0.3 E9/L Normal 0.0 - 0.5 E9/L [facility] Lymphocytes/100 WBC (Bld) 3 % Low 14 - 50 % [facility] Lymphocytes/Leukocytes Manual cnt (Bld) [Pure # fraction] 0.8 E9/L Low 1.0 - 4.0 E9/L [facility] Monocytes/100 WBC (Bld) 3 % Low 4 - 14 % [facility] Monocytes/Leukocytes Manual cnt (Bld) [Pure # fraction] 0.8 E9/L Normal 0.2 - 1.0 E9/L [facility] Neutrophils/Leukocytes Auto (Bld) [Pure # fraction] 25.0 E9/L High 2.0 - 7.5 E9/L [facility] Hem eMan[facility] Poikilocytosis Auto Ql (Bld) Present (06/11/23 5:48 AM) Normal [facility] Segmented neutrophils/100 WBC (Bld) 93 % High 36 - 75 % [facility] Toxic Gran Present (06/11/23 5:48 AM) Normal [facility] Variant lymphocytes LM Ql (Bld) 0 % Normal <=0% [facility] Interdisciplinary Note - Abdelrahman e Manageron 06-11-2023 Interdisciplinary Note - Systems Test Analyst Normal [facility] Comment on above: Result Comment: Elec tronically Signed By: Sarah Sampson\.br\Date and Time Signed: 06/11/23 11:05 EST Magnesiumon 06-11-2023 Magnesium [Mass/Vol] 1.9 mg/dL Normal 1.3-2.4 Fish [facility] Comment on above: Performed By: #### 3 5959168, 3164358, 4387040, 60192544, 8918011, 9562832, 4850421 ####[facility] [address] [place] [address] Manual Diffon 06-11-2023 Anisocytosis Ql (Bld) Present Normal Fis [facility] Comment on above: Order Comment: Order Added by Discern Expert. Performed By: #### 3 2461041, 7783119, 9232347, 54305921, 4599235, 7592675, 4577028 ####[facility] [address] [place] [address] Band form neutrophils/100 WBC (Bld) 0 % Normal 0-10 [facility] Comment on above: Order Comment: Order Added by Discern Expert. Performed By: #### 3 1169079, 7983105, 4872742, 60844546, 1076634, 5117991, 5696346 ####[facility] [address] [place] [address] Basophils/100 WBC (Bld) 0 % Normal 0-2 [facility] Comment on above: Order Comment: Order Added by Rosalia Expert. Performed By: #### 3 8628808, 1214272, 2770679, 89366317, 1330810, 4212599, 6132003 ####[facility] [address] [place] [address] Eosinophils/100 WBC (Bld) 1 % Normal 0-8 [facility] Comment on above: Order Comment: Order Added by Discern Expert. Performed By: #### 3 1360145, 4659391, 6028355, 05084282, 5893342, 8383932, 9836961 ####[facility] [address] [place] [address] Lymphocytes/100 WBC (Bld) 3 % Low 14-50 [facility] Comment on above: Order Comment: Order Added by Discern Expert. Performed By: #### 3 2553792, 6102068, 1011068, 47969512, 4910352, 2026242, 7771997 ####[facility] [address] [place] [address] Monocytes/100 WBC (Bld) 3 % Low 4-14 [facility] Comment on above: Order Comment: Order Added by Discern Expert. Performed By: #### 3 4135243, 3379539, 0036620, 54255250, 3887921, 2242818, 7066923 ####[facility] [address] [place] [address] Poikilocytosis Auto Ql (Bld) Present Normal [facility] Comment on above: Order Comment: Order Added by Discern Expert. Performed By: #### 3 3335779, 5963898, 6055437, 54809937, 9196058, 1869133, 4412882 ####[facility] [address] [place] [address] Segmented neutrophils/100 WBC (Bld) 93 % High 36-75 [facility] Comment on above: Order Comment: Order Added by Discern Expert. Performed By: #### 3 0789643, 8481455, 3201512, 75543672, 8738988, 5990023, 9597140 ####[facility] [address] [place] [address] Toxic Gran Present Normal [facility] Comment on above: Order Comment: Order Added by Discern Expert. Performed By: #### 3 6441060, 6716606, 8145867, 44285863, 7761631, 6462017, 3533121 ####[facility] [address] [place] [address] Variant lymphocytes LM Ql (Bld) 0 % Normal <=0 [facility] Comment on above: Order Comment: Order Added by Discern Expert. Performed By: #### 3 5187905, 9743847, 2034309, 80690933, 0608825, 4934745, 8354696 ####[facility] [address] [place] [address] Monitor Recordon 06-11-2023 Monitor Record [id number]#1.00TIFF Normal [facility] Monitor Record [id number]#1.00TIFF Normal [facility] Monitor Record [id number]#1.00TIFF Normal [facility] Phosphoruson 06-11-2023 Phosphate [Mass/Vol] 1.6 mg/dL Low 1.9-4.6 Fish [facility] Comment on above: Performed By: #### 3 9922416, 8894376, 1034876, 21435015, 0749760, 7170277, 2510715 ####[facility] [address] [place] [address] Progress Note-Physicianon Progress Note-Physician Normal [facility] Comment on above: Result Comment: Elec tronically Signed By: Jeferson May PA-C\.br\Date and Time Signed: 06/10/23 11:11 EST\.br\Electronically Co-Signed By: Deny Chicas DO\.br\Date and Time Co-Signed: 06/11/23 08:24 EST eGFRon 06-11-2023 GFR/1.73 sq M.predicted adin g non-blacks MDRD (S/P/Bld) [Vol rate/Area] 93 mL/min/1.73 m2 Normal >=59 [facility] Comment on above: Order Comment: Order added by Discern Expert. 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 Kidney failure is indicated at less than 15 mL/min/1.73m2. Performed By: #### 2 979627, 84450580 ####[facility] [address] [place] [address] GFR/1.73 sq M.predicted adin g non-blacks MDRD (S/P/Bld) [Vol rate/Area] 90 mL/min/1.73 m2 Normal >=59 [facility] Comment on above: Order Comment: Order added by Discern Expert. 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 Kidney failure is indicated at less than 15 mL/min/1.73m2. Performed By: #### 2 764625, 3097610, 3431252, 31131728 ####[facility] [address] [place] [address] GFR/1.73 sq M.predicted adin g non-blacks MDRD (S/P/Bld) [Vol rate/Area] 90 mL/min/1.73 m2 Normal >=59 [facility] Comment on above: Order Comment: Order added by Discern Expert. 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 Kidney failure is indicated at less than 15 mL/min/1.73m2. Performed By: #### 3 7862546, 2789666, 7969261, 21682786, 1151611, 3284635, 8905861 ####[facility] [address] [place] [address] Auto Diffon 06-10-2023 Basophils/100 WBC (Bld) 0.1 % Normal 0.0-2.0 [facility] Comment on above: Order Comment: Order Added by Discern Expert. Performed By: #### 2 492165, 38292439, 9167523, 7454962, 7474695, 4896298 ####[facility] [address] [place] [address] Basophils/Leukocytes Auto (B ld) [Pure # fraction] 0.0 E9/L Normal 0.0-0.2 [facility] Comment on above: Order Comment: Order Added by Discern Expert. Performed By: #### 2 074947, 08606802, 5899430, 1067073, 3022834, 7206686 ####[facility] [address] [place] [address] Eosinophils/100 WBC (Bld) 0.2 % Normal 0.0-8.0 [facility] Comment on above: Order Comment: Order Added by Discern Expert. Performed By: #### 2 180879, 65624268, 6280199, 6123525, 6321649, 1628544 ####[address] [place] [address] Eosinophils/Leukocytes Auto (Bld) [Pure # fraction] 0.1 E9/L Normal 0.0-0.5 [facility] Comment on above: Order Comment: Order Added by Discern Expert. Performed By: #### 2 335363, 75106835, 9811460, 5137580, 9247040, 6064947 ####[address] [place] [address] Lymphocytes/100 WBC (Bld) 2.8 % Low 14.0-50.0 [facility] Comment on above: Order Comment: Order Added by Discern Expert. Performed By: #### 2 304876, 83264598, 1423775, 7447136, 5573238, 1823084 ####[address] [address] Lymphocytes/Leukocytes Auto (Bld) [Pure # fraction] 0.9 E9/L Low 1.0-4.0 [facility] Comment on above: Order Comment: Order Added by Discern Expert. Performed By: #### 2 684108, 65326382, 3334447, 2888570, 9875114, 1363886 ####[address] [address] Monocytes/100 WBC (Bld) 3.6 % Low 4.0-14.0 [facility] Comment on above: Order Comment: Order Added by Discern Expert. Performed By: #### 2 292112, 83312208, 8516588, 2114641, 9059425, 8162558 ####[address] [address] Monocytes/Leukocytes Auto (B ld) [Pure # fraction] 1.2 E9/L High 0.2-1.0 [facility] Comment on above: Order Comment: Order Added by Discern Expert. Performed By: #### 2 051491, 63984523, 4944009, 1639032, 9814562, 5481544 ####[facility] [address] [place] [address] Neutrophils/100 WBC (Bld) 93.3 % High 36.0-75.0 [facility] Comment on above: Order Comment: Order Added by Discern Expert. Performed By: #### 2 054949, 08998159, 2871241, 4171429, 4408937, 9073460 ####[facility] [address] [place] [address] Neutrophils/Leukocytes Auto (Bld) [Pure # fraction] 30.3 E9/L High 2.0-7.5 [facility] Comment on above: Order Comment: Order Added by Discern Expert. Performed By: #### 2 753707, 11308223, 4335656, 1641972, 8445312, 0402012 ####[facility] [address] [place] [address] BMPon 06-10-2023 Potassium [Moles/Vol] 3.4 mmol/L Low 3.5-5.3 [facility] Comment on above: Performed By: #### 2 623569, 07272982, 3557722, 8958534, 6672240, 1136896 ####[facility] [address] [place] [address] Anion gap [Moles/Vol] 9 mmol/L Normal 6-16 [facility] Comment on above: Performed By: #### 2 359162, 05956258, 3984417, 9145715, 8341731, 6901337 ####[facility] [address] [place] [address] Calcium [Mass/Vol] 7.5 mg/dL Low 8.9-11.1 [facility] Comment on above: Performed By: #### 2 454329, 00684160, 8881498, 0315221, 4227118, 8995629 ####[facility] [address] [place] [address] Chloride [Moles/Vol] 108 mmol/L Normal 101-111 Fish [facility] Comment on above: Performed By: #### 2 048898, 48830497, 2498617, 8840963, 8099328, 3449994 ####[facility] [address] [place] [address] CO2 [Moles/Vol] 26 mmol/L Normal 21-31 [facility] Comment on above: Performed By: #### 2 288615, 13141209, 1692804, 2725574, 4588040, 2451762 ####[facility] [address] [place] [address] Creatinine [Mass/Vol] 1.0 mg/dL Normal 0.5-1.3 [facility] Comment on above: Performed By: #### 2 729676, 39427412, 0145027, 8364498, 5263291, 5854664 ####[facility] [address] [place] [address] Glucose [Mass/Vol] 127 mg/dL Normal 55-199 [facility] Comment on above: Result Comment: If t his glucose result represents a fasting glucose, interpretation should refer to the following reference range: 55-99 mg/dL Performed By: #### 2 214231, 59494352, 6024523, 8318962, 6056563, 6561077 ####[facility] [address] [place] [address] Sodium [Moles/Vol] 140 mmol/L Normal 135-145 [facility] Comment on above: Performed By: #### 2 354105, 50506041, 6499275, 1840902, 3069710, 9438817 ####[facility] [address] [place] [address] Urea nitrogen [Mass/Vol] 13 mg/dL Normal 5-21 [facility] Comment on above: Performed By: #### 2 512395, 63492501, 2116320, 7119823, 1073593, 0517736 ####[facility] [address] [place] [address] Urea nitrogen/Creatinine [Ma ss ratio] 13 No Units Normal 10-20 [facility] Comment on above: Performed By: #### 2 003794, 89755971, 4300634, 0261802, 8470822, 5690534 ####[facility] [address] [place] [address] C Sputumon 06-10-2023 Bacteria identified Respirat ory culture Nom (Sput) Normal [facility] Comment on above: Performed By: #### 2 043122 ####[facility] [address] [place] [address] CBC w/ Auto Diffon 3 Erythrocyte distribution wid th (RBC) [Ratio] 15.0 % High 10.9-14.2 [facility] Comment on above: Performed By: #### 2 344755, 27250181, 5742027, 8617186, 9123189, 0832436 ####[facility] [address] [place] [address] Hematocrit (Bld) [Volume fraction] 28.4 % Low 3 7.7-49.0 [facility] Comment on above: Performed By: #### 2 782338, 15160049, 2282784, 8991947, 3772074, 1668124 ####[facility] [address] [place] [address] Hemoglobin (Bld) [Mass/Vol] 9.5 g/dL Low 13.5-17. 5 [facility] Comment on above: Performed By: #### 2 795210, 70577206, 7257432, 5851585, 2514993, 0580750 ####[facility] [address] [place] [address] MCH (RBC) [Entitic mass] 27.9 pg Normal 27.0-34.0 [facility] Comment on above: Performed By: #### 2 485640, 58473480, 3310613, 9001684, 0550940, 3039325 ####[facility] [address] [place] [address] MCHC (RBC) [Mass/Vol] 33.5 g/dL Normal 31.4-36.0 [facility] Comment on above: Performed By: #### 2 907063, 60779016, 9802826, 9863998, 0236205, 1969737 ####[facility] [address] [place] [address] MCV (RBC) [Entitic vol] 83.4 fL Normal 80.0-100.0 [facility] Comment on above: Performed By: #### 2 026191, 22423526, 6429825, 7134427, 3754361, 7617302 ####[facility] [address] [place] [address] Platelet mean volume (Bld) [ Entitic vol] 6.3 fL Low 6.4-10.8 [facility] Comment on above: Performed By: #### 2 819314, 72267990, 6468776, 2569226, 3934472, 1964660 ####[facility] [facility] [address] [place] [address] Platelets (Bld) [#/Vol] 301.0 E9/L Normal 150.0-500.0 [facility] Comment on above: Performed By: #### 2 368665, 69769062, 0287458, 9755328, 4351269, 9533791 ####[facility] [address] [place] [address] RBC (Bld) [#/Vol] 3.4 E12/L Low 4.3-5.9 [facility] Comment on above: Performed By: #### 2 016116, 33811687, 4409155, 3756085, 9974257, 0813364 ####[facility] [address] [place] [address] WBC corrected for nucl RBC Auto (Bld) [#/Vol] 32.5 E9/L Abnormal 4.0-11.0 [facility] Comment on above: Result Comment: Resu lts Called To Devyn Jarrell By amh _ And Read Back For Confirmation On 06/10/2023 0640 EST_.Results Verified By Repeat Analysis Performed By: #### 2 424314, 26074244, 9812520, 6404762, 9767956, 6236180 ####[facility] [address] [place] [address] CHEMISTRYOrdered By: SYSTEM SYSTEM on 06-10-2023 Vancomycin trough [Moles/Vol] 11 microgram/mL Normal 1 0 - 20 mcg/mL [facility] Remisol Vancomycin peak [Moles/Vol] 24 microgram/mL Normal 20 - 40 mcg/mL [facility] [place] Remisol Capillary Glucose POCon 05-19 Glucose [Mass/Vol] 143 mg/dL High 55-99 [facility] Comment on above: Result Comment: Chidi bustamante RN/ Performed By: #### 2 [id number] ####[facility] [address] [place] [address] Glucose [Mass/Vol] 149 mg/dL High 55-99 [facility] Comment on above: Result Comment: Chidi bustamante RN/ Performed By: #### 2 [id number] ####[facility] [address] [place] [address] Glucose [Mass/Vol] 109 mg/dL High 55-[address] [place] [address] Comment on above: Result Comment: Eri daisy Meter Performed By: #### 2 [id number] ####[facility] [address] [place] [address] Glucose [Mass/Vol] 109 mg/dL High 55-99 [facility] Comment on above: Result Comment: Eri daisy Meter Performed By: #### 2 09579890 ####[facility] [address] [place] [address] Interdisciplinary Note - Abdelrahman e Manageron 06-10-2023 Interdisciplinary Note - Systems Test Analyst [facility] Comment on above: Result Comment: Elec tronically Signed By: Sarah Sampson\.br\Date and Time Signed: 06/10/23 10:38 EST IntraOperative Documentson 1 08-10-2022 IntraOperative Documents [id number]#1.00TIFF Normal [facility] Magnesiumon 06-10-2023 Magnesium [Mass/Vol] 2.0 mg/dL Normal 1.3-2.4 [facility] Comment on above: Performed By: #### 2 937242, 02767007, 3781482, 3474107, 4333726, 5569151 ####[facility] [address] [place] [address] Monitor Recordon 06-10-2023 Monitor Record [id number]#1.00TIFF Normal [facility] Monitor Record [id number]#1.00TIFF Normal [facility] Monitor Record [id number]#1.00TIFF Normal [facility] Monitor Record [id number]#1.00TIFF Normal [facility] Monitor Record [id number]#1.00TIFF Normal [facility] Monitor Record [id number]#1.00TIFF Normal [facility] Path. Reviewon 06-10-2023 Path Review Neutrophilia with reactive monocytosis, consistent with infectious or reactive process. No increase of basophils or eosinophils. Invalid Interpretation Code [facility] Comment on above: Order Comment: Order Added by Discern Expert. Performed By: #### 2 985298, 2264591, 29410016, 7977685, 4728613, 34321714, 49541101, 8184039 ####[facility] [address] [place] [address] Phosphoruson 06-10-2023 Phosphate [Mass/Vol] 1.9 mg/dL Normal 1.9-4.6 [facility] Comment on above: Performed By: #### 2 195302, 89575727, 4197104, 9904692, 4525057, 9267507 ####[facility] [address] [place] [address] Progress Note - Pharmacyon 1 08-10-2022 Progress Note - Pharmacy Normal [facility] Vanco Peakon 06-10-2023 VANCOMYCIN 24 microgram/mL Normal 20-40 [facility] Comment on above: Order Comment: Tito sierra drawn Vancomycin Peak 1 hour after the completion of the 2100 dose on 06/09/23. Thank you. Performed By: #### 2 203925 ####[facility] [address] [place] [address] Vanco Troughon 06-10-2023 VANCOMYCIN 11 microgram/mL Normal 10-20 [facility] Comment on above: Order Comment: NOTE: Trough is scheduled 1 hour prior to next dose. Thank you. Performed By: #### 2 361093 ####[address] [place] [address] eGFRon 06-10-2023 GFR/1.73 sq M.predicted adin g non-blacks MDRD (S/P/Bld) [Vol rate/Area] 79 mL/min/1.73 m2 Normal >=59 [facility] Comment on above: Order Comment: Order added by Discern Expert. 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 Kidney failure is indicated at less than 15 mL/min/1.73m2. Performed By: #### 2 307260, 56683755, 1508824, 8229654, 6908501, 8850184 ####[facility] [address] [place] [address] .Manual Abson 06-09-2023 Basophils/Leukocytes Manual cnt (Bld) [Pure # fraction] 0.0 E9/L Normal 0.0-0.2 [facility] Comment on above: Performed By: #### 2 438235, 4921110, 77849270, 3964587, 5291031, 55257936, 18731493, 8160221 ####[address] [place] [address] Eosinophils/Leukocytes Manua l cnt (Bld) [Pure # fraction] 0.6 E9/L High 0.0-0.5 [facility] Comment on above: Performed By: #### 2 982327, 6689345, 20499791, 3871764, 5481286, 09884016, 58168514, 9991142 ####[address] [place] [address] Lymphocytes/Leukocytes Manua l cnt (Bld) [Pure # fraction] 1.5 E9/L Normal 1.0-4.0 [facility] Comment on above: Performed By: #### 2 537039, 5298112, 67581754, 1820855, 9203510, 83015909, 57698902, 0716771 ####[address] [address] Monocytes/Leukocytes Manual cnt (Bld) [Pure # fraction] 2.1 E9/L High 0.2-1.0 [facility] Comment on above: Performed By: #### 2 818667, 6364306, 91253261, 0886655, 2486211, 97930114, 59603781, 2626261 ####[address] [address] Neutrophils/Leukocytes Auto (Bld) [Pure # fraction] 26.4 E9/L High 2.0-7.5 [facility] Comment on above: Performed By: #### 2 207092, 4381119, 10537726, 6684377, 9668479, 09798242, 93722984, 4707174 ####[address] [place] [address] BMPon 06-09-2023 Anion gap [Moles/Vol] 10 mmol/L Normal 6-16 [facility] Comment on above: Performed By: #### 2 271136, 4530817, 1158475, 19408506, 9155240, 4420849 ####[facility] [address] [place] [address] Calcium [Mass/Vol] 7.5 mg/dL Low 8.9-11.1 [facility] Comment on above: Performed By: #### 2 273871, 1268647, 4959297, 30512415, 8412749, 2092097 ####[facility] [address] [place] [address] Chloride [Moles/Vol] 104 mmol/L Normal 101-111 [facility] Comment on above: Performed By: #### 2 097015, 3718627, 7400688, 17660674, 2389425, 7416150 ####[facility] [address] [place] [address] CO2 [Moles/Vol] 26 mmol/L Normal 21-31 [facility] Comment on above: Performed By: #### 2 861838, 1690513, 8804740, 26985529, 4207547, 7161197 ####[facility] [address] [place] [address] Creatinine [Mass/Vol] 0.9 mg/dL Normal 0.5-1.3 [facility] Comment on above: Performed By: #### 2 818227, 0600904, 7708064, 79403774, 2089661, 6424027 ####[facility] [address] [place] [address] Glucose [Mass/Vol] 132 mg/dL Normal 55-199 [facility] Comment on above: Result Comment: If t his glucose result represents a fasting glucose, interpretation should refer to the following reference range: 55-99 mg/dL Performed By: #### 2 883562, 2453989, 7029715, 60986246, 6554748, 8642949 ####[facility] [address] [place] [address] Potassium [Moles/Vol] 2.8 mmol/L Abnormal 3.5-5.3 [facility] Comment on above: Result Comment: Crit ical Result S_K:2.8 Called to CHAN DEBOARD AT ICU by CHARBEL CHRISTIANSON And Read Back For Confirmation at: 06/09/2023 14:30:07\Critical Result verified by repeat analysis Performed By: #### 2 920791, 3883808, 2374787, 06688467, 0322956, 2630249 ####[facility] [address] [place] [address] Sodium [Moles/Vol] 137 mmol/L Normal 135-145 [facility] Comment on above: Performed By: #### 2 816008, 7511177, 3000157, 84649025, 1447746, 9598952 ####[facility] [address] [place] [address] Urea nitrogen [Mass/Vol] 16 mg/dL Normal 5-21 [facility] Comment on above: Performed By: #### 2 899524, 6568989, 9500851, 68702024, 5937281, 1612585 ####[facility] [address] [place] [address] Urea nitrogen/Creatinine [Ma ss ratio] 18 No Units Normal 10-20 [facility] Comment on above: Performed By: #### 2 169057, 2515807, 8115529, 51154274, 4636613, 2633692 ####[facility] [address] [place] [address] Anion gap [Moles/Vol] 7 mmol/L Normal 6-16 [facility] Comment on above: Performed By: #### 2 002776, 6939957, 65253529, 8431510, 3443412, 09373228, 13020327, 8486599 ####[facility] [address] [place] [address] Calcium [Mass/Vol] 6.8 mg/dL Abnormal 8.9-11.1 [facility] Comment on above: Result Comment: Crit ical Result verified by repeat analysis\Critical Result S_CA.8 Called to CHAN DEBOARD AT ICU by LOY PAIGE And Read Back For Confirmation at: 06/09/2023 08:19:12 Performed By: #### 2 241079, 8097496, 57595432, 1169685, 5833456, 36247454, 08174127, 6885405 ####[facility] [address] [place] [address] Chloride [Moles/Vol] 106 mmol/L Normal 101-111 [facility] Comment on above: Performed By: #### 2 671491, 0256837, 58750788, 9073948, 6524543, 83425256, 38565062, 3531276 ####[facility] [address] [place] [address] CO2 [Moles/Vol] 27 mmol/L Normal 21-31 [facility] Comment on above: Performed By: #### 2 426576, 4038182, 90639786, 9560528, 4879160, 97772680, 76684103, 3161085 ####[facility] [address] [place] [address] Creatinine [Mass/Vol] 1.1 mg/dL Normal 0.5-1.3 [facility] Comment on above: Performed By: #### 2 236599, 6214799, 87809948, 1208059, 9469935, 93445751, 52956169, 9277541 ####[facility] [address] [place] [address] Glucose [Mass/Vol] 141 mg/dL Normal 55-199 [facility] Comment on above: Result Comment: If t his glucose result represents a fasting glucose, interpretation should refer to the following reference range: 55-99 mg/dL Performed By: #### 2 607738, 0935573, 86657414, 6143004, 6077496, 01523629, 35884045, 8669825 ####[facility] [address] [place] [address] Potassium [Moles/Vol] 2.7 mmol/L Abnormal 3.5-5.3 [facility] Comment on above: Result Comment: Crit ical Result verified by repeat analysis\Critical Result S_K:2.7 Called to HCAN DEBOARD AT ICU by LOY PAIGE And Read Back For Confirmation at: 06/09/2023 08:19:12\Result S_K:2.7 Called to CHAN DEBOARD AT ICU by LOY PAIGE And Read Back For Confirmation at: 06/09/2023 08:19:12 Performed By: #### 2 969028, 8109304, 61952192, 1619749, 5184395, 96832561, 10257626, 3515293 ####[facility] [address] [place] [address] Sodium [Moles/Vol] 137 mmol/L Normal 135-145 [facility] Comment on above: Performed By: #### 2 866841, 2006045, 82187662, 3749404, 0410283, 51914840, 86387863, 5468536 ####[facility] [address] [place] [address] Urea nitrogen [Mass/Vol] 18 mg/dL Normal 5-21 [facility] Comment on above: Performed By: #### 2 523931, 7916596, 44679724, 5360554, 3775652, 14418296, 37746193, 7826345 ####[facility] [address] [place] [address] Urea nitrogen/Creatinine [Ma ss ratio] 16 No Units Normal 10-20 [facility] Comment on above: Performed By: #### 2 238833, 9917677, 85625799, 5881604, 5071139, 43676410, 91906532, 7525928 ####[facility] [address] [place] [address] CBC w/ Auto Diffon 3 Erythrocyte distribution wid th (RBC) [Ratio] 15.0 % High 10.9-14.2 [facility] Comment on above: Performed By: #### 2 994418, 0209275, 5820653, 72990284, 7231526, 7099494 ####[address] [place] [address] Hematocrit (Bld) [Volume fraction] 33.3 % Low 3 7.7-49.0 [facility] Comment on above: Performed By: #### 2 017063, 7975208, 8222104, 89857846, 6345085, 1057940 ####[address] [address] Hemoglobin (Bld) [Mass/Vol] 10.6 g/dL Low 13.5-17. 5 [facility] Comment on above: Performed By: #### 2 760211, 4042799, 7918657, 92052456, 7763245, 9977772 ####[address] [address] MCH (RBC) [Entitic mass] 27.1 pg Normal 27.0-34.0 [facility] Comment on above: Performed By: #### 2 119900, 5480459, 0215930, 50309896, 7917225, 3270324 ####[address] [address] MCHC (RBC) [Mass/Vol] 31.8 g/dL Normal 31.4-36.0 [facility] Comment on above: Performed By: #### 2 336979, 1438282, 2670971, 40650806, 3511314, 9477007 ####[address] [address] MCV (RBC) [Entitic vol] 85.2 fL Normal 80.0-100.0 [facility] Comment on above: Performed By: #### 2 917698, 0003824, 4398569, 53927024, 6756461, 3433556 ####[address] [place] [address] Platelet mean volume (Bld) [Entitic vol] 6.6 fL Normal 6.4-10.8 [facility] Comment on above: Performed By: #### 2 960256, 4051138, 7660955, 91583642, 5648684, 0984682 ####[facility] [address] [place] [address] Platelets (Bld) [#/Vol] 296.0 E9/L Normal 150.0-500.0 [facility] Comment on above: Performed By: #### 2 181377, 2960410, 2253182, 27915558, 3646635, 3710432 ####[facility] [address] [place] [address] RBC (Bld) [#/Vol] 3.9 E12/L Low 4.3-5.9 [facility] Comment on above: Performed By: #### 2 517809, 6661134, 3090319, 81973370, 1486082, 3537667 ####[address] [address] WBC corrected for nucl RBC Auto (Bld) [#/Vol] 34.1 E9/L Abnormal 4.0-11.0 [facility] Comment on above: Result Comment: Resu lts Called To Chan Jaramillo RN/ICU By ELISEO And Read Back For Confirmation On 06/09/2023 14:26:47 EST. Performed By: #### 2 593701, 4807146, 7689886, 52107327, 1400818, 8407113 ####[address] [place] [address] Erythrocyte distribution wid th (RBC) [Ratio] 14.5 % High 10.9-14.2 [facility] Comment on above: Performed By: #### 2 813694, 7978730, 84555202, 6177381, 8535480, 05149768, 85369085, 0145065 ####[facility] [address] [place] [address] Hematocrit (Bld) [Volume fraction] 29.7 % Low 3 7.7-49.0 [facility] Comment on above: Performed By: #### 2 441465, 8960056, 62843040, 6475297, 9914442, 21497144, 24201320, 5290974 ####[facility] [address] [place] [address] Hemoglobin (Bld) [Mass/Vol] 9.7 g/dL Low 13.5-17. 5 [facility] Comment on above: Performed By: #### 2 227405, 8874313, 93196315, 6431554, 2501354, 13795214, 22520170, 0558842 ####[facility] [address] [place] [address] MCH (RBC) [Entitic mass] 27.4 pg Normal 27.0-34.0 [facility] Comment on above: Performed By: #### 2 758187, 3049292, 00582129, 0442904, 0238674, 61037786, 14580917, 9437066 ####[facility] [address] [place] [address] MCHC (RBC) [Mass/Vol] 32.7 g/dL Normal 31.4-36.0 [facility] Comment on above: Performed By: #### 2 599942, 6263848, 18199448, 5612651, 1990487, 15042695, 84034722, 2288849 ####[address] [place] [address] MCV (RBC) [Entitic vol] 83.7 fL Normal 80.0-100.0 [facility] Comment on above: Performed By: #### 2 376229, 1565700, 53324849, 7872818, 9052496, 96803019, 29046278, 9633888 ####[facility] [address] [place] [address] Platelet mean volume (Bld) [Entitic vol] 7.0 fL Normal 6.4-10.8 [facility] Comment on above: Performed By: #### 2 480570, 8313273, 50689010, 1699224, 4332987, 57349007, 68378112, 3414738 ####[facility] [address] [place] [address] Platelets (Bld) [#/Vol] 303.0 E9/L Normal 150.0-500.0 [facility] Comment on above: Performed By: #### 2 775968, 7852238, 17827862, 5366607, 7371931, 11628107, 17835411, 8551116 ####[facility] [address] [place] [address] RBC (Bld) [#/Vol] 3.6 E12/L Low 4.3-5.9 [facility] Comment on above: Performed By: #### 2 641353, 4546591, 83562089, 7894486, 0105813, 25402128, 01141734, 1422834 ####[facility] [address] [place] [address] WBC corrected for nucl RBC Auto (Bld) [#/Vol] 30.7 E9/L Abnormal 4.0-11.0 [facility] Comment on above: Result Comment: Resu lts 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 By And Read Back For Confirmation On 06/09/2023 0730:47 ESTResults Verified By Repeat Analysis Performed By: #### 2 485481, 8298659, 99547652, 4710965, 8775155, 30271229, 10601105, 7277859 ####[facility] [address] [place] [address] Capillary Glucose POCon - Glucose [Mass/Vol] 140 mg/dL High 55-99 [facility] Comment on above: Result Comment: Chidi bustamante RN/ Performed By: #### 2 44155649 ####[facility] [address] [place] [address] Glucose [Mass/Vol] 119 mg/dL High 55-99 [facility] Comment on above: Performed By: #### 2 23263064 ####[facility] [address] [place] [address] Glucose [Mass/Vol] 122 mg/dL High 55-99 [facility] Comment on above: Result Comment: Chidi bustamante RN/ Performed By: #### 2 12379274 ####[facility] [address] [place] [address] Glucose [Mass/Vol] 132 mg/dL High 55-99 [facility] Comment on above: Result Comment: Chidi [place] Performed By: #### 2 86956018 ####[facility] [address] [place] [address] HEMATOLOGYOrdered By: Daryn Dubon on 06-09-2023 Band form neutrophils/100 WB C (Bld) 0 % Normal 0 - 10 % [facility] HemeManSS Basophils/100 WBC (Bld) 0 % Normal 0 - 2 % [facility] HemeManSS Eosinophils/100 WBC (Bld) 0 % Normal 0 - 8 % [facility] HemeManSS Lymphocytes/100 WBC (Bld) 43 % Normal 14 - 50 % [facility] HemeManSS Monocytes/100 WBC (Bld) 2 % Low 4 - 14 % [facility] HemeManSS Morphology Brett (Bld) [Interp] Normal (06/09/23 1:51 PM) Normal [facility] HemeManSS Segmented neutrophils/100 WB C (Bld) 55 % Normal 36 - 75 % [facility] HemeManSS Variant lymphocytes LM Ql (Bld) 0 % Normal <=0% [facility] HemeManSS HEMATOLOGYOrdered By: Maru Boyd on 06-09-2023 Band form neutrophils/100 WB C (Bld) 9 % Normal 0 - 10 % [facility] HemeManSS Basophils/100 WBC (Bld) 0 % Normal 0 - 2 % [facility] HemeManSS Basophils/Leukocytes Manual cnt (Bld) [Pure # fraction] 0.0 E9/L Normal 0.0 - 0.2 E9/L [facility] HemeManSS Eosinophils/100 WBC (Bld) 2 % Normal 0 - 8 % [facility] HemeManSS Eosinophils/Leukocytes Manua l cnt (Bld) [Pure # fraction] 0.6 E9/L High 0.0 - 0.5 E9/L [facility] [place] [place] [facility] Lymphocytes/100 WBC (Bld) 5 % Low 14 - 50 % [facility] Lymphocytes/Leukocytes Manua l cnt (Bld) [Pure # fraction] 1.5 E9/L Normal 1.0 - 4.0 E9/L [facility]eManSS Monocytes/100 WBC (Bld) 7 % Normal 4 - 14 % [facility] HemeManSS Monocytes/Leukocytes Manual cnt (Bld) [Pure # fraction] 2.1 E9/L High 0.2 - 1.0 E9/L [facility] [place] [facility]eManSS Morphology Brett (Bld) [Interp] Normal (06/09/23 6:06 AM) Normal [facility]eMan[facility] Neutrophils/Leukocytes Auto (Bld) [Pure # fraction] 26.4 E9/L High 2.0 - 7.5 E9/L [facility] [place] Hem eManSS Segmented neutrophils/100 WB C (Bld) 77 % High 36 - 75 % [facility] Variant lymphocytes LM Ql (Bld) 0 % Normal <=0% [facility] [place] HEMATOLOGYOrdered By: Mushtaq Arellano on 06-09-2023 Path Review Neutrophilia with re active monocytosis, consistent with infectious or reactive process. No increase of basophils or eosinophils.[id number] Invalid Interpretation Code [facility] Interdisciplinary Note - Abdelrahman e Manageron 06-09-2023 Interdisciplinary Note - Abdelrahman e Rotational Moulding Operator P tis awke and alert in bed, family at bedside. Pt is accepted to [facility] and can DC once medically ready. Pt is aware of await surgery to see today. Medicare rights reviewed. CRM following Normal [facility] Comment on above: Result Comment: Elec tronically Signed By: Radha HUGHES, Chari\.barber\Date and Time Signed: 06/09/23 10:55 EST MRSA Screenon 06-09-2023 MRSA DNA SHAHEEN+probe Ql (Unsp spec) Normal [facility] Comment on above: Performed By: #### 1 5646332 ####[facility] [address] [place] [address] Magnesiumon 06-09-2023 Magnesium [Mass/Vol] 2.0 mg/dL Normal 1.3-2.4 [facility] Comment on above: Performed By: #### 2 522191, 6109741, 8771631, 74439795, 2451362, 2947918 ####[facility] [address] [place] [address] Magnesium [Mass/Vol] 2.0 mg/dL Normal 1.3-2.4 [facility] Comment on above: Performed By: #### 2 873155, 0579215, 97555824, 6184252, 6458447, 93674464, 39120513, 3296887 ####[facility] [address] [place] [address] Manual Diffon 06-09-2023 Band form neutrophils/100 WBC (Bld) 0 % Normal 0-10 [facility] Comment on above: Performed By: #### 2 440005, 9970690, 4228220, 56795376, 5810182, 2644300 ####[address] [address] Basophils/100 WBC (Bld) 0 % Normal 0-2 [facility] Comment on above: Performed By: #### 2 236416, 4951909, 3650608, 42592823, 6972925, 6741622 ####[address] [place] [address] Eosinophils/100 WBC (Bld) 0 % Normal 0-8 [facility] Comment on above: Performed By: #### 2 578330, 7501885, 3888949, 91196467, 9081456, 0400365 ####[address] [place] [address] Lymphocytes/100 WBC (Bld) 43 % Normal 14-50 [facility] Comment on above: Performed By: #### 2 053154, 5390206, 0645515, 34096970, 8903234, 4511878 ####[facility] [address] [place] [address] Monocytes/100 WBC (Bld) 2 % Low 4-14 [facility] Comment on above: Performed By: #### 2 019252, 4639047, 5221775, 44525967, 4610022, 1379887 ####[facility] [address] [place] [address] Morphology Brett (Bld) [Interp] Normal Normal [facility] Comment on above: Performed By: #### 2 077580, 2389891, 0489408, 92226256, 2078563, 7145550 ####[facility] [address] [place] [address] Segmented neutrophils/100 WBC (Bld) 55 % Normal 36-75 [facility] Comment on above: Performed By: #### 2 387246, 1926226, 3525231, 58419229, 9988626, 6907998 ####[facility] [address] [place] [address] Variant lymphocytes LM Ql (Bld) 0 % Normal <=0 [facility] [facility] Comment on above: Performed By: #### 2 170436, 4109654, 0493573, 55651530, 1245903, 8494989 ####[facility] [address] [place] [address] Band form neutrophils/100 WBC (Bld) 9 % Normal 0-10 [facility] Comment on above: Order Comment: Order Added by Discern Expert. Performed By: #### 2 792231, 5347300, 49968661, 8456841, 5990726, 19716769, 13972499, 7777097 ####[facility] [address] [place] [address] Basophils/100 WBC (Bld) 0 % Normal 0-2 [facility] Comment on above: Order Comment: Order Added by Discern Expert. Performed By: #### 2 829697, 2046432, 82061314, 4544127, 4931506, 20124194, 20227954, 6738695 ####[facility] [address] [place] [address] Eosinophils/100 WBC (Bld) 2 % Normal 0-8 [facility] Comment on above: Order Comment: Order Added by Discern Expert. Performed By: #### 2 944674, 2667561, 28724302, 0256291, 5431884, 14841611, 64383431, 9384838 ####[facility] [address] [place] [address] Lymphocytes/100 WBC (Bld) 5 % Low 14-50 [facility] Comment on above: Order Comment: Order Added by Discern Expert. Performed By: #### 2 227510, 6378734, 31010168, 1617467, 6600904, 43563078, 67003174, 3492263 ####[facility] [address] [place] [address] Monocytes/100 WBC (Bld) 7 % Normal 4-14 [facility] Comment on above: Order Comment: Order Added by Rosalia Expert. Performed By: #### 2 473308, 4116282, 24970704, 5963987, 0185664, 54397589, 46355308, 7519882 ####[facility] [address] [place] [address] Morphology Brett (Bld) [Interp] Normal Normal [facility] Comment on above: Order Comment: Order Added by Discern Expert. Performed By: #### 2 978441, 8014029, 74342251, 0608350, 0757106, 20833476, 92808611, 2620151 ####[facility] [address] [place] [address] Segmented neutrophils/100 WBC (Bld) 77 % High 36-75 [facility] Comment on above: Order Comment: Order Added by Rosalia Expert. Performed By: #### 2 427248, 4247291, 45338668, 0174333, 9553233, 03991601, 01776504, 9841704 ####[facility] [address] [place] [address] Variant lymphocytes LM Ql (Bld) 0 % Normal <=0 [facility] Comment on above: Order Comment: Order Added by Discern Expert. Performed By: #### 2 162460, 4390355, 39574676, 9639856, 3929179, 57013391, 70375297, 6403707 ####[facility] [address] [place] [address] Monitor Recordon 06-09-2023 Monitor Record [id number]#1.00TIFF Normal [facility] Monitor Record [id number]#1.00TIFF Normal [facility] Monitor Record [id number]#1.00TIFF Normal [facility] Monitor Record [id number]#1.00TIFF Normal [facility] Monitor Record [id number]#1.00TIFF Normal [facility] Phosphoruson 06-09-2023 Phosphate [Mass/Vol] 2.1 mg/dL Normal 1.9-4.6 [facility] Comment on above: Performed By: #### 2 918071, 3902506, 4573418, 69025743, 7212952, 2123297 ####[facility] [address] [place] [address] Phosphate [Mass/Vol] 2.4 mg/dL Normal 1.9-4.6 [facility] Comment on above: Performed By: #### 2 826730, 8171401, 82104671, 0531956, 4395780, 14565413, 73215779, 2067339 ####[facility] [address] [place] [address] Progress Note-Physicianon Progress Note-Physician Normal [facility] Comment on above: Result Comment: Elec tronically Signed By: MD Alejandro, Vivi F\.br\Date and Time Signed: 06/09/23 20:40 EST Progress Note-Physician Normal [facility] Comment on above: Result Comment: Elec tronically Signed By: MD Alejandro, Vivi Valerio\.br\Date and Time Signed: 06/09/23 20:38 EST Progress Note-Physician Normal [facility] Comment on above: Result Comment: Elec tronically Signed By: Deny Chicas DO\.br\Date and Time Signed: 06/09/23 08:50 EST XR Chest Single Viewon 06-09 XR Chest Single View Normal [facility] eGFRon 06-09-2023 GFR/1.73 sq M.predicted adin g non-blacks MDRD (S/P/Bld) [Vol rate/Area] 90 mL/min/1.73 m2 Normal >=59 [facility] Comment on above: Order Comment: Order added by Discern Expert. 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 Kidney failure is indicated at less than 15 mL/min/1.73m2. Performed By: #### 2 335335, 2597105, 0089401, 50356703, 7483115, 9298280 ####[facility] [address] [place] [address] GFR/1.73 sq M.predicted adin g non-blacks MDRD (S/P/Bld) [Vol rate/Area] 71 mL/min/1.73 m2 Normal >=59 [facility] Comment on above: Order Comment: Order added by Discern Expert. 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 Kidney failure is indicated at less than 15 mL/min/1.73m2. Performed By: #### 2 649380, 3318158, 07105934, 3807964, 1335736, 02408807, 54920583, 9641524 ####[facility] [address] [place] [address] Auto Diffon 06-08-2023 Basophils/100 WBC (Bld) 0.1 % Normal 0.0-2.0 [facility] Comment on above: Order Comment: Order Added by Discern Expert. Performed By: #### 2 020560, 1000742, 56783667, 4665394, 4892308, 0669510, 7452739 ####[facility] [address] [place] [address] Basophils/Leukocytes Auto (B ld) [Pure # fraction] 0.0 E9/L Normal 0.0-0.2 [facility] Comment on above: Order Comment: Order Added by Discern Expert. Performed By: #### 2 052429, 7617332, 61403319, 4869776, 6049711, 9877482, 7893898 ####[facility] [address] [place] [address] Eosinophils/100 WBC (Bld) 0.1 % Normal 0.0-8.0 [facility] Comment on above: Order Comment: Order Added by Discern Expert. Performed By: #### 2 154359, 2440982, 81319556, 5508167, 1431168, 6802686, 3140907 ####[facility] [address] [place] [address] Eosinophils/Leukocytes Auto (Bld) [Pure # fraction] 0.0 E9/L Normal 0.0-0.5 [facility] Comment on above: Order Comment: Order Added by Discern Expert. Performed By: #### 2 915580, 5462367, 29117470, 8881212, 7294548, 3448768, 5115902 ####[facility] [address] [place] [address] Lymphocytes/100 WBC (Bld) 4.5 % Low 14.0-50.0 [facility] Comment on above: Order Comment: Order Added by Discern Expert. Performed By: #### 2 367560, 6891394, 24645595, 4831238, 4730642, 5308031, 4636987 ####[facility] [address] [place] [address] Lymphocytes/Leukocytes Auto (Bld) [Pure # fraction] 1.3 E9/L Normal 1.0-4.0 [facility] Comment on above: Order Comment: Order Added by Discern Expert. Performed By: #### 2 806069, 3574964, 51959825, 9758870, 1949193, 6301690, 5221201 ####[facility] [address] [place] [address] Monocytes/100 WBC (Bld) 5.5 % Normal 4.0-14.0 [facility] Comment on above: Order Comment: Order Added by Discern Expert. Performed By: #### 2 570884, 9709219, 62020236, 5554429, 9990940, 2846200, 9480768 ####[facility] [address] [place] [address] Monocytes/Leukocytes Auto (B ld) [Pure # fraction] 1.6 E9/L High 0.2-1.0 [facility] Comment on above: Order Comment: Order Added by Discern Expert. Performed By: #### 2 800842, 8966980, 36534064, 2904805, 6737617, 5682011, 7464330 ####[facility] [address] [place] [address] Neutrophils/100 WBC (Bld) 89.8 % High 36.0-75.0 [facility] Comment on above: Order Comment: Order Added by Rosalia Expert. Performed By: #### 2 594141, 6940558, 29209729, 6585606, 5236975, 3604703, 1533481 ####[facility] [address] [place] [address] Neutrophils/Leukocytes Auto (Bld) [Pure # fraction] 25.7 E9/L High 2.0-7.5 [facility] Comment on above: Order Comment: Order Added by Rosalia Expert. Performed By: #### 2 974435, 1541213, 19530642, 7599462, 6603776, 6376929, 1468628 ####[facility] [address] [place] [address] BMPon 06-08-2023 Anion gap [Moles/Vol] 14 mmol/L Normal 6-16 [facility] Comment on above: Performed By: #### 2 685622, 1910276, 52502528, 4274259, 1946970, 9432056, 8256950 ####[facility] [address] [place] [address] Calcium [Mass/Vol] 7.2 mg/dL Low 8.9-11.1 [facility] Comment on above: Performed By: #### 2 440015, 5050216, 96703189, 3856000, 1031478, 7404085, 0607594 ####[facility] [address] [place] [address] Chloride [Moles/Vol] 102 mmol/L Normal 101-111 [facility] Comment on above: Performed By: #### 2 329799, 2124905, 53158737, 4845346, 8330771, 7998046, 9609335 ####[facility] [address] [place] [address] CO2 [Moles/Vol] 26 mmol/L Normal 21-31 [facility] Comment on above: Performed By: #### 2 207359, 7652684, 41575691, 0703633, 8235361, 6714559, 1316435 ####[facility] [address] [place] [address] Creatinine [Mass/Vol] 1.1 mg/dL Normal 0.5-1.3 [facility] Comment on above: Performed By: #### 2 676180, 6746622, 97766240, 7582757, 8356459, 7123259, 2140816 ####[facility] [address] [place] [address] Glucose [Mass/Vol] 127 mg/dL Normal 55-199 [facility] Comment on above: Result Comment: If t his glucose result represents a fasting glucose, interpretation should refer to the following reference range: 55-99 mg/dL Performed By: #### 2 811659, 2233539, 34538967, 2071293, 1028429, 4301876, 9743688 ####[facility] [address] [place] [address] Potassium [Moles/Vol] 3.2 mmol/L Low 3.5-5.3 [facility] Comment on above: Performed By: #### 2 276727, 8246091, 37186268, 5954850, 3126351, 0689736, 8525004 ####[facility] [address] [place] [address] Sodium [Moles/Vol] 139 mmol/L Normal 135-145 [facility] Comment on above: Performed By: #### 2 391960, 5551826, 33660372, 3400719, 3299404, 5397290, 8189844 ####[facility] [address] [place] [address] Urea nitrogen [Mass/Vol] 19 mg/dL Normal 5-21 [facility] Comment on above: Performed By: #### 2 230753, 6512618, 86424026, 0694793, 2997555, 9470226, 7377454 ####[facility] [address] [place] [address] Urea nitrogen/Creatinine [Ma ss ratio] 17 No Units Normal 10-20 [facility] Comment on above: Performed By: #### 2 977619, 7780786, 12363759, 4946226, 6819153, 0319083, 4181963 ####[facility] [address] [place] [address] CBC w/ Auto Diffon 3 Erythrocyte distribution wid th (RBC) [Ratio] 14.7 % High 10.9-14.2 [facility] Comment on above: Performed By: #### 2 240436, 0311349, 85087549, 9882611, 8285217, 2390472, 6832333 ####[facility] [address] [place] [address] Hematocrit (Bld) [Volume fraction] 33.8 % Low 3 7.7-49.0 [facility] Comment on above: Performed By: #### 2 849044, 0621966, 05337087, 3006718, 8156724, 2554276, 9131486 ####[facility] [address] [place] [address] Hemoglobin (Bld) [Mass/Vol] 11.1 g/dL Low 13.5-17. 5 [facility] Comment on above: Performed By: #### 2 749068, 3457110, 01402268, 4777825, 0997850, 3764443, 7223389 ####[facility] [address] [place] [address] MCH (RBC) [Entitic mass] 27.7 pg Normal 27.0-34.0 [facility] Comment on above: Performed By: #### 2 956001, 6850338, 75096621, 8406393, 4754259, 3461099, 5581377 ####[facility] [address] [place] [address] MCHC (RBC) [Mass/Vol] 32.8 g/dL Normal 31.4-36.0 [facility] Comment on above: Performed By: #### 2 599203, 1382635, 17291680, 8355332, 4662767, 6161674, 4294473 ####[address] [address] MCV (RBC) [Entitic vol] 84.3 fL Normal 80.0-100.0 [facility] Comment on above: Performed By: #### 2 190464, 5004834, 87990021, 1293573, 4198470, 2857928, 2115655 ####[facility] [address] [place] [address] Platelet mean volume (Bld) [ Entitic vol] 6.3 fL Low 6.4-10.8 [facility] Comment on above: Performed By: #### 2 466175, 8044377, 59103545, 3193670, 9813737, 7533578, 3060116 ####[facility] [address] [place] [address] Platelets (Bld) [#/Vol] 320.0 E9/L Normal 150.0-500.0 [facility] Comment on above: Performed By: #### 2 710243, 2968494, 61318313, 1766972, 4451219, 9221439, 8677740 ####[facility] [address] [place] [address] RBC (Bld) [#/Vol] 4.0 E12/L Low 4.3-5.9 [facility] Comment on above: Performed By: #### 2 579491, 6791322, 63403298, 6750602, 8341305, 3775876, 9734983 ####[facility] [address] [place] [address] WBC corrected for nucl RBC A uto (Bld) [#/Vol] 28.5 E9/L High 4.0-11.0 [facility] Comment on above: Performed By: #### 2 029387, 4565766, 18353855, 4192031, 2832459, 7569873, 8335156 ####[facility] [address] [place] [address] CHEMISTRYOrdered By: SYSTEM SYSTEM on 06-08-2023 Vancomycin trough [Moles/Vol] 12 microgram/mL Normal 1 0 - 20 mcg/mL [facility] [place]isol Capillary Glucose POCon 05-19 Glucose [Mass/Vol] 206 mg/dL High 55-99 [facility] Comment on above: Result Comment: Eri daisy Meter Performed By: #### 2 82740144 ####[address] [place] [address] Glucose [Mass/Vol] 146 mg/dL High 55-99 [facility] Comment on above: Result Comment: Eri daisy Meter Performed By: #### 2 12024908 ####[facility] [address] [place] [address] Glucose [Mass/Vol] 131 mg/dL High 55-99 [facility] Comment on above: Performed By: #### 2 51896175 ####[facility] [address] [place] [address] Glucose [Mass/Vol] 121 mg/dL High 55-99 [facility] Comment on above: Result Comment: Chidi bustamante RN/MD Performed By: #### 2 31293783 ####[facility] [address] [place] [address] Coding Queryon 06-08-2023 Coding Query Normal [facility] Interdisciplinary Note - Soren singon 06-08-2023 Interdisciplinary Note - Nursing Normal [facility] Laboratory - Microbiology an d Antimicrobial susceptibilityOrdered By: Bethany Cannon on 06-08-2023 MRSA DNA SHAHEEN+probe Ql (Unsp spec) MRSA Positive. Results called to Yamile Posey/ICU 06/09/2023 08:40:24 by [facility] Magnesiumon 06-08-2023 Magnesium [Mass/Vol] 2.2 mg/dL Normal 1.3-2.4 [facility] Comment on above: Performed By: #### 2 323769, 3157015, 57104174, 6902156, 8768894, 9225639, 4199886 ####[facility] [address] [place] [address] Monitor Recordon 06-08-2023 Monitor Record [id number]#1.00TIFF Normal [facility] Monitor Record [id number]#1.00TIFF Normal [facility] Monitor Record [id number]#1.00TIFF Normal [facility] Phosphoruson 06-08-2023 Phosphate [Mass/Vol] 3.0 mg/dL Normal 1.9-4.6 [facility] Comment on above: Performed By: #### 2 656926, 8099317, 79687904, 0808999, 0039022, 7786807, 9277413 ####[facility] [address] [place] [address] Progress Note - Pharmacyon 1 08-08-2022 Progress Note - Pharmacy Normal [facility] Progress Note-Physicianon Progress Note-Physician Normal [facility] Comment on above: Result Comment: Elec tronically Signed By: Juan Francisco WILLIAMSON, Deny Edouard\.br\Date and Time Signed: 06/08/23 15:07 EST Vanco Troughon 06-08-2023 VANCOMYCIN 12 microgram/mL Normal 10- [facility] Comment on above: Performed By: #### 2 461116, 6827907, 92734116, 9526553, 6589549, 4126904, 9147499 ####[facility] [address] [place] [address] eGFRon 06-08-2023 GFR/1.73 sq M.predicted adin g non-blacks MDRD (S/P/Bld) [Vol rate/Area] 71 mL/min/1.73 m2 Normal >=59 [facility] Comment on above: Order Comment: Order added by Discern Expert. 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 Kidney failure is indicated at less than 15 mL/min/1.73m2. Performed By: #### 2 671671, 0693817, 54045319, 4715066, 7723510, 5505147, 4463830 ####[facility] [address] [place] [address] AZTREONAM:SUSC:PT:ISOLATE:OR DQN:MICOrdered By: Mily Larsen on 06-07-2023 Aztreonam CATHI [Susc] 1+ Enterobacter aer ogenes 1+ Escherichia coli 1+ Normal upper respiratory emelina isolated [facility] Auto Diffon 06-07-2023 Basophils/100 WBC (Bld) 0.1 % Normal 0.0-2.0 [facility] Comment on above: Order Comment: Order Added by Discern Expert. Performed By: #### 1 3330639, 9386074, 0038864, 8206992 ####[address] [place] [address] Basophils/Leukocytes Auto (B ld) [Pure # fraction] 0.0 E9/L Normal 0.0-0.2 [facility] Comment on above: Order Comment: Order Added by Discern Expert. Performed By: #### 1 4540576, 4696395, 6673013, 7640776 ####[address] [address] Eosinophils/100 WBC (Bld) 1.1 % Normal 0.0-8.0 [facility] Comment on above: Order Comment: Order Added by Rosalia Expert. Performed By: #### 1 1728007, 2353460, 9977905, 3905816 ####[address] [address] Eosinophils/Leukocytes Auto (Bld) [Pure # fraction] 0.1 E9/L Normal 0.0-0.5 [facility] Comment on above: Order Comment: Order Added by Discern Expert. Performed By: #### 1 8231125, 1558004, 7412777, 8263312 ####[address] [address] Lymphocytes/100 WBC (Bld) 14.4 % Normal 14.0-50.0 [facility] Comment on above: Order Comment: Order Added by Discern Expert. Performed By: #### 1 4932483, 2918826, 3821237, 0513953 ####[address] [place] [address] Lymphocytes/Leukocytes Auto (Bld) [Pure # fraction] 0.7 E9/L Low 1.0-4.0 [facility] Comment on above: Order Comment: Order Added by Rosalia Expert. Performed By: #### 1 4590277, 3282522, 3042148, 6643613 ####[address] [address] Monocytes/100 WBC (Bld) 17.0 % High 4.0-14.0 [facility] Comment on above: Order Comment: Order Added by Discern Expert. Performed By: #### 1 4499144, 6206572, 4349531, 4869708 ####[address] [place] [address] Monocytes/Leukocytes Auto (B ld) [Pure # fraction] 0.9 E9/L Normal 0.2-1.0 [facility] Comment on above: Order Comment: Order Added by Discern Expert. Performed By: #### 1 4109736, 9183884, 3197652, 6053787 ####[address] [place] [address] Neutrophils/100 WBC (Bld) 67.4 % Normal 36.0-75.0 [facility] Comment on above: Order Comment: Order Added by Discern Expert. Performed By: #### 1 6912429, 0706629, 5007328, 5642253 ####[address] [address] Neutrophils/Leukocytes Auto (Bld) [Pure # fraction] 3.5 E9/L Normal 2.0-7.5 [facility] Comment on above: Order Comment: Order Added by Discern Expert. Performed By: #### 1 0868381, 1239415, 6581173, 6932566 ####[address] [address] Basophils/100 WBC (Bld) 0.1 % Normal 0.0-2.0 [facility] Comment on above: Order Comment: Order Added by Discern Expert. Performed By: #### 2 108943, 3676767, 87668030, 5896852, 7933135, 4233020 ####[address] [place] [address] Basophils/Leukocytes Auto (B ld) [Pure # fraction] 0.0 E9/L Normal 0.0-0.2 [facility] Comment on above: Order Comment: Order Added by Discern Expert. Performed By: #### 2 265160, 6255401, 09182939, 6090364, 6799359, 0730940 ####[facility] [address] [place] [address] Eosinophils/100 WBC (Bld) 2.7 % Normal 0.0-8.0 [facility] Comment on above: Order Comment: Order Added by Discern Expert. Performed By: #### 2 412672, 0522984, 75205397, 7995503, 7895750, 1746228 ####[facility] [address] [place] [address] Eosinophils/Leukocytes Auto (Bld) [Pure # fraction] 0.1 E9/L Normal 0.0-0.5 [facility] Comment on above: Order Comment: Order Added by Discern Expert. Performed By: #### 2 878278, 0183737, 78301523, 6412634, 8394938, 0552147 ####[address] [address] Lymphocytes/100 WBC (Bld) 17.6 % Normal 14.0-50.0 [facility] Comment on above: Order Comment: Order Added by Discern Expert. Performed By: #### 2 204380, 7840311, 80189469, 1395527, 9632141, 0285079 ####[address] [place] [address] Lymphocytes/Leukocytes Auto (Bld) [Pure # fraction] 0.7 E9/L Low 1.0-4.0 [facility] Comment on above: Order Comment: Order Added by Discern Expert. Performed By: #### 2 959266, 0863719, 71394692, 0180858, 5758154, 1724813 ####[address] [place] [address] Monocytes/100 WBC (Bld) 22.5 % High 4.0-14.0 [facility] Comment on above: Order Comment: Order Added by Discern Expert. Performed By: #### 2 995013, 3543094, 89333763, 7111344, 5531737, 1578588 ####[facility] [address] [place] [address] Monocytes/Leukocytes Auto (B ld) [Pure # fraction] 0.9 E9/L Normal 0.2-1.0 [facility] Comment on above: Order Comment: Order Added by Discern Expert. Performed By: #### 2 634437, 7831578, 65585228, 1270855, 4847928, 9464928 ####[facility] [address] [place] [address] Neutrophils/100 WBC (Bld) 57.1 % Normal 36.0-75.0 [facility] Comment on above: Order Comment: Order Added by Discern Expert. Performed By: #### 2 765765, 0473555, 87486434, 8128664, 4454753, 0647089 ####[facility] [address] [place] [address] Neutrophils/Leukocytes Auto (Bld) [Pure # fraction] 2.2 E9/L Normal 2.0-7.5 [facility] Comment on above: Order Comment: Order Added by Discern Expert. Performed By: #### 2 358175, 4374360, 14322595, 7368120, 9523440, 9956930 ####[facility] [address] [place] [address] Aztreonam CATHI [Susc]Ordered By: Mily Larsen on 06-07-2023 Enterobacter aerogenes Enterobacter aerogenes [facility] Escherichia coli Escherichia coli Fi [facility] GS 1+ White Blood Cells Occasional Gram Positive Cocci [facility] BMPon 06-07-2023 Anion gap [Moles/Vol] 11 mmol/L Normal 6-16 [facility] Comment on above: Performed By: #### 1 9442697, 8510970, 8694496, 1194320 ####[facility] [address] [place] [address] Calcium [Mass/Vol] 7.6 mg/dL Low 8.9-11.1 [facility] Comment on above: Performed By: #### 1 7000964, 9076861, 3928049, 2460045 ####[facility] [address] [place] [address] Chloride [Moles/Vol] 104 mmol/L Normal 101-111 [facility] Comment on above: Performed By: #### 1 9828158, 4939913, 1477392, 9080626 ####[facility] [address] [place] [address] CO2 [Moles/Vol] 29 mmol/L Normal 21-31 [facility] Comment on above: Performed By: #### 1 1342821, 9117658, 0866467, 8063716 ####[facility] [address] [place] [address] Creatinine [Mass/Vol] 1.1 mg/dL Normal 0.5-1.3 [facility] Comment on above: Performed By: #### 1 2834368, 0140195, 8162789, 4127673 ####[facility] [address] [place] [address] Glucose [Mass/Vol] 193 mg/dL Normal 55-199 [facility] Comment on above: Result Comment: If t his glucose result represents a fasting glucose, interpretation should refer to the following reference range: 55-99 mg/dL Performed By: #### 1 4073000, 1716266, 2665002, 0337063 ####[facility] [address] [place] [address] Potassium [Moles/Vol] 3.3 mmol/L Low 3.5-5.3 [facility] Comment on above: Performed By: #### 1 3562948, 1688570, 3324802, 4688346 ####[facility] [address] [place] [address] Sodium [Moles/Vol] 141 mmol/L Normal 135-145 [facility] Comment on above: Performed By: #### 1 3407346, 9141205, 5745329, 2417492 ####[facility] [address] [place] [address] Urea nitrogen [Mass/Vol] 19 mg/dL Normal 5-21 [facility] Comment on above: Performed By: #### 1 0803277, 3164627, 8344594, 4162065 ####[facility] [address] [place] [address] Urea nitrogen/Creatinine [Ma ss ratio] 17 No Units Normal 10-20 [facility] Comment on above: Performed By: #### 1 6483273, 1068476, 3743289, 0883621 ####[facility] [address] [place] [address] Anion gap [Moles/Vol] 8 mmol/L Normal 6-16 [facility] Comment on above: Performed By: #### 2 268620, 2533888, 98518165, 3538580, 4728673, 9590958 ####[facility] [address] [place] [address] Calcium [Mass/Vol] 7.3 mg/dL Low 8.9-11.1 [facility] Comment on above: Performed By: #### 2 248127, 1933701, 27657941, 8349704, 8805309, 7255210 ####[facility] [address] [place] [address] Chloride [Moles/Vol] 104 mmol/L Normal 101-111 [facility] Comment on above: Performed By: #### 2 224158, 8575824, 65556120, 0915241, 8641102, 3929457 ####[facility] [address] [place] [address] CO2 [Moles/Vol] 29 mmol/L Normal 21-31 [facility] Comment on above: Performed By: #### 2 678194, 7284122, 93587447, 2770015, 9200018, 7116832 ####[facility] [address] [place] [address] Creatinine [Mass/Vol] 1.1 mg/dL Normal 0.5-1.3 [facility] Comment on above: Performed By: #### 2 336337, 3626288, 76780766, 9776605, 7452400, 0118413 ####[facility] [address] [place] [address] Glucose [Mass/Vol] 158 mg/dL Normal 55-199 [facility] Comment on above: Result Comment: If t his glucose result represents a fasting glucose, interpretation should refer to the following reference range: 55-99 mg/dL Performed By: #### 2 904451, 8618162, 71478960, 3992953, 5626631, 4890128 ####[facility] [address] [place] [address] Potassium [Moles/Vol] 3.1 mmol/L Low 3.5-5.3 [facility] Comment on above: Performed By: #### 2 463305, 6690916, 69227019, 2698427, 3295331, 9989133 ####[facility] [address] [place] [address] Sodium [Moles/Vol] 138 mmol/L Normal 135-145 [facility] Comment on above: Performed By: #### 2 614452, 0064808, 91597954, 8443745, 7271334, 1582119 ####[facility] [address] [place] [address] Urea nitrogen [Mass/Vol] 22 mg/dL High 5-21 [facility] Comment on above: Performed By: #### 2 932244, 7627950, 39516524, 7865573, 1163372, 9438160 ####[facility] [address] [place] [address] Urea nitrogen/Creatinine [Ma ss ratio] 20 No Units Normal 10-20 [facility] Comment on above: Performed By: #### 2 384253, 8520926, 13557550, 9311594, 1910909, 4580780 ####[facility] [address] [place] [address] CBC w/ Auto Diffon 3 Erythrocyte distribution wid th (RBC) [Ratio] 15.0 % High 10.9-14.2 [facility] Comment on above: Performed By: #### 1 6954563, 0470028, 8677505, 5666325 ####[facility] [address] [place] [address] Hematocrit (Bld) [Volume fraction] 35.6 % Low 3 7.7-49.0 [facility] Comment on above: Performed By: #### 1 2327717, 6373435, 2604014, 1816841 ####[facility] [address] [place] [address] Hemoglobin (Bld) [Mass/Vol] 11.7 g/dL Low 13.5-17. 5 [facility] Comment on above: Performed By: #### 1 5094449, 9196412, 2195162, 3357148 ####[facility] [address] [place] [address] MCH (RBC) [Entitic mass] 27.8 pg Normal 27.0-34.0 [facility] Comment on above: Performed By: #### 1 5455376, 5679963, 5463109, 7686959 ####[facility] [address] [place] [address] MCHC (RBC) [Mass/Vol] 32.9 g/dL Normal 31.4-36.0 [facility] Comment on above: Performed By: #### 1 4960994, 4734656, 2413976, 4685795 ####[facility] [address] [place] [address] MCV (RBC) [Entitic vol] 84.4 fL Normal 80.0-100.0 [facility] Comment on above: Performed By: #### 1 1665428, 9967730, 0640285, 5364914 ####[facility] [address] [place] [address] Platelet mean volume (Bld) [Entitic vol] 6.7 fL Normal 6.4-10.8 [facility] Comment on above: Performed By: #### 1 5555599, 2207667, 3339597, 2218245 ####[facility] [address] [place] [address] Platelets (Bld) [#/Vol] 369.0 E9/L Normal 150.0-500.0 [facility] Comment on above: Performed By: #### 1 0946895, 1741728, 0657897, 2712628 ####[address] [place] [address] RBC (Bld) [#/Vol] 4.2 E12/L Low 4.3-5.9 [facility] Comment on above: Performed By: #### 1 8390236, 4087654, 7063222, 9829583 ####[address] [address] WBC corrected for nucl RBC A uto (Bld) [#/Vol] 5.1 E9/L Normal 4.0-11.0 [facility] Comment on above: Performed By: #### 1 2005365, 3937544, 9948965, 8732004 ####[address] [place] [address] Erythrocyte distribution wid th (RBC) [Ratio] 14.7 % High 10.9-14.2 [facility] Comment on above: Performed By: #### 2 080973, 3434624, 30475627, 8806203, 5986901, 0440113 ####[address] [place] [address] Hematocrit (Bld) [Volume fraction] 31.4 % Low 3 7.7-49.0 [facility] Comment on above: Performed By: #### 2 959099, 9237686, 11381958, 8743749, 9228985, 3913607 ####[facility] [address] [place] [address] Hemoglobin (Bld) [Mass/Vol] 10.6 g/dL Low 13.5-17. 5 [facility] Comment on above: Performed By: #### 2 190121, 4948920, 95392641, 2063288, 8688236, 6227048 ####[facility] [address] [place] [address] MCH (RBC) [Entitic mass] 28.2 pg Normal 27.0-34.0 [facility] Comment on above: Performed By: #### 2 170018, 6649956, 58934089, 8323410, 7606996, 6923273 ####[facility] [address] [place] [address] MCHC (RBC) [Mass/Vol] 33.6 g/dL Normal 31.4-36.0 [facility] Comment on above: Performed By: #### 2 640173, 5064397, 08206726, 0102647, 2181966, 1717503 ####[address] MCV (RBC) [Entitic vol] 83.9 fL Normal 80.0-100.0 [facility] Comment on above: Performed By: #### 2 311201, 0927499, 88740035, 9279038, 2371779, 0141604 ####[facility] [address] [place] [address] Platelet mean volume (Bld) [Entitic vol] 6.8 fL Normal 6.4-10.8 [facility] Comment on above: Performed By: #### 2 333409, 6403379, 79350787, 9780150, 0340854, 0686604 ####[facility] [address] [place] [address] Platelets (Bld) [#/Vol] 293.0 E9/L Normal 150.0-500.0 [facility] Comment on above: Performed By: #### 2 275319, 1257515, 89214392, 8945937, 3172274, 0866990 ####[facility] [address] [place] [address] RBC (Bld) [#/Vol] 3.7 E12/L Low 4.3-5.9 [facility] Comment on above: Performed By: #### 2 678733, 5018688, 26502709, 9368353, 6786124, 2211750 ####[facility] [address] [place] [address] WBC corrected for nucl RBC A uto (Bld) [#/Vol] 3.8 E9/L Low 4.0-11.0 [facility] Comment on above: Result Comment: Slid e reviewed by LW. Performed By: #### 2 885592, 8913877, 10394142, 1151115, 0722158, 9255966 ####[facility] [address] [place] [address] CT Abdomen/Pelvis w/ Contras ton 06-07-2023 CT Abdomen/Pelvis w/ Contrast Normal [facility] CTA Cheston 06-07-2023 CTA Chest Normal [facility] Capillary Glucose POCon 05-19 Glucose [Mass/Vol] 92 mg/dL Normal 55-99 [facility] Comment on above: Performed By: #### 2 60564318 ####[facility] [address] [place] [address] Glucose [Mass/Vol] 173 mg/dL High 55-99 [facility] Comment on above: Result Comment: Chidi bustamante RN/ Performed By: #### 2 25500891 ####[facility] [address] [place] [address] Glucose [Mass/Vol] 130 mg/dL High 55-99 [facility] Comment on above: Performed By: #### 2 29865104 ####[facility] [address] [place] [address] Glucose [Mass/Vol] 133 mg/dL High 55-99 [facility] Comment on above: Performed By: #### 2 41497065 ####[facility] [address] [place] [address] Interdisciplinary Note - Abdelrahman e Manageron 06-07-2023 Interdisciplinary Note - Systems Test Analyst [facility] Comment on above: Result Comment: Elec tronically Signed By: Demi Franz\.br\Date and Time Signed: 06/07/23 10:57 EST Interdisciplinary Note - Systems Test Analyst [facility] Comment on above: Result Comment: Elec tronically Signed By: Radha HUGHES, Chari\.br\Date and Time Signed: 06/07/23 09:58 EST Interdisciplinary Note - Nut ritionon 06-07-2023 Interdisciplinary Note - Nutrition [facility] Comment on above: Result Comment: Elec tronically Signed By: Anil CHEATHAM, , Ivette\.br\Date and Time Signed: 06/07/23 10:49 EST Magnesiumon 06-07-2023 Magnesium [Mass/Vol] 1.9 mg/dL Normal 1.3-2.4 [facility] Comment on above: Performed By: #### 2 491883, 0731920, 78988472, 7252309, 8081835, 9300213 ####[facility] [address] [place] [address] Monitor Recordon 06-07-2023 Monitor Record [id number]#1.00TIFF [facility] Monitor Record [id number]#1.00TIFF [facility] Phosphoruson 06-07-2023 Phosphate [Mass/Vol] 1.9 mg/dL Normal 1.9-4.6 [facility] Comment on above: Performed By: #### 2 751127, 3262140, 81519831, 4328478, 5686968, 1789322 ####[facility] [address] [place] [address] Progress Note - Pharmacyon 1 08-07-2022 Progress Note - Pharmacy [facility] Progress Note-Nurseon 2022 Progress Note-Nurse [facility] Progress Note-Nurse [id number]#1.00TIFF Normal [facility] Progress Note-Physicianon Progress Note-Physician Normal [facility] Comment on above: Result Comment: Elec tronically Signed By: Juan Francisco WILLIAMSON, Deny Edouard\.br\Date and Time Signed: 06/07/23 16:59 EST XR Chest Single Viewon 06-07 XR Chest Single View Normal [facility] eGFRon 06-07-2023 GFR/1.73 sq M.predicted adin g non-blacks MDRD (S/P/Bld) [Vol rate/Area] 71 mL/min/1.73 m2 Normal >=59 [facility] Comment on above: Order Comment: Order added by Discern Expert. 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 Kidney failure is indicated at less than 15 mL/min/1.73m2. Performed By: #### 1 7722641, 1723357, 3569692, 1996995 ####[facility] [address] [place] [address] GFR/1.73 sq M.predicted adin g non-blacks MDRD (S/P/Bld) [Vol rate/Area] 71 mL/min/1.73 m2 Normal >=59 [facility] Comment on above: Order Comment: Order added by Discern Expert. 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 Kidney failure is indicated at less than 15 mL/min/1.73m2. Performed By: #### 2 513856, 8061584, 63661238, 9205988, 5043206, 0740615 ####[facility] [address] [place] [address] Auto Diffon 06-06-2023 Basophils/100 WBC (Bld) 0.1 % Normal 0.0-2.0 [facility] Comment on above: Order Comment: Order Added by Discern Expert. Performed By: #### 2 569499, 7941447, 2008584, 3059226, 7352772, 00695356 ####[address] [address] Basophils/Leukocytes Auto (B ld) [Pure # fraction] 0.0 E9/L Normal 0.0-0.2 [facility] Comment on above: Order Comment: Order Added by Discern Expert. Performed By: #### 2 230129, 3153147, 0717539, 5948346, 0668793, 31698650 ####[address] [address] Eosinophils/100 WBC (Bld) 1.8 % Normal 0.0-8.0 [facility] Comment on above: Order Comment: Order Added by Discern Expert. Performed By: #### 2 063495, 9194877, 0569987, 1571737, 8762932, 15101974 ####[address] [address] Eosinophils/Leukocytes Auto (Bld) [Pure # fraction] 0.1 E9/L Normal 0.0-0.5 [facility] Comment on above: Order Comment: Order Added by Discern Expert. Performed By: #### 2 759430, 8635034, 5721671, 8985959, 3367119, 71542036 ####[address] [address] Lymphocytes/100 WBC (Bld) 12.5 % Low 14.0-50.0 [facility] Comment on above: Order Comment: Order Added by Discern Expert. Performed By: #### 2 031688, 9524464, 3738188, 8470988, 7556646, 77811725 ####[address] [address] Lymphocytes/Leukocytes Auto (Bld) [Pure # fraction] 0.7 E9/L Low 1.0-4.0 [facility] Comment on above: Order Comment: Order Added by Discern Expert. Performed By: #### 2 851255, 2129860, 9436336, 6886353, 0337126, 65101787 ####[facility] [address] [place] [address] Monocytes/100 WBC (Bld) 16.3 % High 4.0-14.0 [facility] Comment on above: Order Comment: Order Added by Discern Expert. Performed By: #### 2 414946, 7736405, 3605856, 3397256, 5850118, 05494741 ####[facility] [address] [place] [address] Monocytes/Leukocytes Auto (B ld) [Pure # fraction] 0.9 E9/L Normal 0.2-1.0 [facility] Comment on above: Order Comment: Order Added by Discern Expert. Performed By: #### 2 230109, 2392919, 6431152, 8201294, 8520427, 82028424 ####[address] [place] [address] Neutrophils/100 WBC (Bld) 69.3 % Normal 36.0-75.0 [facility] Comment on above: Order Comment: Order Added by Discern Expert. Performed By: #### 2 511369, 4616961, 3565903, 4931803, 6626193, 76837678 ####[facility] [address] [place] [address] Neutrophils/Leukocytes Auto (Bld) [Pure # fraction] 3.7 E9/L Normal 2.0-7.5 [facility] Comment on above: Order Comment: Order Added by Discern Expert. Performed By: #### 2 498861, 1134671, 6952264, 4988979, 3201369, 04778907 ####[facility] [address] [place] [address] BMP 06-06-2023 Creatinine [Mass/Vol] 1.3 mg/dL Normal 0.5-1.3 [facility] Comment on above: Performed By: #### 2 916292, 1204533, 0989585, 3611938, 9024933, 20861810 ####[facility] [address] [place] [address] Anion gap [Moles/Vol] 8 mmol/L Normal 6-16 [facility] Comment on above: Performed By: #### 2 025922, 4246975, 9477961, 9765369, 7593665, 19781083 ####[facility] [address] [place] [address] Calcium [Mass/Vol] 7.5 mg/dL Low 8.9-11.1 [facility] Comment on above: Performed By: #### 2 278733, 1062454, 1243661, 5702948, 5924617, 44687138 ####[facility] [address] [place] [address] Chloride [Moles/Vol] 106 mmol/L Normal 101-111 [facility] Comment on above: Performed By: #### 2 637784, 5485093, 5268606, 2499247, 6942363, 58432515 ####[facility] [address] [place] [address] CO2 [Moles/Vol] 28 mmol/L Normal 21-31 [facility] Comment on above: Performed By: #### 2 417978, 2924895, 0334312, 7697818, 5036133, 70289725 ####[facility] [address] [place] [address] Glucose [Mass/Vol] 162 mg/dL Normal 55-199 [facility] Comment on above: Result Comment: If t his glucose result represents a fasting glucose, interpretation should refer to the following reference range: 55-99 mg/dL Performed By: #### 2 277660, 6302792, 7003666, 6508469, 3656322, 47894399 ####[facility] [address] [place] [address] Potassium [Moles/Vol] 3.3 mmol/L Low 3.5-5.3 [facility] Comment on above: Performed By: #### 2 153741, 2244903, 6542289, 0121381, 4844115, 62690107 ####[facility] [address] [place] [address] Sodium [Moles/Vol] 139 mmol/L Normal 135-145 [facility] Comment on above: Performed By: #### 2 926356, 5687233, 8494631, 4966552, 6190958, 97732939 ####[facility] [address] [place] [address] Urea nitrogen [Mass/Vol] 34 mg/dL High 5-21 [facility] Comment on above: Performed By: #### 2 944525, 9893845, 9316766, 6307198, 2302424, 49293146 ####[facility] [address] [place] [address] Urea nitrogen/Creatinine [Mass ratio] 26 No Units High 10-20 [facility] Comment on above: Performed By: #### 2 465695, 8528864, 9203877, 2601772, 9296301, 07588296 ####[facility] [address] [place] [address] CBC w/ Auto Diffon 3 Erythrocyte distribution wid th (RBC) [Ratio] 15.1 % High 10.9-14.2 [facility] Comment on above: Performed By: #### 2 325885, 2308504, 0315020, 7908970, 6034703, 05722908 ####[facility] [address] [place] [address] Hematocrit (Bld) [Volume fraction] 33.2 % Low 3 7.7-49.0 [facility] Comment on above: Performed By: #### 2 099284, 8891364, 3209149, 5122357, 6268729, 31645022 ####[facility] [address] [place] [address] Hemoglobin (Bld) [Mass/Vol] 11.0 g/dL Low 13.5-17. 5 [facility] Comment on above: Performed By: #### 2 441345, 7878964, 7696192, 6166030, 4734320, 09361807 ####[facility] [address] [place] [address] MCH (RBC) [Entitic mass] 27.9 pg Normal 27.0-34.0 [facility] Comment on above: Performed By: #### 2 600238, 1743469, 7351567, 7222356, 3828934, 13121927 ####[facility] [address] [place] [address] MCHC (RBC) [Mass/Vol] 33.1 g/dL Normal 31.4-36.0 [facility] Comment on above: Performed By: #### 2 115617, 8485686, 8582936, 4185647, 1123327, 19720680 ####[facility] [address] [place] [address] MCV (RBC) [Entitic vol] 84.4 fL Normal 80.0-100.0 [facility] Comment on above: Performed By: #### 2 656884, 7494233, 8421347, 8273417, 4639352, 68242271 ####[facility] [address] [place] [address] Platelet mean volume (Bld) [Entitic vol] 7.2 fL Normal 6.4-10.8 [facility] Comment on above: Performed By: #### 2 682741, 6587245, 6558300, 7047936, 6980293, 28260578 ####[facility] [address] [place] [address] Platelets (Bld) [#/Vol] 294.0 E9/L Normal 150.0-500.0 [facility] Comment on above: Performed By: #### 2 663931, 1437524, 5531136, 4190285, 6155620, 44944206 ####[facility] [address] [place] [address] RBC (Bld) [#/Vol] 3.9 E12/L Low 4.3-5.9 [facility] Comment on above: Performed By: #### 2 121844, 0774485, 2716698, 6254033, 9331374, 45020042 ####[facility] [address] [place] [address] WBC corrected for nucl RBC A uto (Bld) [#/Vol] 5.4 E9/L Normal 4.0-11.0 [facility] Comment on above: Result Comment: Slid e reviewed by LW. Performed By: #### 2 257598, 0097727, 7077324, 0036308, 7043697, 44687607 ####[facility] [address] [place] [address] Capillary Glucose POCon 05-19 Glucose [Mass/Vol] 154 mg/dL High 55-99 [facility] Comment on above: Result Comment: Insu tr Started Performed By: #### 2 63650543 ####[address] [address] Glucose [Mass/Vol] 156 mg/dL High 55-99 [facility] Comment on above: Result Comment: Chidi [place] Performed By: #### 2 80858790 ####[address] [place] [address] Glucose [Mass/Vol] 143 mg/dL High 55-99 [facility] Comment on above: Result Comment: Chidi [place] Performed By: #### 2 08271383 ####[address] [place] [address] Glucose [Mass/Vol] 117 mg/dL High 55-99 [facility] Comment on above: Performed By: #### 2 55685621 ####[address] [address] Consent for Anesthesiaon Consent for Anesthesia [id number]#1.00TIFF Normal [facility] Interdisciplinary Note - Abdelrahman e Manageron 06-06-2023 Interdisciplinary Note - Systems Test Analyst Normal [facility] Comment on above: Result Comment: Elec tronically Signed By: Radha HUGHES, Chari\.barber\Date and Time Signed: 06/06/23 11:01 EST Interdisciplinary Note - Spe ech Languageon 06-06-2023 Interdisciplinary Note - Speech Language Normal [facility] IntraOperative Documentson 1 08-06-2022 IntraOperative Documents [id number]#1.00TIFF Normal [facility] IntraOperative Documents [id number]#1.00TIFF Normal [facility] Magnesiumon 06-06-2023 Magnesium [Mass/Vol] 2.0 mg/dL Normal 1.3-2.4 [facility] Comment on above: Performed By: #### 2 232549, 9941464, 8759499, 4761214, 6399097, 20078420 ####[facility] [address] [place] [address] Main [place] Intraoperative Recor don 06-06-2023 Main OR Intraoperative Record Normal [facility] Monitor Recordon 06-06-2023 Monitor Record [id number]#1.00TIFF Normal [facility] Monitor Record [id number]#1.00TIFF Normal [facility] Phosphoruson 06-06-2023 Phosphate [Mass/Vol] 2.2 mg/dL Normal 1.9-4.6 [facility] Comment on above: Performed By: #### 2 701138, 1550931, 2365498, 6713917, 8629330, 80425851 ####[facility] [address] [place] [address] Progress Note-Physicianon Progress Note-Physician Normal [facility] Comment on above: Result Comment: Elec tronically Signed By: Yemi Quinones Jr, DO\.barber\Date and Time Signed: 06/06/23 15:49 EST Progress Note-Physician Normal [facility] Comment on above: Result Comment: Elec tronically Signed By: Deny Singh DO\.br\Date and Time Signed: 06/06/23 12:09 EST Progress Note-Physician Normal [facility] Comment on above: Result Comment: Elec tronically Signed By: Deny Chicas DO\.br\Date and Time Signed: 06/06/23 10:15 EST eGFRon 06-06-2023 GFR/1.73 sq M.predicted adin g non-blacks MDRD (S/P/Bld) [Vol rate/Area] 58 mL/min/1.73 m2 Low >=59 [facility] Comment on above: Order Comment: Order added by Discern Expert. 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 Kidney failure is indicated at less than 15 mL/min/1.73m2. Performed By: #### 2 253277, 7675468, 8040872, 8807340, 7608759, 04924259 ####[facility] [address] [place] [address] Auto Diffon 06-05-2023 Basophils/100 WBC (Bld) 0.1 % Normal 0.0-2.0 [facility] Comment on above: Order Comment: Order Added by Discern Expert. Performed By: #### 2 519472, 2939649, 1707747, 1697322, 56592251, 1905763 ####[facility] [address] [place] [address] Basophils/Leukocytes Auto (B ld) [Pure # fraction] 0.0 E9/L Normal 0.0-0.2 [facility] Comment on above: Order Comment: Order Added by Discern Expert. Performed By: #### 2 154801, 0236699, 6250805, 4068173, 98326652, 1147972 ####[facility] [address] [place] [address] Eosinophils/100 WBC (Bld) 0.2 % Normal 0.0-8.0 [facility] Comment on above: Order Comment: Order Added by Discern Expert. Performed By: #### 2 526137, 3514445, 5905001, 7241665, 32588252, 5946864 ####[facility] [address] [place] [address] Eosinophils/Leukocytes Auto (Bld) [Pure # fraction] 0.0 E9/L Normal 0.0-0.5 [facility] Comment on above: Order Comment: Order Added by Discern Expert. Performed By: #### 2 218864, 4896409, 9567440, 8035973, 83407505, 0334931 ####[address] [place] [address] Lymphocytes/100 WBC (Bld) 10.1 % Low 14.0-50.0 [facility] Comment on above: Order Comment: Order Added by Rosalia Expert. Performed By: #### 2 053371, 6657240, 4402280, 3941763, 64035725, 6679707 ####[address] [address] Lymphocytes/Leukocytes Auto (Bld) [Pure # fraction] 1.3 E9/L Normal 1.0-4.0 [facility] Comment on above: Order Comment: Order Added by Rosalia Expert. Performed By: #### 2 828354, 4783950, 3381942, 3629081, 10587216, 7894425 ####[address] [address] Monocytes/100 WBC (Bld) 10.3 % Normal 4.0-14.0 [facility] Comment on above: Order Comment: Order Added by Rosalia Expert. Performed By: #### 2 022385, 5257928, 3921266, 4468660, 21345175, 3997705 ####[address] [place] [address] Monocytes/Leukocytes Auto (B ld) [Pure # fraction] 1.3 E9/L High 0.2-1.0 [facility] Comment on above: Order Comment: Order Added by Discern Expert. Performed By: #### 2 219842, 0924717, 2545176, 4303116, 54104792, 4571458 ####[facility] [address] [place] [address] Neutrophils/100 WBC (Bld) 79.3 % High 36.0-75.0 [facility] Comment on above: Order Comment: Order Added by Discern Expert. Performed By: #### 2 649160, 7409448, 9995929, 4569886, 58793220, 7128390 ####[facility] [address] [place] [address] Neutrophils/Leukocytes Auto (Bld) [Pure # fraction] 10.0 E9/L High 2.0-7.5 [facility] Comment on above: Order Comment: Order Added by Discern Expert. Performed By: #### 2 905388, 1531511, 9541742, 4105216, 34750794, 1446614 ####[facility] [address] [place] [address] BMPon 06-05-2023 Creatinine [Mass/Vol] 2.2 mg/dL High 0.5-1.3 [facility] Comment on above: Performed By: #### 2 892375, 6205966, 6094301, 4626784, 18561042, 9608946 ####[facility] [address] [place] [address] Anion gap [Moles/Vol] 6 mmol/L Normal 6-16 [facility] Comment on above: Performed By: #### 2 790827, 9164337, 2785775, 5480547, 76568959, 6009823 ####[facility] [address] [place] [address] Calcium [Mass/Vol] 7.4 mg/dL Low 8.9-11.1 [facility] Comment on above: Performed By: #### 2 179478, 5760451, 1850331, 3122819, 85669896, 7031698 ####[facility] [address] [place] [address] Chloride [Moles/Vol] 105 mmol/L Normal 101-111 [facility] Comment on above: Performed By: #### 2 240233, 9330533, 8150274, 8699342, 56854123, 2750655 ####[facility] [address] [place] [address] CO2 [Moles/Vol] 31 mmol/L Normal 21-31 [facility] Comment on above: Performed By: #### 2 583155, 8683832, 1954215, 8406732, 94225823, 4150496 ####[facility] [address] [place] [address] Glucose [Mass/Vol] 87 mg/dL Normal 55-199 [facility] Comment on above: Result Comment: If t his glucose result represents a fasting glucose, interpretation should refer to the following reference range: 55-99 mg/dL Performed By: #### 2 096316, 2050794, 9374102, 3858657, 45626632, 5517011 ####[facility] [address] [place] [address] Potassium [Moles/Vol] 3.2 mmol/L Low 3.5-5.3 [facility] Comment on above: Performed By: #### 2 001273, 2473083, 8452905, 9628376, 27879947, 6388318 ####[facility] [address] [place] [address] Sodium [Moles/Vol] 139 mmol/L Normal 135-145 [facility] Comment on above: Performed By: #### 2 359852, 2519454, 9034047, 5255615, 13213601, 7102315 ####[facility] [address] [place] [address] Urea nitrogen [Mass/Vol] 44 mg/dL High 5-21 [facility] Comment on above: Performed By: #### 2 507419, 0993648, 3448019, 7410784, 50928545, 2195345 ####[facility] [address] [place] [address] Urea nitrogen/Creatinine [Ma ss ratio] 20 No Units Normal 10-20 [facility] Comment on above: Performed By: #### 2 837950, 0347768, 4684337, 8836990, 11731111, 9109887 ####[facility] [address] [place] [address] CBC w/ Auto Diffon 3 Erythrocyte distribution wid th (RBC) [Ratio] 15.2 % High 10.9-14.2 [facility] Comment on above: Performed By: #### 2 501962, 4517896, 3942151, 9231179, 33030199, 9322067 ####[facility] [address] [place] [address] Hematocrit (Bld) [Volume fraction] 35.6 % Low 3 7.7-49.0 [facility] Comment on above: Performed By: #### 2 048076, 6725605, 1714669, 6428902, 82594718, 8563108 ####[facility] [address] [place] [address] Hemoglobin (Bld) [Mass/Vol] 12.0 g/dL Low 13.5-17. 5 [facility] Comment on above: Performed By: #### 2 530027, 5028346, 6545459, 4330571, 82595221, 0403043 ####[facility] [address] [place] [address] MCH (RBC) [Entitic mass] 28.4 pg Normal 27.0-34.0 [facility] Comment on above: Performed By: #### 2 134299, 1411501, 0947536, 5419362, 16198457, 7405233 ####[facility] [address] [place] [address] MCHC (RBC) [Mass/Vol] 33.7 g/dL Normal 31.4-36.0 [facility] Comment on above: Performed By: #### 2 953912, 4668069, 9599420, 8797852, 19389203, 2341761 ####[address] [place] [address] MCV (RBC) [Entitic vol] 84.4 fL Normal 80.0-100.0 [facility] Comment on above: Performed By: #### 2 876823, 8430947, 3056553, 1022037, 16212016, 7315465 ####[address] [place] [address] Platelet mean volume (Bld) [Entitic vol] 7.9 fL Normal 6.4-10.8 [facility] Comment on above: Performed By: #### 2 767175, 9005157, 4476955, 2793468, 44663386, 8948921 ####[address] [address] Platelets (Bld) [#/Vol] 273.0 E9/L Normal 150.0-500.0 [facility] Comment on above: Performed By: #### 2 252787, 2673974, 5838959, 3053708, 39227926, 6829569 ####[address] [address] RBC (Bld) [#/Vol] 4.2 E12/L Low 4.3-5.9 [facility] Comment on above: Performed By: #### 2 870705, 8559398, 8534547, 4120316, 64069428, 1248521 ####[address] [place] [address] WBC corrected for nucl RBC A uto (Bld) [#/Vol] 12.6 E9/L High 4.0-11.0 [facility] Comment on above: Performed By: #### 2 487696, 9360430, 9192689, 4623313, 20099206, 2188308 ####[address] [address] Capillary Glucose POCon 05-18 Glucose [Mass/Vol] 75 mg/dL Normal 55-99 [facility] Comment on above: Result Comment: Chidi [place] Performed By: #### 2 19620749 ####[facility] [address] [place] [address] Glucose [Mass/Vol] 118 mg/dL High 55-99 [facility] Comment on above: Result Comment: Eri daisy Meter Performed By: #### 2 51666576 ####[facility] [address] [place] [address] Glucose [Mass/Vol] 109 mg/dL High 55-99 [facility] Comment on above: Result Comment: Chidi [place] Performed By: #### 2 87974969 ####[facility] [address] [place] [address] Glucose [Mass/Vol] 62 mg/dL Normal 55-99 [facility] Comment on above: Performed By: #### 2 81221294 ####[facility] [address] [place] [address] Glucose [Mass/Vol] 68 mg/dL Normal 55-99 [facility] Comment on above: Result Comment: Chidi [place] Performed By: #### 2 87971304 ####[facility] [address] [place] [address] Glucose [Mass/Vol] 87 mg/dL Normal 55-99 [facility] Comment on above: Result Comment: Chidi [place] Performed By: #### 2 86980030 ####[facility] [address] [facility] [place] [address] Glucose [Mass/Vol] 94 mg/dL Normal 55-99 [facility] Comment on above: Result Comment: Chidi [place] Performed By: #### 2 53132006 ####[facility] [address] [facility] [place] [address] Interdisciplinary Note - Abdelrahman e Manageron 06-05-2023 Interdisciplinary Note - Systems Test Analyst Normal [facility] Comment on above: Result Comment: Elec tronically Signed By: Demi Franzbr\Date and Time Signed: 06/05/23 11:38 EST Interdisciplinary Note - Inderjit n 06-05-2023 Interdisciplinary Note - OT Normal [facility] Interdisciplinary Note - PTo n 06-05-2023 Interdisciplinary Note - PT Normal [facility] Magnesiumon 06-05-2023 Magnesium [Mass/Vol] 2.0 mg/dL Normal 1.3-2.4 [facility] Comment on above: Performed By: #### 2 017927, 4532423, 6906050, 0164779, 89987392, 5723201 ####[facility] [address] [place] [address] Message from Medicareon 05-18 Message from Medicare [id number]#1.00TIFF Normal [facility] Monitor Recordon 06-05-2023 Monitor Record [id number]#1.00TIFF Normal [facility] Monitor Record [id number]#1.00TIFF Normal [facility] Monitor Record [id number]#1.00TIFF Normal [facility] Monitor Record [id number]#1.00TIFF Normal [facility] Monitor Record [id number]#1.00TIFF Normal [facility] Monitor Record [id number]#1.00TIFF Normal [facility] Phosphoruson 06-05-2023 Phosphate [Mass/Vol] 4.1 mg/dL Normal 1.9-4.6 [facility] Comment on above: Performed By: #### 2 780050, 0244583, 6356437, 0353386, 31288342, 0165975 ####[facility] [address] [place] [address] Progress Note-Physicianon Progress Note-Physician Normal [facility] Comment on above: Result Comment: Elec tronically Signed By: Mikel MONTES, Arminda Bateman\.br\Date and Time Signed: 06/05/23 20:34 EST Progress Note-Physician Normal [facility] Comment on above: Result Comment: Elec tronically Signed By: Yemi Quinones Jr, DO\.br\Date and Time Signed: 06/05/23 07:07 EST eGFRon 06-05-2023 GFR/1.73 sq M.predicted adin g non-blacks MDRD (S/P/Bld) [Vol rate/Area] 31 mL/min/1.73 m2 Low >=59 [facility] Comment on above: Order Comment: Order added by Discern Expert. 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 Kidney failure is indicated at less than 15 mL/min/1.73m2. Performed By: #### 2 889977, 2912047, 2379736, 9972027, 66356940, 8143304 ####[facility] [address] [place] [address] Auto Diffon 06-04-2023 Basophils/100 WBC (Bld) 0.2 % Normal 0.0-2.0 [facility] Comment on above: Order Comment: Order Added by Discern Expert. Performed By: #### 1 9452575, 5808107, 6481383, 6198466, 8872390, 2749157 ####[facility] [address] [place] [address] Basophils/Leukocytes Auto (B ld) [Pure # fraction] 0.0 E9/L Normal 0.0-0.2 [facility] Comment on above: Order Comment: Order Added by Discern Expert. Performed By: #### 1 1719932, 5021148, 0271815, 2823217, 7770252, 9774269 ####[facility] [address] [place] [address] Eosinophils/100 WBC (Bld) 0.0 % Normal 0.0-8.0 [facility] Comment on above: Order Comment: Order Added by Discern Expert. Performed By: #### 1 9799820, 6878827, 0665404, 5383150, 7591806, 3202384 ####[address] [place] [address] Eosinophils/Leukocytes Auto (Bld) [Pure # fraction] 0.0 E9/L Normal 0.0-0.5 [facility] Comment on above: Order Comment: Order Added by Discern Expert. Performed By: #### 1 8025426, 8663835, 9849325, 6782406, 5508014, 4649485 ####[address] [address] Lymphocytes/100 WBC (Bld) 7.8 % Low 14.0-50.0 [facility] Comment on above: Order Comment: Order Added by Discern Expert. Performed By: #### 1 2403459, 5670962, 5624606, 3794045, 1890100, 4421085 ####[address] [address] Lymphocytes/Leukocytes Auto (Bld) [Pure # fraction] 1.0 E9/L Normal 1.0-4.0 [facility] Comment on above: Order Comment: Order Added by Discern Expert. Performed By: #### 1 2756197, 0972888, 7886402, 6618280, 6028062, 1932462 ####[facility] [address] [place] [address] Monocytes/100 WBC (Bld) 6.8 % Normal 4.0-14.0 [facility] Comment on above: Order Comment: Order Added by Discern Expert. Performed By: #### 1 9980337, 6086970, 4648766, 5151257, 6406343, 9549706 ####[address] [place] [address] Monocytes/Leukocytes Auto (B ld) [Pure # fraction] 0.9 E9/L Normal 0.2-1.0 [facility] Comment on above: Order Comment: Order Added by Discern Expert. Performed By: #### 1 2366673, 4674758, 1626421, 2407756, 3558861, 9399961 ####[facility] [address] [place] [address] Neutrophils/100 WBC (Bld) 85.2 % High 36.0-75.0 [facility] Comment on above: Order Comment: Order Added by Discern Expert. Performed By: #### 1 0036387, 2236104, 6466656, 3369461, 5890992, 4798302 ####[facility] [address] [place] [address] Neutrophils/Leukocytes Auto (Bld) [Pure # fraction] 10.8 E9/L High 2.0-7.5 [facility] Comment on above: Order Comment: Order Added by Discern Expert. Performed By: #### 1 1977670, 1482653, 9857636, 8963938, 0066823, 4925495 ####[facility] [address] [place] [address] BMPon 06-04-2023 Anion gap [Moles/Vol] 11 mmol/L Normal 6-16 [facility] Comment on above: Performed By: #### 1 0014575, 4531050, 6820270, 6265504, 3981656, 8740096 ####[facility] [address] [place] [address] Calcium [Mass/Vol] 7.6 mg/dL Low 8.9-11.1 [facility] Comment on above: Performed By: #### 1 4569229, 3915646, 9415994, 0055119, 3416210, 2963963 ####[facility] [address] [place] [address] Chloride [Moles/Vol] 109 mmol/L Normal 101-111 [facility] Comment on above: Performed By: #### 1 1976732, 8704011, 7538399, 8755538, 6811857, 7104152 ####[facility] [address] [place] [address] CO2 [Moles/Vol] 26 mmol/L Normal 21-31 [facility] Comment on above: Performed By: #### 1 8437336, 5444772, 8463302, 1883488, 9065260, 6605643 ####[facility] [address] [place] [address] Creatinine [Mass/Vol] 1.7 mg/dL High 0.5-1.3 [facility] Comment on above: Performed By: #### 1 4683919, 2916227, 3475449, 3600238, 9313749, 4117585 ####[facility] [address] [place] [address] Glucose [Mass/Vol] 125 mg/dL Normal 55-199 [facility] Comment on above: Result Comment: If t his glucose result represents a fasting glucose, interpretation should refer to the following reference range: 55-99 mg/dL Performed By: #### 1 2865506, 6091153, 4763184, 2974999, 3427859, 9125619 ####[facility] [address] [place] [address] Potassium [Moles/Vol] 3.6 mmol/L Normal 3.5-5.3 [facility] Comment on above: Performed By: #### 1 7836574, 1959616, 5903644, 0799573, 0963781, 0292448 ####[facility] [address] [place] [address] Sodium [Moles/Vol] 142 mmol/L Normal 135-145 [facility] Comment on above: Performed By: #### 1 1481126, 3265317, 6511443, 2986990, 8089286, 2994596 ####[facility] [address] [place] [address] Urea nitrogen [Mass/Vol] 29 mg/dL High 5-21 [facility] Comment on above: Performed By: #### 1 1819559, 9644773, 6526599, 1336593, 0140713, 5972723 ####[facility] [address] [place] [address] Urea nitrogen/Creatinine [Ma ss ratio] 17 No Units Normal 10-20 [facility] Comment on above: Performed By: #### 1 0602209, 5004989, 3407272, 7488312, 4858128, 3295802 ####[facility] [address] [place] [address] CBC w/ Auto Diffon 3 Erythrocyte distribution wid th (RBC) [Ratio] 15.1 % High 10.9-14.2 [facility] Comment on above: Performed By: #### 1 3771610, 3176831, 9145088, 7528787, 6473532, 3435335 ####[facility] [address] [place] [address] Hematocrit (Bld) [Volume fraction] 38.5 % Normal 37.7-49.0 [facility] Comment on above: Performed By: #### 1 9903771, 0247069, 2899579, 9516152, 3931822, 0338803 ####[facility] [address] [place] [address] Hemoglobin (Bld) [Mass/Vol] 12.6 g/dL Low 13.5-17. 5 [facility] Comment on above: Performed By: #### 1 8381241, 3655433, 9875547, 5392105, 4875488, 9510694 ####[facility] [address] [place] [address] MCH (RBC) [Entitic mass] 27.6 pg Normal 27.0-34.0 [facility] Comment on above: Performed By: #### 1 0706079, 2069378, 3952227, 7299369, 9227161, 3892411 ####[facility] [address] [place] [address] MCHC (RBC) [Mass/Vol] 32.7 g/dL Normal 31.4-36.0 [facility] Comment on above: Performed By: #### 1 6334368, 3479700, 7339193, 7702151, 4130748, 0477943 ####[facility] [address] [place] [address] MCV (RBC) [Entitic vol] 84.3 fL Normal 80.0-100.0 [facility] Comment on above: Performed By: #### 1 6781576, 1755021, 6924896, 1708847, 2597621, 7964955 ####[facility] [address] [place] [address] Platelet mean volume (Bld) [Entitic vol] 7.8 fL Normal 6.4-10.8 [facility] Comment on above: Performed By: #### 1 0118508, 0856735, 7286403, 7842581, 6892254, 2713985 ####[address] [address] Platelets (Bld) [#/Vol] 270.0 E9/L Normal 150.0-500.0 [facility] Comment on above: Performed By: #### 1 2580790, 9041185, 9820377, 0269957, 5734097, 4810725 ####[address] [address] RBC (Bld) [#/Vol] 4.6 E12/L Normal 4.3-5.9 [facility] Comment on above: Performed By: #### 1 4811860, 9309596, 5166837, 2717389, 8284083, 9361929 ####[facility] [address] [place] [address] WBC corrected for nucl RBC A uto (Bld) [#/Vol] 12.7 E9/L High 4.0-11.0 [facility] Comment on above: Performed By: #### 1 1411125, 5226429, 4977615, 7536380, 6444561, 1719302 ####[address] [place] [address] Capillary Glucose POCon 05-18 Glucose [Mass/Vol] 117 mg/dL High 55-99 [facility] Comment on above: Result Comment: Chidi bustamante RN/ Performed By: #### 2 49897256 ####[facility] [address] [place] [address] Glucose [Mass/Vol] 131 mg/dL High 55- [facility] Comment on above: Result Comment: Eri daisy Meter Performed By: #### 2 72369335 ####[facility] [address] [place] [address] Glucose [Mass/Vol] 122 mg/dL High 55- [facility] Comment on above: Result Comment: Eri daisy Meter Performed By: #### 2 08284855 ####[facility] [address] [place] [address] Glucose [Mass/Vol] 129 mg/dL High 55- [facility] Comment on above: Result Comment: Chidi [place] Performed By: #### 2 08394699 ####[facility] [address] [place] [address] Glucose [Mass/Vol] 149 mg/dL [address] [address]- [facility] Comment on above: Performed By: #### 2 78890453 ####[facility] [address] [place] [address] Interdisciplinary Note - Abdelrahman e Manageron 06-04-2023 Interdisciplinary Note - 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 He would like us to reassess closer to [place] Normal [facility] Comment on above: Result Comment: Elec tronically Signed By: Sarah Sampson\.br\Date and Time Signed: 06/04/23 12:59 EST Magnesiumon 06-04-2023 Magnesium [Mass/Vol] 1.7 mg/dL Normal 1.3-2.4 [facility] Comment on above: Performed By: #### 1 3251892, 8433486, 1642010, 4467503, 9933548, 0526118 ####[facility] [address] [place] [address] Monitor Recordon 06-04-2023 Monitor Record [id number]#1.00TIFF Normal [facility] Monitor Record [id number]#1.00TIFF Normal [facility] Operative Reporton 3 Operative Report Normal [facility] Comment on above: Result Comment: Elec tronically Signed By: Mikel MONTES, Arminda Bateman\.br\Date and Time Signed: 06/03/23 22:41 EST Phosphoruson 06-04-2023 Phosphate [Mass/Vol] 2.8 mg/dL Normal 1.9-4.6 [facility] Comment on above: Performed By: #### 1 5675589, 9432066, 4906093, 7240381, 6517467, 3885329 ####[facility] [address] [place] [address] Progress Note-Physicianon Progress Note-Physician Normal [facility] Comment on above: Result Comment: Elec tronically Signed By: Xiao Laguerre PA-C\.br\Date and Time Signed: 06/04/23 09:39 EST\.br\Electronically Co-Signed By: Mikel MONTES, Arminda Bateman\.br\Date and Time Co-Signed: 06/04/23 15:37 EST Progress Note-Physician Normal [facility] Comment on above: Result Comment: Elec tronically Signed By: Lucy Roper MD\.br\Date and Time Signed: 06/04/23 09:00 EST Progress Note-Physician Normal [facility] Comment on above: Result Comment: Elec tronically Signed By: Steve GARCIA MD\.br\Date and Time Signed: 06/04/23 08:52 EST XR Abdomen 1 Viewon 06-04-20 23 XR Abdomen 1 View Normal [facility] eGFRon 06-04-2023 GFR/1.73 sq M.predicted adin g non-blacks MDRD (S/P/Bld) [Vol rate/Area] 42 mL/min/1.73 m2 Low >=59 [facility] Comment on above: Order Comment: Order added by Discern Expert. 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 Kidney failure is indicated at less than 15 mL/min/1.73m2. Performed By: #### 1 6956237, 6748326, 4939955, 9757363, 1297512, 1967122 ####[facility] [address] [place] [address] ABO/Rhon 06-03-2023 ABO/Rh Negative Invalid Interpretation Code [facility] Comment on above: Performed By: #### 1 0364438, 86540791, 9245754, 53003028 ####[facility] [address] [place] [address] ABO/Rh History Checkon 06-03 ABO/Rh History Check Type verified by second s Normal [facility] Comment on above: Performed By: #### 1 5671564, 13546491, 6001100, 77012949 ####[facility] [address] [place] [address] ABO/Rh Retypeon 06-03-2023 ABO/Rh Retype Interp Negative Invalid Interpretation Cod e [facility] Comment on above: Performed By: #### 1 [id number] ####[facility] [address] [address] ABSCon 06-03-2023 ABSC Gel Interp Negative Normal [facility] Comment on above: Performed By: #### 1 [id number], [id number], 4686915, [id number] ####[facility] [address] [place] [address] BLOOD BANKOrdered By: Jovany Hutton on 06-03-2023 ABO/Rh Retype Interp Negative Invalid Interpretation Code [facility] [place] Subsection ABSC Gel Interp Negative (06/03/23 12:32 PM) Normal [facility] [place] Subsection BLOOD BANKOrdered By: Demi Clifford on 06-03-2023 ABO/Rh Interp Negative Invalid Interpretation Code [facility] [place] BB Subsection Blood Bank ID#on 06-03-2023 BBID# [id number] Invalid Interpretation Code [facility] Comment on above: Performed By: #### 1 [id number], [id number], [id number], [id number] ####[facility] [address] [place] [address] CT Abdomen/Pelvis w/ Contras ton 06-03-2023 CT Abdomen/Pelvis w/ Contrast Normal [facility] CT Chest w/ Contraston 06-03 CT Chest w/ Contrast Normal [facility] Capillary Glucose POCon 05-18 Glucose [Mass/Vol] 190 mg/dL High 55-99 [facility] Comment on above: Result Comment: Chidi CLINTON Performed By: #### 2 [id number] ####[facility] [address] [place] [address] Glucose [Mass/Vol] 208 mg/dL High 55-99 [facility] Comment on above: Result Comment: Chidi CLINTON Performed By: #### 2 [id number] ####[facility] [address] [place] [address] Glucose [Mass/Vol] 185 mg/dL High 55-99 [facility] Comment on above: Result Comment: Chidi CLINTON Performed By: #### 2 [id number] ####[facility] [address] [place] [address] Consent for Procedure/Surger yon 06-03-2023 Consent for Procedure/Surgery [id number] Normal [facility] Consultation Noteon 06-03-20 23 Consultation Note Normal [facility] Comment on above: Result Comment: Elec tronically Signed By: Judson MONTES, Lucy Cooperbr\Date and Time Signed: 06/03/23 20:02 EST EyjV9lov 06-03-2023 HbA1c (Bld) [Mass fraction] 7.7 % High <=5.9 [facility] Comment on above: Performed By: #### 7 [id number], [id number], 2067552, 1358137 ####[facility] [address]Nthe [place] [address] Interdisciplinary Note - Abdelrahman e Manageron 06-03-2023 Interdisciplinary Note - Systems Test Analyst Normal [facility] Comment on above: Result Comment: Elec tronically Signed By: Demi Franz\.br\Date and Time Signed: 06/03/23 09:51 EST Main OR PACU I Recordon 05-18 Main OR PACU I Record Normal Fis [facility] Operative Reporton Operative Report Normal [facility] Comment on above: Result Comment: Elec tronically Signed By: Judson MONTES, Lucy Bennett\.br\Date and Time Signed: 06/03/23 20:16 EST Progress Note-Physicianon Progress Note-Physician Normal [facility] Comment on above: Result Comment: Elec tronically Signed By: RADHA MONTES, Steve\.br\Date and Time Signed: 06/03/23 08:11 EST UA With Cult Reflexon 2022 Bacteria LM Ql (Urine sed) TRACE Normal Trace [facility] Comment on above: Performed By: #### 1 [id number] ####[facility] [address] [place] [address] Bilirubin Ql (U) 1+ Abnormal Negative [facility] Comment on above: Performed By: #### 1 [id number] ####[facility] [address] [facility] [place] [address] Clarity (U) CLEAR Normal Clear [facility] Comment on above: Performed By: #### 1 [id number] ####[facility] [address] [place] [address] Color (U) Dark Yellow Invalid Interpretation Code [facility] Comment on above: Performed By: #### 1 7678118 ####[facility] [address] [place] [address] Crystals LM Ql (Urine sed) Present Normal [facility] Comment on above: Performed By: #### 1 [id number] ####[address] [address] Epithelial cells.squamous LM .HPF (Urine sed) [#/Area] 0-2 Normal 0-2 [facility] Comment on above: Performed By: #### 1 [id number] ####[address] [address] Glucose Test strip (U) [Mass/Vol] Negative Normal Negative [facility] Comment on above: Performed By: #### 1 1583378 ####[address] [address] Hemoglobin Ql (U) Negative Normal Negative [facility] Comment on above: Performed By: #### 1 6066918 ####[address] [address] Ketones (U) [Mass/Vol] 1+ Abnormal Negative [facility] Comment on above: Performed By: #### 1 6606506 ####[address] [address] [place].plasma/[place].RBC (Bld) [Mass ratio] 0-3 N ormal 0-3 [facility] Comment on above: Performed By: #### 1 4431895 ####[address] [address] Nitrite Ql (U) Negative Normal Negative [facility] Comment on above: Performed By: #### 1 9366321 ####[address] [address] pH (U) 6.5 [pH] Invalid Interpretation Code 5.0-9.0 [facility] Comment on above: Performed By: #### 1 4073419 ####[facility] [address] [place] [address] Protein (U) [Mass/Vol] 1+ Abnormal Negative [facility] Comment on above: Performed By: #### 1 3625716 ####[facility] [address] [place] [address] Specific gravity (U) [Rel density] 1.010 Invalid Interpretation Code 1.005-1.030 [facility] Comment on above: Performed By: #### 1 [id number] ####[facility] [address] [place] [address] Type of Urine collection method Hudson Normal [facility] Comment on above: Performed By: #### 1 5977641 ####[facility] [address] [place] [address] Urobilinogen Qn (U) 1.0 {Josie'U}/dL Normal 0.0-1.0 [facility] Comment on above: Performed By: #### 1 4192295 ####[facility] [address] [place] [address] WBC Auto Ql (U) Negative Normal Negative [facility] Comment on above: Performed By: #### 1 4228240 ####[facility] [address] [place] [address] WBC LM.HPF (Urine sed) [#/Area] 0-5 Normal 0-5 [facility] Comment on above: Performed By: #### 1 2660488 ####[facility] [address] [place] [address] URINALYSISOrdered By: Trip Moore on 06-03-2023 Bacteria LM Ql (Urine sed) Trace /HPF Normal Trace/HPF [facility] [place] UA Auto SS Bilirubin Ql (U) 1+ *ABN* (06/03/23 2:21 PM) Invalid Interpretation Code Negative [facility] UA Auto SS Clarity (U) Clear (06/03/23 2:21 PM) Normal Clear [facility] UA Auto SS Color (U) Dark Yellow Invalid Interpre tation Code [facility] UA Auto SS Crystals LM Ql (Urine sed) Present (06/03/23 2:21 PM) Normal [facility] UA Auto SS Epithelial cells.squamous LM.HPF (Urine sed) [#/Area] 0-2 /HPF Normal 0-2/HPF [facility] [place] UA Auto SS Glucose Test strip (U) [Mass/Vol] Negative (06/03/23 2:21 PM) Normal Negative [facility] UA Auto SS Hemoglobin Ql (U) Negative (06/03/23 2:21 PM) Normal Negative [facility] UA Auto SS Ketones (U) [Mass/Vol] 1+ *ABN* (06/03/23 2:21 PM) Invalid Interpretation Code Negative [facility] UA Auto SS [place].plasma/[place] um.RBC (Bld) [Mass ratio] 0-3 /HPF Normal 0-3/HPF [facility] UA Auto SS Nitrite Ql (U) Negative (06/03/23 2:21 PM) Normal Negative [facility] UA Auto SS pH (U) 6.5 *NA* (06/03/23 2:21 PM) Invalid Interpretation Code 5.0 - 9.0 [facility] UA Auto SS Protein (U) [Mass/Vol] 1+ *ABN* (06/03/23 2:21 PM) Invalid Interpretation Code Negative [facility] UA Auto SS Specific gravity (U) [Rel density] 1.010 *NA* (06/03/23 2:21 PM) Invalid Interpretation Code 1.005 - 1.030 [facility] UA Auto SS UA Spec Desc [place] (06/03/23 2:21 PM) Normal [facility] UA Auto SS Urobilinogen Qn (U) 1.1107284 {Josie'U}/dL Normal 0.0 - 1.0 EU/dL [facility] UA Auto SS WBC Auto Ql (U) Negative (06/03/23 2:21 PM) Normal Negative [facility] UA Auto SS WBC LM.HPF (Urine sed) [#/Area] 0-5 /HPF Normal 0-5/HPF [facility] UA Auto SS BMPon 06-02-2023 Anion gap [Moles/Vol] 17 mmol/L High 6-16 [facility] Comment on above: Performed By: #### 7 [id number], 30096557, 1069714, 9699271 ####[facility] [address] [place] [address] Calcium [Mass/Vol] 8.7 mg/dL Low 8.9-11.1 [facility] Comment on above: Performed By: #### 7 [id number], 56682040, 7540678, 9453276 ####[facility] [address] [place] [address] Chloride [Moles/Vol] 108 mmol/L Normal 101-111 [facility] Comment on above: Performed By: #### 7 05955494, 25619477, 3609214, 3821376 ####[facility] [address] [place] [address] CO2 [Moles/Vol] 23 mmol/L Normal 21-31 [facility] Comment on above: Performed By: #### 7 08253468, 03724909, 9219285, 4878351 ####[facility] [address] [place] [address] Creatinine [Mass/Vol] 1.2 mg/dL Normal 0.5-1.3 [facility] Comment on above: Performed By: #### 7 19581638, 14865836, 8158384, 4853113 ####[facility] [address] [place] [address] Glucose [Mass/Vol] 168 mg/dL Normal 55-199 [facility] Comment on above: Result Comment: If t his glucose result represents a fasting glucose, interpretation should refer to the following reference range: 55-99 mg/dL Performed By: #### 7 [id number], 86795237, 6553921, 5300041 ####[facility] [address] [place] [address] Potassium [Moles/Vol] 3.7 mmol/L Normal 3.5-5.3 [facility] Comment on above: Performed By: #### 7 [id number], 65080279, 6306435, 5254608 ####[facility] [address] [place] [address] Sodium [Moles/Vol] 144 mmol/L Normal 135-145 [facility] Comment on above: Performed By: #### 7 11156175, 31597113, 6881104, 7405258 ####[facility] [address] [place] [address] Urea nitrogen [Mass/Vol] 24 mg/dL High 5-21 [facility] Comment on above: Performed By: #### 7 97772408, 73247367, 6802034, 7248148 ####[facility] [address] [place] [address] Urea nitrogen/Creatinine [Ma ss ratio] 20 No Units Normal 10-20 [facility] Comment on above: Performed By: #### 7 [id number], 59245090, 9745127, 0582078 ####[facility] [address] [place] [address] CEAon 06-02-2023 Carcinoembryonic Ag [Mass/Vol] 49.0 ng/mL Invalid Interpretation Code [facility] Comment on above: Result Comment: REFE RENCE VALUES<2.5 ng/mL (NONSMOKER)<5.0 ng/mL (SMOKER)The concentration of CEA in a given specimen determined by different manufacturers can vary due to differences in assay methods and reagent specificity. Values obtained with different assay methods cannot be used interchangeably. The methodology used to perform this test was chemiluminescence using Mikey Gocella's Access CEA reagent. Performed By: #### 7 [id number], 28916077, 8321525, 1987371 ####[facility] [address] [place] [address] CHEMISTRYOrdered By: SYSTEM SYSTEM on 06-02-2023 Carcinoembryonic Ag [Mass/Vol] 49.0 ng/mL Invalid Interpre tation Code [facility] Remisol Comment on above: Interpretive Data: R EFERENCE VALUES <2.5 ng/mL (NONSMOKER) <5.0 ng/mL (SMOKER) The concentration of CEA in a given specimen determined by different manufacturers can vary due to differences in assay methods and reagent specificity. Values obtained with different assay methods cannot be used interchangeably. The methodology used to perform this test was chemiluminescence using Mikey Victoria's Access CEA reagent. CHEMISTRYOrdered By: Dea Moore on 06-02-2023 HbA1c (Bld) [Mass fraction] 7.7 % High <=5.9% [facility] ChemAutoSS Capillary Glucose POCon 11-1 6-2023 Glucose [Mass/Vol] 193 mg/dL High 55-99 [facility] Comment on above: Performed By: #### 2 [id number] ####[facility] [address] [place] [address] Glucose [Mass/Vol] 217 mg/dL High 55-99 [facility] Comment on above: Result Comment: Chidi bustamante RN/ Performed By: #### 2 77702949 ####[facility] [address] [place] [address] Glucose [Mass/Vol] 160 mg/dL High 55-99 [facility] Comment on above: Result Comment: Chidi bustamante RN/ Performed By: #### 2 74643710 ####[facility] [address] [place] [address] Glucose [Mass/Vol] 164 mg/dL High 55-99 [facility] Comment on above: Result Comment: Chidi bustamante RN/ Performed By: #### 2 [id number] ####[facility] [address] [place] [address] Consenton 06-02-2023 Consent [id number] TIFF [facility] ED Note-Physicianon 06-02-20 ED Note-Physician [id number] #1.00TIFF [facility] Interdisciplinary Note - Abdelrahman e Manageron 06-02-2023 Interdisciplinary Note - Systems Test Analyst [facility] Comment on above: Result Comment: Elec tronically Signed By: Sarah Sampson\.br\Date and Time Signed: 06/02/23 12:47 EST Main OR Intraoperative Recor don 06-02-2023 Main OR Intraoperative Record Normal [facility] Oncology Progress Noteon Oncology Progress Note Normal [facility] Progress Note-Physicianon Progress Note-Physician Normal [facility] Comment on above: Result Comment: Elec tronically Signed By: RADHA MONTES, Steve\.br\Date and Time Signed: 06/02/23 10:02 EST RAD - CT Reporton 06-02-2023 RAD - CT Report [id number]#1.00TIFF Normal [facility] RAD - MISCon 06-02-2023 RAD - MISC [id number]#[id number] F Normal [facility] eGFRon 06-02-2023 GFR/1.73 sq M.predicted adin g non-blacks MDRD (S/P/Bld) [Vol rate/Area] 64 mL/min/1.73 m2 Normal >=59 [facility] Comment on above: Order Comment: Order added by Discern Expert. 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 Kidney failure is indicated at less than 15 mL/min/1.73m2. Performed By: #### 7 [id number], 86243365, 2206317, 9598092 ####[facility] [address] [place] [address] BMPon 06-01-2023 Anion gap [Moles/Vol] 19 mmol/L High 6-16 [facility] Comment on above: Performed By: #### 2 638358, 09963778 ####[facility] [address] [place] [address] Calcium [Mass/Vol] 9.0 mg/dL Normal 8.9-11.1 [facility] Comment on above: Performed By: #### 2 832291, [id number] ####[facility] [address] [place] [address] Chloride [Moles/Vol] 103 mmol/L Normal 101-111 [facility] Comment on above: Performed By: #### 2 871611, 05293429 ####[facility] [address] [place] [address] CO2 [Moles/Vol] 25 mmol/L Normal 21-31 [facility] Comment on above: Performed By: #### 2 015349, 69203983 ####[facility] [address] [place] [address] Creatinine [Mass/Vol] 1.3 mg/dL Normal 0.5-1.3 [facility] Comment on above: Performed By: #### 2 904930, 35691407 ####[facility] [address] [place] [address] Glucose [Mass/Vol] 159 mg/dL Normal 55-199 [facility] Comment on above: Result Comment: If t his glucose result represents a fasting glucose, interpretation should refer to the following reference range: 55-99 mg/dL Performed By: #### 2 087499, 11495206 ####[facility] [address] [place] [address] Potassium [Moles/Vol] 4.3 mmol/L Normal 3.5-5.3 [facility] Comment on above: Performed By: #### 2 880684, 05193418 ####[facility] [address] [place] [address] Sodium [Moles/Vol] 143 mmol/L Normal 135-145 [facility] Comment on above: Performed By: #### 2 505696, 48508551 ####[facility] [address] [place] [address] Urea nitrogen [Mass/Vol] 26 mg/dL High 5-21 [facility] Comment on above: Performed By: #### 2 870412, 40090514 ####[facility] [address] [place] [address] Urea nitrogen/Creatinine [Ma ss ratio] 20 No Units Normal 10-20 [facility] Comment on above: Performed By: #### 2 375223, [id number] ####[facility] [address] [place] [address] Capillary Glucose POCon 05-18 Glucose [Mass/Vol] 164 mg/dL High 55-99 [facility] Comment on above: Result Comment: Noti fied RN/ Performed By: #### 2 70170078 ####[facility] [address] [place] [address] Glucose [Mass/Vol] 170 mg/dL High 55-99 [facility] Comment on above: Result Comment: Eri daisy Meter Performed By: #### 2 94745026 ####[facility] [address] [place] [address] Glucose [Mass/Vol] 162 mg/dL High 55-99 [facility] Comment on above: Result Comment: Chidi bustamante RN/ Performed By: #### 2 53568816 ####[facility] [address] [place] [address] Glucose [Mass/Vol] 139 mg/dL High 55-99 [facility] Comment on above: Result Comment: Chidi bustamante RN/ Performed By: #### 2 59875086 ####[facility] [address] [place] [address] Consultation Noteon 06-01-20 Endoscopic Procedure Report - Other Normal [facility] Comment on above: Result Comment: Elec tronically Signed By: Jimmy Lea MD\.br\Date and Time Signed: 06/01/23 15:49 EST Other Comment: Gely lazaro Attachment - attachment storage system not supported [id number] Can be viewed in source systemMissing Attachment - attachment storage system not supported [id number] Can be viewed in source systemMissing Attachment - attachment storage system not supported [id number] Can be viewed in source system Consultation Note Normal [facility] Comment on above: Result Comment: Elec tronically Signed By: Jimmy Lea MD\.br\Date and Time Signed: 06/01/23 15:49 EST Other Comment: Gely lazaro Attachment - attachment storage system not supported [id number] Can be viewed in source systemMissing Attachment - attachment storage system not supported [id number] Can be viewed in source systemMissing Attachment - attachment storage system not supported [id number] Can be viewed in source system Consultation Note Normal [facility] Comment on above: Result Comment: Elec tronically Signed By: Jimmy Lea MD\.br\Date and Time Signed: 06/01/23 15:24 EST Interdisciplinary Note - Abdelrahman e Manageron 06-01-2023 Interdisciplinary Note - Systems Test Analyst Normal [facility] Comment on above: Result Comment: Elec tronically Signed By: Sarah Sampson\.br\Date and Time Signed: 06/01/23 08:54 EST Main OR PACU I Recordon 05-18 Main OR PACU I Record Normal Fis [facility] Main OR Preoperative Recordo n 06-01-2023 Main OR Preoperative Record Normal [facility] Message from Medicareon 05-18 Message from Medicare [id number] Normal [facility] Monitor Recordon 06-01-2023 Monitor Record [id number] Normal [facility] Monitor Record [id number] Normal [facility] Progress Note-Physicianon Progress Note-Physician Normal [facility] Comment on above: Result Comment: Elec tronically Signed By: Steve GARCIA MD\.br\Date and Time Signed: 06/01/23 10:05 EST eGFRon 06-01-2023 GFR/1.73 sq M.predicted adin g non-blacks MDRD (S/P/Bld) [Vol rate/Area] 58 mL/min/1.73 m2 Low >=59 [facility] Comment on above: Order Comment: Order added by Discern Expert. 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 Kidney failure is indicated at less than 15 mL/min/1.73m2. Performed By: #### 2 669929, [id number] ####[facility] [address] [place] [address] Auto Diffon 05-31-2023 Basophils/100 WBC (Bld) 0.5 % Normal 0.0-2.0 [facility] Comment on above: Order Comment: Order Added by Discern Expert. Performed By: #### 1 2682452, 6727311, 6723793, 6502469 ####[address] [address] Basophils/Leukocytes Auto (B ld) [Pure # fraction] 0.1 E9/L Normal 0.0-0.2 [facility] Comment on above: Order Comment: Order Added by Discern Expert. Performed By: #### 1 3906105, 5635513, 4231201, 0665441 ####[address] [address] Eosinophils/100 WBC (Bld) 0.3 % Normal 0.0-8.0 [facility] Comment on above: Order Comment: Order Added by Discern Expert. Performed By: #### 1 5538994, 6401681, 7224664, 4713978 ####[address] [address] Eosinophils/Leukocytes Auto (Bld) [Pure # fraction] 0.0 E9/L Normal 0.0-0.5 [facility] Comment on above: Order Comment: Order Added by Discern Expert. Performed By: #### 1 6232784, 8353830, 1233222, 6411621 ####[address] [address] Lymphocytes/100 WBC (Bld) 11.0 % Low 14.0-50.0 [facility] Comment on above: Order Comment: Order Added by Discern Expert. Performed By: #### 1 6831928, 5718214, 2956464, 3409670 ####[address] [address] Lymphocytes/Leukocytes Auto (Bld) [Pure # fraction] 1.2 E9/L Normal 1.0-4.0 [facility] Comment on above: Order Comment: Order Added by Discern Expert. Performed By: #### 1 3211826, 0679994, 3622837, 8165625 ####[address] [place] [address] Monocytes/100 WBC (Bld) 6.4 % Normal 4.0-14.0 [facility] Comment on above: Order Comment: Order Added by Discern Expert. Performed By: #### 1 5630113, 0346772, 7103678, 2553645 ####[address] [place] [address] Monocytes/Leukocytes Auto (B ld) [Pure # fraction] 0.7 E9/L Normal 0.2-1.0 [facility] Comment on above: Order Comment: Order Added by Discern Expert. Performed By: #### 1 4131077, 4237525, 8337968, 6624753 ####[address] [address] Neutrophils/100 WBC (Bld) 81.8 % High 36.0-75.0 [facility] Comment on above: Order Comment: Order Added by Discern Expert. Performed By: #### 1 4098911, 0162044, 4040847, 0466114 ####[address] [address] Neutrophils/Leukocytes Auto (Bld) [Pure # fraction] 9.1 E9/L High 2.0-7.5 [facility] Comment on above: Order Comment: Order Added by Discern Expert. Performed By: #### 1 3897062, 7527562, 2955819, 1444085 ####[address] [address] BMP 05-31-2023 Creatinine [Mass/Vol] 1.4 mg/dL High 0.5-1.3 [facility] Comment on above: Performed By: #### 1 7743120, 6685766, 0623849, 7549144 ####[address] [place] [address] Urea nitrogen [Mass/Vol] 20 mg/dL Normal 5-21 [facility] Comment on above: Performed By: #### 1 2841848, 2580667, 4190276, 9370990 ####[facility] [address] [place] [address] Urea nitrogen/Creatinine [Ma ss ratio] 14 No Units Normal 10-20 [facility] Comment on above: Performed By: #### 1 [id number], [id number], 8450382, [id number] ####[facility] [address] [place] [address] Anion gap [Moles/Vol] 20 mmol/L High 6-16 [facility] Comment on above: Performed By: #### 1 [id number], 6495954, 2692380, 5580899 ####[facility] [address] [place] [address] Calcium [Mass/Vol] 9.2 mg/dL Normal 8.9-11.1 [facility] Comment on above: Performed By: #### 1 1409000, 1762945, 7092196, 7098060 ####[facility] [address] [place] [address] Chloride [Moles/Vol] 98 mmol/L Low 101-111 [facility] Comment on above: Performed By: #### 1 [id number], 2290521, 7111232, 7353729 ####[facility] [address] [address] CO2 [Moles/Vol] 24 mmol/L Normal 21-31 [facility] Comment on above: Performed By: #### 1 1381699, 4609812, 8151573, 8398127 ####[facility] [address] [place] [place] [address] Glucose [Mass/Vol] 142 mg/dL Normal 55-199 [facility] Comment on above: Result Comment: If t his glucose result represents a fasting glucose, interpretation should refer to the following reference range: 55-99 mg/dL Performed By: #### 1 [id number], 9089657, 1647249, 3843867 ####[facility] [address] [place] [place] [address] Potassium [Moles/Vol] 3.0 mmol/L Low 3.5-5.3 [facility] Comment on above: Performed By: #### 1 [id number], 7759573, 9753461, 4949420 ####[facility] [address] [place] [address] Sodium [Moles/Vol] 139 mmol/L Normal 135-145 [facility] Comment on above: Performed By: #### 1 2561529, 6918367, 9389020, 2894478 ####[address] [place] [address] CBC w/ Auto Diffon 3 Erythrocyte distribution wid th (RBC) [Ratio] 14.2 % Normal 10.9-14.2 [facility] Comment on above: Performed By: #### 1 7365063, 8776112, 6453954, 9261013 ####[address] [place] [address] Hematocrit (Bld) [Volume fraction] 41.1 % Normal 37.7-49.0 [facility] Comment on above: Performed By: #### 1 9836076, 9422251, 2549435, 2494886 ####[address] [place] [address] Hemoglobin (Bld) [Mass/Vol] 13.6 g/dL Normal 13.5-17. 5 [facility] Comment on above: Performed By: #### 1 0578075, 1248363, 1302167, 8235814 ####[address] [place] [address] MCH (RBC) [Entitic mass] 28.1 pg Normal 27.0-34.0 [facility] Comment on above: Performed By: #### 1 8070173, 0909346, 2834672, 9449638 ####[address] [place] [address] MCHC (RBC) [Mass/Vol] 33.1 g/dL Normal 31.4-36.0 [facility] Comment on above: Performed By: #### 1 0070729, 0558684, 8394365, 5631120 ####[address] [place] [address] MCV (RBC) [Entitic vol] 85.1 fL Normal 80.0-100.0 [facility] Comment on above: Performed By: #### 1 0399499, 4842907, 3338278, 4574867 ####[address] [place] [address] Platelet mean volume (Bld) [Entitic vol] 7.2 fL Normal 6.4-10.8 [facility] Comment on above: Performed By: #### 1 9037902, 5381701, 4982500, 2646703 ####[address] [address] Platelets (Bld) [#/Vol] 244.0 E9/L Normal 150.0-500.0 [facility] Comment on above: Performed By: #### 1 7929073, 7774367, 4408099, 9179700 ####[address] [address] RBC (Bld) [#/Vol] 4.8 E12/L Normal 4.3-5.9 [facility] Comment on above: Performed By: #### 1 1400297, 7859495, 1616452, 6478984 ####[address] [address] WBC corrected for nucl RBC A uto (Bld) [#/Vol] 11.1 E9/L High 4.0-11.0 [facility] Comment on above: Performed By: #### 1 3442477, 4032479, 8488398, 1258432 ####[address] [address] Capillary Glucose POCon 05-18 Glucose [Mass/Vol] 129 mg/dL High 55-99 [facility] Comment on above: Result Comment: Chidi bustamante RN/ Performed By: #### 2 [id number] ####[facility] [address] [place] [address] Glucose [Mass/Vol] 141 mg/dL High 55-99 [facility] Comment on above: Result Comment: Chidi bustamante RN/ Performed By: #### 2 [id number] ####[facility] [address] [place] [address] Consent for Treatmenton 05-18 Consent for Treatment [id number]#1.00TIFF Normal [facility] ED Clinical Summaryon 2022 ED Clinical Summary Normal [facility] ED Note-Physicianon 05-31-20 ED Note-Physician Normal [facility] Comment on above: Result Comment: Elec tronically Signed By: Tamela Diaz PA-C\.br\Date and Time Signed: 05/31/23 14:42 EST\.br\Electronically Co-Signed By: Mango Robertson DO\.br\Date and Time Co- Signed: 05/31/23 18:52 EST ED Patient Education Noteon 05-31-2023 ED Patient Education Note Normal [facility] ED Patient Summaryon 023 ED Patient Summary Normal [facility] Pre-Arrival Noteon 3 Pre-Arrival Note Normal [facility] eGFRon 05-31-2023 GFR/1.73 sq M.predicted adin g non-blacks MDRD (S/P/Bld) [Vol rate/Area] 53 mL/min/1.73 m2 Low >=59 [facility] Comment on above: Order Comment: Order added by Discern Expert. 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 Kidney failure is indicated at less than 15 mL/min/1.73m2. Performed By: #### 1 0132837, 2172208, 1881722, 6951552 ####[facility] [address] [place] [address] Progress Note-Physicianon Progress Note-Physician Normal [facility] Comment on above: Result Comment: Elec tronically Signed By: Yemi Quinones Jr, DO [facility] 05-26-20 [facility] 05-19-20 [facility] 05-12-20 [facility] RAD - Ultrasound Reporton RAD - Ultrasound Report [id number]#1.00TIFF Normal [facility] Physician Orderon 05-09-2023 Physician Order [id number]#1.00TIFF [facility] Family Medicine Office/Clini c Noteon 05-04-2023 Family Medicine Office/Clinic Note Normal [facility] Comment on above: Result Comment: Elec tronically Signed By: Yasir Morocho MD\.br\Date and Time Signed: 05/04/23 12:36 EDT\.br\Electronically Co-Signed By: Marline Ellis\.br\Date and Time Co- Signed: 05/02/23 16:52 EDT RAD - MISCon 05-04-2023 RAD - MISC [id number] FF [facility] Consent for Treatmenton 04-17 Consent for Treatment [id number]#1.00TIFF [facility] Family Medicine Office/Clini c Noteon 04-27-2023 Family Medicine Office/Clinic Note Normal [facility] Comment on above: Result Comment: Elec tronically Signed By: Yasir Morocho MD\.br\Date and Time Signed: 04/27/23 09:54 EDT\.br\Electronically Co-Signed By: Lydia Jackson\.br\Date and Time Co- Signed: 04/19/23 19:59 EDT Physician Referralon 023 Physician Referral [id number]#1.00TIFF [facility] 04-25-20 Population Health Normal [facility] Population Health Normal [facility] C Urineon 04-22-2023 Bacteria identified Cx Nom (U) [facility] Comment on above: Performed By: #### 2 [id number] ####[facility] [address] [place] [address] Consent for Flu Vaccineon Consent for Flu Vaccine [id number]:127 [facility] IntraOperative Documentson 0 04-13-2023 IntraOperative Documents [id number]:127 [facility] Consent for Procedure/Surger yon 04-12-2023 Consent for Procedure/Surgery [id number]#1.00CD:127 [facility] Office Visiton 04-05-2023 Follow-up visit [id number] Kervin Jolly E 1950 M Date Provider Department Center 04/05/2023 Viktoriya-LINDSAY SHELLEY [facility] Family History Problem Relation Age of Onset Heart attack Father COPD Father Family Status - Relation Status Age at Father Level of Service:13645 [place] OFFICE/OUTPATIENT ESTABLISHED MOD MDM 30-39 MIN Normal [facility] Postoperative Documentson Postoperative Documents [id number]:127 [facility] Consenton 04-01-2023 Consent [id number] D:127 [facility] Discharge Instructionson Discharge Instructions [id number]:127 [facility] Main OR Intraoperative Recor don 04-01-2023 Main OR Intraoperative Record [facility] Consent for Treatmenton 03-18 Consent for Treatment [id number]:127 Normal [facility] Discharge Instructionson Discharge Instructions Normal [address] [place] [id number]- \.br\ Medications\.br\ What How Much When Instructions Next Dose\.br\ Unchanged amantadine (amantadine 100 mg Cap) 1 Capsules By Mouth Every day\.br\ Unchanged apixaban (Eliquis 5 mg oral tablet) 1 Tablets By Mouth 2 times a day\.br\ Unchanged atorvastatin (atorvastatin 40 mg Tab) 1 Tablets By Mouth Every day\.br\ Unchanged carbidopa-levodopa 25-100 mg By Mouth 3 times a day\.br\ Unchanged docusate (Dulcolax Stool Softener) 100 Milligram By Mouth Every day\.br\ Unchanged furosemide (furosemide 20 mg Tab) See instructions TAKE ONE TABLET BY MOUTH ONCE DAILY IN THE MORNING \.br\ Unchanged gemfibrozil (gemfibrozil 600 mg Tab) 1 Tablets By Mouth Every day\.br\ Unchanged insulin aspart Subcutaneous Before meals\.br\ Unchanged insulin degludec (Tresiba) 16 Units Subcutaneous Every day\.br\ Unchanged metformin 1,000 Milligram By Mouth 2 times a day\.br\ Unchanged metoprolol (metoprolol 100 mg ER Tab) 1 Tablets By Mouth Every day\.br\ Unchanged omega-3 polyunsaturated fatty acids (Fish Oil) By Mouth\.br\ Unchanged potassium chloride (Potassium Chloride (Ypw-Ccuq-Ozu 10) 10 mEq oral tablet, extended release) See instructions TAKE ONE TABLET BY MOUTH ONCE DAILY \.br\ Unchanged tamsulosin (Flomax 0.4 mg Cap) 1 Capsules By Mouth Every day\.br\ Test Results\.br\ No qualifying data available.\.br\ Allergies\.br\ EPINEPHrine (Racing heart beat)\.br\ allopurinol (Rash)\.br\ codeine (Unknown)\.br\ sulfa drugs (Unknown)\.br\ Problems\.br\ Ongoing - Any problem that you are currently receiving treatment for.\.br\ Anemia\.br\ Atrial fibrillation\.br\ BMI 26.0-26.9,adult\.br\ BPH (benign prostatic hyperplasia)\.br\ BRBPR (bright red blood per rectum)\.br\ CHF (congestive heart failure)\.br\ Chronic kidney disease (CKD), stage III (moderate)\.br\ Feeling of incomplete bladder emptying\.br\ Hx of fracture of hip\.br\ Hyperbilirubinemia\.br\ Hypercholesterolemia\.br\ Hypertension\.br\ Hypocalcemia\.br\ Kidney stone\.br\ Longstanding persistent atrial fibrillation\.br\ Nephrolithiasis, uric acid\.br\ Nocturia\.br\ Overweight\.br\ Parkinson's disease\.br\ Poor urinary stream\.br\ Type 2 diabetes mellitus with diabetic dermatitis, with long-term current use of insulin\.br\ Vitamin D deficiency\.br\ Education Materials\.br\ Colonoscopy, Adult, Care After\.br\ The following information offers guidance on how to care for yourself after your procedure. Your health care provider may also give you more specific instructions. If you have problems or questions, contact your health care provider.\.br\ What can I expect after the procedure?\.br\ After the procedure, it is common to have:\.br\ ? \.br\ A small amount of blood in your stool for 24 hours after the procedure.\.br\ ? \.br\ Some gas.\.br\ ? \.br\ Mild cramping or bloating of your abdomen.\.br\ Follow these instructions at home:\.br\ Eating and drinking\.br\ \.br\ ? \.br\ Drink enough fluid to keep your urine pale yellow.\.br\ ? \.br\ Follow instructions from your health care provider about eating or drinking restrictions.\.br\ ? \.br\ Resume your normal diet as told by your health care provider. Avoid heavy or fried foods that are hard to digest.\.br\ Activity\.br\ ? \.br\ Rest as told by your health care provider.\.br\ ? \.br\ Avoid sitting for a long time without moving. Get up to take short walks every 1?2 hours. This is important to improve blood flow and breathing. Ask for help if you feel weak or unsteady.\.br\ ? \.br\ Return to your normal activities as told by your health care provider. Ask your health care provider what activities are safe for you.\.br\ Managing cramping and bloating\.br\ \.br\ ? \.br\ Try walking around when you have cramps or feel bloated.\.br\ ? \.br\ If directed, apply heat to your abdomen as told by your health care provider. Use the heat source that your health care provider recommends, such as a moist heat pack or a heating pad.\.br\ ? \.br\ Place a towel between your skin and the heat source.\.br\ ? \.br\ Leave the heat on for 20?30 minutes.\.br\ ? \.br\ Remove the heat if your skin turns bright red. This is especially important if you are unable to feel pain, heat, or cold. You have a greater risk of getting burned.\.br\ General instructions\.br\ ? \.br\ If you were given a sedative during the procedure, it can affect you for several hours. Do not drive or operate machinery until your health care provider says that it is safe.\.br\ ? \.br\ For the first 24 hours after the procedure:\.br\ ? \.br\ Do not sign important documents.\.br\ ? \.br\ Do not drink alcohol.\.br\ ? \.br\ Do your regular daily activities at a slower pace than normal.\.br\ ? \.br\ Eat soft foods that are easy to digest.\.br\ ? \.br\ Take gdem-qft-raczzck and prescription medicines only as told by your health care provider.\.br\ ? \.br\ Keep all follow-up visits. This is important.\.br\ Contact a health care provider if:\.br\ ? \.br\ You have blood in your stool 2?3 days after the procedure.\.br\ Get help right away if:\.br\ ? \.br\ You have more than a small spotting of blood in your stool.\.br\ ? \.br\ You have large blood clots in your stool.\.br\ ? \.br\ You have swelling of your abdomen.\.br\ ? \.br\ You have nausea or vomiting.\.br\ ? \.br\ You have a fever.\.br\ ? \.br\ You have increasing pain in your abdomen that is not relieved with medicine.\.br\ These symptoms may be an emergency. Get help right away. Call 911.\.br\ ? \.br\ Do not wait to see if the symptoms will go away.\.br\ ? \.br\ Do not drive yourself to the hospital.\.br\ Summary\.br\ ? \.br\ After the procedure, it is common to have a small amount of blood in your stool. You may also have mild cramping and bloating of your abdomen.\.br\ ? \.br\ If you were given a sedative during the procedure, it can affect you for several hours. Do not drive or operate machinery until your health care provider says that it is safe.\.br\ ? \.br\ Get help right away if you have a lot of blood in your stool, nausea or vomiting, a fever, or increased pain in your abdomen.\.br\ This information is not intended to replace advice given to you by your health care provider. Make sure you discuss any questions you have with your health care provider.\.br\ Document Revised: 02/24/2022 Document Reviewed: 02/24/2022 [employer] Patient Education ? 2022 [employer].br\ Common Emergency Awareness Tips\.br\ IS IT A STROKE?\.br\ Act FAST and Check for these signs:\.br\ FACE\.br\ Does the face look uneven?\.br\ ARM\.br\ Does one arm drift down?\.br\ SPEECH\.br\ Does their speech sound strange?\.br\ TIME\.br\ Call at any sign of stroke\.br\ Heart Attack Signs\.br\ Chest discomfort: Most heart attacks involve discomfort in the center of the chest and lasts more than a few minutes, or goes away and comes back. It can feel like uncomfortable pressure, squeezing, fullness or pain.\.br\ Discomfort in upper body: Symptoms can include pain or discomfort in one or both arms, back, neck, jaw or stomach.\.br\ Shortness of breath: With or without discomfort.\.br\ Other signs: Breaking out in a cold sweat, nausea, or lightheaded.\.br\ Remember, MINUTES DO MATTER. If you experience any of these heart attack warning signs, call to get immediate medical attention!\.br\ Pat [facility] Comment on above: Result Comment: Elec tronically Signed By: Sudha Jasso RN\.br\Date and Time Signed: 03/31/23 14:22 EDT Inpatient Patient Summaryon 03-31-2023 Inpatient Patient Summary Normal [facility] Main OR PACU I Recordon 03-18 Main OR PACU I Record Normal [facility] Main OR Preoperative Recordo n 03-31-2023 Main OR Preoperative Record Normal [facility] Operative Reporton Operative Report Normal [facility] Comment on above: Result Comment: Elec tronically Signed By: Lucila MONTES, Mango Sesay\.br\Date and Time Signed: 03/31/23 14:15 EDT Orders Onlyon 03-31-2023 Orders Only [id number] Kervin Jolly jaylen E 1950 M Date Provider Department Center 03/31/2023 [facility] [place] Family History Problem Relation Age of Onset Heart attack Father COPD Father Family Status - Relation Status Age at Father Normal [facility] Outpatient Surgery Discharge Instructionon 03-31-2023 Outpatient Surgery Discharge Instruction Normal [facility] Patient Education - Texton 0 03-31-2023 Patient Education - Text Normal [facility] Progress Note-Physicianon Progress Note-Physician Normal [facility] Comment on above: Result Comment: Elec tronically Signed By: Jose Rafael Cadet DO\.br\Date and Time Signed: 03/31/23 14:24 EDT Progress Note-Physician Normal [facility] Comment on above: Result Comment: Elec tronically Signed By: Jose Rafael Cadet DO\.br\Date and Time Signed: 03/31/23 13:31 EDT Consultation Noteon 03-30-20 23 Consultation Note [id number]:127 Normal [facility] Consultation Noteon 03-09-20 Consultation Note [id number]:127 Normal [facility] Consent for Procedure/Surger yon 02-15-2023 Consent for Procedure/Surgery [id number]#[id number]:127 Normal [facility] Consultation Noteon 02-08-20 Consultation Note [id number]:127 Normal [facility] Office Visiton 01-28-2023 Follow-up visit [id number] Kervin Jolly E 1950 M Date Provider Department Center 01/28/2023 Viktoriya-LINDSAY SHELLEY [facility] Family History Problem Relation Age of Onset Heart attack Father COPD Father Family Status - Relation Status Age at Father Level of Service:64501 [place] OFFICE/OUTPATIENT ESTABLISHED MOD MDM 30-39 MIN Normal [facility] Ambulatory Visit Summaryon 0 01-12-2023 Ambulatory Visit Summary Normal [address] [place] [address]- \.br\ Medications\.br\ What How Much When Instructions\.br\ Unchanged amantadine (amantadine 100 mg Cap) 1 Capsules By Mouth Every day\.br\ Unchanged apixaban (Eliquis 5 mg oral tablet) 1 Tablets By Mouth 2 times a day\.br\ Unchanged atorvastatin (atorvastatin 40 mg Tab) By Mouth Every day\.br\ Unchanged carbidopa-levodopa 25-100 mg By Mouth 3 times a day\.br\ Unchanged docusate (Dulcolax Stool Softener) 100 Milligram By Mouth Every day\.br\ Unchanged furosemide (furosemide 20 mg Tab) See instructions TAKE ONE TABLET BY MOUTH ONCE DAILY IN THE MORNING \.br\ Unchanged gemfibrozil (gemfibrozil 600 mg Tab) 1 Tablets By Mouth Every day\.br\ Unchanged insulin aspart Subcutaneous Before meals\.br\ Unchanged insulin degludec (Tresiba) 16 Units Subcutaneous Every day\.br\ Unchanged metformin 1,000 Milligram By Mouth 2 times a day\.br\ Unchanged metoprolol (metoprolol 100 mg ER Tab) 1 Tablets By Mouth Every day\.br\ Unchanged omega-3 polyunsaturated fatty acids (Fish Oil) By Mouth\.br\ Unchanged potassium chloride (Potassium Chloride (Dpw-Atwg-Zht 10) 10 mEq oral tablet, extended release) See instructions TAKE ONE TABLET BY MOUTH ONCE DAILY \.br\ Unchanged tamsulosin (Flomax 0.4 mg Cap) 1 Capsules By Mouth Every day\.br\ Allergies\.br\ EPINEPHrine (Racing heart beat)\.br\ allopurinol (Rash)\.br\ codeine (Unknown)\.br\ sulfa drugs (Unknown)\.br\ Problems\.br\ Ongoing - Any problem that you are currently receiving treatment for.\.br\ Anemia\.br\ Atrial fibrillation\.br\ BMI 26.0-26.9,adult\.br\ BPH (benign prostatic hyperplasia)\.br\ BRBPR (bright red blood per rectum)\.br\ CHF (congestive heart failure)\.br\ Chronic kidney disease (CKD), stage III (moderate)\.br\ Feeling of incomplete bladder emptying\.br\ Hx of fracture of hip\.br\ Hyperbilirubinemia\.br\ Hypercholesterolemia\.br\ Hypertension\.br\ Hypocalcemia\.br\ Kidney stone\.br\ Longstanding persistent atrial fibrillation\.br\ Nephrolithiasis, uric acid\.br\ Nocturia\.br\ Overweight\.br\ Parkinson's disease\.br\ Poor urinary stream\.br\ Type 2 diabetes mellitus with diabetic dermatitis, with long-term current use of insulin\.br\ Vitamin D deficiency\.br\ Education Materials\.br\ Obesity, Adult\.br\ Obesity is the condition of having too much total body fat. Being overweight or obese means that your weight is greater than what is considered healthy for your body size. Obesity is determined by a measurement called BMI (body mass index). BMI is an estimate of body fat and is calculated from height and weight. For adults, a BMI of 30 or higher is considered obese.\.br\ Obesity can lead to other health concerns and major illnesses, including:\.br\ ? \.br\ Stroke.\.br\ ? \.br\ Coronary artery disease (CAD).\.br\ ? \.br\ Type 2 diabetes.\.br\ ? \.br\ Some types of cancer, including cancers of the colon, breast, uterus, and gallbladder.\.br\ ? \.br\ High blood pressure (hypertension).\.br\ ? \.br\ High cholesterol.\.br\ ? \.br\ Gallbladder stones.\.br\ Obesity can also contribute to:\.br\ ? \.br\ Osteoarthritis.\.br\ ? \.br\ Sleep apnea.\.br\ ? \.br\ Infertility problems.\.br\ What are the causes?\.br\ Common causes of this condition include:\.br\ ? \.br\ Eating daily meals that are high in calories, sugar, and fat.\.br\ ? \.br\ Drinking high amounts of sugar-sweetened beverages, such as soft drinks.\.br\ ? \.br\ Being born with genes that may make you more likely to become obese.\.br\ ? \.br\ Having a medical condition that causes obesity, including:\.br\ ? \.br\ Hypothyroidism.\.br\ ? \.br\ Polycystic ovarian syndrome (PCOS).\.br\ ? \.br\ Binge-eating disorder.\.br\ ? \.br\ Una syndrome.\.br\ ? \.br\ Taking certain medicines, such as steroids, antidepressants, and seizure medicines.\.br\ ? \.br\ Not being physically active (sedentary lifestyle).\.br\ ? \.br\ Not getting enough sleep.\.br\ What increases the risk?\.br\ The following factors may make you more likely to develop this condition:\.br\ ? \.br\ Having a family history of obesity.\.br\ ? \.br\ Living in an area with limited access to:\.br\ ? \.br\ [place], recreation centers, or sidewalks.\.br\ ? \.br\ Healthy food choices, such as grocery stores and [employer].\.br\ What are the signs or symptoms?\.br\ The main sign of this condition is having too much body fat.\.br\ How is this diagnosed?\.br\ This condition is diagnosed based on:\.br\ ? \.br\ Your BMI. If you are an adult with a BMI of 30 or higher, you are considered obese.\.br\ ? \.br\ Your waist circumference. This measures the distance around your waistline.\.br\ ? \.br\ Your skinfold thickness. Your health care provider may gently pinch a fold of your skin and measure it.\.br\ You may have other tests to check for underlying conditions.\.br\ How is this treated?\.br\ Treatment for this condition often includes changing your lifestyle. Treatment may include some or all of the following:\.br\ ? \.br\ Dietary changes. This may include developing a healthy meal plan.\.br\ ? \.br\ Regular physical activity. This may include activity that causes your heart to beat faster (aerobic exercise) and strength training. Work with your health care provider to design an exercise program that works for you.\.br\ ? \.br\ Medicine to help you lose weight if you are unable to lose one pound a week after six weeks of healthy eating and more physical activity.\.br\ ? \.br\ Treating conditions that cause the obesity (underlying conditions).\.br\ ? \.br\ Surgery. Surgical options may include gastric banding and gastric bypass. Surgery may be done if:\.br\ ? \.br\ Other treatments have not helped to improve your condition.\.br\ ? \.br\ You have a BMI of 40 or higher.\.br\ ? \.br\ You have life-threatening health problems related to obesity.\.br\ Follow these instructions at home:\.br\ Eating and drinking\.br\ \.br\ ? \.br\ Follow recommendations from your health care provider about what you eat and drink. Your health care provider may advise you to:\.br\ ? \.br\ Limit fast food, sweets, and processed snack foods.\.br\ ? \.br\ Choose low-fat options, such as low-fat milk instead of whole milk.\.br\ ? \.br\ Eat five or more servings of fruits or vegetables every day.\.br\ ? \.br\ Choose healthy foods when you eat out.\.br\ ? \.br\ Keep low-fat snacks available.\.br\ ? \.br\ Limit sugary drinks, such as soda, fruit juice, sweetened iced tea, and flavored milk.\.br\ ? \.br\ Drink enough water to keep your urine pale yellow.\.br\ ? \.br\ Do not follow a fad diet. Fad diets can be unhealthy and even dangerous.\.br\ ? \.br\ Other healthful choices include:\.br\ ? \.br\ Eat at home more often. This gives you more control over what you eat.\.br\ ? \.br\ Learn to read food labels. This will help you understand how much food is considered one serving.\.br\ ? \.br\ Learn what a healthy serving size is.\.br\ Physical activity\.br\ ? \.br\ Exercise regularly, as told by your health care provider.\.br\ ? \.br\ Most adults should get up to 150 minutes of moderate-intensity exercise every week.\.br\ ? \.br\ Ask your health care provider what types of exercise are saf [facility] General Surgery Office/Clini c Noteon 01-11-2023 General Surgery Office/Clinic Note Normal [facility] Comment on above: Result Comment: Elec tronically Signed By: Mango Gaytan MD\.br\Date and Time Signed: 01/11/23 11:25 EDT\.br\Electronically Co-Signed By: Skye Anaya\.br\Date and Time Co- Signed: 01/11/23 11:06 EDT Patient Educationon 01-12-20 Patient Education Normal [facility] Screenson 01-06-2023 Screens [id number]: 127 Normal [facility] 36on 01-05-2023 36 [address]. Can you pl ease check this patient's loop monitor to see if it's showed afib/flutter recently? He's currently off his Eliquis due to bleeding. PCP thinks he's been in NSR for awhile. Thanks so much. Normal [facility] Ambulatory Visit Summaryon 0 01-05-2023 Ambulatory Visit Summary Invalid Interpretation Code [address], [address] [place] [address]- \.br\ Tuesday 11:00 AM EST \.br\ With: SPEEDY MONTES, Jens Pack\.br\ Where: [facility] Ambulatory Visit Summary Invalid Interpretation Code [address], [address] [place] [address]- \.br\ Tuesday 11:00 AM EST \.br\ With: Jens RUFF MD\.br\ Where: [facility] Auto Diffon 01-05-2023 Basophils/100 WBC (Bld) 0.3 % Normal 0.0-2.0 [facility] Comment on above: Order Comment: Order Added by Discern Expert. Performed By: #### 1 2109958, 5574102, 9032985, 4065999, 0981933 ####[facility] [address] [place] [address] Basophils/Leukocytes Auto (B ld) [Pure # fraction] 0.0 E9/L Normal 0.0-0.2 [facility] Comment on above: Order Comment: Order Added by Discern Expert. Performed By: #### 1 0344672, 3453140, 6010683, 5807079, 8815801 ####[facility] [address] [place] [address] Eosinophils/100 WBC (Bld) 1.7 % Normal 0.0-8.0 [facility] Comment on above: Order Comment: Order Added by Discern Expert. Performed By: #### 1 9670203, 0722125, 5703021, 0892051, 1604812 ####[facility] [address] [place] [address] Eosinophils/Leukocytes Auto (Bld) [Pure # fraction] 0.2 E9/L Normal 0.0-0.5 [facility] Comment on above: Order Comment: Order Added by Discern Expert. Performed By: #### 1 3404129, 0071832, 8353407, 5324290, 4448658 ####[facility] [address] [place] [address] Lymphocytes/100 WBC (Bld) 17.2 % Normal 14.0-50.0 [facility] Comment on above: Order Comment: Order Added by Discern Expert. Performed By: #### 1 8669836, 3906726, 5691239, 6904453, 2357772 ####[facility] [address] [place] [address] Lymphocytes/Leukocytes Auto (Bld) [Pure # fraction] 1.8 E9/L Normal 1.0-4.0 [facility] Comment on above: Order Comment: Order Added by Discern Expert. Performed By: #### 1 0747571, 7090826, 5135312, 4590629, 1131930 ####[address] [address] Monocytes/100 WBC (Bld) 5.1 % Normal 4.0-14.0 [facility] Comment on above: Order Comment: Order Added by Discern Expert. Performed By: #### 1 5036204, 3256688, 4836146, 7037542, 6986715 ####[facility] [address] [place] [address] Monocytes/Leukocytes Auto (B ld) [Pure # fraction] 0.5 E9/L Normal 0.2-1.0 [facility] Comment on above: Order Comment: Order Added by Discern Expert. Performed By: #### 1 8466447, 7443223, 2903222, 2187171, 5604739 ####[facility] [address] [place] [address] Neutrophils/100 WBC (Bld) 75.7 % High 36.0-75.0 [facility] Comment on above: Order Comment: Order Added by Discern Expert. Performed By: #### 1 8683810, 1159273, 9807209, 9776369, 4716192 ####[facility] [address] [place] [address] Neutrophils/Leukocytes Auto (Bld) [Pure # fraction] 7.8 E9/L High 2.0-7.5 [facility] Comment on above: Order Comment: Order Added by Discern Expert. Performed By: #### 1 0125923, 9075340, 4626942, 9628501, 5440054 ####[facility] [address] [place] [address] Bili Directon 01-05-2023 Bilirubin.direct [Mass/Vol] 0.2 mg/dL Normal 0.1-0.4 [facility] Comment on above: Performed By: #### 1 8255855, 7768748, 1771062, 9362416, 8483884 ####[address] [place] [address] CBC w/ Auto Diffon Erythrocyte distribution wid th (RBC) [Ratio] 13.2 % Normal 10.9-14.2 [facility] Comment on above: Performed By: #### 1 3445619, 0059866, 0086612, 8678071, 0873507 ####[address] [place] [address] Hematocrit (Bld) [Volume fraction] 40.0 % Normal 37.7-49.0 [facility] Comment on above: Performed By: #### 1 6133823, 7432468, 9069608, 7612259, 3400253 ####[address] [place] [address] Hemoglobin (Bld) [Mass/Vol] 13.3 g/dL Low 13.5-17. 5 [facility] Comment on above: Performed By: #### 1 2575302, 5705647, 8740404, 3454532, 2602697 ####[address] [place] [address] MCH (RBC) [Entitic mass] 28.9 pg Normal 27.0-34.0 [facility] Comment on above: Performed By: #### 1 0608913, 5269442, 2863898, 3042531, 6452571 ####[address] [place] [address] MCHC (RBC) [Mass/Vol] 33.3 g/dL Normal 31.4-36.0 [facility] Comment on above: Performed By: #### 1 0867386, 9653073, 0411228, 8679718, 2206648 ####[address] [place] [address] MCV (RBC) [Entitic vol] 86.9 fL Normal 80.0-100.0 [facility] Comment on above: Performed By: #### 1 4471093, 3150754, 7683018, 7493271, 4223829 ####[place] [address] [address] Platelet mean volume (Bld) [Entitic vol] 7.9 fL Normal 6.4-10.8 [facility] Comment on above: Performed By: #### 1 2796640, 2135336, 8122796, 0258411, 7355623 ####[place] [address] [address] Platelets (Bld) [#/Vol] 198.0 E9/L Normal 150.0-500.0 [facility] Comment on above: Performed By: #### 1 9825121, 8553344, 7788374, 0001744, 8848879 ####[address] [address] RBC (Bld) [#/Vol] 4.6 E12/L Normal 4.3-5.9 [facility] Comment on above: Performed By: #### 1 3059559, 2199289, 9252184, 9603020, 5891026 ####[address] [place] [address] WBC corrected for nucl RBC A uto (Bld) [#/Vol] 10.4 E9/L Normal 4.0-11.0 [facility] Comment on above: Performed By: #### 1 8624460, 2594069, 6638431, 9185047, 6467944 ####[facility] [address] [place] [address] CMPon 01-05-2023 Albumin [Mass/Vol] 4.4 g/dL Normal 3.3-5.0 [facility] Comment on above: Performed By: #### 1 7801700, 7028664, 3475563, 6579031, 5638013 ####[facility] [address] [place] [address] Albumin/Globulin (S) [Mass conc ratio] 1.2 Normal 1.1-2.2 [facility] Comment on above: Performed By: #### 1 8510456, 3032722, 1648186, 9626731, 7711391 ####[address] [place] [address] ALP [Catalytic activity/Vol] 76 Int._Unit/L Normal 21- 98 [facility] Comment on above: Performed By: #### 1 6097935, 5508779, 8110789, 5605508, 5047986 ####[facility] [address] [place] [address] ALT No additional P-5'-P [Catalytic activity/Vol] 7 Int._Unit/L Normal 6-46 [facility] Comment on above: Performed By: #### 1 7254266, 2278995, 8571824, 4033185, 6151863 ####[facility] [address] [place] [address] Anion gap [Moles/Vol] 12 mmol/L Normal 6-16 [facility] Comment on above: Performed By: #### 1 6241325, 0895690, 3115748, 6406003, 1482262 ####[facility] [address] [place] [address] AST [Catalytic activity/Vol] 26 Int._Unit/L Normal 5-4 3 [facility] Comment on above: Performed By: #### 1 4260344, 2330267, 5798008, 8108161, 0435820 ####[facility] [address] [place] [address] Bilirubin [Mass/Vol] 1.8 mg/dL High 0.0-1.1 [facility] Comment on above: Performed By: #### 1 2148720, 4727955, 3245138, 8181527, 6935052 ####[facility] [address] [place] [address] Calcium [Mass/Vol] 9.1 mg/dL Normal 8.9-11.1 [facility] Comment on above: Performed By: #### 1 7422588, 3911315, 0899733, 1319831, 1211841 ####[facility] [address] [place] [address] Chloride [Moles/Vol] 101 mmol/L Normal 101-111 [facility] Comment on above: Performed By: #### 1 8261712, 9889976, 1026483, 2694622, 1357295 ####[facility] [address] [place] [address] CO2 [Moles/Vol] 30 mmol/L Normal 21-31 [facility] Comment on above: Performed By: #### 1 3272368, 9355923, 4887365, 9786544, 8935235 ####[facility] [address] [place] [address] Creatinine [Mass/Vol] 1.1 mg/dL Normal 0.5-1.3 [facility] Comment on above: Performed By: #### 1 1384273, 5416250, 1009908, 4092292, 1602950 ####[facility] [address] [place] [address] Globulin (S) [Mass/Vol] 3.8 g/dL Normal 1.4-4.0 [facility] Comment on above: Performed By: #### 1 0088193, 6754358, 7444113, 6708244, 2655394 ####[facility] [address] [place] [address] Glucose [Mass/Vol] 160 mg/dL Normal 55-199 [facility] Comment on above: Result Comment: If t his glucose result represents a fasting glucose, interpretation should refer to the following reference range: 55-99 mg/dL Performed By: #### 1 3351058, 7832523, 6543891, 4410445, 6614651 ####[facility] [address] [place] [address] Potassium [Moles/Vol] 4.3 mmol/L Normal 3.5-5.3 [facility] Comment on above: Performed By: #### 1 3024719, 2670981, 6957040, 4525923, 7926173 ####[facility] [address] [place] [address] Protein [Mass/Vol] 8.2 g/dL High 6.0-7.8 [facility] Comment on above: Performed By: #### 1 3076362, 8691621, 8930139, 3889038, 8559597 ####[facility] [address] [place] [address] Sodium [Moles/Vol] 139 mmol/L Normal 135-145 [facility] Comment on above: Performed By: #### 1 7048398, 4326463, 2683268, 9046536, 3910204 ####[facility] [address] [place] [address] Urea nitrogen [Mass/Vol] 18 mg/dL Normal 5-21 [facility] Comment on above: Performed By: #### 1 7328604, 5039587, 5559996, 5887711, 7135695 ####[facility] [address] [place] [address] Urea nitrogen/Creatinine [Ma ss ratio] 16 No Units Normal 10-20 [facility] Comment on above: Performed By: #### 1 5363304, 3953261, 9537146, 4393336, 6362772 ####[facility] [address] [place] [address] Family Medicine Office/Clini c Noteon 01-05-2023 Family Medicine Office/Clinic Note Normal [facility] Comment on above: Result Comment: Elec tronically Signed By: Yasir Morocho MD\.br\Date and Time Signed: 01/05/23 15:01 EDT\.br\Electronically Co-Signed By: Aga Brewer\.br\Date and Time Co- Signed: 01/05/23 11:53 EDT Family Medicine Office/Clinic Note Normal [facility] Comment on above: Result Comment: Elec tronically Signed By: Yasir Morocho MD\.br\Date and Time Signed: 01/05/23 14:57 EDT\.br\Electronically Co-Signed By: Lizandro Bustillos\.br\Date and Time Co- Signed: 01/05/23 10:33 EDT Patient Educationon 01-06-20 Patient Education Normal [facility] eGFRon 01-05-2023 GFR/1.73 sq M.predicted adin g non-blacks MDRD (S/P/Bld) [Vol rate/Area] 71 mL/min/1.73 m2 Normal >=59 [facility] Comment on above: Order Comment: Order added by Discern Expert. 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 Kidney failure is indicated at less than 15 mL/min/1.73m2. Performed By: #### 1 3059450, 6351950, 2833400, 4572668, 6397385 ####[facility] [address] [place] [address] A1C HEMOGLOBINon 12-15-2022 HbA1c (Bld) [Mass fraction] 7.7 % [employer] Other Consultation Noteon 12-16-19 Consultation Note [id number]:127 Normal [facility] Glucose - FINGER STICKon Glucose [Mass/Vol] 241 mg/dL [employer] Other HbA1c (Bld) [Mass fraction]o n 12-15-2022 A1C HEMOGLOBIN [facility] Amina Other Family Medicine Office/Clini c Noteon 12-07-2022 Family Medicine Office/Clinic Note Normal [facility] Comment on above: Result Comment: Elec tronically Signed By: Julio MONTES, Yasir Sesay\.br\Date and Time Signed: 12/07/22 17:12 EDT\.br\Electronically Co-Signed By: Merle Alvarenga\.br\Date and Time Co- Signed: 12/06/22 13:02 EDT 36on 12-06-2022 36 He has only had docu mented history of a.flutter, no a.fib. Unfortunately Watchman is only indicated for a.fib at this time. Can he get a loop interrogation? And then follow-up with EP. Thanks [facility] [address] Pauline castro called to make you aware that Mr. Jolly is having bright red blood from his rectum. He has held his Eliquis for now. Said he was in NSR in the office today by auscultation. He's due for follow up in January 2023. Had loop recorder placed recently. Did you want to see him sooner than January to discuss Watchman? Dr. Morocho said he is recommending him for Watchman and will fax us his note. Did you have any other recommendations? Please advise. Normal [facility] Ambulatory Visit Summaryon 0 12-06-2022 Ambulatory Visit Summary Invalid Interpretation Code [address] [place] [address]- \.br\ Tuesday 11:00 AM EST \.br\ With: Jens RUFF MD\.br\ Where: [facility] Ambulatory Visit Summary Invalid Interpretation Code [address] [place] [address]- \.br\ Tuesday 11:00 AM EST \.br\ With: Jens RUFF MD\.br\ Where: [facility] Auto Diffon 12-06-2022 Basophils/100 WBC (Bld) 0.7 % Normal 0.0-2.0 [facility] Comment on above: Order Comment: Order Added by Discern Expert. Performed By: #### 2 840437, 463116228, 51949119, 8355680, 1084010, 9125881 ####[facility] [address] [place] [address] Basophils/Leukocytes Auto (B ld) [Pure # fraction] 0.1 E9/L Normal 0.0-0.2 [facility] Comment on above: Order Comment: Order Added by Discern Expert. Performed By: #### 2 169196, 287858571, 84285859, 3553760, 9129247, 1354301 ####[address] [place] [address] Eosinophils/100 WBC (Bld) 1.9 % Normal 0.0-8.0 [facility] Comment on above: Order Comment: Order Added by Discern Expert. Performed By: #### 2 077469, 442756008, 33210111, 5461927, 8709561, 9742574 ####[facility] [address] [place] [address] Eosinophils/Leukocytes Auto (Bld) [Pure # fraction] 0.2 E9/L Normal 0.0-0.5 [facility] Comment on above: Order Comment: Order Added by Discern Expert. Performed By: #### 2 644780, 469033802, 54108918, 9800775, 0976390, 7173628 ####[address] [address] Lymphocytes/100 WBC (Bld) 18.3 % Normal 14.0-50.0 [facility] Comment on above: Order Comment: Order Added by Discern Expert. Performed By: #### 2 766357, 542190457, 49479690, 7123812, 8443540, 2311810 ####[address] [address] Lymphocytes/Leukocytes Auto (Bld) [Pure # fraction] 1.6 E9/L Normal 1.0-4.0 [facility] Comment on above: Order Comment: Order Added by Discern Expert. Performed By: #### 2 275607, 836541774, 98118711, 3417600, 0907049, 5339529 ####[facility] [address] [place] [address] Monocytes/100 WBC (Bld) 5.9 % Normal 4.0-14.0 [facility] Comment on above: Order Comment: Order Added by Discern Expert. Performed By: #### 2 528992, 727700678, 00314445, 6693769, 8600426, 1982455 ####[address] [place] [address] Monocytes/Leukocytes Auto (B ld) [Pure # fraction] 0.5 E9/L Normal 0.2-1.0 [facility] Comment on above: Order Comment: Order Added by Rosalia Expert. Performed By: #### 2 512467, 757585671, 51202725, 9247114, 4818420, 3734959 ####[address] [address] Neutrophils/100 WBC (Bld) 73.2 % Normal 36.0-75.0 [facility] Comment on above: Order Comment: Order Added by Discern Expert. Performed By: #### 2 209440, 488085864, 59582490, 0361410, 9656863, 1277828 ####[address] [address] Neutrophils/Leukocytes Auto (Bld) [Pure # fraction] 6.5 E9/L Normal 2.0-7.5 [facility] Comment on above: Order Comment: Order Added by Discern Expert. Performed By: #### 2 241214, 703324557, 76199739, 2755969, 6026615, 1868795 ####[facility] [address] [place] [address] CBC w/ Auto Diffon 3 Erythrocyte distribution wid th (RBC) [Ratio] 13.1 % Normal 10.9-14.2 [facility] Comment on above: Performed By: #### 2 990049, 324702556, 04526762, 3262281, 5816167, 8718483 ####[facility] [address] [place] [address] Hematocrit (Bld) [Volume fraction] 38.6 % Normal 37.7-49.0 [facility] Comment on above: Performed By: #### 2 681078, 963863280, 36981176, 9164226, 6007958, 0081956 ####[address] [place] [address] Hemoglobin (Bld) [Mass/Vol] 12.5 g/dL Low 13.5-17. 5 [facility] Comment on above: Performed By: #### 2 789090, 499596828, 30591924, 6834020, 3924662, 4073394 ####[address] MCH (RBC) [Entitic mass] 28.8 pg Normal 27.0-34.0 [facility] Comment on above: Performed By: #### 2 531998, 041535460, 85114232, 9696242, 7095831, 9886093 ####[address] [address] MCHC (RBC) [Mass/Vol] 32.2 g/dL Normal 31.4-36.0 [facility] Comment on above: Performed By: #### 2 637800, 326886041, 53503620, 4370035, 5283165, 1200363 ####[address] [address] MCV (RBC) [Entitic vol] 89.3 fL Normal 80.0-100.0 [facility] Comment on above: Performed By: #### 2 587893, 698278752, 83456489, 3421031, 3351126, 9690639 ####[address] [place] [address] Platelet mean volume (Bld) [Entitic vol] 7.6 fL Normal 6.4-10.8 [facility] Comment on above: Performed By: #### 2 662102, 404234709, 55440787, 6492807, 9897709, 8174724 ####[address] [place] [address] Platelets (Bld) [#/Vol] 194.0 E9/L Normal 150.0-500.0 [facility] Comment on above: Performed By: #### 2 996223, 042069745, 37102432, 3423213, 0635595, 1851534 ####[address] [place] [address] RBC (Bld) [#/Vol] 4.3 E12/L Normal 4.3-5.9 [facility] Comment on above: Performed By: #### 2 332292, 780783450, 14319095, 1253796, 7566463, 6686060 ####[facility] [address] [place] [address] WBC corrected for nucl RBC A uto (Bld) [#/Vol] 8.9 E9/L Normal 4.0-11.0 [facility] Comment on above: Performed By: #### 2 797819, 394303973, 28225100, 0723234, 9876516, 9596020 ####[facility] [address] [place] [address] CMPon 12-06-2022 Albumin [Mass/Vol] 4.3 g/dL Normal 3.3-5.0 [facility] Comment on above: Performed By: #### 2 452498, 480481120, 95719451, 5299337, 5438108, 6100450 ####[facility] [address] [place] [address] Albumin/Globulin (S) [Mass conc ratio] 1.3 Normal 1.1-2.2 [facility] Comment on above: Performed By: #### 2 711127, 068737757, 35950351, 5585170, 0682519, 9809508 ####[facility] [address] [place] [address] ALP [Catalytic activity/Vol] 72 Int._Unit/L Normal 21- 98 [facility] Comment on above: Performed By: #### 2 615372, 442097236, 72969055, 2957803, 8480305, 4166335 ####[facility] [address] [place] [address] ALT No additional P-5'-P [Catalytic activity/Vol] 8 Int._Unit/L Normal 6-46 [facility] Comment on above: Performed By: #### 2 025238, 440031218, 02981166, 8815762, 4079983, 7852081 ####[facility] [address] [place] [address] Anion gap [Moles/Vol] 15 mmol/L Normal 6-16 [facility] Comment on above: Performed By: #### 2 406841, 128423343, 71626523, 9042005, 4790756, 8758795 ####[facility] [address] [place] [address] AST [Catalytic activity/Vol] 23 Int._Unit/L Normal 5-4 3 [facility] Comment on above: Performed By: #### 2 832278, 457124098, 85759244, 5198785, 3000644, 1958882 ####[facility] [address] [place] [address] Bilirubin [Mass/Vol] 1.8 mg/dL High 0.0-1.1 [facility] Comment on above: Performed By: #### 2 680938, 095149654, 54988425, 1792333, 9610022, 2585546 ####[facility] [address] [place] [address] Calcium [Mass/Vol] 9.1 mg/dL Normal 8.9-11.1 [facility] Comment on above: Performed By: #### 2 067399, 865123143, 84753104, 0837922, 7968439, 3471627 ####[facility] [address] [place] [address] Chloride [Moles/Vol] 101 mmol/L Normal 101-111 [facility] Comment on above: Performed By: #### 2 707828, 751637004, 40752677, 7827744, 5931626, 7881697 ####[facility] [address] [place] [address] CO2 [Moles/Vol] 28 mmol/L Normal 21-31 [facility] Comment on above: Performed By: #### 2 636063, 558551850, 87372857, 3454809, 7468910, 7961257 ####[facility] [address] [place] [address] Creatinine [Mass/Vol] 1.4 mg/dL High 0.5-1.3 [facility] Comment on above: Performed By: #### 2 166271, 998982046, 22788067, 8401627, 8786128, 4508552 ####[facility] [address] [place] [address] Globulin (S) [Mass/Vol] 3.2 g/dL Normal 1.4-4.0 [facility] Comment on above: Performed By: #### 2 936775, [id number], 50794456, 9927663, 9027085, 4293595 ####[facility] [address] [place] [address] Glucose [Mass/Vol] 190 mg/dL Normal 55-199 [facility] Comment on above: Result Comment: If t his glucose result represents a fasting glucose, interpretation should refer to the following reference range: 55-99 mg/dL Performed By: #### 2 013273, [id number], 87661082, 9857329, 3759649, 4210894 ####[facility] [address] [place] [address] Potassium [Moles/Vol] 4.2 mmol/L Normal 3.5-5.3 [facility] Comment on above: Performed By: #### 2 259698, [id number], 70129220, 3594264, 8991727, 9749939 ####[facility] [address] [place] [address] Protein [Mass/Vol] 7.5 g/dL Normal 6.0-7.8 [facility] Comment on above: Performed By: #### 2 460676, [id number], 67968279, 4586972, 6135385, 9675270 ####[facility] [address] [place] [address] Sodium [Moles/Vol] 140 mmol/L Normal 135-145 [facility] Comment on above: Performed By: #### 2 612395, [id number], 40600199, 7194489, 1718686, 2569752 ####[facility] [address] [place] [address] Urea nitrogen [Mass/Vol] 23 mg/dL High 5-21 [facility] Comment on above: Performed By: #### 2 199943, [id number], 84017737, 9656039, 7829206, 5533210 ####[facility] [address] [place] [address] Urea nitrogen/Creatinine [Ma ss ratio] 16 No Units Normal 10-20 [facility] Comment on above: Performed By: #### 2 247706, [id number], 00858874, 0261946, 0387137, 2949876 ####[facility] [address] [place] [address] FpoF0xpt 12-06-2022 HbA1c (Bld) [Mass fraction] 8.1 % High <=5.9 [facility] Comment on above: Performed By: #### 2 195907, [id number], 47133366, 9891659, 6810172, 8137107 ####[facility] [address] [place] [address] Lipid Panelon 12-06-2022 Cholesterol [Mass/Vol] 120 mg/dL Normal 120-200 [facility] Comment on above: Performed By: #### 2 137552, [id number], 31159105, 5559899, 3300813, 9122671 ####[facility] [address] [place] [address] Cholesterol in HDL [Mass/Vol] 32 mg/dL Invalid Interpretation Code Fish [facility] Comment on above: Result Comment: HDL > or equal to 60 mg/dL: Low cardiovascular riskHDL < 40 mg/dL : High cardiovascular risk Performed By: #### 2 382655, 749041179, 52344061, 8611415, 0723180, 7925187 ####[facility] [address] [place] [address] Cholesterol in LDL [Mass/Vol] 47 mg/dL Normal <=129 [facility] Comment on above: Performed By: #### 2 354369, [id number], 05578066, 3344476, 8032393, 7089125 ####[facility] [address] [place] [address] Cholesterol in VLDL [Mass/Vol] 39 mg/dL Normal 7-40 [facility] Comment on above: Performed By: #### 2 290807, [id number], 06096040, 7101810, 3499013, 0627158 ####[facility] [address] [place] [address] Triglyceride [Mass/Vol] 197 mg/dL High <=149 [facility] Comment on above: Performed By: #### 2 879534, [id number], 42645354, 0215947, 8939266, 7474502 ####[facility] [address] [place] [address] Telephoneon 12-06-2022 Telephone [id number] Kervin Jolly 1950 Date Provider Department Center 12/06/2022 BERENICE STEPHENSON [facility] Family History Problem Relation Age of Onset Heart attack Father COPD Father Family Status - Relation Status Age at Father Normal [facility] eGFRon 12-06-2022 GFR/1.73 sq M.predicted adin g non-blacks MDRD (S/P/Bld) [Vol rate/Area] 53 mL/min/1.73 m2 Low >=59 [facility] Comment on above: Order Comment: Order added by Discern Expert. 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 Kidney failure is indicated at less than 15 mL/min/1.73m2. Performed By: #### 2 734030, [id number], 14083677, 3538958, 9095676, 3166216 ####[facility] [address] [place] [address] Lab Reportson 11-24-2022 Lab Reports [id number] D:127 Normal [facility] CBC AUTO DIFFon 11-23-2022 BASO # 0.0 103/ul Normal 0.0-0.1 [facility] Comment on above: Performed By: #### V ITB12 #### [facility] [address] [place] [address] Dr. Mushtaq Arellano Basophils/100 WBC (Bld) 0.4 % Normal 0.2-2.0 [facility] Comment on above: Performed By: #### V ITB12 #### [facility] [address] [address] [address] Mushtaq Arellano EO # 0.2 103/ul Normal 0.0-0.7 [facility] Comment on above: Performed By: #### V ITB12 #### [facility] [address] [place] [address] Dr. Mushtaq Arellano Eosinophils/100 WBC (Bld) 2.1 % Normal 0.9-7.0 [facility] Comment on above: Performed By: #### V ITB12 #### [facility] [address] [place] [address] Dr. Mushtaq Arellano Erythrocyte distribution wid th (RBC) [Ratio] 12.4 % Normal 11.0-15.0 [facility] Comment on above: Performed By: #### V ITB12 #### [facility] [address] [place] [address] Dr. Mushtaq Arellano Hematocrit (Bld) [Volume fraction] 40.3 % Critically low 42.0-54.0 [facility] Comment on above: Performed By: #### V ITB12 #### [facility] [address] [place] [address] Dr. Mushtaq Arellano Hemoglobin (Bld) [Mass/Vol] 13.3 g/dL Critically low 14.0 -18.0 [facility] Comment on above: Performed By: #### V ITB12 #### [facility] [address] [place] [address] Dr. Mushtaq Arellano IG # 0.02 10e3/ul Normal 0.00-0.03 [facility] Comment on above: Performed By: #### V ITB12 #### [facility] [address] [place] [address] Dr. Mushtaq Arellano IG % 0.2 % Normal 0.0-0.5 [facility] Comment on above: Performed By: #### V ITB12 #### [facility] [address] [place] [address] Dr. Mushtaq Arellano LYMPH # 2.1 103/ul Normal 1.2-3.8 [facility] Comment on above: Performed By: #### V ITB12 #### [facility] [address] [place] [address] Dr. Mushtaq Arellano Lymphocytes/100 WBC (Bld) 23.9 % Normal 20.5-60.0 [facility] Comment on above: Performed By: #### V ITB12 #### [facility] [address] [place] [address] Dr. Mushtaq Arellano MANUAL DIFF REQ NO Normal [facility] Comment on above: Performed By: #### V ITB12 #### [facility] [address] [place] [address] Dr. Mushtaq Arellano MCH (RBC) [Entitic mass] 29.8 pg Normal 25.9-34.0 [facility] Comment on above: Performed By: #### V ITB12 #### [facility] [address] [place] [address] Dr. Mushtaq Arellano MCHC (RBC) [Mass/Vol] 33.0 g/dL Normal 29.9-35.2 [facility] Comment on above: Performed By: #### V ITB12 #### [facility] [address] [place] [address] Dr. Mushtaq Arellano MCV (RBC) [Entitic vol] 90.4 fL Normal 80.0-94.0 [facility] Comment on above: Performed By: #### V ITB12 #### [facility] [address] [place] [address] Dr. Mushtaq Arellano MONO # 0.6 103/ul Normal 0.3-0.8 [facility] Comment on above: Performed By: #### V ITB12 #### [facility] [address] [place] [address] Dr. Mushtaq Arellano Monocytes/100 WBC (Bld) 7.0 % Normal 1.7-12.0 [facility] Comment on above: Performed By: #### V ITB12 #### [facility] [address] [place] [address] Dr. Mushtaq Arellano NEUT # 6.0 103/ul Normal 1.4-6.5 [facility] Comment on above: Performed By: #### V ITB12 #### [facility] [address] [place] [address] Dr. Mushtaq Arellano Neutrophils/100 WBC (Bld) 66.4 % Normal 43.0-75.0 [facility] Comment on above: Performed By: #### V ITB12 #### [facility] [address] [place] [address] Dr. Mushtaq Arellano Platelet mean volume (Bld) [Entitic vol] 8.9 fL Critically low 9.5-13.5 [facility] Comment on above: Performed By: #### V ITB12 #### [facility] [address] [address] [address] Mushtaq Arellano PLT 180 103/ul Normal 150-450 [facility] Comment on above: Performed By: #### V ITB12 #### [facility] [address] [address] [address] Mushtaq Arellano RBC 4.46 106/ul Critically low 4.70-6.10 [facility] Comment on above: Performed By: #### V ITB12 #### [facility] [address] [address] [address] Mushtaq Arellano WBC 9.0 103/ul Normal 4.0-11.0 [facility] Comment on above: Performed By: #### V ITB12 #### [facility] [address] [address] [address] Mushtaq Arellano Follow-Upon 10-21-2022 Follow-Up [id number] Kervin Jolly E 1950 M Date Provider Department Center 10/21/2022 BERENICE STEPHENSON [facility] Family History Problem Relation Age of Onset Heart attack Father COPD Father Family Status - Relation Status Age at Father Level of Service:24954 [place] POSTOP FOLLOW UP VISIT RELATED TO ORIGINAL PX Reason for Visit and Comments: office visit [Other] Wound Check [997061] Normal [facility] Orders Onlyon 10-14-2022 Orders Only [id number] Kervin Jolly E 1950 M Date Provider Department Center 10/14/2022 KARTHIK FREITAS [facility] HeartVAS Family History Problem Relation Age of Onset Heart attack Father COPD Father Family Status - Relation Status Age at Father Normal [facility] Office Visiton 10-05-2022 Follow-up visit [id number] Kervin Jolly E 1950 M Date Provider Department Center 10/05/2022 ALBER WILLIAMSON [facility] Family History Problem Relation Age of Onset Heart attack Father COPD Father Family Status - Relation Status Age at Father Level of Service:41049 [place] OFFICE/OUTPATIENT ESTABLISHED MOD MDM 30-39 MIN Reason for Visit and Comments: Follow-up [053912] - 3 months Normal [facility] A1C HEMOGLOBINon 09-01-2022 HbA1c (Bld) [Mass fraction] 8.3 % [employer] Other Glucose - FINGER STICKon Glucose [Mass/Vol] 191 mg/dL [employer] Other HbA1c (Bld) [Mass fraction]o n 09-01-2022 A1C HEMOGLOBIN [facility] Amina Other RAD - Ultrasound Reporton RAD - Ultrasound Report [id number]:127 Normal [facility] RAD - Ultrasound Reporton RAD - Ultrasound Report [id number]:127 Normal [facility] RAD - Ultrasound Reporton RAD - Ultrasound Report [id number]:127 Normal [facility] US KIDNEYSon 08-05-2022 US KIDNEYS Begin Addendum # 1 The 2 largest right-sided calcifications measure 4.0 and 4.5 mm The largest left-sided calcification measures 4.3 mm Original Report EXAMINATION: US KIDNEYS HISTORY: Kidney stone COMPARISON: No relevant comparison available. TECHNIQUE: Ultrasound examination was performed of the bladder. FINDINGS: Right Kidney: Normal in size, contour and cortical echotexture. Subcentimeter echogenic foci, nonobstructing nephroliths. No solid cortical mass or hydronephrosis. The cortex measures 1.5 cm. Height: 4.6 cm Length: 10.3 cm Width: 4.9 cm Left Kidney: Normal in size, contour and cortical echotexture. Subcentimeter echogenic foci, nonobstructing nephroliths. No solid cortical mass or hydronephrosis. The cortex measures 1.6 cm Height: 4.4 cm Length: 8.6 cm Width: 5.0 cm The urinary bladder is unremarkable with a volume of 25 mL IMPRESSION: Bilateral nonobstructing nephrolithiasis Normal [facility] Lab Reportson 08-02-2022 Lab Reports [id number] D:127 Normal [facility] RAD - MISCon 08-02-2022 RAD - MISC [id number] :127 Normal [facility] Ambulatory Visit Summaryon 0 07-30-2022 Ambulatory Visit Summary Normal [facility] Patient Educationon 07-30-19 Patient Education Normal [facility] Urology Office/Clinic Noteon 07-30-2022 Urology Office/Clinic Note Normal [facility] Comment on above: Result Comment: Elec tronically Signed By: Jens RUFF MD\.br\Date and Time Signed: 07/30/22 12:05 EST\.br\Electronically Co-Signed By: Geneva Lorenzo.br\Date and Time Co- Signed: 07/30/22 12:04 EST XR KUB 1 VIEWon 07-29-2022 XR KUB 1 VIEW EXAMINATION: XR KUB 1 VIEW HISTORY: Lower urinary tract symptoms due to benign prostatic hypertrophy ; follow-up kidney stones COMPARISON: No relevant comparison available. FINDINGS: KIDNEY/URETER - RIGHT: No visible renal or ureteral calcifications. KIDNEY/URETER - LEFT: No visible renal or ureteral calcifications. PELVIS: No visible ureteral stones. BOWEL: No abnormal dilation or deviation. BONES: Marked scoliotic curvature thoracic and lumbar spine. OTHER: Numerous small stones within gallbladder. Prior left hip replacement. IMPRESSION: 1. No appreciable urinary tract calculi. Electronically authenticated by: ADILENE MANE Date: 2022-07-29 18:00 Normal [facility] RENAL FUNCTION PANELon 06-28 Albumin [Mass/Vol] 4.2 g/dL Normal 3.4-5.0 [facility] Comment on above: Performed By: #### B MP #### [facility] [address] [address] [address] Mushtaq Arellano Calcium [Mass/Vol] 9.0 mg/dL Normal 8.5-10.1 [facility] Comment on above: Performed By: #### B MP #### [facility] [address] [address] [address] Mushtaq Arellano Chloride [Moles/Vol] 101 mmol/L Normal 98-107 [facility] Comment on above: Performed By: #### B MP #### [facility] [address] [address] [address] Mushtaq Arellano CO2 [Moles/Vol] 32.3 mmol/L Critically high 21.0-32.0 [facility] Comment on above: Performed By: #### B MP #### [facility] [address] [address] [address] Mushtaq Arellano Creatinine [Mass/Vol] 1.21 mg/dL Normal 0.70-1.30 [facility] Comment on above: Performed By: #### B MP #### [facility] [address] [address] [address] Mushtaq Arellano EGFR-AF DANISH >60 Normal >=60 [facility] Comment on above: Performed By: #### B MP #### [facility] [address] [address] [address] Mushtaq Arellano EGFR-NON AF DANISH 59 mL/min/1.73m2 Critically low >=60 [facility] Comment on above: Performed By: #### B MP #### [facility] [address] [address] [address] Mushtaq Arellano Glucose [Mass/Vol] 253 mg/dL Critically high 74-106 [facility] Comment on above: Performed By: #### B MP #### [facility] [address] [address] [address] Mushtaq Arellano Phosphate [Mass/Vol] 4.2 mg/dL Normal 2.6-4.7 [facility] Comment on above: Performed By: #### B MP #### [facility] [address] [address] [address] Mushtaq Arellano Potassium [Moles/Vol] 4.2 mmol/L Normal 3.5-5.1 [facility] Comment on above: Performed By: #### B MP #### [facility] [address] [place] [address] Dr. Mushtaq Arellano Sodium [Moles/Vol] 140 mmol/L Normal 136-145 [facility] Comment on above: Performed By: #### B MP #### [facility] [address] [place] [address] Dr. Mushtaq Arellano Urea nitrogen [Mass/Vol] 18.0 mg/dL Normal 7.0-18.0 [facility] Comment on above: Performed By: #### B MP #### [facility] [address] [place] [address] Dr. Mushtaq Arellano UA RANDOMon 06-28-2022 Bilirubin Ql (U) Negative Normal NEGATIVE [facility] Comment on above: Performed By: #### U A #### [facility] [address] [place] [address] Dr. Mushtaq Arellano Clarity (U) CLEAR Normal CLEAR [facility] Comment on above: Performed By: #### U A #### [facility] [address] [place] [address] Dr. Mushtaq Arellano Color (U) LT. YELLOW Normal YELLOW [facility] Comment on above: Performed By: #### U A #### [facility] [address] [place] [address] Dr. Mushtaq Arellano Glucose Ql (U) Negative Normal NEGATIVE [facility] Comment on above: Performed By: #### U A #### [facility] [address] [place] [address] Dr. Mushtaq Arellano Hemoglobin Ql (U) Negative Normal NEGATIVE [facility] Comment on above: Performed By: #### U A #### [facility] [address] [place] [address] Dr. Mushtaq Arellano Ketones Ql (U) Negative Normal NEGATIVE [facility] Comment on above: Performed By: #### U A #### [facility] [address] [place] [address] Dr. Mushtaq Arellano LEUKOCYTES Negative Normal NEGATIVE [facility] Comment on above: Performed By: #### U A #### [facility] [address] [place] [address] Dr. Mushtaq Arellano Nitrite Ql (U) Negative Normal NEGATIVE [facility] Comment on above: Performed By: #### U A #### [facility] [address] [place] [address] Dr. Mushtaq Arellano pH (U) 5.5 [pH] Normal 5-9 [facility] Comment on above: Performed By: #### U A #### [facility] [address] [place] [address] Dr. Mushtaq Arellano SPEC GRAVITY 1.020 Normal 1.005-<=1.025 [facility] Comment on above: Performed By: #### U A #### [facility] [address] [place] [address] Dr. Mushtaq Arellano UA PROTEIN Negative Normal NEGATIVE/ TRACE [facility] Comment on above: Performed By: #### U A #### [facility] [address] [place] [address] Dr. Mushtaq Arellano Urobilinogen Qn (U) 0.2 {Josie'U}/dL Normal 0.2 - 1. 0 [facility] Comment on above: Performed By: #### U A #### [facility] [address] [place] [address] Dr. Mushtaq Arellano URINE T PROTEIN CREAT RATIOo n 06-28-2022 Protein (U) [Mass/Vol] 5.7 mg/dL Normal <=12.0 [facility] Comment on above: Performed By: #### U RTPCR #### [facility] [address] [place] [address] Dr. Mushtaq Arellano UR PROT CREAT RAT 0.15 Normal [facility] Comment on above: Performed By: #### U RTPCR #### [facility] [address] [place] [address] Dr. Mushtaq Arellano URINE CREAT 37.05 mg/dL Normal 20.00-300.00 [facility] Comment on above: Performed By: #### U RTPCR #### [facility] [address] [address] [address] Mushtaq Arellano Follow-Upon 06-16-2022 Follow-Up [id number] Kervin Jolly jaylen E 1950 M Date Provider Department Center 06/16/2022 CHARI MAURO CARD [facility] Family History Problem Relation Age of Onset Heart attack Father COPD Father Family Status - Relation Status Age at Father Level of Service:64607 [place] POSTOP FOLLOW UP VISIT RELATED TO ORIGINAL PX Reason for Visit and Comments: Atrial Flutter [101] Hypertension [995451] Normal [facility] DSon 05-05-2022 DS Admission Admitted 05/05/2022 for A FLUTTER ablation Discharge Diagnosis S/p atrial flutter ablation Discharge Disposition Home Discharge Medications Your medication list CONTINUE taking these medications Instructions Last Dose Given Next Dose Due amantadine 100 mg capsule Commonly known as: Symmetrel atorvastatin 40 mg tablet Commonly known as: Lipitor carbidopa-levodopa 25-100 mg tablet Commonly known as: Sinemet ELIQUIS ORAL furosemide 20 mg tablet Commonly known as: Lasix gemfibrozil 600 mg tablet Commonly known as: Lopid insulin lispro 100 unit/mL injection Commonly known as: HumaLOG insulin NPH (Isophane) 100 unit/mL injection Commonly known as: HumuLIN N,NovoLIN N metFORMIN 1,000 mg tablet Commonly known as: Glucophage metoprolol succinate XL 100 mg 24 hr tablet Commonly known as: Toprol-XL potassium chloride CR 10 mEq ER tablet Commonly known as: Klor-Con M10 tamsulosin 0.4 mg 24 hr capsule Commonly known as: Flomax Activity Limit weight bearing to 5-10lbs for week. , Groin precautions Diet Patient currently has no discharge diet orders Allergies Cipro [ciprofloxacin hcl] and Sulfa (sulfonamide antibiotics) Hospital Course ATRIAL FLUTTER ABLATION PROCEDURE NOTE DATE OF PROCEDURE: 05/05/2022 PERFORMING PHYSICIAN: Dr. Alber Sanchez CONSENT: Patient NAME OF THE PROCEDURE: Flutter ablation and Comprehensive EP study. INDICATIONS FOR PROCEDURE: Atrial flutter PROCEDURES PERFORMED: 1. Sonosite guided venous access as noted below and images stored in PACS. 2. Comprehensive EP study and catheter ablation for persistent atrial flutter. This includes right atrial recording and pacing, His bundle recording and right ventricular recording and pacing. 3. Intracardiac EP 3D mapping. 4. Intracardiac echocardiogram 5. Left atrial and coronary sinus recording and pacing to assess ablation results. 6. Conscious sedation. PROCEDURAL SEDATION: Versed and Fentanyl. Moderate sedation was administered by the sedation nurse under my supervision and noted in the CVL log. Intraprocedural face to face sedation time: 49min. Monitoring: Cardiac telemetry, Blood pressure, continuous pulse oxymetry. FLUOROSCOPY: 1min 30sec/ 20mGray EBL: 15cc SPECIMEN REMOVED: None INDICATION: 71 y.o. year old with past medical history of atrial flutter, Parkinson's disease, diabetes mellitus type 2, hypertension was recently evaluated for watchman procedure by Dr. RAGLAND. He was noted to have atrial flutter throughout our EKG that has been reviewed. However patient said that he was recently admitted to [facility] in [place] following fall and noted to have some hip issues. At that time he was mentioned to have A. fib although I do not have records to confirm this. He was previously taking sotalol which was discontinued. He presented in atrial flutter with RVR. PROCEDURE NOTE: Risks, benefits and alternatives of the procedure were discussed with the patient and family who agreed to proceed. Please refer to my consult note for details of the discussion and of indications. The patient was brought to the EP lab and a procedural pause was performed identifying the patient, the procedure. The patient presented in atrial flutter rhythm and ICE imaging was used to rule out GEGE clot. Both the groins were then prepared and draped. Ultrasound was used to determine the course and patency of the femoral veins on both sides and they were noted to be patent and the image stored in PACS. After infiltration with 1% lidocaine, 3 venous sheaths were placed in the right. RFV: 8Fx3 [employer] ThermoCool SF Bi-Directional over SL1/ Vizigo, CS Catheter (EZ Steer), 8F upsized to 9F:ICE catheter. Heparin 3000U bolus was given followed by continuous intravenous drip to target ACT around 300. An intracardiac ultrasound catheter was inserted into the right atrium to examine the right atrial anatomy, atrial septum, pulmonary vein anatomy and to monitor for pericardial effusion. At baseline, there was no pericardial effusion and no GEGE clot. CS os was mapped using the [employer] 3D mapping software. Using ICE, the His and IVC junctions were marked with 3D CARTO mapping software. Vizigo sheath was exchanged for a short 8F sheath. Vizigo sheath was placed instead of short 8F sheath. The ablation catheter was advanced over to the CTI. The tachycardia CL was noted to be 224ms. Entrainment was then performed with PPI as follows; Prox CS: 224ms, Distal CS: 325ms, mid CTI: 225ms. This confirmed this to be CTUI Dependent flutter. Ablation was performed on the CTI line starting at the tricuspid valve aspect. 35W was utilized and as I extended the ablation to the IVC aspect, the tachycardia terminated to sinus rhythm. Extending the ablation to the IVC demonstrated bidirectional block with timing of 154ms. Mapping was performed with CS pacing and this confirmed bidirectional CTI block. Pacin (more content not included)... Normal [facility] Covid-19 PCR ([facility])on 04-17 SARS-CoV-2 (COVID-19) RNA SHAHEEN+probe Ql (Unsp spec) Not detected Normal NOT DETECTED The [facility] Comment on above: Result Comment: This test is not yet approved or cleared by the [place] FDA. When there are no FDA-approved or cleared tests available, and other criteria are met, FDA can make tests available under an emergency access mechanism called an Emergency Use Authorization (EUA). The EUA for this test is supported by the [place] of Health and Human Service's (HHS's) declaration that circumstances exist to justify the emergency use of in vitro diagnostics for the detection and/or diagnosis of the virus that causes COVID-19. This EUA will remain in effect (meaning this test can be used) for the duration of the COVID-19 declaration justifying emergency of IVDs, unless it is terminated or revoked by FDA (after which the test may no longer be used). When diagnostic testing is negative, the possibility of a false negative should be considered in the context of a patient's recent exposures and the presence of clinical signs and symptoms consistent with SARS-CoV-2. Performed By: #### C [facility] #### [facility] [address] [place] [address] Dr. Mushtaq Arellano HEMOGRAM AND PLATELon 2021 Hematocrit (Bld) [Volume fraction] 47.0 % Normal 4 2.0-54.0 [facility] Comment on above: Performed By: #### B MP #### [facility] [address] [place] [address] Dr. Mushtaq Arellano Hemoglobin (Bld) [Mass/Vol] 15.3 g/dL Normal 14.0-18. 0 The [facility] Comment on above: Performed By: #### B MP #### [facility] [address] [place] [address] Dr. Mushtaq Arellano MCH (RBC) [Entitic mass] 31.2 pg Normal 25.9-34.0 The [facility] Comment on above: Performed By: #### B MP #### [facility] [address] [place] [address] Dr. Mushtaq Arellano MCHC (RBC) [Mass/Vol] 32.6 g/dL Normal 29.9-35.2 The [facility] Comment on above: Performed By: #### B MP #### [facility] [address] [place] [address] Dr. Mushtaq Arellano MCV (RBC) [Entitic vol] 95.9 fL Critically high 80.0-94 .0 [facility] Comment on above: Performed By: #### B MP #### [facility] [address] [place] [address] Dr. Mushtaq Arellano PLT 155 103/ul Normal 150-450 [facility] Comment on above: Performed By: #### B MP #### [facility] [address] [place] [address] Dr. Mushtaq Arellano RBC 4.90 106/ul Normal 4.70-6.10 The [facility] Comment on above: Performed By: #### B MP #### [facility] [address] [place] [address] Dr. Mushtaq Arellano WBC 8.8 103/ul Normal 4.0-11.0 The [facility] ostal Comment on above: Performed By: #### B MP #### [facility] [address] [address] [address] Mushtaq Arellano PROF CHEM 8 (BAS METB)on Anion gap [Moles/Vol] 15.1 mmol/L Normal [facility] Comment on above: Performed By: #### B MP #### [facility] [address] [address] [address] Mushtaq Arellano Calcium [Mass/Vol] 9.0 mg/dL Normal 8.5-10.1 [facility] Comment on above: Performed By: #### B MP #### [facility] [address] [place] [address] Dr. Mushtaq Arellano Chloride [Moles/Vol] 101 mmol/L Normal 98-107 [facility] Comment on above: Performed By: #### B MP #### [facility] [address] [place] [address] Dr. Mushtaq Arellano CO2 [Moles/Vol] 28.2 mmol/L Normal 21.0-32.0 [facility] Comment on above: Performed By: #### B MP #### [facility] [address] [place] [address] Dr. Mushtaq Arellano Creatinine [Mass/Vol] 1.20 mg/dL Normal 0.70-1.30 [facility] Comment on above: Performed By: #### B MP #### [facility] [address] [place] [address] Dr. Mushtaq Arellano EGFR-AF DANISH >60 Normal >=60 [facility] Comment on above: Performed By: #### B MP #### [facility] [address] [place] [address] Dr. Mushtaq Arellano EGFR-NON AF DANISH 60 mL/min/1.73m2 Normal >=60 [facility] Comment on above: Performed By: #### B MP #### [facility] [address] [place] [address] Dr. Mushtaq Arellano Glucose [Mass/Vol] 191 mg/dL Critically high 74-106 [facility] Comment on above: Performed By: #### B MP #### [facility] [address] [address] [address] Mushtaq Arellano Potassium [Moles/Vol] 4.2 mmol/L Normal 3.5-5.1 [facility] Comment on above: Performed By: #### B MP #### [facility] [address] [address] [address] Mushtaq Arellano Sodium [Moles/Vol] 142 mmol/L Normal 136-145 [facility] Comment on above: Performed By: #### B MP #### [facility] [address] [address] [address] Mushtaq Arellano Urea nitrogen [Mass/Vol] 20.0 mg/dL Critically high 7.0-18 .0 [facility] Comment on above: Performed By: #### B MP #### [facility] [address] [address] [address] Mushtaq Arellano Urea nitrogen/Creatinine [Mass ratio] 16.7 mg/mg Normal [facility] Comment on above: Performed By: #### B MP #### [facility] [address] [address] [address] Mushtaq Arellano Orders Onlyon 04-27-2022 Orders Only [id number] Kervin Jolly jaylen 1950 M Date Provider Department Center 04/27/2022 SANGITA LABOY [facility] No family history on file Normal [facility] A1C HEMOGLOBINon 03-29-2022 HbA1c (Bld) [Mass fraction] 7.6 % [employer] Other Glucose - FINGER STICKon Glucose [Mass/Vol] 211 mg/dL [employer] Other HbA1c (Bld) [Mass fraction]o n 03-29-2022 A1C HEMOGLOBIN [email or web address] [facility] Other MICROALBUMIN/ CREATININE RAT IOon 03-27-2022 Albumin, Urine 47.8 ug/mL Normal Not Estab. The [facility] Comment on above: Performed By: #### B MP #### [facility] [address] [place] [address] Dr. Mushtaq Arellano Albumin/ Creatinine Ratio 20 mg/g creat Normal 0-29 [facility] Comment on above: Result Comment: Norm al: 0 - 29 Moderately increased: 30 - 300 Severely increased: >300 Performed By: #### B MP #### [facility] [address] [address] [address] Mushtaq Arellano Creatinine, Urine 233.9 mg/dL Normal Not Estab. [facility] Comment on above: Performed By: #### B MP #### [facility] [address] [place] [address] Dr. Mushtaq Arellano LIPID PROFILEon 03-26-2022 CHOL-HDL RATIO NORM SEE BELOW Normal [facility] Comment on above: Result Comment: 3.3 - 4.4 LOW RISK 4.4 - 7.1 AVERAGE RISK 7.1 - 11.0 MODERATE RISK >11.0 HIGH RISK Performed By: #### V ITB12 #### [facility] [address] [place] [address] Dr. Mushtaq Arellano Cholesterol [Mass/Vol] 95 mg/dL Normal <=200 [facility] Comment on above: Performed By: #### V ITB12 #### [facility] [address] [place] [address] Dr. Mushtaq Arellano Cholesterol in HDL [Mass/Vol] 52 mg/dL Normal 40-60 [facility] Comment on above: Performed By: #### V ITB12 #### [facility] [address] [address] [address] Mushtaq Arellano Cholesterol in LDL [Mass/Vol] 24.4 mg/dL Normal [facility] Comment on above: Performed By: #### V ITB12 #### [facility] [address] [place] [address] Dr. Mushtaq Arellano Cholesterol.total/Cholestero l in HDL [Mass ratio] 1.8 {ratio} Normal [facility] Comment on above: Performed By: #### V ITB12 #### [facility] [address] [place] [address] Dr. Mushtaq Arellano HDL NORMAL > or = 60 mg/dl - LO W CARDIOVASCULAR RISK <40 mg/dl - HIGH CARDIOVASCULAR RISK Normal [facility] Comment on above: Performed By: #### V ITB12 #### [facility] [address] [address] [address] Mushtaq Arellano LDL CALC NORMAL SEE BELOW Normal [facility] Comment on above: Result Comment: <100 mg/dl OPTIMAL 100 - 129 mg/dl NEAR OR ABOVE OPTIMAL 130 - 159 mg/dl BORDERLINE HIGH 160 - 189 mg/dl HIGH >190 mg/dl VERY HIGH Performed By: #### V ITB12 #### [facility] [address] [address] [address] Mushtaq Arellaon Triglyceride [Mass/Vol] 93 mg/dL Normal <=150 [facility] Comment on above: Performed By: #### V ITB12 #### [facility] [address] [address] [address] Mushtaq Arellano VLDL CALC 18.6 mg/dL Normal [facility] Comment on above: Performed By: #### V ITB12 #### [facility] [address] [place] [address] Dr. Mushtaq Arellano PROF 14(COMP METB)on 022 Albumin [Mass/Vol] 4.0 g/dL Normal 3.4-5.0 [facility] Comment on above: Performed By: #### V ITB12 #### [facility] [address] [place] [address] Dr. Mushtaq Arellano Albumin/Globulin [Mass ratio] 1.2 {ratio} Normal [facility] Comment on above: Performed By: #### V ITB12 #### [facility] [address] [address] [address] Mushtaq Arellano ALP [Catalytic activity/Vol] 76 U/L Normal 46-116 [facility] Comment on above: Performed By: #### V ITB12 #### [facility] [address] [place] [address] Dr. Mushtaq Arellano ALT [Catalytic activity/Vol] 19 U/L Normal 16-63 [facility] Comment on above: Performed By: #### V ITB12 #### [facility] [address] [address] [address] Mushtaq Arellano Anion gap [Moles/Vol] 13.0 mmol/L Normal [facility] Comment on above: Performed By: #### V ITB12 #### [facility] [address] [address] [address] Mushtaq Arellano AST [Catalytic activity/Vol] 25 U/L Normal 15-37 [facility] Comment on above: Performed By: #### V ITB12 #### [facility] [address] [address] [address] Mushtaq Arellano Bilirubin [Mass/Vol] 3.0 mg/dL Critically high 0.2-1.0 [facility] Comment on above: Performed By: #### V ITB12 #### [facility] [address] [address] [address] Mushtaq Arellano Calcium [Mass/Vol] 9.0 mg/dL Normal 8.5-10.1 [facility] Comment on above: Performed By: #### V ITB12 #### [facility] [address] [address] [address] Mushtaq Arellano Chloride [Moles/Vol] 102 mmol/L Normal 98-107 [facility] Comment on above: Performed By: #### V ITB12 #### [facility] [address] [address] [address] Mushtaq Arellano CO2 [Moles/Vol] 32.4 mmol/L Critically high 21.0-32.0 [facility] Comment on above: Performed By: #### V ITB12 #### [facility] [address] [address] [address] Mushtaq Arellano Creatinine [Mass/Vol] 1.30 mg/dL Normal 0.70-1.30 [facility] Comment on above: Performed By: #### V ITB12 #### [facility] [address] [address] [address] Mushtaq Arellano EGFR-AF DANISH >60 Normal >=60 [facility] Comment on above: Performed By: #### V ITB12 #### [facility] [address] [address] [address] Mushtaq Arellano EGFR-NON AF DANISH 54 mL/min/1.73m2 Critically low >=60 [facility] Comment on above: Performed By: #### V ITB12 #### [facility] [address] [address] [address] Mushtaq Arellano Globulin (S) [Mass/Vol] 3.3 g/dL Normal [facility] Comment on above: Performed By: #### V ITB12 #### [facility] [address] [address] [address] Mushtaq Arellano Glucose [Mass/Vol] 128 mg/dL Critically high 74-106 [facility] Comment on above: Performed By: #### V ITB12 #### [facility] [address] [address] [address] Mushtaq Arellano Potassium [Moles/Vol] 4.4 mmol/L Normal 3.5-5.1 [facility] Comment on above: Performed By: #### V ITB12 #### [facility] [address] [address] [address] Mushtaq Arellano Protein [Mass/Vol] 7.3 g/dL Normal 6.4-8.2 [facility] Comment on above: Performed By: #### V ITB12 #### [facility] [address] [address] [address] Mushtaq Arellano Sodium [Moles/Vol] 143 mmol/L Normal 136-145 [facility] Comment on above: Performed By: #### V ITB12 #### [facility] [address] [address] [address] Mushtaq Arellano Urea nitrogen [Mass/Vol] 16.0 mg/dL Normal 7.0-18.0 [facility] Comment on above: Performed By: #### V ITB12 #### [facility] [address] [address] [address] Mushtaq Arellano Urea nitrogen/Creatinine [Mass ratio] 12.3 mg/mg Normal [facility] Comment on above: Performed By: #### V ITB12 #### [facility] [address] [place] [address] Dr. Mushtaq Arellano VITAMIN B12on 03-26-2022 Cobalamin (Vitamin B12) [Mass/Vol] 653.0 pg/mL Normal 193.0-986.0 [facility] Comment on above: Performed By: #### V ITB12 #### [facility] [address] [place] [address] Dr. Mushtaq Arellano BNPon 12-30-2021 Natriuretic peptide B (Bld) [Mass/Vol] 1323.0 pg/mL Critically high <=900.[address] [facility] Comment on above: Performed By: #### B FLIGHT ATTENDANT RAMP, BMP #### [facility] [address] [place] [address] Dr. Mushtaq Arellano PROF CHEM 8 (BAS METB)on Anion gap [Moles/Vol] 11.1 mmol/L Normal [facility] Comment on above: Performed By: #### B FLIGHT ATTENDANT RAMP, BMP #### [facility] [address] [place] [address] Dr. Mushtaq Arellano Calcium [Mass/Vol] 9.0 mg/dL Normal 8.5-10.1 [facility] Comment on above: Performed By: #### B FLIGHT ATTENDANT RAMP, BMP #### [facility] [address] [place] [address] Dr. Mushtaq Arellano Chloride [Moles/Vol] 103 mmol/L Normal 98-107 [facility] Comment on above: Performed By: #### B FLIGHT ATTENDANT RAMP, BMP #### [facility] [address] [place] [address] Dr. Mushtaq Arellano Performed By: #### V ITB12 #### [facility] [address] [place] [address] Dr. Mushtaq Arellano CO2 [Moles/Vol] 31.4 mmol/L Normal 21.0-32.0 [facility] Comment on above: Performed By: #### B FLIGHT ATTENDANT RAMP, BMP #### [facility] [address] [place] [address] Dr. Mushtaq Arellano Creatinine [Mass/Vol] 1.45 mg/dL Critically high 0.70-1.30 [facility] Comment on above: Performed By: #### B FLIGHT ATTENDANT RAMP, BMP #### [facility] [address] [place] [address] Dr. Mushtaq Arellano EGFR-AF DANISH 58 mL/min/1.73m2 Critically low >=60 [facility] Comment on above: Performed By: #### B FLIGHT ATTENDANT RAMP, BMP #### [facility] [address] [place] [address] Dr. Mushtaq Arellano Performed By: #### V ITB12 #### [facility] [address] [place] [address] Dr. Mushtaq Arellano EGFR-NON AF DANISH 48 mL/min/1.73m2 Critically low >=60 [facility] Comment on above: Performed By: #### B FLIGHT ATTENDANT RAMP, BMP #### [facility] [address] [place] [address] Dr. Mushtaq Arellano Performed By: #### V ITB12 #### [facility] [address] [place] [address] Dr. Mushtaq Arellano Glucose [Mass/Vol] 158 mg/dL Critically high 74-106 [facility] Comment on above: Performed By: #### B FLIGHT ATTENDANT RAMP, BMP #### [facility] [address] [place] [address] Dr. Mushtaq Arellano Performed By: #### V ITB12 #### [facility] [address] [place] [address] Dr. Mushtaq Arellano Potassium [Moles/Vol] 4.5 mmol/L Normal 3.5-5.1 [facility] Comment on above: Performed By: #### B FLIGHT ATTENDANT RAMP, BMP #### [facility] [address] [place] [address] Dr. Mushtaq Arellano Performed By: #### V ITB12 #### [facility] [address] [place] [address] Dr. Mushtaq Arellano Sodium [Moles/Vol] 141 mmol/L Normal 136-145 [facility] Comment on above: Performed By: #### B FLIGHT ATTENDANT RAMP, BMP #### [facility] [address] [place] [address] Dr. Mushtaq Arellano Urea nitrogen [Mass/Vol] 23.0 mg/dL Critically high 7.0-18 .0 [facility] Comment on above: Performed By: #### B FLIGHT ATTENDANT RAMP, BMP #### [facility] [address] [place] [address] Dr. Mushtaq Arellano Performed By: #### V ITB12 #### [facility] [address] [place] [address] Dr. Mushtaq Arellano Urea nitrogen/Creatinine [Mass ratio] 15.9 mg/mg Normal [facility] Comment on above: Performed By: #### B FLIGHT ATTENDANT RAMP, BMP #### [facility] [address] [place] [address] Dr. Mushtaq Arellano RENAL FUNCTION PANELon 12-30 Albumin [Mass/Vol] 4.2 g/dL Normal 3.4-5.0 [facility] Comment on above: Performed By: #### V ITB12 #### [facility] [address] [place] [address] Dr. Mushtaq Arellano Calcium [Mass/Vol] 8.8 mg/dL Normal 8.5-10.1 [facility] Comment on above: Performed By: #### V ITB12 #### [facility] [address] [place] [address] Dr. Mushtaq Arellano CO2 [Moles/Vol] 30.9 mmol/L Normal 21.0-32.0 [facility] Comment on above: Performed By: #### V ITB12 #### [facility] [address] [place] [address] Dr. Mushtaq Arellano Creatinine [Mass/Vol] 1.44 mg/dL Critically high 0.70-1.30 [facility] Comment on above: Performed By: #### V ITB12 #### [facility] [address] [place] [address] Dr. Mushtaq Arellano Phosphate [Mass/Vol] 4.3 mg/dL Normal 2.6-4.7 [facility] Comment on above: Performed By: #### V ITB12 #### [facility] [address] [place] [address] Dr. Mushtaq Arellano Sodium [Moles/Vol] 142 mmol/L Normal 136-145 [facility] Comment on above: Performed By: #### V ITB12 #### [facility] [address] [place] [address] Dr. Mushtaq Arellano UA RANDOMon 12-30-2021 Bilirubin Ql (U) Negative Normal NEGATIVE [facility] Comment on above: Performed By: #### U A #### [facility] [address] [place] [address] Dr. Mushtaq Arellano Clarity (U) SL CLOUDY Abnormal CLEAR [facility] Comment on above: Performed By: #### U A #### [facility] [address] [place] [address] Dr. Mushtaq Arellano Color (U) LT. YELLOW Normal YELLOW [facility] Comment on above: Performed By: #### U A #### [facility] [address] [place] [address] Dr. Mushtaq Arellano Glucose Ql (U) Negative Normal NEGATIVE [facility] Comment on above: Performed By: #### U A #### [facility] [address] [place] [address] Dr. Mushtaq Arellano Hemoglobin Ql (U) Negative Normal NEGATIVE [facility] Comment on above: Performed By: #### U A #### [facility] [address] [place] [address] Dr. Mushtaq Arellano Ketones Ql (U) Negative Normal NEGATIVE [facility] Comment on above: Performed By: #### U A #### [facility] [address] [place] [address] Dr. Mushtaq Arellano LEUKOCYTES Negative [facility] Comment on above: Performed By: #### U A #### [facility] [address] [place] [address] Dr. Mushtaq Arellano Nitrite Ql (U) Negative Normal NEGATIVE [facility] Comment on above: Performed By: #### U A #### [facility] [address] [place] [address] Dr. Mushtaq Arellano pH (U) 5.0 [pH] Normal 5-9 [facility] Comment on above: Performed By: #### U A #### [facility] [address] [place] [address] Dr. Mushtaq Arellano SPEC GRAVITY 1.020 Normal 1.005-<=1.025 [facility] Comment on above: Performed By: #### U A #### [facility] [address] [place] [address] Dr. Mushtaq Arellano UA PROTEIN Negative Normal NEGATIVE/ TRACE [facility] Comment on above: Performed By: #### U A #### [facility] [address] [place] [address] Dr. Mushtaq Arellano Urobilinogen Qn (U) 0.2 {Josie'U}/dL Normal 0.2 - 1. 0 [facility] Comment on above: Performed By: #### U A #### [facility] [address] [place] [address] Dr. Mushtaq Arellano URINE T PROTEIN CREAT RATIOo n 12-30-2021 Protein (U) [Mass/Vol] 7.7 mg/dL Normal <=12.0 [facility] Comment on above: Performed By: #### U RTPCR #### [facility] [address] [place] [address] Dr. Mushtaq Arellano UR PROT CREAT RAT 0.13 Normal [facility] Comment on above: Performed By: #### U RTPCR #### [facility] [address] [place] [address] Dr. Mushtaq Arellano URINE CREAT 60.57 mg/dL Normal 20.00-300.00 [facility] Comment on above: Performed By: #### U RTPCR #### [facility] [address] [place] [address] Dr. Mushtaq Arellano BNPon 12-16-2021 Natriuretic peptide B (Bld) [Mass/Vol] 1609.0 pg/mL Critically high <=900.0 [facility] Comment on above: Performed By: #### B MP #### [facility] [address] [place] [address] Dr. Mushtaq Arellano CBC AUTO DIFFon 12-16-2021 BASO # 0.1 103/ul Normal 0.0-0.1 [facility] Comment on above: Performed By: #### B MP #### [facility] [address] [place] [address] Dr. Mushtaq Arellano Basophils/100 WBC (Bld) 0.6 % Normal 0.2-2.0 [facility] Comment on above: Performed By: #### B MP #### [facility] [address] [place] [address] Dr. Mushtaq Arellano EO # 0.2 103/ul Normal 0.0-0.7 [facility] Comment on above: Performed By: #### B MP #### [facility] [address] [place] [address] Dr. Mushtaq Arellano Eosinophils/100 WBC (Bld) 1.8 % Normal 0.9-7.0 [facility] Comment on above: Performed By: #### B MP #### [facility] [address] [place] [address] Dr. Mushtaq Arellano Erythrocyte distribution wid th (RBC) [Ratio] 13.2 % Normal 11.0-15.0 [facility] Comment on above: Performed By: #### B MP #### [facility] [facility] [address] [place] [address] Dr. Mushtaq Arellano Hematocrit (Bld) [Volume fraction] 46.1 % Normal 4 2.0-54.0 [facility] Comment on above: Performed By: #### B MP #### [facility] [address] [place] [address] Dr. Mushtaq Arellano Hemoglobin (Bld) [Mass/Vol] 14.4 g/dL Normal 14.0-18. 0 [facility] Comment on above: Performed By: #### B MP #### [facility] [address] [place] [address] Dr. Mushtaq Arellano IG # 0.02 10e3/ul Normal 0.00-0.03 [facility] Comment on above: Performed By: #### B MP #### [facility] [address] [place] [address] Dr. Mushtaq Arellano IG % 0.2 % Normal 0.0-0.5 [facility] Comment on above: Performed By: #### B MP #### [facility] [address] [place] [address] Dr. Mushtaq Arellano LYMPH # 2.3 103/ul Normal 1.2-3.8 [facility] Comment on above: Performed By: #### B MP #### [facility] [address] [place] [address] Dr. Mushtaq Arellano Lymphocytes/100 WBC (Bld) 22.4 % Normal 20.5-60.0 [facility] Comment on above: Performed By: #### B MP #### [facility] [address] [place] [address] Dr. Mushtaq Arellano MANUAL DIFF REQ NO Normal [facility] Comment on above: Performed By: #### B MP #### [facility] [address] [place] [address] Dr. Mushtaq Arellano MCH (RBC) [Entitic mass] 29.3 pg Normal 25.9-34.0 [facility] Comment on above: Performed By: #### B MP #### [facility] [address] [place] [address] Dr. Mushtaq Arellano MCHC (RBC) [Mass/Vol] 31.2 g/dL Normal 29.9-35.2 [facility] Comment on above: Performed By: #### B MP #### [facility] [address] [place] [address] Dr. Mushtaq Arellano MCV (RBC) [Entitic vol] 93.9 fL Normal 80.0-94.0 [facility] Comment on above: Performed By: #### B MP #### [facility] [address] [place] [address] Dr. Mushtaq Arellano MONO # 0.6 103/ul Normal 0.3-0.8 [facility] Comment on above: Performed By: #### B MP #### [facility] [address] [place] [address] Dr. Mushtaq Arellano Monocytes/100 WBC (Bld) 5.9 % Normal 1.7-12.0 [facility] Comment on above: Performed By: #### B MP #### [facility] [address] [place] [address] Dr. Mushtaq Arellano NEUT # 7.1 103/ul Critically high 1.4-6.5 [facility] Comment on above: Performed By: #### B MP #### [facility] [address] [place] [address] Dr. Mushtaq Arellano Neutrophils/100 WBC (Bld) 69.1 % Normal 43.0-75.0 [facility] Comment on above: Performed By: #### B MP #### [facility] [address] [place] [address] Dr. Mushtaq Arellano Platelet mean volume (Bld) [Entitic vol] 9.2 fL Critically low 9.5-13.5 [facility] Comment on above: Performed By: #### B MP #### [facility] [address] [place] [address] Dr. Mushtaq Arellano PLT 183 103/ul Normal 150-450 [facility] Comment on above: Performed By: #### B MP #### [facility] [address] [place] [address] Dr. Mushtaq Arellano RBC 4.91 106/ul Normal 4.70-6.10 [facility] Comment on above: Performed By: #### B MP #### [facility] [address] [place] [address] Dr. Mushtaq Arellano WBC 10.2 103/ul Normal 4.0-11.0 [facility] Comment on above: Performed By: #### B MP #### [facility] [address] [place] [address] Dr. Mushtaq Arellano PROF 14(COMP METB)on 06-01-2 022 Albumin [Mass/Vol] 3.9 g/dL Normal 3.4-5.0 [facility] Comment on above: Performed By: #### V ITB12 #### [facility] [address] [place] [address] Dr. Muhstaq Arellano Albumin/Globulin [Mass ratio] 1.1 {ratio} Normal [facility] Comment on above: Performed By: #### V ITB12 #### [facility] [address] [address] [address] Mushtaq Arellano ALP [Catalytic activity/Vol] 93 U/L Normal 46-116 [facility] Comment on above: Performed By: #### V ITB12 #### [facility] [address] [place] [address] Dr. Mushtaq Arellano ALT [Catalytic activity/Vol] 22 U/L Normal 16-63 [facility] Comment on above: Performed By: #### V ITB12 #### [facility] [address] [place] [address] Dr. Mushtaq Arellano Anion gap [Moles/Vol] 16.5 mmol/L Normal [facility] Comment on above: Performed By: #### V ITB12 #### [facility] [address] [place] [address] Dr. Mushtaq Arellano AST [Catalytic activity/Vol] 29 U/L Normal 15-37 [facility] Comment on above: Performed By: #### V ITB12 #### [facility] [address] [place] [address] Dr. Mushtaq Arellano Bilirubin [Mass/Vol] 2.0 mg/dL Critically high 0.2-1.0 [facility] Comment on above: Performed By: #### V ITB12 #### [facility] [address] [place] [address] Dr. Mushtaq Arellano Calcium [Mass/Vol] 8.8 mg/dL Normal 8.5-10.1 [facility] Comment on above: Performed By: #### V ITB12 #### [facility] [address] [place] [address] Dr. Mushtaq Arellano Chloride [Moles/Vol] 103 mmol/L Normal 98-107 [facility] Comment on above: Performed By: #### V ITB12 #### [facility] [address] [place] [address] Dr. Mushtaq Arellano CO2 [Moles/Vol] 26.3 mmol/L Normal 21.0-32.0 [facility] Comment on above: Performed By: #### V ITB12 #### [facility] [address] [place] [address] Dr. Mushtaq Arellano Creatinine [Mass/Vol] 1.45 mg/dL Critically high 0.70-1.30 [facility] Comment on above: Performed By: #### V ITB12 #### [facility] [address] [place] [address] Dr. Mushtaq Arellano EGFR-AF DANISH 58 mL/min/1.73m2 Critically low >=60 [facility] Comment on above: Performed By: #### V ITB12 #### [facility] [address] [place] [address] Dr. Mushtaq Arellano EGFR-NON AF DANISH 48 mL/min/1.73m2 Critically low >=60 [facility] Comment on above: Performed By: #### V ITB12 #### [facility] [address] [place] [address] Dr. Mushtaq Arellano Globulin (S) [Mass/Vol] 3.6 g/dL Normal [facility] Comment on above: Performed By: #### V ITB12 #### [facility] [address] [place] [address] Dr. Mushtaq Arellano Glucose [Mass/Vol] 244 mg/dL Critically high 74-106 [facility] Comment on above: Performed By: #### V ITB12 #### [facility] [address] [place] [address] Dr. Mushtaq Arellano Potassium [Moles/Vol] 4.8 mmol/L Normal 3.5-5.1 [facility] Comment on above: Performed By: #### V ITB12 #### [facility] [address] [place] [address] Dr. Mushtaq Arellano Protein [Mass/Vol] 7.5 g/dL Normal 6.4-8.2 [facility] Comment on above: Performed By: #### V ITB12 #### [facility] [address] [place] [address] Dr. Mushtaq Arellano Sodium [Moles/Vol] 141 mmol/L Normal 136-145 [facility] Comment on above: Performed By: #### V ITB12 #### [facility] [address] [address] [address] Mushtaq Arellano Urea nitrogen [Mass/Vol] 22.0 mg/dL Critically high 7.0-18 .0 [facility] Comment on above: Performed By: #### V ITB12 #### [facility] [address] [place] [address] Dr. Mushtaq Arellano Urea nitrogen/Creatinine [Mass ratio] 15.2 mg/mg Normal [facility] Comment on above: Performed By: #### V ITB12 #### [facility] [address] [place] [address] Dr. Mushtaq Arellano TSHon 12-16-2021 TSH 2.580 uIU/mL Normal 0.358-3.740 [facility] Comment on above: Performed By: #### V ITB12 #### [facility] [address] [place] [address] Dr. Mushtaq Arellano TSH RANGE SEE BELOW Normal [facility] Comment on above: Result Comment: <0.3 4 UIU/ml HYPERTHYROID 0.34-5.60 UIU/ml EUTHYROID >5.60 UIU/ml HYPOTHYROID Performed By: #### V ITB12 #### [facility] [address] [place] [address] Dr. Mushtaq Arellano A1C HEMOGLOBINon 11-10-2021 HbA1c (Bld) [Mass fraction] 6.5 % [employer] Other HbA1c (Bld) [Mass fraction]o n 11-10-2021 A1C HEMOGLOBIN [employer] Other Magnesium [Mass/Vol]on 09-12 Albumin [Mass/Vol] 3.2 g/dL Low 3.5-4.8 [facility] Comment on above: Performed By: #### 1 9123-9 #### [facility] [place] [facility] [address] [place] [address] ALP [Catalytic activity/Vol] 91 U/L Normal 32-91 [facility] Comment on above: Performed By: #### 1 9123-9 #### [facility] [place] [address] [place] [address] ALT [Catalytic activity/Vol] 15 U/L Normal 7-52 [facility] Comment on above: Performed By: #### 1 9123-9 #### [facility] [place] [address] [place] [address] Anion gap [Moles/Vol] 10 mmol/L Normal 6-18 [facility] Comment on above: Performed By: #### 1 9123-9 #### [facility] [place] [address] [place] [address] AST [Catalytic activity/Vol] 22 U/L Normal 15-41 [facility] Comment on above: Performed By: #### 1 9123-9 #### [facility] [place] [address] [place] [address] Bilirubin [Mass/Vol] 4.2 mg/dL High 0.3-1.2 [facility] Comment on above: Performed By: #### 1 9123-9 #### [facility] [place] [address] [place] [address] Calcium [Mass/Vol] 8.5 mg/dL Low 8.9-10.3 [facility] Comment on above: Performed By: #### 1 9123-9 #### [facility] [place] [address] [place] [address] Chloride [Moles/Vol] 99 mmol/L Normal 98-107 [facility] Comment on above: Performed By: #### 1 9123-9 #### [facility] [place] [address] [place] [address] CO2 [Moles/Vol] 29 mmol/L Normal 22-32 [facility] Comment on above: Performed By: #### 1 9123-9 #### [facility] [place] [facility] [address] [place] [address] Creatinine [Mass/Vol] 1.11 mg/dL Normal 0.60-1.30 [facility] Comment on above: Performed By: #### 1 9123-9 #### [facility] [place] [facility] [address] [place] [address] GFR/1.73 sq M.predicted adin g non-blacks MDRD (S/P/Bld) [Vol rate/Area] 66 mL/min/{1.73_m2} Normal [facility] Comment on above: Performed By: #### 1 9123-9 #### [facility] [place] [facility] [address] [place] [address] Glucose [Mass/Vol] 145 mg/dL High 70-99 [facility] Comment on above: Performed By: #### 1 9123-9 #### [facility] [place] [facility] [address] [place] [address] Potassium [Moles/Vol] 4.1 mmol/L Normal 3.6-5.1 [facility] Comment on above: Performed By: #### 1 9123-9 #### [facility] [place] [facility] [address] [place] [address] Protein [Mass/Vol] 6.2 g/dL Normal 6.1-7.9 [facility] Comment on above: Performed By: #### 1 9123-9 #### [facility] [place] [facility] [address] [place] [address] Sodium [Moles/Vol] 138 mmol/L Normal 136-145 [facility] Comment on above: Performed By: #### 1 9123-9 #### [facility] [address] [place] [address] Urea nitrogen [Mass/Vol] 23 mg/dL High 8-20 [facility] Comment on above: Performed By: #### 1 9123-9 #### [facility] [place] [facility] [address] [place] [address] Urea nitrogen/Creatinine [Ma ss ratio] 20.7 mg/mg High 12.0-20.0 [facility] Comment on above: Performed By: #### 1 9123-9 #### [facility] [place] [facility] [address] [place] [address] COVID-19, MOLECULARon 2021 SARS-CoV-2 (COVID-19) RNA SHAHEEN+probe Ql (Unsp spec) Not detected Normal Not Detected [facility] Comment on above: Order Comment: This test was performed under the FDA's Emergency Use Authorization (EUA). Testing was performed using the Je[employer] Richard SARS-CoV-2 RT-PCR AND Influenza A/B Nucleic Acid Test on the Richard Jessi System. This test has not been approved for use in asymptomatic patients and its performance in this patient population has not been evaluated. Negative results do not rule out the presence of SARS-CoV-2, influenza A, and/or influenza B. Fact sheets for the EUA can be found at the following links: For Healthcare Providers: https://www.fda.gov/media/376068/download For Patients: https://www.fda.gov/media/264341/download Performed By: #### L [id number] #### [facility] [place], [place] [address] Juan M Slaughter M.D. [id number] XR CHEST PA/APon 09-07-2021 XR CHEST PA/AP EXAMINATION: XR CHEST PA/AP 09/07/2021 3:17 pm HISTORY: ORDERING SYSTEM PROVIDED HISTORY: productive cough, TECHNOLOGIST PROVIDED HISTORY: Illness/Other Reason for exam: productive cough Cancer History: unk Surgery, RadiationHistory: L hip arthroplasty Encounter Type: Unknown Additional signs and symptoms: productive cough ORDERING SYSTEM PROVIDED DIAGNOSIS CODES: I48.92 Atrial flutter with rapid ventricular response (HCC) COMPARISON: 09/04/2021. TECHNIQUE: AP portable upright projection of the chest was obtained at 1539 hours. FINDINGS: There is again distortion of the chest due to a marked rotoscoliosis. The heart appears enlarged but stable. Both hemidiaphragms are well seen. There is a small bandlike area of atelectatic or fibrotic change projecting in the left lung base. This was present previously. Remaining lung long are clear. There has been a right shoulder reverse arthroplasty. IMPRESSION: 1. No interval change or superimposed acute chest finding is seen. 2. Prominent scoliosis. 3. Right shoulder reverse arthroplasty. 4. 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 [facility] Workstation ID: [id number] Dictated by: LONNIE WHYTE on TueSep 07, 2021 7:38:41 PM EST Transcribed by: TISH STEARNS on TueSep 07, 2021 7:50:19 PM EST Finalized by: LONNIE WHYTE on TueSep 07, 2021 7:52:21 PM EST Normal [facility] Comment on above: Order Comment: Injur y/Trauma or Illness?:Illness/Other How long have you had these symptoms (acute/chronic)?:Unknown Reason for exam?:productive cough History of cancer?:unk Surgeries, chemotherapy, or radiation?:L hip arthroplasty Type of Exam?:Unknown Additional signs and symptoms?:productive cough XR HIP LEFT 1 VIEWon 022 XR HIP LEFT 1 VIEW EXAMINATION: XR HIP LEFT 1 VIEW 09/07/2021 4:41 pm HISTORY: ORDERING SYSTEM PROVIDED HISTORY: s/p L hip ferny. Lateral view, TECHNOLOGIST PROVIDED HISTORY: The patient is a 71-year-old male. Illness/Other Reason for exam: s/p L hip ferny. Lateral view Cancer History: unk Surgery, RadiationHistory: L hip arthroplasty Encounter Type: Initial Additional signs and symptoms: ORDERING SYSTEM PROVIDED DIAGNOSIS CODES: I48.92 Atrial flutter with rapid ventricular response (HCC) COMPARISON: AP view obtained earlier today. IMPRESSION: Submitted for interpretation is a single cross-table lateral view demonstrating the left hip bipolar ferny prosthesis in relative anatomic alignment with no evidence of surgical complication. Workstation ID: [id number] Dictated by: KAREN CARNEY on TueSep 07, 2021 8:09:27 PM EST Transcribed by: KAREN CARNEY on TueSep 07, 2021 8:09:27 PM EST Finalized by: KAREN CARNEY on TueSep 07, 2021 8:09:27 PM EST Normal [facility] Comment on above: Order Comment: Cross table lateral please Injury/Trauma or Illness?:Illness/Other How long have you had these symptoms (acute/chronic)?:Unknown Reason for exam?:s/p L hip ferny. Lateral view History of cancer?:unk Surgeries, chemotherapy, or radiation?:L hip arthroplasty Type of Exam?:Initial Additional signs and symptoms?: XR HIP LEFT 1 VIEW EXAMINATION: XR HIP LEFT 1 VIEW HISTORY: ORDERING SYSTEM PROVIDED HISTORY: acute L hip pain, s/p L hip arthroplasty 08/31, TECHNOLOGIST PROVIDED HISTORY: Illness/Other Reason for exam: acute L hip pain, s/p L hip arthroplasty 08/31 Cancer History: unk Surgery, RadiationHistory: L hip arthroplasty Encounter Type: Initial Additional signs and symptoms: ORDERING SYSTEM PROVIDED DIAGNOSIS CODES: I48.92 Atrial flutter with rapid ventricular response (HCC) COMPARISON: Portable pelvis 08/31/2021, [facility] TECHNIQUE: AP chest FINDINGS: There is evidence of a left hip arthroplasty. Overlying skin gage are noted. IMPRESSION: Left hip arthroplasty. [facility]/ Workstation ID: [id number] Dictated by: VALARIE MOISE on TueSep 07, 2021 9:50:44 AM EST Transcribed by: FELI PETE on TueSep 07, 2021 9:55:57 AM EST Finalized by: VALARIE MOISE on TueSep 07, 2021 3:39:32 PM EST Normal [facility] Comment on above: Order Comment: Injur y/Trauma or Illness?:Illness/Other How long have you had these symptoms (acute/chronic)?:Acute Reason for exam?:acute L hip pain, s/p L hip arthroplasty 08/31 History of cancer?:unk Surgeries, chemotherapy, or radiation?:L hip arthroplasty Type of Exam?:Initial Additional signs and symptoms?: ECHOCARDIOGRAM COMPLETEon ECHOCARDIOGRAM COMPLETE Patient Info Name: LAURA LAWRIE Age: 71 years : 1950 Gender: Male Ht: 178 cm Wt: 81 kg BSA: 2.01 m2 HR: 76 bpm BP: 108 / 61 mmHg Technical Quality: Fair Exam Date: 09/05/2021 1:24 PM Patient Status: Inpatient Wet Pan Operator: Ayala Carr, KARON OLIVERA Exam Type: ECHOCARDIOGRAM COMPLETE Study Info Indications I48.91 - Unspecified atrial fibrillation [facility] Referring Physician: [id number] Borwn; [id number] BMI: 25.68 kg/m2 Summary 1. Left ventricular systolic function is normal with an ejection fraction of 60-65%. 2. The left ventricular diastolic function is normal. 3. No significant valvular abnormalities. 4. There is no comparison study available. History/Risk Factors Diabetes Mellitus: Yes Left Ventricle Left ventricular chamber dimension is normal. Left ventricular systolic function is normal with an ejection fraction of 60-65%. Normal left ventricular mass. Left ventricular segmental wall motion is normal. The left ventricular diastolic function is normal. Right Ventricle Right ventricular chamber dimension is normal. Right ventricular systolic function is normal. Left Atria Left atrial chamber is normal with a left atrial volume index of 22 ml/m2 by BP MOD. Right Atria Right atrial chamber dimension is normal. Aortic Valve The aortic valve is trileaflet. There is mild aortic valve sclerosis. There is no aortic valve regurgitation. Pulmonic Valve The pulmonic valve is normal. There is no pulmonic valve stenosis. There is trace pulmonic regurgitation. Mitral Valve The mitral valve has thickened leaflets. There is no mitral valve stenosis. There is trace mitral valve regurgitation. Tricuspid Valve The tricuspid valve leaflets are normal. There is no significant tricuspid valve stenosis. There is trace tricuspid valve regurgitation. There is no pulmonary hypertension. Pericardium/Pleural The pericardium appears normal. There is no pericardial effusion. Inferior Vena Cava Normal inferior vena cava with >50% collapse upon inspiration consistent with normal right atrial pressure. Aorta The aortic measurements are indexed to age and body surface area. The aortic root is normal measuring 3.2 cm with an index of 1.6 cm/m2. 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 Left Ventricular Outflow Tract Name Value Normal LVOT 2D LVOT Diameter 2.2 cm LVOT Doppler LVOT Peak Velocity 0.9 m/s Pulmonic Valve Name Value Normal PV Doppler PV Peak Velocity 1.10 m/s Mitral Valve Name Value Normal MV Doppler MV Decel [place] 1,103 cm/s2 MV PHT 32 ms MV Area (PHT) 7.0 cm2 4.0-5.0 MV Diastolic Function MV E Peak Velocity 1 m/s MV A Peak Velocity 1 m/s MV E/A 1.8 MV Decel Time 109 ms MV Annular TDI MV Septal e' Velocity 11.1 cm/s >=8.0 MV E/e' (Septal) 10.8 <=8.0 MV Lateral e' Velocity 12.1 cm/s >=10.0 MV E/e' (Lateral) 9.9 <=8.0 MV e' Average 11.60 cm/s MV E/e' (Average) 10.4 Tricuspid Valve Name Value Normal Estimated PAP/RSVP RA Pressure 3 mmHg <=5 Aorta Name Value Normal Ascending Aorta Ao Root Diameter (2D) 3.2 cm 3.1-3.7 Ao Root Diam Index (2D) 1.6 cm/m2 1.5-1.9 Prox Asc Ao Diameter 3.5 cm 2.6-3.4 Prox Asc Ao Diameter Index 1.7 cm/m2 1.3-1.7 Aortic Valve Name Value Normal AV Doppler (more content not included)... Normal [facility] Comprehensive metabolic 2000 panelon 09-04-2021 Albumin [Mass/Vol] 3.2 g/dL Low 3.5-4.8 [facility] Comment on above: Performed By: #### 2 4323-8 #### [facility] ([facility]) LAB [address] [place] [address] ALP [Catalytic activity/Vol] 59 U/L Normal 32-91 [facility] Comment on above: Performed By: #### 2 4323-8 #### [facility] ([facility]) [facility] [address] [place] [address] ALT [Catalytic activity/Vol] 12 U/L Normal 7-52 [facility] Comment on above: Performed By: #### 2 4323-8 #### [facility] ([facility]) [facility] [address] [place] [address] Anion gap [Moles/Vol] 10 mmol/L Normal 6-18 [facility] Comment on above: Performed By: #### 2 4323-8 #### [facility] [place] ([facility] [address] [place] [address] AST [Catalytic activity/Vol] 23 U/L Normal 15-41 [facility] Comment on above: Performed By: #### 2 4322-8 #### [facility] [place] [facility] [address] [place] [address] Bilirubin [Mass/Vol] 2.2 mg/dL High 0.3-1.2 [facility] Comment on above: Performed By: #### 2 4322-8 #### [facility] [place] [facility] [address] [place] [address] Calcium [Mass/Vol] 7.9 mg/dL Low 8.9-10.3 [facility] Comment on above: Performed By: #### 2 4322-8 #### [facility] [place] [facility] [address] [place] [address] Chloride [Moles/Vol] 102 mmol/L Normal 98-107 [facility] Comment on above: Performed By: #### 2 4322-8 #### [facility] [place] [facility] [address] [place] [address] CO2 [Moles/Vol] 27 mmol/L Normal 22-32 [facility] Comment on above: Performed By: #### 2 4322-8 #### [facility] [place] [facility] [address] [place] [address] Creatinine [Mass/Vol] 1.02 mg/dL Normal 0.60-1.30 [facility] Comment on above: Performed By: #### 2 4322-8 #### [facility] [place] [facility] [facility] [address] [place] [address]1992 GFR/1.73 sq M.predicted adin g non-blacks MDRD (S/P/Bld) [Vol rate/Area] 73 mL/min/{1.73_m2} Normal [facility] Comment on above: Performed By: #### 2 4322-8 #### [facility] [place] [address] [place] [address] Glucose [Mass/Vol] 223 mg/dL High 70-99 [facility] Comment on above: Performed By: #### 2 4323-8 #### [facility] [place] [address] [place] [address] 14245 Potassium [Moles/Vol] 4.1 mmol/L Normal 3.6-5.1 [facility] Comment on above: Performed By: #### 2 4323-8 #### [facility] [place] [address] [place] [address] Protein [Mass/Vol] 5.7 g/dL Low 6.1-7.9 [facility] Comment on above: Performed By: #### 2 432-8 #### [facility] [place] [address] [place] [address] 76792 Sodium [Moles/Vol] 139 mmol/L Normal 136-145 [facility] Comment on above: Performed By: #### 2 4323-8 #### [facility] [place] [address] [place] [address] 29361 Urea nitrogen [Mass/Vol] 21 mg/dL High 8-20 [facility] Comment on above: Performed By: #### 2 4323-8 #### [facility] ([facility] [address] [place] [address] 22485 Urea nitrogen/Creatinine [Ma ss ratio] 20.6 mg/mg High 12.0-20.0 [facility] Comment on above: Performed By: #### 2 4323-8 #### [facility] [place] [address] [place] [address]257 Hemogram and platelets WO di fferential panel (Bld)on 09-04-2021 Basophils (Bld) [#/Vol] 0.10 10*3/uL Normal 0.00-0.20 [facility] Comment on above: Performed By: #### 2 4317-0 #### [facility] [place] [address] [place] [address] 63027 Basophils/100 WBC (Bld) 0.6 % Normal 0.0-2.0 [facility] Comment on above: Performed By: #### 2 4317-0 #### [facility] [place] [address] [place] [address] 88620 Eosinophils (Bld) [#/Vol] 0.10 10*3/uL Normal 0.00-0.7 0 [facility] Comment on above: Performed By: #### 2 7-0 #### [facility] [place] [address] [place] [address]377 Eosinophils/100 WBC (Bld) 1.1 % Normal 0.0-7.0 [facility] Comment on above: Performed By: #### 2 7-0 #### [facility] [place] [facility] [address] [address] Erythrocyte distribution wid th (RBC) [Ratio] 12.8 % Normal 11.0-14.8 [facility] Comment on above: Performed By: #### 2 7-0 #### [facility] [place] [facility] [address] [address] Hematocrit (Bld) [Volume fraction] 22.4 % Low 3 9.0-49.0 [facility] Comment on above: Performed By: #### 2 7-0 #### [facility] [place] [facility] [address] [address] Hemoglobin (Bld) [Mass/Vol] 7.8 g/dL Low 13.5-17. 5 [facility] Comment on above: Performed By: #### 2 7-0 #### [facility] [place] [facility] [address] [place] [address] 10368 Lymphocytes (Bld) [#/Vol] 1.40 10*3/uL Normal 1.00-4.8 0 [facility] Comment on above: Performed By: #### 2 7-0 #### [facility] [place] [facility] [address] [place] [address] 63663 Lymphocytes/100 WBC (Bld) 14.4 % Low 22.0-44.0 [facility] Comment on above: Performed By: #### 2 4317-0 #### [facility] [place] [facility] [address] [place] [address] 95697 MCH 31.6 pcg Normal 27.0-34.0 [facility] Comment on above: Performed By: #### 2 4317-0 #### [facility] [place] [facility] [address] [place] [address] MCHC (RBC) [Mass/Vol] 34.7 g/dL Normal 32.0-36.0 [facility] Comment on above: Performed By: #### 2 4317-0 #### [facility] [place] [facility] [address] [place] [address] 07133 MCV (RBC) [Entitic vol] 91.2 fL Normal 80.0-97.0 [facility] Comment on above: Performed By: #### 2 4317-0 #### [facility] [place] [facility] [address] [place] [address]90 Monocytes (Bld) [#/Vol] 1.00 10*3/uL High 0.00-0.90 [facility] Comment on above: Performed By: #### 2 4317-0 #### [facility] [place] [facility] [address] [place] [address] 847[address] Monocytes/100 WBC (Bld) 10.4 % Normal 0.0-12.0 [facility] Comment on above: Performed By: #### 2 4317-0 #### [facility] [place] [facility] [address] [place] [address] 62371 Neutrophils Absolute 6.90 K/mcL Normal 1.80-7.70 [facility] Comment on above: Performed By: #### 2 4317-0 #### [facility] [place] [facility] [address] [place] [address] 17903 Neutrophils/100 WBC (Bld) 73.5 % High 40.0-70.0 [facility] Comment on above: Performed By: #### 2 4317-0 #### [facility] [place] [facility] [address] [place] [address] 17203 Platelet mean volume (Bld) [ Entitic vol] 7.7 fL Normal 6.2-12.1 [facility] Comment on above: Performed By: #### 2 4317-0 #### [facility] [place] [facility] [address] [place] [address] 72134 Platelets (Bld) [#/Vol] 169 10*3/uL Normal 142-424 [facility] Comment on above: Performed By: #### 2 4317-0 #### [facility] [place] [facility] [address] [place] [address] 43923 RBC (Bld) [#/Vol] 2.45 10*6/uL Low 4.30-5.70 [facility] Comment on above: Performed By: #### 2 4317-0 #### [facility] [place] [facility] [address] [place] [address] 65554 WBC (Bld) [#/Vol] 9.2 10*3/uL Normal 4.6-10.2 [facility] Comment on above: Performed By: #### 2 4317-0 #### [facility] [place] [facility] [address] [place] [address]398 Magnesium [Mass/Vol]on 09-04 TSH Qn 2.43 m[IU]/L Normal 0.45-5.33 [facility] Comment on above: Performed By: #### 1 9123-9 #### [facility] [place] [facility] [address] [place] [address] 59870 PT Coag (PPP) [Time]on 09-04 INR Coag (PPP) [Relative time] 1.4 {INR} Normal <=5.0 [facility] Comment on above: Result Comment: The recommended therapeutic INR range for most cardiac indications is 2.0-3.0 For high intensity therapy (i.e. mechanical heart valves), the recommended range is 2.5-3.5 Performed By: #### 5 902-2 #### [facility] ([facility] [address] [place] [address] Prothrombin timeon 2 PT Coag (PPP) [Time] 15.9 s High 11.9-14.7 [facility] Comment on above: Performed By: #### 5 902-2 #### [facility] ([facility]) [facility] [address] [place] [address] XR CHEST PA/APon 09-04-2021 XR CHEST PA/AP EXAMINATION: XR CHEST PA/AP 09/04/2021 7:35 pm HISTORY: ORDERING SYSTEM PROVIDED HISTORY: afib, TECHNOLOGIST PROVIDED HISTORY: Illness/Other Reason for exam: afib Cancer History: unk Surgery, RadiationHistory: unk Encounter Type: Initial Additional signs and symptoms: ORDERING SYSTEM PROVIDED DIAGNOSIS CODES: COMPARISON: None. FINDINGS: Trachea is midline. Mediastinum is not widened. Heart size is upper limits of normal. Lungs show aeration with slight chronic changes bilaterally. No effusion or nodule or pneumothorax is noted. Diaphragm is intact. Postsurgical changes are noted of the right shoulder. Moderate degenerative changes noted of the left shoulder. There is a moderate to prominent dextroscoliosis of lower thoracic spine. IMPRESSION: Nonacute portable chest with chronic degenerative changes. Workstation ID: [id number] Dictated by: SHANE JOHN on TueSep 04, 2021 8:17:58 PM EST Transcribed by: SHANE JOHN on TueSep 04, 2021 8:17:58 PM EST Finalized by: SHANE JOHN on TueSep 04, 2021 8:17:58 PM EST Normal [facility] Comment on above: Order Comment: Injur y/Trauma or Illness?:Illness/Other How long have you had these symptoms (acute/chronic)?:Acute Reason for exam?:afib History of cancer?:unk Surgeries, chemotherapy, or radiation?:unk Type of Exam?:Initial Additional signs and symptoms?: COVID-19, MOLECULARon 2021 SARS-CoV-2 (COVID-19) RNA SHAHEEN+probe Ql (Unsp spec) Not detected Normal Not Detected [facility] Comment on above: Order Comment: This test was performed under the FDA's Emergency Use Authorization (EUA). Testing was performed using the Jez Richard SARS-CoV-2 RT-PCR AND Influenza A/B Nucleic Acid Test on the Richard Jessi System. This test has not been approved for use in asymptomatic patients and its performance in this patient population has not been evaluated. Negative results do not rule out the presence of SARS-CoV-2, influenza A, and/or influenza B. Fact sheets for the EUA can be found at the following links: For Healthcare Providers: https://www.fda.gov/media/766583/download For Patients: https://www.fda.gov/media/842348/download Performed By: #### L [id number] #### [facility] [address] [place] [address] Carli Guillory M.D. [id number] XR LOW PELVIS 1-2 VIEWS (PAC U)on 09-01-2021 XR LOW PELVIS 1-2 VIEWS (PACU) EXAMINATION: XR LOW PELVIS 1-2 VIEWS (PACU) 08/31/2021 11:25 pm HISTORY: ORDERING SYSTEM PROVIDED HISTORY: post op left hip ferny - include low AP pelvis, TECHNOLOGIST PROVIDED HISTORY: Illness/Other Reason for exam: left replacement Cancer History: unk Surgery, RadiationHistory: unk Encounter Type: Initial Additional signs and symptoms: no ORDERING SYSTEM PROVIDED DIAGNOSIS CODES: S72.002A Closed fracture of neck of left femur, initial encounter ([facility]) COMPARISON: 08/30/2021. FINDINGS: Single AP view of the low pelvis was obtained. Orthopedic hardware consistent with recent left hip hemiarthroplasty is observed. The femoral stem is located centrally within the femoral diaphysis. No suspicious fractures or osseous lesions are demonstrated. Surgical drain is present. There are soft tissue changes as expected in the postoperative setting. IMPRESSION: Status post left hip hemiarthroplasty without acute complication. RPS/pji Workstation ID: [id number] Dictated by: LAURA MULLER on TueSep 01, 2021 8:29:54 AM EST Transcribed by: DEVENDRA WATERS on TueSep 01, 2021 9:30:50 AM EST Finalized by: LAURA MULLER on TueSep 01, 2021 3:18:37 PM EST Normal [facility] Comment on above: Order Comment: Injur y/Trauma or Illness?:Illness/Other How long have you had these symptoms (acute/chronic)?:Acute Reason for exam?:left replacement History of cancer?:unk Surgeries, chemotherapy, or radiation?:unk Type of Exam?:Initial Additional signs and symptoms?:no COVID-19, MOLECULARon 2021 SARS-CoV-2 (COVID-19) RNA SHAHEEN+probe Ql (Unsp spec) Not detected Normal Not Detected [facility] Comment on above: Order Comment: This test was performed under the FDA's Emergency Use Authorization (EUA). Testing was performed using the Jez Richard SARS-CoV-2 RT-PCR AND Influenza A/B Nucleic Acid Test on the Richard Jessi System. This test has not been approved for use in asymptomatic patients and its performance in this patient population has not been evaluated. Negative results do not rule out the presence of SARS-CoV-2, influenza A, and/or influenza B. Fact sheets for the EUA can be found at the following links: For Healthcare Providers: https://www.fda.gov/media/956000/download For Patients: https://www.fda.gov/media/159269/download Performed By: #### L [id number] #### [facility] [address] [place] [address] Carli Guillory M.D. [id number] XR FEMUR LEFT 2+ VIEWS (SANGEETA JACKSON)on 08-30-2021 XR FEMUR LEFT 2+ VIEWS (STANDARD) EXAMINATION: XR FEMUR LEFT 2+ VIEWS (STANDARD) 08/30/2021 3:27 pm HISTORY: ORDERING SYSTEM PROVIDED HISTORY: hip fx, TECHNOLOGIST PROVIDED HISTORY: Injury/Trauma Reason for exam: fall Cancer History: unk Surgery, RadiationHistory: unk Encounter Type: Initial Mechanism of injury: fall ORDERING SYSTEM PROVIDED DIAGNOSIS CODES: S72.002A Closed fracture of neck of left femur, initial encounter ([facility]) COMPARISON: Left hip radiographs of the same date IMPRESSION: FINDINGS/ 1. Diffuse osteopenia. No change has occurred in an acute mildly impacted subcapital fracture of the left femoral neck. 2. Severe left hip osteoarthrosis is noted, with joint space narrowing, small subchondral cysts in the superolateral acetabulum, and marginal osteophytes. 3. Prior left total knee arthroplasty is noted, without visualized hardware complications. Small left knee joint effusion is noted. 4. No other fracture, malalignment, or acute bony abnormality is seen. Workstation ID: [id number] Dictated by: FLORY BEVERLY on [place] Aug 30, 2021 4:41:48 PM EST Transcribed by: FLORY BEVERLY on [place] Aug 30, 2021 4:41:48 PM EST Finalized by: FLORY BEVERLY on [place] Aug 30, 2021 4:41:48 PM EST Normal [facility] Comment on above: Order Comment: Injur y/Trauma or Illness?:Injury/Trauma How long have you had these symptoms (acute/chronic)?:Acute Reason for exam?:fall History of cancer?:unk Surgeries, chemotherapy, or radiation?:unk Type of Exam?:Initial Mechanism of injury?:fall XR HIP LEFT WITH PELVIS 2-3 VIEWS (ROUTINE)on 08-30-2021 XR HIP LEFT WITH PELVIS 2-3 VIEWS (ROUTINE) EXAMINATION: XR HIP LEFT WITH PELVIS 2-3 VIEWS (ROUTINE); XR KNEE LEFT 2 VIEWS (STANDARD) 08/30/2021 12:39 pm HISTORY: ORDERING SYSTEM PROVIDED HISTORY: fall, TECHNOLOGIST PROVIDED HISTORY: Injury/Trauma Reason for exam: fall on ice Cancer History: unk Surgery, RadiationHistory: unk Encounter Type: Initial Mechanism of injury: fall ORDERING SYSTEM PROVIDED DIAGNOSIS CODES: COMPARISON: None FINDINGS: There is an acute mildly displaced left subcapital femoral neck fracture with mild impaction and foreshortening. No other acute displaced fracture identified in the bony pelvis. Moderate to severe bilateral hip osteoarthritis, left greater than right. Moderate degenerative sacroiliac joints and pubic symphysis. Moderate degenerative disc disease of the visualized lower lumbar spine. There are postsurgical changes from left total knee arthroplasty. No fracture or dislocation identified. Hardware appears intact. No joint effusion. IMPRESSION: Mildly displaced/impacted left subcapital femoral neck fracture. Workstation ID: [id number] Dictated by: ARELY RODRÍGUEZ on [place] Aug 30, 2021 1:38:43 PM EST Transcribed by: ARELY RODRÍGUEZ on [place] Aug 30, 2021 1:38:43 PM EST Finalized by: ARELY RODRÍGUEZ on [place] Aug 30, 2021 1:38:43 PM EST Normal [facility] Comment on above: Order Comment: Injur y/Trauma or Illness?:Injury/Trauma How long have you had these symptoms (acute/chronic)?:Acute Reason for exam?:fall on ice History of cancer?:unk Surgeries, chemotherapy, or radiation?:unk Type of Exam?:Initial Mechanism of injury?:fall XR KNEE LEFT 2 VIEWS ([address] RD)on 08-30-2021 XR KNEE LEFT 2 VIEWS (STANDARD) EXAMINATION: XR HIP LEFT WITH PELVIS 2-3 VIEWS (ROUTINE); XR KNEE LEFT 2 VIEWS (STANDARD) 08/30/2021 12:39 pm HISTORY: ORDERING SYSTEM PROVIDED HISTORY: fall, TECHNOLOGIST PROVIDED HISTORY: Injury/Trauma Reason for exam: fall on ice Cancer History: unk Surgery, RadiationHistory: unk Encounter Type: Initial Mechanism of injury: fall ORDERING SYSTEM PROVIDED DIAGNOSIS CODES: COMPARISON: None FINDINGS: There is an acute mildly displaced left subcapital femoral neck fracture with mild impaction and foreshortening. No other acute displaced fracture identified in the bony pelvis. Moderate to severe bilateral hip osteoarthritis, left greater than right. Moderate degenerative sacroiliac joints and pubic symphysis. Moderate degenerative disc disease of the visualized lower lumbar spine. There are postsurgical changes from left total knee arthroplasty. No fracture or dislocation identified. Hardware appears intact. No joint effusion. IMPRESSION: Mildly displaced/impacted left subcapital femoral neck fracture. Workstation ID: [id number] Dictated by: RAELY RODRÍGUEZ on [place] Aug 30, 2021 1:38:43 PM EST Transcribed by: ARELY RODRÍGUEZ on [place] Aug 30, 2021 1:38:43 PM EST Finalized by: ARELY RODRÍGUEZ on [place] Aug 30, 2021 1:38:43 PM EST Normal [facility] Comment on above: Order Comment: Injur y/Trauma or Illness?:Injury/Trauma How long have you had these symptoms (acute/chronic)?:Acute Reason for exam?:fall on ice History of cancer?:unk Surgeries, chemotherapy, or radiation?:unk Type of Exam?:Initial Mechanism of injury?:fall A1C HEMOGLOBINon 08-03-2021 HbA1c (Bld) [Mass fraction] 7 % [employer] Other Glucose - FINGER STICKon Glucose [Mass/Vol] 113 mg/dL [facility] [employer] Other HbA1c (Bld) [Mass fraction]o n 08-03-2021 A1C HEMOGLOBIN [facility] Amina Other A1C with Estimated Average G luon 04-14-2021 HbA1c (Bld) [Mass fraction] 6.5 % [employer] Other Glucoseon 04-14-2021 Glucose [Mass/Vol] 171 mg/dL [employer] Other HbA1c (Bld) [Mass fraction]o n 04-14-2021 A1C with Estimated Average Glu [employer] Other POC GLUCOSE LABon 10-20-2018 Glucose mass conc 83 mg/dL Normal 70-100 [facility] Comment on above: Performed By: #### 5 0103 #### [address] Cardiovascular Lab Reporton 10-19-2018 Cardiovascular Lab Report [facility] Patient Name: Suzy sierra [facility] MR #: [id number] Department of Physician: Pooja Álvarez M.D. Division of Service Date: 10/18/2018 Cardiology Birthdate: 1950 Adult Cardiovascular Room #: 3CD [id number] [place] [address] Cardiovascular Laboratory Report FINAL IMPRESSION: Successful cardioversion of atrial flutter to normal sinus rhythm. INDICATION: The patient was admitted with atrial flutter with rapid ventricular response. He is on long-term oral anticoagulation, thus was considered for direct-current cardioversion. PROCEDURE: Cardioversion under conscious sedation. METHOD: After conscious sedation was performed, he was cardioverted with 360 joules biphasic to normal sinus rhythm. There were no complications. RECOMMENDATION: Continue oral anticoagulation and rest of the management per Inpatient Cardiology service. Electronically Signed by: Angella Sandoval M.D. 10/19/2018 02:34 P Angella Sandoval M.D. Date Dict: 10/18/2018/02:21 P/Angella Sandoval M.D. Date Trans: 10/19/2018 06:30 A/simin [id number] cc: Elidia Machado M.D. [address] [facility] [id number] Normal [facility] MAGNESIUM BLOODon 10-19-2018 Magnesium mass conc 2.2 mg/dL Normal 1.9-2.7 [facility] Comment on above: Order Comment: No: D o not add to previous draw Performed By: #### 5 0103 #### [facility] [address] [place] [address], [facility] POC GLUCOSE LABon 10-19-2018 Glucose mass conc 166 mg/dL High 70-100 [facility] Comment on above: Performed By: #### 5 0103 #### [facility] [address] [place] [address], [facility] Glucose mass conc 153 mg/dL High 70-100 [facility] Comment on above: Performed By: #### 5 0103 #### [facility] [address] [facility] [place] [id number], [facility] Glucose mass conc 111 mg/dL High 70-100 [facility] Comment on above: Performed By: #### 5 0103 #### [facility] [address] [place] [address], [facility] Glucose mass conc 109 mg/dL High 70-100 [facility] Comment on above: Performed By: #### 5 0103 #### [facility] [address] [place] [address], [facility] BASIC METABOLIC PANELon 04-0 Calcium mass conc 8.9 mg/dL Normal 8.6-10.3 [facility] Comment on above: Order Comment: No: D o not add to previous draw Performed By: #### 8 5499 #### [facility] [address] [place] [address], [place] Chloride molar conc 104 mmol/L Normal 98-[address] [facility] Comment on above: Order Comment: No: D o not add to previous draw Performed By: #### 8 5499 #### [facility] [address] [place] [address], [place] CO2 molar conc 25 mmol/L Normal 21-[address] [facility] Comment on above: Order Comment: No: D o not add to previous draw Performed By: #### 8 5499 #### [facility] [address] [place] [address], [place] Creatinine mass conc 1.13 mg/dL Normal 0.70-1.30 [facility] Comment on above: Order Comment: No: D o not add to previous draw Performed By: #### 8 5499 #### [facility] [address] [place] [address], [place] GFR/1.73 sq M predicted among blacks MDRD vol rate/area (S/P/Bld) mL/min/{1.73_m2} Normal >[address] [facility] Comment on above: Order Comment: No: D o not add to previous draw Performed By: #### 8 5499 #### [facility] [address] [place] [address], [place] GFR/1.73 sq M predicted adin g non-blacks MDRD vol rate/area (S/P/Bld) mL/min/{1.73_m2} Normal >60 [facility] Comment on above: Order Comment: No: D o not add to previous draw Performed By: #### 8 5499 #### [facility] [address] [place] [id number], [facility] Glucose mass conc 82 mg/dL Normal 70-100 [facility] Comment on above: Order Comment: No: D o not add to previous draw Performed By: #### 8 5499 #### [facility] [address] [place] [id number], [facility] Potassium molar conc 3.9 mmol/L Normal 3.5-5.1 [facility] Comment on above: Order Comment: No: D o not add to previous draw Performed By: #### 8 5499 #### [facility] [address] [place] [address], [facility] Sodium molar conc 138 mmol/L Normal 136-145 [facility] Comment on above: Order Comment: No: D o not add to previous draw Performed By: #### 8 5499 #### [facility] [address] [place] [address], [facility] Urea nitrogen mass conc 22 mg/dL Normal 7-25 T [facility] Comment on above: Order Comment: No: D o not add to previous draw Performed By: #### 8 5499 #### [facility] [address] [facility] [place] [address], [facility] CBC W/DIFFon 10-18-2018 ABS BASOPHILS 0.1 10*3/uL Normal 0.0-0.[address] [facility] Comment on above: Order Comment: No: D o not add to previous draw Performed By: #### 8 [id number] #### [facility] [address] [place] [address], [facility] ABS IMM GRANS 0.0 10*3/uL Normal 0.0-0.[address] [facility] Comment on above: Order Comment: No: D o not add to previous draw Performed By: #### 8 [id number] #### [facility] [address] [place] [address], [facility] ABS NEUTROPHILS 5.6 10*3/uL Normal 1.6-7.6 [facility] Comment on above: Order Comment: No: D o not add to previous draw Performed By: #### 8 [id number] #### [facility] [address] [place] [address], [facility] Basophils #/vol (Bld) 0.6 % Normal 0.0-1.0 [facility] Comment on above: Order Comment: No: D o not add to previous draw Performed By: #### 8 [id number] #### [facility] [address] [place] [address], [facility] Eosinophils #/vol (Bld) 0.2 10*3/uL Normal 0.0-0.5 [facility] Comment on above: Order Comment: No: D o not add to previous draw Performed By: #### 8 [id number] #### [facility] [address] [place] [address], [facility] Eosinophils/100 WBC (Bld) 1.8 % Normal 0.0-6.0 [facility] Comment on above: Order Comment: No: D o not add to previous draw Performed By: #### 8 [id number] #### [facility] Erythrocyte distribution wid th Ratio (RBC) 12.7 % Normal 11.5-15.0 The [facility] Comment on above: Order Comment: No: D o not add to previous draw Performed By: #### 8 [id number] #### [facility] [address] Hematocrit Volume Fraction (Bld) 40.5 % Normal 39.0-50.0 The [facility] Comment on above: Order Comment: No: D o not add to previous draw Performed By: #### 8 [id number] #### [facility] [address] Hemoglobin mass conc (Bld) 13.6 g/dL Normal 13.0-17.0 [facility] Comment on above: Order Comment: No: D o not add to previous draw Performed By: #### 8 [id number] #### [facility] [address] [place] [address], [facility] IMMATURE GRANS 0.3 % Normal 0.0-1.0 The [facility] Comment on above: Order Comment: No: D o not add to previous draw Performed By: #### 8 [id number] #### [facility] [address] [facility] [place] [address], [facility] Lymphocytes #/vol (Bld) 2.8 10*3/uL Normal 1.2-4.0 [facility] Comment on above: Order Comment: No: D o not add to previous draw Performed By: #### 8 [id number] #### [facility] [address] [facility] [place] [address], [facility] Lymphocytes/100 WBC (Bld) 30.2 % Normal 20.0-45.0 [facility] Comment on above: Order Comment: No: D o not add to previous draw Performed By: #### 8 [id number] #### [facility] [address] [place] [address], [facility] MCH Entitic mass (RBC) 30.0 pg Normal 27.0-33.0 Th [facility] Comment on above: Order Comment: No: D o not add to previous draw Performed By: #### 8 [id number] #### [facility] [address] [facility] [place] [id number], [facility] MCHC mass conc (RBC) 33.6 g/dL Normal 32.0-35.0 [facility] Comment on above: Order Comment: No: D o not add to previous draw Performed By: #### 8 [id number] #### [facility] [address] [place] [address], [facility] MCV Entitic volume (RBC) 89.2 fL Normal 82.0-98.0 The [facility] Comment on above: Order Comment: No: D o not add to previous draw Performed By: #### 8 [id number] #### [facility] [address] [place] [address], [facility] Monocytes #/vol (Bld) 0.6 10*3/uL Normal 0.1-1.0 [facility] Comment on above: Order Comment: No: D o not add to previous draw Performed By: #### 8 [id number] #### [facility] [address] [place] [address], [facility] MONOS 6.5 % Normal 5.0-12.0 [facility] Comment on above: Order Comment: No: D o not add to previous draw Performed By: #### 8 [id number] #### [facility] [address] [place] [address], [facility] Neutrophils/100 WBC (Bld) 60.6 % Normal 40.0-72.0 [facility] Comment on above: Order Comment: No: D o not add to previous draw Performed By: #### 8 [id number] #### [facility] [address] [place] [address], [facility] Nucleated RBC/100 WBC Ratio (Bld) 0 % Normal 0- 0 [facility] Comment on above: Order Comment: No: D o not add to previous draw Performed By: #### 8 [id number] #### [facility] [address] [facility] [place] [address], [facility] PLAT CNT 174 10*3/uL Normal 150-400 The [facility] Comment on above: Order Comment: No: D o not add to previous draw Performed By: #### 8 [id number] #### [facility] [address] [place] [address], [facility] RBC #/vol (Bld) 4.54 10*6/uL Normal 4.20-5.70 The [facility] Comment on above: Order Comment: No: D o not add to previous draw Performed By: #### 8 [id number] #### [facility] [address] [facility] WBC #/vol (Bld) 9.26 10*3/uL Normal 4.00-10.60 The [facility] Comment on above: Order Comment: No: D o not add to previous draw Performed By: #### 8 [id number] #### [facility] [address] MAGNESIUM BLOODon 10-18-2018 Magnesium mass conc 1.8 mg/dL Low 1.9-2.[address] [facility] Comment on above: Order Comment: No: D o not add to previous draw Performed By: #### 8 [id number] #### [facility] [address] [facility] [place] [address], [facility] PHOSPHORUS BLOODon 9 Phosphate mass conc 4.2 mg/dL Normal 2.5-5.[address] [facility] Comment on above: Order Comment: No: D o not add to previous draw Performed By: #### 8 [id number] #### [facility] [address] [facility]. [address] POC GLUCOSE LABon 10-18-2018 Glucose mass conc 221 mg/dL High 70-100 The [facility] Comment on above: Performed By: #### 8 [id number] #### [facility] [address] [facility]. [address] Glucose mass conc 167 mg/dL High 70-100 The [facility] Comment on above: Performed By: #### 8 [id number] #### [facility] [address] [place] [address], [facility] Glucose mass conc 85 mg/dL Normal 70-100 The [facility] Comment on above: Performed By: #### 8 [id number] #### [facility] [address] [place] [address], [facility] BASIC METABOLIC PANELon 04-0 Calcium mass conc 9.4 mg/dL Normal 8.6-10.3 The [facility] Comment on above: Order Comment: No: D o not add to previous draw Performed By: #### 8 [id number] #### [facility] [address] [place] [address], [place] Chloride molar conc 101 mmol/L Normal 98-[address] [facility] Comment on above: Order Comment: No: D o not add to previous draw Performed By: #### 8 [id number] #### [facility] [address] [place] [address], [place] CO2 molar conc 28 mmol/L Normal 21-[address] [facility] Comment on above: Order Comment: No: D o not add to previous draw Performed By: #### 8 [id number] #### [facility] [address] [place] [address], [place] Creatinine mass conc 1.20 mg/dL Normal 0.70-1.30 [facility] Comment on above: Order Comment: No: D o not add to previous draw Performed By: #### 8 [id number] #### [facility] [address] [place] [address], [place] GFR/1.73 sq M predicted among blacks MDRD vol rate/area (S/P/Bld) mL/min/{1.73_m2} Normal >[address] [facility] Comment on above: Order Comment: No: D o not add to previous draw Performed By: #### 8 [id number] #### [facility] [address] [place] [address], [place] GFR/1.73 sq M predicted among non-blacks MDRD vol rate/area (S/P/Bld) 60 ml/min/1.73sq m Abnormal >60 The [facility] Comment on above: Order Comment: No: D o not add to previous draw Performed By: #### 8 [id number] #### [facility] [address] [place] [address], [facility] Glucose mass conc 130 mg/dL High 70-100 The [facility] Comment on above: Order Comment: No: D o not add to previous draw Performed By: #### 8 [id number] #### [facility] [address] [place] [address], [facility] Potassium molar conc 4.5 mmol/L Normal 3.5-5.1 [facility] Comment on above: Order Comment: No: D o not add to previous draw Performed By: #### 8 [id number] #### [facility] [address] [place] [address], [facility] Sodium molar conc 136 mmol/L Normal 136-145 The [facility] Comment on above: Order Comment: No: D o not add to previous draw Performed By: #### 8 [id number] #### [facility] [address] [place] [address], [facility] Urea nitrogen mass conc 21 mg/dL Normal 7-25 T [facility] Comment on above: Order Comment: No: D o not add to previous draw Performed By: #### 8 [id number] #### [facility] [address] [place] [address], [facility] POC GLUCOSE LABon 10-17-2018 Glucose mass conc 218 mg/dL High 70-100 The [facility] Comment on above: Performed By: #### 8 [id number] #### [facility] [address] [place] [address], [facility] Glucose mass conc 121 mg/dL High 70-100 The [facility] Comment on above: Performed By: #### 8 [id number] #### [facility] [address] [place] [address], [facility] TSH3 WITH REFLEXon 9 T4 free mass conc 0.87 ng/dL Normal 0.71-1.85 [facility] Comment on above: Performed By: #### 8 [id number] #### [facility] [address] [place] [address], [facility] TSH 3RD GENERATION 1.88 uIU/mL Normal 0.34-5.[address] [facility] Comment on above: Performed By: #### 8 [id number] #### [facility] [address] [place] [address], [facility] BASIC METABOLIC PANELon 03-0 Calcium mass conc 8.8 mg/dL Normal 8.6-10.3 [facility] Comment on above: Order Comment: No: D o not add to previous draw Performed By: #### 1 69, 22197 #### [facility] [address] [place] [address], [facility] Chloride molar conc 105 mmol/L Normal 98-[address] [facility] Comment on above: Order Comment: No: D o not add to previous draw Performed By: #### 1 69, 46744 #### [facility] [address] [place] [address], [facility] CO2 molar conc 27 mmol/L Normal 21-[address] [facility] Comment on above: Order Comment: No: D o not add to previous draw Performed By: #### 1 69, 51720 #### [facility] [address] [place] [address], [facility] Creatinine mass conc 1.11 mg/dL Normal 0.70-1.30 [facility] Comment on above: Order Comment: No: D o not add to previous draw Performed By: #### 1 69, 68897 #### [facility] [address] [place] [address], [facility] GFR/1.73 sq M predicted among blacks MDRD vol rate/area (S/P/Bld) mL/min/{1.73_m2} Normal >[address] [facility] Comment on above: Order Comment: No: D o not add to previous draw Performed By: #### 1 69, 55576 #### [facility] [address] [place] [address], [facility] GFR/1.73 sq M predicted adin g non-blacks MDRD vol rate/area (S/P/Bld) mL/min/{1.73_m2} Normal >60 [facility] Comment on above: Order Comment: No: D o not add to previous draw Performed By: #### 1 69, 25408 #### [facility] [address] [place] [address], [facility] Glucose mass conc 129 mg/dL High 70-100 The [facility] Comment on above: Order Comment: No: D o not add to previous draw Performed By: #### 1 69, 30073 #### [facility] [address] [place] [address], [facility] Potassium molar conc 4.4 mmol/L Normal 3.5-5.1 [facility] Comment on above: Order Comment: No: D o not add to previous draw Performed By: #### 1 69, 67912 #### [facility] [address] [place] [address], [facility] Sodium molar conc 138 mmol/L Normal 136-145 The [facility] Comment on above: Order Comment: No: D o not add to previous draw Performed By: #### 1 69, 99908 #### [facility] [address] [facility] [place] [address], [facility] Urea nitrogen mass conc 24 mg/dL Normal 7-25 T [facility] Comment on above: Order Comment: No: D o not add to previous draw Performed By: #### 1 69, 37062 #### [facility] [address] [place] [address], [facility] CBC W/DIFFon 09-23-2018 ABS BASOPHILS 0.0 10*3/uL Normal 0.0-0.[address] [facility] Comment on above: Order Comment: No: D o not add to previous draw Performed By: #### 5 0103 #### [facility] [address] [place] [address], [facility] ABS IMM GRANS 0.0 10*3/uL Normal 0.0-0.[address] [facility] Comment on above: Order Comment: No: D o not add to previous draw Performed By: #### 5 0103 #### [facility] [address] [place] [address], [facility] ABS NEUTROPHILS 4.5 10*3/uL Normal 1.6-7.6 The [facility] Comment on above: Order Comment: No: D o not add to previous draw Performed By: #### 5 0103 #### [facility] [address] [facility] [place] [address], [facility] Basophils #/vol (Bld) 0.4 % Normal 0.0-1.0 [facility] Comment on above: Order Comment: No: D o not add to previous draw Performed By: #### 5 0103 #### [facility] [address] [facility] [place] [address], [facility] Eosinophils #/vol (Bld) 0.1 10*3/uL Normal 0.0-0.5 [facility] Comment on above: Order Comment: No: D o not add to previous draw Performed By: #### 5 0103 #### [facility] [address] [place] [address], [facility] Eosinophils/100 WBC (Bld) 1.9 % Normal 0.0-6.0 [facility] Comment on above: Order Comment: No: D o not add to previous draw Performed By: #### 5 0103 #### [facility] [address] [facility] [place] [address], [facility] Erythrocyte distribution wid th Ratio (RBC) 13.1 % Normal 11.5-15.0 The [facility] Comment on above: Order Comment: No: D o not add to previous draw Performed By: #### 5 0103 #### [facility] [address] [place] [address], [facility] Hematocrit Volume Fraction (Bld) 39.1 % Normal 39.0-50.0 [facility] Comment on above: Order Comment: No: D o not add to previous draw Performed By: #### 5 0103 #### [facility] [address] [place] [address], [facility] Hemoglobin mass conc (Bld) 12.7 g/dL Low 13.0-17.0 [facility] Comment on above: Order Comment: No: D o not add to previous draw Performed By: #### 5 0103 #### [facility] [address] [place] [address], [facility] IMMATURE GRANS 0.3 % Normal 0.0-1.[address] [facility] Comment on above: Order Comment: No: D o not add to previous draw Performed By: #### 5 0103 #### [facility] [address] [facility] [place] [address], [facility] Lymphocytes #/vol (Bld) 2.0 10*3/uL Normal 1.2-4.0 [facility] Comment on above: Order Comment: No: D o not add to previous draw Performed By: #### 5 0103 #### [facility] [address] [facility] [place] [address], [facility] Lymphocytes/100 WBC (Bld) 27.4 % Normal 20.0-45.0 [facility] Comment on above: Order Comment: No: D o not add to previous draw Performed By: #### 5 0103 #### [facility] [address] [place] [address], [facility] MCH Entitic mass (RBC) 29.6 pg Normal 27.0-33.0 [facility] Comment on above: Order Comment: No: D o not add to previous draw Performed By: #### 5 0103 #### [facility] [address] MCHC mass conc (RBC) 32.5 g/dL Normal 32.0-35.0 [facility] Comment on above: Order Comment: No: D o not add to previous draw Performed By: #### 5 0103 #### [facility] [address] [place] [address], [facility] MCV Entitic volume (RBC) 91.1 fL Normal 82.0-98.0 [facility] Comment on above: Order Comment: No: D o not add to previous draw Performed By: #### 5 0103 #### [facility] [address] [facility] [address] Monocytes #/vol (Bld) 0.6 10*3/uL Normal 0.1-1.0 [facility] Comment on above: Order Comment: No: D o not add to previous draw Performed By: #### 5 0103 #### [facility] [address] [facility] [address] MONOS 7.6 % Normal 5.0-12.0 [facility] Comment on above: Order Comment: No: D o not add to previous draw Performed By: #### 5 3 #### [facility] [address] [facility] [address] Neutrophils/100 WBC (Bld) 62.4 % Normal 40.0-72.0 [facility] Comment on above: Order Comment: No: D o not add to previous draw Performed By: #### 5 0103 #### [facility] [address] [place] [address], [facility] Nucleated RBC/100 WBC Ratio (Bld) 0 % Normal 0- 0 [facility] Comment on above: Order Comment: No: D o not add to previous draw Performed By: #### 5 3 #### [facility] [address] PLAT CNT 163 10*3/uL Normal 150-400 [facility] Comment on above: Order Comment: No: D o not add to previous draw Performed By: #### 5 0103 #### [facility] [address] RBC #/vol (Bld) 4.29 10*6/uL Normal 4.20-5.70 [facility] Comment on above: Order Comment: No: D o not add to previous draw Performed By: #### 5 0103 #### [facility] [address] WBC #/vol (Bld) 7.26 10*3/uL Normal 4.00-10.60 [facility] Comment on above: Order Comment: No: D o not add to previous draw Performed By: #### 5 0103 #### [address] Cardiovascular Lab Reporton 09-23-2018 Cardiovascular Lab Report [facility] Patient Name: Suzy sierra [facility] Kelly Kraft MR #: [id number] Department of Physician: Pooja Villatoro M.D. Division of Service Date: 09/22/2018 Cardiology Birthdate: 1950 Adult Cardiovascular Room #: 3AB [id number] Services [place] [address] Cardiovascular Laboratory Report FINAL IMPRESSIONS: 1. Moderate proximal disease of the left anterior descending coronary artery. 2. Mild disease of the right coronary artery. 3. Nonobstructive left circumflex coronary artery. 4. Normal global left ventricular systolic function by noninvasive imaging. RECOMMENDATIONS/PLAN: 1. The patient will be admitted overnight for observation, given the transesophageal echocardiogram and electrical cardioversion performed prior to this procedure. 2. Aggressive cardiovascular risk factor modification. 3. Optimization of medical management; aspirin, high-intensity statin therapy, beta pedro, plus or minus an angiotensin-converting enzyme inhibitor are indicated. 4. The beta-pedro should help maintain sinus rhythm; if the patient has recurrent atrial flutter, will consider addition of an antiarrhythmic such as Sotalol or referral for atrial flutter ablation. 5. Follow up with me in the [facility] in the next several weeks. 6. Follow up with Dr. Elidia Machado as scheduled. PROCEDURES: Bilateral selective coronary angiography via a right radial approach. METHODS: After risks, benefits, and alternatives were explained, written informed consent was obtained. The patient was prepped and draped in usual sterile fashion over the right wrist. Using 1% lidocaine solution, local infiltration anesthesia was achieved. Using a modified Seldinger technique, access to the right radial artery was obtained. A 6-Hungarian Glidesheath was inserted without difficulty. Bilateral selective coronary angiography was performed, using JR5 and JL3.5 catheters. After reviewing the images, it was elected to conclude the procedure. All catheters were removed. The radial sheath was removed with application of pressure bandage per protocol to achieve optimal hemostasis. Overall, the patient tolerated the procedure well. There were no overt complications. He was to be transferred to the holding area in stable condition. FINDINGS: Hemodynamics: AO 114/80. LEFT VENTRICULOGRAPHY: This was not performed. CORONARY ARTERIES: Left main coronary artery. This arises from the left coronary cusp. It is a short vessel that bifurcates into the left anterior descending and left circumflex coronary artery. It is free of significant stenosis. Left anterior descending coronary artery. This shows a calcific 50% stenosis just past the ostium. The remainder of the vessel shows mild plaque. Left circumflex coronary artery. This is angiographically nonobstructive. Right coronary artery. This is a dominant vessel, giving rise to the posterior descending and posterolateral branches. There is a long segment 30% stenosis in the midportion of the vessel. The distal circulation shows diffuse plaque and caliber reduction. INDICATIONS: The patient is a 68-year-old man with a history of hypertension and dyslipidemia, who presented with chest pain and exertional shortness of breath. Prior to the initiation of a stress test, he was found to be in atrial flutter with a rapid ventricular response. He was referred today for CHARO, electrical cardioversion, and coronary angiography. Findings and management strategies are outlined above. Electronically Signed by: Nic Dasilva M.D. 09/28/2018 04:54 P Nic Dasilva M.D. Date Dict: 09/22/2018/04:51 P/Nic Dasilva M.D. Date Trans: 09/23/2018 08:03 A/simin [id number] cc: Elidia Machado M.D. [address] [place] [address] A [facility] [id number] Normal The [facility] MAGNESIUM BLOODon 09-23-2018 Magnesium mass conc 2.0 mg/dL Normal 1.9-2.[address] [facility] Comment on above: Order Comment: No: D o not add to previous draw Performed By: #### 1 0070, 46906 #### [facility] [address] POC GLUCOSE LABon 09-23-2018 Glucose mass conc 111 mg/dL High 70-100 The [facility] Comment on above: Performed By: #### 8 [id number] #### [facility] [address] [facility] History and Physicalon 09-22 History and Physical MR#: [id number] [facility] Pt. Name: Laura Jolly Admitted: 09/22/2018 Date of : 1950 Attending Physician: Jimmy Montemayor MD Room #: 3AB [id number] Discharge Date: HISTORY AND PHYSICAL CHIEF COMPLAINT: Post elective cardioversion with left heart catheterization. HISTORY OF PRESENT ILLNESS: This is a 68-year-old male with a history of hypertension, diabetes mellitus type 2, who has had the elective cardioversion for AFib with left heart catheterization today. Cardioversion has been successful. The patient is in normal sinus rhythm at this time. The patient denies chest pain, shortness of breath, nausea, or vomiting. No swelling or edema in lower extremities. No cough. No fever or chills. No diarrhea or abdominal pain. REVIEW OF SYSTEMS: Ten-point systems are reviewed negative except as in HPI. PAST MEDICAL HISTORY: 1. Diabetes mellitus type 2. 2. Paroxysmal AFib, status post cardioversion. 3. Nonobstructive CAD. 4. Hypertension. 5. Chronic kidney disease, stage 3. ALLERGIES: Sulfa and Cipro. SOCIAL HISTORY: Nonsmoker, nonalcoholic. Lives with the family. FAMILY HISTORY: Reviewed, noncontributory. MEDICATIONS: Medication list reviewed and reconciled. PHYSICAL EXAMINATION: VITAL SIGNS: The patient's blood pressure is 130/88 mmHg, heart rate is 88 per minute, temperature 98 degree Fahrenheit, respirations 17 per minute, 98% saturation on room air. EYES: No pallor or jaundice. ENT: No nasal discharge. RESPIRATORY: Bilateral air entry. CARDIOVASCULAR: S1, S2. ABDOMEN: Soft, nontender. MUSCULOSKELETAL: No joint deformity. PSYCHIATRY: Alert, awake, oriented to time, place, and person. LABORATORY DATA: Glucose level 113. ASSESSMENT AND PLAN: 1. Status post elective cardioversion for atrial fibrillation: Continue to monitor the patient on the cardiac telemetry floor. Continue Eliquis 5 mg b.i.d. for paroxysmal atrial fibrillation. 2. Nonobstructive coronary artery disease. Continue the patient on aspirin, statins, and beta-blockers. 3. Chronic kidney disease, stage 3. We will repeat the BMP in the morning to monitor the renal functions. 4. Diabetes mellitus type 2. Continue the patient's insulin NPH 22 units b.i.d. with sliding scale, with Accu-Chek before meals and at bedtime. The patient's last hemoglobin A1c was 5.9 as per the patient. 5. Hypertension. Continue the patient's metoprolol and lisinopril for blood pressure control. 6. Deep venous thrombosis prophylaxis with oral Eliquis. 7. The patient's expected length of stay is less than 24 hours at this time. Continue to monitor overnight with repeat labs in the morning. If everything remains good, the patient can be discharged home with a followup with Cardiology as an outpatient. 8. The patient's code status is full code. Electronically Signed by: Jimmy Montemayor MD 09/24/2018 07:11 P Jimmy Montemayor MD Date Dict: 09/22/2018/08:32 P/Jimmy Montemayor MD Date Trans: 09/22/2018 09:31 P/rosalieo [id number] Normal The [facility] POC GLUCOSE LABon 09-22-2018 Glucose mass conc 185 mg/dL High 70-100 The [facility] Comment on above: Performed By: #### [id number] #### [facility] [address] [place] [address], [facility] Glucose mass conc 113 mg/dL High 70-100 [facility] Comment on above: Performed By: #### [id number] #### [facility] [address] [place] [address], [facility] Vital Signs Date Time Vital Sign Value Performing Clinician Facility 06-17-2023 07:28-0500 Heart rate 93 /min Deny WebTuner [facility] 06-17-2023 07:28-0500 SaO2% (BldA) [Mass fraction] 95 % Deny WebT[employer] 06-17-2023 07:28-0500 Diastolic blood pressure 67 mm[Hg] Evernote [facility] 06-17-2023 07:28-0500 Mean blood pressure 89 mm[Hg] Evernote [facility] 06-17-2023 07:28-0500 Systolic blood pressure 134 mm[Hg] PositiveIDsh [facility] 06-17-2023 07:27-0500 Body temperature 98.24 [degF] Deny [employer] 06-17-2023 06:30-0500 Hourly Rounding Deny [employer] 06-17-2023 06:30-0500 Promise to Return Deny Gonzalezsh [facility] 06-17-2023 05:06-0500 Hourly Rounding Deny Gonzalezsh [facility] 06-17-2023 05:06-0500 Promise to Return Deny Gonzalezsh [facility] 06-17-2023 04:06-0500 Hourly Rounding Deny Gonzalezsh [facility] 06-17-2023 04:06-0500 Promise to Return Deny Gonzalezsh [facility] 06-17-2023 00:40-0500 Blood Pressure Location Deny Gonzalezsh [facility] 06-17-2023 00:40-0500 Body temperature 98.6 [degF] Deny Gonzalezsh [facility] 06-17-2023 00:40-0500 Diastolic blood pressure 64 mm[Hg] Deny Gonzalezsh [facility] 06-17-2023 00:40-0500 Heart rate 94 /min Deny Gonzalezsh [facility] 06-17-2023 00:40-0500 Mean blood pressure 79 mm[Hg] Deny Gonzalezsh [facility] 06-17-2023 00:40-0500 Respiratory rate 16 /min Deny Gonzalezsh [facility] 06-17-2023 00:40-0500 SaO2% (BldA) [Mass fraction] 94 % Deny Chicas [facility] 06-17-2023 00:40-0500 Systolic blood pressure 110 mm[Hg] Deny Gonzalezsh [facility] 06-16-2023 21:59-0500 Diastolic blood pressure 66 mm[Hg] Deny Gonzalezsh [facility] 06-16-2023 21:59-0500 Systolic blood pressure 113 mm[Hg] Deny Gonzalezsh [facility] 06-16-2023 17:32-0500 Heart rate 101 /min Deny Gonzalezsh [facility] 06-16-2023 15:42-0500 Heart rate 101 /min Deny Gonzalezsh [facility] 06-16-2023 15:42-0500 SaO2% (BldA) [Mass fraction] 93 % Deny Gonzalezsh [facility] 06-16-2023 15:37-0500 Body temperature 98.06 [degF] Deny Gonzalezsh [facility] 06-16-2023 15:36-0500 Mean blood pressure 79 mm[Hg] Deny Gonzalezsh [facility] 06-16-2023 14:00-0500 Heart rate 100 /min Deny Gonzalezsh [facility] 06-16-2023 12:19-0500 Heart rate 98 /min Deny Gonzalezsh [facility] 06-16-2023 10:59-0500 Mean blood pressure 84 mm[Hg] Deny Gonzalezsh [facility] 06-16-2023 10:58-0500 Body temperature 98.06 [degF] Deny Chicas [facility] 06-16-2023 05:10-0500 Blood Pressure Location Deny Gonzalezsh [facility] 06-16-2023 05:10-0500 Body temperature 97.52 [degF] Deny Gonzalezsh [facility] 06-16-2023 05:10-0500 Mean blood pressure 86 mm[Hg] Deny Gonzalezsh [facility] 06-16-2023 00:10-0500 Blood Pressure Location Deny Gonzalezsh [facility] 06-16-2023 00:10-0500 Respiratory rate 18 /min Deny Gonzalezsh [facility] 06-15-2023 06:00-0500 Mean blood pressure 96 mm[Hg] Deny Gonzalezsh [facility] 06-14-2023 12:50-0500 Respiratory rate 16 /min Deny Gonzalezsh [facility] 06-10-2023 06:53-0500 gluc 109 mg/dL Deny Gonzalezsh [facility] 06-10-2023 00:52-0500 gluc 109 mg/dL Deny Gonzalezsh [facility] 06-08-2023 18:02-0500 gluc 206 mg/dL Deny Gonzalezsh [facility] 06-03-2023 21:35-0500 Respiratory rate 20 /min Deny Gonzalezsh [facility] 06-03-2023 21:20-0500 Respiratory rate 19 /min Deny Gonzalezsh [facility] 06-03-2023 21:15-0500 Respiratory rate 19 /min Deny Gonzalezsh [facility] 06-03-2023 20:40-0500 FIO2 100 1 Deny Gonzalezsh [facility] 06-03-2023 20:35-0500 FIO2 100 1 Deny Gonzalezsh [facility] 06-03-2023 20:30-0500 FIO2 60 1 Deny Gonzalezsh [facility] 05-31-2023 13:31-0500 Heart rate 91 /min Deny Gonzalezsh [facility] 03-31-2023 14:55-0400 Diastolic blood pressure 94 mm[Hg] Mango Mourany [facility] 03-31-2023 14:55-0400 Heart rate 63 /min Mango Mourany [facility] 03-31-2023 14:55-0400 Respiratory rate 12 /min Mango Mourany [facility] 03-31-2023 14:55-0400 SaO2% (BldA) [Mass fraction] 96 % Mango Mourany [facility] 03-31-2023 14:55-0400 Systolic blood pressure 135 mm[Hg] Mango Mourany [facility] 03-31-2023 14:45-0400 Diastolic blood pressure 94 mm[Hg] Mango Mourany [facility] 03-31-2023 14:45-0400 Heart rate 61 /min Mango Mourany [facility] 03-31-2023 14:45-0400 Respiratory rate 20 /min Mango Mourany [facility] 03-31-2023 14:45-0400 SaO2% (BldA) [Mass fraction] 96 % Mango Mourany [facility] 03-31-2023 14:45-0400 Systolic blood pressure 135 mm[Hg] Mango Mourany [facility] 03-31-2023 14:30-0400 Diastolic blood pressure 76 mm[Hg] Mango Mourany [facility] 03-31-2023 14:30-0400 Heart rate 59 /min Mango Mourany [facility] 03-31-2023 14:30-0400 Respiratory rate 15 /min Mango Mourany [facility] 03-31-2023 14:30-0400 SaO2% (BldA) [Mass fraction] 94 % Mango Mourany [facility] 03-31-2023 14:30-0400 Systolic blood pressure 112 mm[Hg] Mango Mourany [facility] 03-31-2023 14:13-0400 Body temperature 97.88 [degF] Mango Mourany [facility] 03-31-2023 14:10-0400 Respiratory rate 16 /min Mango Mourany [facility] 03-31-2023 14:05-0400 Respiratory rate 16 /min Mango Mourany [facility] 03-31-2023 13:30-0400 Blood Pressure Location Mango Mourany [facility] 03-31-2023 13:30-0400 Body temperature 98.42 [degF] Mango Mourany [facility] 01-11-2023 10:23-0400 Blood Pressure Location Mango Mourany [facility] 01-11-2023 10:23-0400 Diastolic blood pressure 76 mm[Hg] Mango Mourany [facility] 01-11-2023 10:23-0400 Heart rate 62 /min Mango Mourany [facility] 01-11-2023 10:23-0400 Respiratory rate 16 /min Mango Mourany [facility] 01-11-2023 10:23-0400 SaO2% (BldA) [Mass fraction] 96 % Mango Gaytan [facility] [place] 01-11-2023 10:23-0400 Systolic blood pressure 123 mm[Hg] Mango Gaytan [facility] [place] 12-15-2022 11:00-0400 Body height 177.8 cm Tondra Mapus Other [facility] Other 12-15-2022 11:00-0400 Body mass index (BMI) [Ratio] 24.76 kg/m2 Tondra Mapus Other [facility] Other 12-15-2022 11:00-0400 Body weight 78.29 kg Tondra Mapus Other [facility] Other 12-15-2022 11:00-0400 Diastolic blood pressure 74 mm[Hg] Tondra Mapus Other [facility] Other 12-15-2022 11:00-0400 Respiratory rate 18 /min Tondra Mapus Other [facility] Other 12-15-2022 11:00-0400 SaO2% (BldA) [Mass fraction] 96 % Tondra Mapus Other [facility] Other 12-15-2022 11:00-0400 Systolic blood pressure 129 mm[Hg] Tondra Mapus Other [facility] Other 09-01-2022 12:00-0500 Body height 177.8 cm Tondra Mapus Other [facility] Other 09-01-2022 12:00-0500 Body mass index (BMI) [Ratio] 24.89 kg/m2 Tondra Mapus Other [facility] Other 09-01-2022 12:00-0500 Body weight 78.7 kg Tondra Mapus Other [facility] Other 09-01-2022 12:00-0500 Diastolic blood pressure 73 mm[Hg] Tondra Mapus Other [facility] Other 09-01-2022 12:00-0500 Respiratory rate 18 /min Tondra Mapus Other [facility] Other 09-01-2022 12:00-0500 SaO2% (BldA) [Mass fraction] 96 % Tondra Mapus Other [facility] Other 09-01-2022 12:00-0500 Systolic blood pressure 124 mm[Hg] Tondra Mapus Other [facility] Other 07-30-2022 11:28-0500 Blood Pressure Location Jens RUFF [facility] 07-30-2022 11:28-0500 Diastolic blood pressure 67 mm[Hg] Jens RUFF [facility] 07-30-2022 11:28-0500 Heart rate 65 /min Jens RUFF [facility] 07-30-2022 11:28-0500 Respiratory rate 16 /min Jens RUFF [facility] 07-30-2022 11:28-0500 Systolic blood pressure 116 mm[Hg] Jens RUFF [facility] 03-29-2022 14:30-0400 Body height 177.8 cm Tondra Mapus Other [facility] Other 03-29-2022 14:30-0400 Body mass index (BMI) [Ratio] 23.67 kg/m2 Tondra Mapus Other [facility] Other 03-29-2022 14:30-0400 Body weight 74.84 kg Tondra Mapus Other [facility] Other 03-29-2022 14:30-0400 Diastolic blood pressure 66 mm[Hg] Tondra Mapus Other [facility] Other 03-29-2022 14:30-0400 Respiratory rate 20 /min Tondra Mapus Other [facility] Other 03-29-2022 14:30-0400 SaO2% (BldA) [Mass fraction] 98 % Tondra Mapus Other [facility] Other 03-29-2022 14:30-0400 Systolic blood pressure 99 mm[Hg] Tondra Mapus Other [facility] Other 11-10-2021 15:00-0400 Body height 177.8 cm Tondra Mapus Other [facility] Other 11-10-2021 15:00-0400 Body mass index (BMI) [Ratio] 24.96 kg/m2 Tondra Mapus Other [facility] Other 11-10-2021 15:00-0400 Body weight 78.93 kg Tondra Mapus Other [facility] Other 11-10-2021 15:00-0400 Diastolic blood pressure 62 mm[Hg] Tondra Mapus Other [facility] Other 11-10-2021 15:00-0400 Respiratory rate 20 /min Tondra Mapus Other [facility] Other 11-10-2021 15:00-0400 SaO2% (BldA) [Mass fraction] 97 % Tondra Mapus Other [facility] Other 11-10-2021 15:00-0400 Systolic blood pressure 97 mm[Hg] Tondra Mapus Other [facility] Other 08-03-2021 15:00-0500 Body height 177.8 cm Tondra Mapus Other [facility] Other 08-03-2021 15:00-0500 Body mass index (BMI) [Ratio] 25.97 kg/m2 Tondra Mapus Other [facility] Other 08-03-2021 15:00-0500 Body weight 82.1 kg Tondra Mapus Other [facility] Other 08-03-2021 15:00-0500 Diastolic blood pressure 84 mm[Hg] Tondra Mapus Other [facility] Other 08-03-2021 15:00-0500 Respiratory rate 20 /min Tondra Mapus Other [facility] Other 08-03-2021 15:00-0500 SaO2% (BldA) [Mass fraction] 97 % Tondra Mapus Other [facility] Other 08-03-2021 15:00-0500 Systolic blood pressure 132 mm[Hg] Tondra Mapus Other [facility] Other 04-14-2021 14:30-0400 Body height 177.8 cm Tondra Mapus Other [facility] Other 04-14-2021 14:30-0400 Body mass index (BMI) [Ratio] 26.14 kg/m2 Tondra Mapus Other [facility] Other 04-14-2021 14:30-0400 Body weight 82.65 kg Tondra Mapus Other [facility] Other 04-14-2021 14:30-0400 Diastolic blood pressure 66 mm[Hg] Tondra Mapus Other [facility] Other 04-14-2021 14:30-0400 Respiratory rate 20 /min Tondra Mapus Other [facility] Other 04-14-2021 14:30-0400 SaO2% (BldA) [Mass fraction] 96 % Tondra Mapus Other [facility] Other 04-14-2021 14:30-0400 Systolic blood pressure 101 mm[Hg] Tondra Mapus Other [facility] Other Encounters Encounter Date Encounter Type Care Provider Facility Start: 06-23-2023 End: 06-24-2023 Pre-admission assessment Jose Alberto Avilamarnimarcus [facility] Start: 06-20-2023 End: 06-24-2023 ambulatory Yasir Morocho Facility:[id number] Start: 06-02-2023 End: 06-17-2023 Evaluation and management of inpatient Ganga Carrillo [place] Start: 05-31-2023 End: 06-17-2023 Evaluation and management of inpatient Deny Chicas [facility] Start: 05-02-2023 End: 05-03-2023 ambulatory Yasir Morocho Facility:[facility] Start: 04-28-2023 End: 04-29-2023 ambulatory Yasir Morocho [place] [place] Start: 04-28-2023 End: 04-28-2023 Patient encounter procedure Yasir Morocho [facility] Start: 04-25-2023 End: 05-13-2023 ambulatory Yasir Morocho Facility:[facility] Start: 04-25-2023 End: 05-12-2023 Off-Site Yasir Morocho [facility] Start: 04-20-2023 End: 04-21-2023 ambulatory Yasir Morocho [place] [place] Start: 04-20-2023 End: 04-20-2023 Lab Drop off Yasir Morocho [facility] Start: 04-20-2023 End: 06-24-2023 ambulatory Yasir Morocho Facility:[id number] Start: 04-19-2023 End: 04-20-2023 ambulatory Yasir Morocho Facility:[facility] Start: 04-07-2023 ambulatory Yasir Morocho Facility:[facility] Start: 04-07-2023 End: 11-16-2023 Pre-admission assessment Jimmy Lea [facility] Start: 04-05-2023 End: 04-05-2023 ambulatory [facility] Start: 03-31-2023 End: 04-01-2023 ambulatory Mango Gaytan [place] [place] Start: 03-31-2023 End: 03-31-2023 Patient encounter procedure Mango Gaytan [facility] Start: 03-28-2023 ambulatory Paulaa K Mapus Facility :[facility] Start: 01-28-2023 End: 01-28-2023 ambulatory [facility] Start: 01-28-2023 End: 01-28-2023 Encounter for preprocedural cardiovascular examination [facility] Start: 01-11-2023 End: 01-12-2023 ambulatory Mango Gaytan Facility: [facility] Start: 01-11-2023 End: 01-11-2023 Patient encounter procedure Mango Gaytan [facility] [place] Start: 01-05-2023 End: 01-06-2023 ambulatory Yasir Morocho [place] [place] Start: 01-05-2023 End: 01-06-2023 ambulatory Yasir Morocho Facility:[facility] Start: 12-15-2022 (DM) Diabetes Tondra Mapus [facility] Start: 12-15-2022 End: 12-15-2022 ambulatory Tondra Mapus Other [facility] Other Start: 12-08-2022 ambulatory Mango Gaytan Facilit y: [facility] Start: 12-06-2022 End: 12-07-2022 ambulatory Yasir Morocho [place] [place] Start: 11-23-2022 End: 11-24-2022 ambulatory YASIR MOROCHO Facility:[facility] Start: 10-21-2022 End: 10-21-2022 ambulatory BERENICE SHARPE [facility] Start: 10-14-2022 End: 10-14-2022 ambulatory ALBER [facility] Start: 10-05-2022 End: 10-05-2022 ambulatory ALBER [facility] Start: 10-04-2022 ambulatory Yasir Morocho Facility:[facility] Start: 09-24-2022 End: 10-29-2022 ambulatory ASTRID JEAN-BAPTISTE Facility:[facility] Start: 09-01-2022 (DM) Diabetes Tondra Ari [facility] Start: 09-01-2022 End: 09-01-2022 ambulatory Nusrat Chapman Other [facility] Other Start: 08-19-2022 End: 08-19-[address] ELIDIA MACHADO . Facility:[facility] Start: 08-04-2022 End: 08-05-[address] ELIDIA MACHADO . Facility: Start: 07-30-2022 End: 07-31-2022 ambulatory Jens RUFF Facility:[facility] Start: 07-30-2022 End: 07-30-2022 Patient encounter procedure Jens RUFF [facility] Start: 07-29-2022 End: 07-30-[address] ELIDIA MACHADO . Facility:[facility] Start: 06-28-2022 End: 06-29-[address] ELIDIA MACHADO . Facility:[facility] Start: 06-16-2022 End: 06-16-2022 ambulatory CHARI MEADE [facility] Start: 05-05-2022 ambulatory ALBER [facility] Start: 05-05-2022 Encounter for other preprocedural examination ALBER SANCHEZ [facility] Start: 05-05-2022 Encounter for preprocedural laboratory examination ALBER SANCHEZ [facility] Start: 05-05-2022 End: 05-05-2022 ambulatory ALBER SANCHEZ [facility] Start: 05-03-2022 End: 05-04-[address] ELIDIA MACHADO . Facility:[facility] Start: 05-03-2022 End: 05-04-2022 Encounter for other preprocedural examination DR ELIDIA MACHADO . Facility:[facility] Start: 03-29-2022 (DM) Diabetes Tondra Mapus [facility] Start: 03-29-2022 End: 03-29-2022 ambulatory Tondra Mapus Other [facility] Other Start: 03-26-2022 End: 03-27-[address] ELIDIA MACHADO . Facility:[facility] Start: 03-18-[address] ELIDIA MACHADO . Facil ity:[facility] Start: 12-30-2021 End: 12-31-[address] ELIDIA MACHADO . Facility:[facility] Start: 12-24-2021 End: 01-21-[address] ELIDIA MACHADO . Facility:[facility] Start: 12-16-2021 End: 12-17-[address] ELIDIA MACHADO . Facility:[facility] Start: 11-10-2021 (DM) Diabetes Tondra Ari [facility] Start: 11-10-2021 End: 11-10-2021 ambulatory Tondra Mapus Other [facility] Other Start: 09-12-2021 ambulatory TRUE COYNEAMERICA [facility] Start: 09-07-2021 ambulatory [facility] Start: 09-04-2021 End: 09-10-2021 Evaluation and management of inpatient GENERIC [facility] Start: 09-04-2021 End: 09-04-2021 Emergency department patient visit [facility] Start: 08-30-2021 End: 09-03-2021 Evaluation and management of inpatient ELIDIA MACHADO [facility] Start: 08-03-2021 (DM) Diabetes Tondra Mapus [facility] Start: 08-03-2021 End: 08-03-2021 ambulatory Tondra Suadus Other [facility] Other Start: 04-14-2021 (DM) Diabetes Nusrat Chapman [facility] Start: 10-17-2018 End: 10-20-2018 Evaluation and management of inpatient ROBERT ORDAZ Facility:[facility] Start: 09-22-2018 End: 09-23-2018 Patient encounter procedure ELIDIA MACHADO Facility:[facility] Procedures Date Procedure Procedure Detail Performing Clinician Start: 06-03-2023 Exploratory laparotomy Deny Gonzalezsh Start: 06-01-2023 Flexible fiberoptic sigmoidoscopy Jimmy Lea Start: 03-31-2023 Colonoscopy Mango erickson Comment on above: unable to complete,h as a tortuous colon Start: 10-05-2022 Follow-up visit Follow-up ALBER GARIBAY Start: 08-18-2022 Monitor, device (phy sical object) Mango Gaytan Start: 07-29-[address] ELIDIA HUGHEST . Comment on above: Performed By: #### P SAD #### [facility] [address] [place] [address] Dr. Mushtaq Arellano Start: 10-18-2018 [employer] [employer], [place] Start: 02-14-2013 Cystoscopy Jens MENENDEZ Arthroplasty of knee Jens RUFF Cardioversion Mango Gaytan Comment on above: 09/2018 Cataract (morphologic abnormality) Jens RUFF Colonoscopy Jens RUFF Insertion of hip prosthesis Jens RUFF Malignant lymphoma (disorder) Jens RUFF Shoulder region structure (body structure ) Jens RUFF Tonsillectomy and adenoidectomy Mango Gaytan Plan of Treatment Date Care Activity Detail Author Start: 01-06-2024 ambulatory Facility:[facility] [place] Start: 07-29-2023 ambulatory Facility:Rigo Hernandez [place] Immunizations Immunization Date Immunization Notes Care Provider Anatoly hernandes 04-19-2023 influenza, high dose seasonal, preservative-free Yasir Morocho [facility] 05-11-2022 influenza virus vaccine, unspecified formulation Jens RUFF [facility] 05-11-2022 SARS-CoV-2 (COVID-19 ) [id number] Jens RUFF [facility] Comment on above: Result Comment: 2022: [id number] 06-04-2021 influenza virus vaccine, unspecified formulation Jens RUFF [facility] 05-20-2021 SARS-CoV-2 (COVID-19 ) mRNA-1273 vaccine Jens SPEEDY [facility] Comment on above: Result Comment: 2022: [id number] 09-23-2020 COVID-19 Vaccine Moderna - Documentation Purposes Only Tondra Mapus Other [facility] 08-25-2020 COVID-19 Vaccine Moderna - Documentation Purposes Only Tondra Mapus Other [facility] 06-25-2020 influenza, high dose seasonal, preservative-free Tondra Mapus Other [facility] Other 06-25-2020 influenza virus vaccine, unspecified formulation Jens RUFF [facility] 08-01-2017 pneumococcal conjuga te vaccine, 13 valent Jens RUFF [facility] 2017 pneumococcal polysaccharide vaccine, 23 valent Jens RUFF [facility] NEGATED: Highlighted row has not occurred!11-19-2015 influenza, seasonal, injectable Tondra Mapus Other [facility] Other Payers Date Payer Category Payer Unknown [id number] Medicare [id number] 1960 Self-pay 1959 Unknown [id number] 1949 Unknown [id number] 2.16.8 40.1.463949.3.579.2.647 1949 Unknown [id number] 2.16.8 40.1.949114.3.579.2.647 1949 Unknown [id number] 2.16. 840.1.792036.3.579.2.900 1949 Unknown [id number] 2.16. 840.1.127742.3.579.2.902 1949 Unknown [id number] 2.16. 840.1.072400.3.579.2.902 1949 Unknown [id number] 2.16.84 0.1.758039.3.579.2.593 1949 Unknown [id number] 2.16.84 0.1.064321.3.579.2.593 1949 Unknown [id number] 2.16.84 0.1.749803.3.579.2.593 1949 Unknown [id number] 2.16.84 0.1.578308.3.579.2.593 1949 Unknown [id number] 2.16.84 0.1.217468.3.579.2.593 1949 Unknown [id number] 2.16.84 0.1.811909.3.579.2.593 1949 Unknown [id number] 2.16.84 0.1.392254.3.579.2.593 1949 Unknown [id number] 2.16.84 0.1.348751.3.579.2.593 1949 Unknown [id number] 2.16.84 0.1.559313.3.579.2.593 1949 Unknown [id number] 2.16.84 0.1.741041.3.579.2.593 1949 Unknown [id number] 2.16.84 0.1.402511.3.579.2.593 1949 Unknown [id number] 2.16.84 0.1.209844.3.579.2.593 1949 Unknown [id number] 2.16.84 0.1.936516.3.579.2.593 1949 Unknown [id number] 2.16.8 40.1.718699.3.579.2.727 1949 Unknown [id number] 2.16.8 40.1.040130.3.579.2.727 1949 Unknown [id number] 2.16.8 40.1.519087.3.579.2.727 1949 Unknown [id number] 2.16.8 40.1.529423.3.579.2.727 1949 Unknown [id number] 2.16.8 40.1.487640.3.579.2.727 1949 Unknown [id number] 2.16.8 40.1.307067.3.579.2.727 1949 Unknown [id number] 2.16.8 40.1.736143.3.579.2.727 1949 Unknown [id number] 2.16.8 40.1.727177.3.579.2.727 1949 Unknown [id number] 2.16.8 40.1.280548.3.579.2.727 1949 Unknown [id number] 2.16.8 40.1.155583.3.579.2.727 1949 Unknown [id number] 2.16.8 40.1.439857.3.579.2.727 1949 Unknown [id number] 2.16.8 40.1.452816.3.579.2.727 1949 Unknown [id number] 2.16.8 40.1.735805.3.579.2.727 1949 Unknown [id number] 2.16.8 40.1.835271.3.579.2.727 1949 Unknown [id number] 2.16.8 40.1.118744.3.579.2.727 1949 Unknown [id number] 2.16.8 40.1.204224.3.579.2.727 1949 Unknown [id number] 2.16.8 40.1.644095.3.579.2.727 1949 Unknown [id number] 2.16.8 40.1.041193.3.579.2.727 Unknown [id number] 2.16.8 40.1.015346.3.579.2.531 Social History Date Type Detail Facility Unknown if ever smoked [employer] Other Sex Assigned At [facility] Start: 07-30-2022 End: 05-02-2023 Tobacco smoking status Ex-smoker (finding) [facility] Mark Tobacco smoking status Never Randell [facility] [place] Medical Equipment Procedure Code Equipment Code Equipment Origin al Text Equipment Identifier Dates Start: 09-01-2022 COLON RESECTION Lucy Roper MD 06/03/23 Non Biological Ureter L {[id number] FDA Start: 06-03-2023 Goals Date Patient Goal Desired Activity /State 04-25-2023 Functional Status Date Assessment Result Facility 05-31-2023 Functional Status N/A [facility] 05-31-2023 Functional Status [facility] 03-31-2023 Functional Status N/A [facility] 01-11-2023 Functional Status N/A [facility] [place] 07-30-2022 Functional Status N/A [facility] [place] Clinical Notes 04-14-2021 to 06-18-2023 Note Date & Type Note Facility 06-18-2023 Note [facility] Comment on above: Result Comment: Elec tronically Signed By: Valarie Valencia PA-C\.br\Date and Time Signed: 06/17/23 13:09 EST\.br\Electronically Co-Signed By: Deny Chicas DO\.br\Date and Time Co-Signed: 06/18/23 11:09 EST 06-17-2023 Note Faxed med rec, sbar, discharge summary for the second time over to [phone]. Confirmation papers came x 2 batches. Odilon called report to facility. [facility] 06-17-2023 Hospital Discharg e instructions Patient Education 06/17/2023 08:40:44 Acute Kidney Injury, Adult Acute Kidney Injury, Adult Acute kidney injury is a sudden worsening of kidney function. The kidneys are a pair of organs that do many important jobs in the body, including: Make urine. Make hormones. Keep the right amount of fluids and chemicals in the body. This condition ranges from mild to severe. Over time, it may develop into long-lasting (chronic) kidney disease. Finding it and treating it early may keep it from becoming a long-lasting disease. What are the causes? Common causes of this condition include: A problem with blood flow to the kidneys. This may be caused by: ?Low blood pressure or shock. ?Blood loss. ?Heart and blood vessel disease. ?Severe lo. ?Liver disease. Direct damage to the kidneys. This may be caused by: ?Certain medicines. ?A kidney infection. ?Poisoning. ?Being around or in contact with toxic substances. ?A wound from surgery. ?A hard, direct hit to the kidney area. A sudden block in urine flow. This may be caused by: ?Cancer. ?Kidney stones. ?An enlarged prostate. What increases the risk? Being older than age 65. Being female. Being in the hospital. This is especially true if you are very sick. Having certain conditions, such as: ?Long-lasting kidney or liver disease. ?Diabetes. ?Heart disease and heart failure. ?Lung disease. What are the signs or symptoms? This condition may not cause symptoms until it becomes severe. Symptoms can include: Feeling very tired or having trouble staying awake. Nausea or vomiting. Swelling (edema) of the face, legs, ankles, or feet. Pain in the belly or pain along the side of your stomach (flank). Urine changes, such as: ?Making little or no urine. ?Passing urine with a weak flow. Muscle twitches and cramps, most often in the legs. Confusion or trouble concentrating. Not feeling the urge to eat. Fever. How is this diagnosed? This condition may be diagnosed based on: Your symptoms. Your medical history. A physical exam. You may have other tests, such as: Blood tests. Urine tests. Imaging tests. A kidney biopsy. This involves removing a sample of kidney tissue to be looked at under a microscope. How is this treated? Treatment depends on the cause and how severe the condition is. In mild cases, treatment may not be needed. The kidneys may heal on their own. In severe cases, treatment may include: Treating the cause of the kidney injury. This may mean that you have to change your medicines or the doses you take. Getting fluids through an IV tube. Having a small, thin tube (catheter) put in. This tube will drain urine and prevent blockages. Trying to keep problems from starting. This may mean not using certain medicines or not having tests done that could cause more kidney injury. In some cases, these treatments are also needed: Dialysis or continuous renal replacement therapy (CRRT). This treatment uses a machine to do the job of the kidneys. Surgery. This may be done to repair a damaged kidney. It could also be done to remove a blockage in the urinary tract. Follow these instructions at home: Medicines Take [id number] and prescription medicines only as told by your health care provider. Do not take any new medicines unless approved by your health care provider. Many medicines can make kidney damage worse. Do not take any vitamin or mineral supplements unless approved by your health care provider. Some of these can make kidney damage worse. Lifestyle Make changes to your diet as told by your health care provider. You may need to eat less protein. Get to, and stay at, a healthy weight. If you need help, ask your health care provider. Start or keep up an exercise plan. Exercise at least 30 minutes a day, 5 days a week. Do not smoke or use any products that contain nicotine or tobacco. If you need help quitting, ask your health care provider. General instructions Keep track of your blood pressure. Tell your health care provider if you notice any changes. Keep your vaccines up to date. Ask your health care provider which vaccines you need. Keep all follow-up visits. Where to find more information [place] [employer]: www.aakp.org National Kidney Foundation: www.kidney.org [employer]: www.akfinc.org Medical Education [place]: ?LifeOptions: www.lifeoptions.org ?Kidney [employer]: www.kidneyschool.org Contact a health care provider if: Your symptoms get worse. You have new symptoms such as: ?Headaches. ?Skin that is darker or revenue settlements administrator than normal. ?Easy bruising. ?Itchiness. ?Hiccups. ?Lack of menstrual periods. You have a fever. Get help right away if: You have symptoms of worsening kidney disease, such as: ?Chest pain. ?Shortness of breath. ?Seizures. ?Confusion or trouble thinking. ?Belly or back pain. You have pain or bleeding when you pass urine. You are making little or no urine. These symptoms may be an emergency. Get help right away. Call 911. Do not wait to see if the symptoms will go away. Do not drive yourself to the hospital. Summary Acute kidney injury is a sudden worsening of kidney function. This condition can be caused by problems with blood flow to the kidneys, damage to the kidneys, or a sudden block in urine flow. This condition may not cause symptoms until it becomes severe. Acute kidney injury can be diagnosed with blood tests, urine tests, imaging tests, and other tests. Treatment depends on the cause and how severe the condition is. This information is not intended to replace advice given to you by your health care provider. Make sure you discuss any questions you have with your health care provider. Document Revised: 10/11/2022 Document Reviewed: 05/13/2020 [employer] Patient Education 2022 [employer]. Follow Up Care 05/31/2023 13:28:47 With:[facility]amed[facility] Address:Unknown When: Unknown Comments:Paramedicine will contact you for a home visit once a week x4 weeks. Thank you. With:Yasir Morocho Address: [address] [place] [address] [facility] (2) When:1 to 2 weeks Comments:Please follow up with your PCP if needed. Thank you. [facility] 06-12-2023 Evaluation + Plan note Extrac oscar from: Title:Progress/SOAP Note Author:Rigoberto Chicas DO Date:06/12/23 1. Other specified diseases of anus and rectum, (K62.89: Other specified diseases of anus and rectum)Rectal mass Ordered: Consult to Hospice Resuscitation Status - DNR CC (Comfort Care) 2. Acute kidney failure, unspecified, (N17.9: Acute kidney failure, unspecified)CHRIS (acute kidney injury) Ordered: Consult to Hospice Resuscitation Status - DNR CC (Comfort Care) 3. Atrial fibrillation, (I48.91: Unspecified atrial fibrillation)Unspecified atrial fibrillation Ordered: Consult to Hospice Resuscitation Status - DNR CC (Comfort Care) 4. Anemia, (D64.9: Anemia, unspecified)Anemia, unspecified Ordered: Consult to Hospice 5. CHF (congestive heart failure), (I50.9: Heart failure, unspecified)Heart failure, unspecified Ordered: Consult to Hospice 6. Chronic kidney disease (CKD), stage III (moderate), (N18.30: Chronic kidney disease, stage 3 unspecified)Chronic kidney disease, stage 3 unspecified Ordered: Consult to Hospice 7. Hypercholesterolemia, (E78.00: Pure hypercholesterolemia, unspecified)Pure hypercholesterolemia, unspecified Ordered: Consult to Hospice 8. Essential (primary) hypertension, (I10: Essential (primary) hypertension)Hypertension Ordered: Consult to Hospice 9. Parkinson's disease, (G20: Parkinson's disease)Parkinson's disease Ordered: Consult to Hospice 10. 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 Benign prostatic hyperplasia without lower urinary tract symptoms, (N40.0: Benign prostatic hyperplasia without lower urinary tract symptoms)BPH (benign prostatic hyperplasia) Ordered: Consult to Hospice 12. Hypokalemia, (E87.6: Hypokalemia)Hypokalemia, (E87.6: Hypokalemia)Hypokalemia Ordered: Consult to Hospice 13. 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 Patient expresses desire to transition to hospice care. He is concerned that his most important things in life such as being independent. He is concerned that his recovery from his major abdominal surgery will be significantly hindered by his Parkinson's disease. He is to trouble maintaining his strength at this time. I discussed today's lab findings and physical exam findings and have concerned that he has a potential GI bleed which is a source of his hemoglobin drop. The patient expressed he would not wish to undergo an endoscopy to evaluate for his GI bleed nor would he want to receive a blood product transfusion. He wishes to continue pursuing palliative care and transition to hospice. Phone call placed to [facility] for transition of care. Will hold on any future labs or electrolyte replacements. Diet as tolerated. Patient's CODE STATUS changed to DNR comfort care. Extracted from: Title:Progress/SOAP Note Author:Rigoberot Chicas DO Date:06/09/23 1. Rectal mass (K62.89: Othe r specified diseases of anus and rectum) Ordered: calcium gluconate + Sodium Chloride 0.9% intravenous solution 100 mL, 2 gram = 100 mL, Soln-IV, IV Piggyback, Once, Stop date 06/09/23 9:00:00 EST, Routine, Start date 06/09/23 9:00:00 EST, 100 mL/hr, Infuse over 60 minute(s) potassium chloride, 40 mEq = 30 mL, Liquid, Oral, Once, Stop date 06/09/23 9:00:00 EST, Routine, Start date 06/09/23 9:00:00 EST Basic Metabolic Panel CBC w/ Auto Diff Magnesium Level Phosphorus Level XR Chest Single View 2. CHRIS (acute kidney injury) (N17.9: Acute kidney failure, unspecified) Ordered: calcium gluconate + Sodium Chloride 0.9% intravenous solution 100 mL, 2 gram = 100 mL, Soln-IV, IV Piggyback, Once, Stop date 06/09/23 9:00:00 EST, Routine, Start date 06/09/23 9:00:00 EST, 100 mL/hr, Infuse over 60 minute(s) potassium chloride, 40 mEq = 30 mL, Liquid, Oral, Once, Stop date 06/09/23 9:00:00 EST, Routine, Start date 06/09/23 9:00:00 EST Basic Metabolic Panel CBC w/ Auto Diff Magnesium Level Phosphorus Level XR Chest Single View 3. Atrial fibrillation (I48.91: Unspecified atrial fibrillation) Ordered: calcium gluconate + Sodium Chloride 0.9% intravenous solution 100 mL, 2 gram = 100 mL, Soln-IV, IV Piggyback, Once, Stop date 06/09/23 9:00:00 EST, Routine, Start date 06/09/23 9:00:00 EST, 100 mL/hr, Infuse over 60 minute(s) potassium chloride, 40 mEq = 30 mL, Liquid, Oral, Once, Stop date 06/09/23 9:00:00 EST, Routine, Start date 06/09/23 9:00:00 EST Basic Metabolic Panel CBC w/ Auto Diff Magnesium Level Phosphorus Level XR Chest Single View 4. Anemia (D64.9: Anemia, unspecified) Ordered: calcium gluconate + Sodium Chloride 0.9% intravenous solution 100 mL, 2 gram = 100 mL, Soln-IV, IV Piggyback, Once, Stop date 06/09/23 9:00:00 EST, Routine, Start date 06/09/23 9:00:00 EST, 100 mL/hr, Infuse over 60 minute(s) potassium chloride, 40 mEq = 30 mL, Liquid, Oral, Once, Stop date 06/09/23 9:00:00 EST, Routine, Start date 06/09/23 9:00:00 EST Basic Metabolic Panel CBC w/ Auto Diff Magnesium Level Phosphorus Level XR Chest Single View 5. CHF (congestive heart failure) (I50.9: Heart failure, unspecified) Ordered: Basic Metabolic Panel CBC w/ Auto Diff Magnesium Level Phosphorus Level XR Chest Single View 6. Chronic kidney disease (CKD), stage III (moderate) (N18.30: Chronic kidney disease, stage 3 unspecified) Ordered: Basic Metabolic Panel CBC w/ Auto Diff Magnesium Level Phosphorus Level 7. Hypercholesterolemia (E78.00: Pure hypercholesterolemia, unspecified) Ordered: Basic Metabolic Panel CBC w/ Auto Diff Magnesium Level Phosphorus Level 8. Hypertension (I10: Essential (primary) hypertension) Ordered: Basic Metabolic Panel CBC w/ Auto Diff Magnesium Level Phosphorus Level 9. Parkinson's disease (G20: Parkinson's disease) Ordered: Basic Metabolic Panel CBC w/ Auto Diff Magnesium Level Phosphorus Level 10. Type 2 diabetes mellitus with diabetic dermatitis, with long-term current use of insulin (E11.620: Type 2 diabetes mellitus with diabetic dermatitis) Ordered: Basic Metabolic Panel CBC w/ Auto Diff Magnesium Level Phosphorus Level 11. BPH (benign prostatic hyperplasia) (N40.0: Benign prostatic hyperplasia without lower urinary tract symptoms) Ordered: Basic Metabolic Panel CBC w/ Auto Diff Magnesium Level Phosphorus Level 12. Hypokalemia, (E87.6: Hypokalemia)Hypokalemia Ordered: calcium gluconate + Sodium Chloride 0.9% intravenous solution 100 mL, 2 gram = 100 mL, Soln-IV, IV Piggyback, Once, Stop date 06/09/23 9:00:00 EST, Routine, Start date 06/09/23 9:00:00 EST, 100 mL/hr, Infuse over 60 minute(s) potassium chloride, 40 mEq = 30 mL, Liquid, Oral, Once, Stop date 06/09/23 9:00:00 EST, Routine, Start date 06/09/23 9:00:00 EST Basic Metabolic Panel CBC w/ Auto Diff Magnesium Level Phosphorus Level XR Chest Single View 13. 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 Continue to monitor ostomy output. Noted to be over 1700 yesterday. Patient does have some mild electrolyte abnormalities today. Will continue to monitor this output Pain control with scheduled Tylenol, Dilaudid Patient with appropriate urine output. He was given a total of 1 L of additional fluid plus maintenance IV fluid overnight due to borderline blood pressures. Improved urine output overnight. He is also tolerating p.o. diet well. Patient does show signs of being fluid positive thus we will decrease and hold IV fluids today. If patient does decrease his blood pressure urine output will give albumin to help decrease volume. patient will be given 40 mEq of IV and p.o. potassium for hypokalemia. 2 g of calcium gluconate. Repeat BMP and electrolyte labs at 2 PM Continue PT OT and out of bed to chair Continue 4 times daily respiratory treatment. Aggressive pulmonary hygiene with scheduled incentive spirometer use. Patient has been doing well and improving over the past 24 to 48 hours with improved saturations and effort Continue vancomycin and Zosyn for suspected pneumonia. Patient does have positive MRSA screen so we will continue vancomycin Patient did have a drop in his hemoglobin today to 9.7. He has no signs of bleeding on his recent CT scan with no intra-abdominal fluid. This likely is related to his volume status and volume shifts in the setting of infection and recent surgery. Will repeat CBC at 2 PM Will transition to Lovenox as patient has normal creatinine. Continue IV metoprolol every 6. Extracted from: Title:Progress/SOAP Note Author:Rigoberto Chicas DO Date:06/08/23 1. Rectal mass (K62.89: Othe r specified diseases of anus and rectum) Ordered: Transfer Patient to 2. CHRIS (acute kidney injury) (N17.9: Acute kidney failure, unspecified) Ordered: Transfer Patient to 3. Hypokalemia (E87.6: Hypokalemia) Ordered: Transfer Patient to 4. Atrial fibrillation (I48.91: Unspecified atrial fibrillation) Ordered: Transfer Patient to 5. Anemia (D64.9: Anemia, unspecified) Ordered: Transfer Patient to 6. CHF (congestive heart failure) (I50.9: Heart failure, unspecified) 7. Chronic kidney disease (CKD), stage III (moderate) (N18.30: Chronic kidney disease, stage 3 unspecified) 8. Hypercholesterolemia (E78.00: Pure hypercholesterolemia, unspecified) 9. Hypertension (I10: Essential (primary) hypertension) 10. Parkinson's disease (G20: Parkinson's disease) 11. Type 2 diabetes mellitus with diabetic dermatitis, with long-term current use of insulin (E11.620: Type 2 diabetes mellitus with diabetic dermatitis) 12. BPH (benign prostatic hyperplasia) (N40.0: Benign prostatic hyperplasia without lower urinary tract symptoms) Intraoperative ureteral injury (N99.81: Other intraoperative complications of genitourinary system) residential (current) use of insulin (Z79.4: residential (current) use of insulin) At this point maintain regular diet. If patient shows any signs of nausea we will hold. Treat with aspiration risks due to patient's history of Parkinson's disease As needed pain control with Dilaudid Will give 500 cc bolus due to low urine output as well as borderline blood pressure. Will also start on low-grade maintenance IV fluid. Will continue to monitor due to the patient's history of CHF and current respiratory status. want to be cautious for any volume overload Continue PT OT and out of bed to chair. Continue 4 times daily respiratory treatments with bronchopulmonary hygiene. Patient needs aggressive therapy to ensure recruitment of bilateral lower lobes. Continue daily use of incentive parameter on every hour Continue Zosyn and vancomycin for suspected pneumonia No indication for transfusion SCDs and Lovenox twice daily for DVT prophylaxis Continue metoprolol 5 mg 4 times daily. Do not want transition to p.o. as the patient has a suspected ileus related to his ongoing pneumonia. Wanted ensure adequate absorption Extracted from: Title:APSO Note Author:Deny Singh DO e:06/06/23 1. Rectal mass (K62.89: Othe r specified diseases of anus and rectum) Status post left hemicolectomy with end transverse colostomy and exploratory laparotomy surgery on 06/03 Surgery consulted and following patient patient did have ureteral injury during complex dissection. N.p.o., dysphagia test today -cytology pending Ordered: [facility] Care/Day Moderate 35 Minutes [id number] 2. CHRIS (acute kidney injury) (N17.9: Acute kidney failure, unspecified) improved, Cr as high as 2.2 -trend Hold nephrotoxic drugs 3. Hypokalemia (E87.6: Hypokalemia) Improved, monitor, replace as needed 4. Atrial fibrillation (I48.91: Unspecified atrial fibrillation) IV Lopressor 5 mg every 6 hours No anticoagulation at this time due to recent surgery, will await for clearance by surgery to restart 5. Anemia (D64.9: Anemia, unspecified) Monitor Transfuse if hemoglobin less than 7 6. CHF (congestive heart failure) (I50.9: Heart failure, unspecified) Hold Lasix for now secondary to CHRIS 7. Chronic kidney disease (CKD), stage III (moderate) (N18.30: Chronic kidney disease, stage 3 unspecified) Monitor 8. Hypercholesterolemia (E78.00: Pure hypercholesterolemia, unspecified) Statin when able 9. Hypertension (I10: Essential (primary) hypertension) Monitor Continue IV Lopressor 10. Parkinson's disease (G20: Parkinson's disease) We will continue carbidopa levodopa when able if cleared to take p.o. 11. Type 2 diabetes mellitus with diabetic dermatitis, with long-term current use of insulin (E11.620: Type 2 diabetes mellitus with diabetic dermatitis) Accu-Cheks every 6 hours SSI if needed 12. BPH (benign prostatic hyperplasia) (N40.0: Benign prostatic hyperplasia without lower urinary tract symptoms) stable hudson present until pt can take tamusolin PO Will need follow-up with urology in 3 to 4 weeks to discuss stent removal and possibly 6 weeks. Intraoperative ureteral injury (N99.81: Other intraoperative complications of genitourinary system) Urology following Will need creatinine level of BETH drain at discharge termite helper (current) use of insulin (Z79.4: termite helper (current) use of insulin) Orders: Basic Metabolic Panel CBC w/ Auto Diff Extracted from: Title:Progress/SOAP Note Author:Rigoberto Chicas DO Date:06/06/23 1. Rectal mass (K62.89: Othe r specified diseases of anus and rectum) 2. CHRIS (acute kidney injury) (N17.9: Acute kidney failure, unspecified) 3. Hypokalemia (E87.6: Hypokalemia) 4. Atrial fibrillation (I48.91: Unspecified atrial fibrillation) 5. Anemia (D64.9: Anemia, unspecified) 6. CHF (congestive heart failure) (I50.9: Heart failure, unspecified) 7. Chronic kidney disease (CKD), stage III (moderate) (N18.30: Chronic kidney disease, stage 3 unspecified) 8. Hypercholesterolemia (E78.00: Pure hypercholesterolemia, unspecified) 9. Hypertension (I10: Essential (primary) hypertension) 10. Parkinson's disease (G20: Parkinson's disease) 11. Type 2 diabetes mellitus with diabetic dermatitis, with long-term current use of insulin (E11.620: Type 2 diabetes mellitus with diabetic dermatitis) 12. BPH (benign prostatic hyperplasia) (N40.0: Benign prostatic hyperplasia without lower urinary tract symptoms) Intraoperative ureteral injury (N99.81: Other intraoperative complications of genitourinary system) termite helper (current) use of insulin (Z79.4: residential (current) use of insulin) Continue n.p.o. with sips. Speech evaluation today for possible dysphagia. If patient passes we will give clear liquid diet. Continue home carbidopa levodopa Continue as needed pain medications with Dilaudid, scheduled Tylenol, scheduled Toradol. We will add IV muscle relaxers. Creatinine improving. Status post ureter injury. We will continue to monitor BETH output. Patient will need a BETH creatinine sent on the day of discharge as this is a send out lab. This will help in planning drain removal. PT OT. Out of bed to chair today. Incentive spirometer No need for antibiotics No indication for transfusion Continue IV metoprolol 5 mg every 6 hours until patient's p.o. tolerance is appropriate. Then will transition back to home dose. SCDs and Lovenox for DVT prophylaxis Extracted from: Title:Progress/SOAP Note Author:Mikel MONTES, Natalya Bates. Date:06/05/23 1. Rectal mass (K62.89: Othe r specified diseases of anus and rectum) 2. CHRIS (acute kidney injury) (N17.9: Acute kidney failure, unspecified) 3. Hypokalemia (E87.6: Hypokalemia) 4. Atrial fibrillation (I48.91: Unspecified atrial fibrillation) 5. Anemia (D64.9: Anemia, unspecified) 6. CHF (congestive heart failure) (I50.9: Heart failure, unspecified) 7. Chronic kidney disease (CKD), stage III (moderate) (N18.30: Chronic kidney disease, stage 3 unspecified) 8. Hypercholesterolemia (E78.00: Pure hypercholesterolemia, unspecified) 9. Hypertension (I10: Essential (primary) hypertension) 10. Parkinson's disease (G20: Parkinson's disease) 11. Type 2 diabetes mellitus with diabetic dermatitis, with long-term current use of insulin (E11.620: Type 2 diabetes mellitus with diabetic dermatitis) 12. BPH (benign prostatic hyperplasia) (N40.0: Benign prostatic hyperplasia without lower urinary tract symptoms) Intraoperative ureteral injury (N99.81: Other intraoperative complications of genitourinary system) residential (current) use of insulin (Z79.4: termite helper (current) use of insulin) Orders: Dextrose 5% in Lactated Ringers intravenous solution 1,000 mL, 1,000 mL, IV, 75 mL/hr, Routine, Start date 06/05/23 18:41:00 EST, 13.3 hour(s), Total volume (mL): 1,000, 71.1 kg, 1.84, m2 glucose, 50 mL, Soln-IV, IV Push, Once PRN Blood glucose, Routine, Start date 06/05/23 18:14:00 EST glucose, 50 mL, Soln-IV, IV Push, q6hr PRN Blood glucose, Routine, Start date 06/05/23 18:39:00 EST glucose, 50 mL, Soln-IV, IV Push, Once PRN Blood glucose, Routine, Start date 06/03/23 21:32:00 EST Lactated Ringers Injection, 500 mL, Soln-IV, IV, Once, Stop date 06/05/23 12:00:00 EST, Routine, Start date 06/05/23 12:00:00 EST, mL/hr, Infuse over 61, minute(s) potassium chloride, 40 mEq = 30 mL, Liquid, NG-Tube, Once, Stop date 06/05/23 12:00:00 EST, Routine, Start date 06/05/23 12:00:00 EST, 06/05/23 11:41:00 EST Automated Diff eGFR Extra Green Li Tube NPO Diet Occupational Therapy Additional Tx Occupational Therapy Evaluate Patient, Develop a Plan of Care and Implement Plan Physical Therapy Additional Tx Physical Therapy Evaluate Patient, Develop a Plan of Care and Implement Plan Referral to [facility] Speech Language Pathology Swallow Eval; Evaluate Pt, Develop a Plan of Care & Implement Plan 72-year-old male found to have colonic obstruction secondary to mass versus diverticular stricture now status post ex lap, left hemicolectomy with end transverse colostomy (Dr. Morin) and left ureteroureterostomy with stent placement (Dr. Roper) on 06/03/2023. - Stool and some air in the bag. Essentially zero NG output over 12 hours. Clamp trial performed without nausea or vomiting. NG removed. Keep at ice chips and small sips of water/soda for comfort - Some concern for difficulty swallowing while NG in place. NG removed today, and will obtain formal MEDICATION COORDINATOR eval tomorrow - Scheduled IV Tylenol, as needed IV Dilaudid. Pain well controlled today. Continue home Parkinson's meds. - MIVF switched to D5LR for hypoglycemia. Urine output has increased substantially. acute on chronic renal injury - creatinine 2.2 today, but no hyperkalemia. Potassium replaced for hypokalemia. - Patient with intraoperative ureteral transection, appreciate urology recommendations. Hudson to remain in place and patient to follow-up with urology as an outpatient for stent removal. We will plan to test J P creatinine prior to BETH drain removal. - Continue OT/PT therapies. - Maintain O2 sats > 92%. Continue pulmonary toilet, encourage IS. - No indication for abx - No indication for transfusion - Continue SCDs and subq heparin for DVT ppx. - Maintain PIVs, Hudson catheter, BETH drain - History of A-fib, patient's home metoprolol converted to IV while NPO - well controlled on medication today. Holding other PO home meds for now while mostly NPO - No indication for ulcer ppx - ISS ordered, home lantus held. Glucose containing fluids started due to some hypoglycemia today. - EGS primary - Remain on RNF . PT/OT recommends SNF at discharge. Referral sent to [facility] [place]. Extracted from: Title:EU - Urology Consult progress note Author: Judson MONTES, Lucy Bennett Date:06/04/23 Impression and Plan Postop day 1 status post left hemicolectomy, left ureteral injury s/p primary ureteroureterostomy and stent placement Briefly discussed Intra-Op finds with patient. Discussed plans for follow-up in the office discussed in removal in 6 weeks -Post op KUB, left ureteral stent in appropriate position. -Patient on tamsulosin at home. Otherwise has incomplete bladder emptying. Recommend continue Hudson catheter until patient is able to be maintained on tamsulosin and is able to mobilize more for voiding -BETH creatinine prior to removal if output increased after Hudson removal -Follow-up outpatient in 3 to 4 weeks to discuss stent removal in 6 weeks. -Remainder of care per primary Extracted from: Title:ANES Post-operative Note---General Author: Yemi Quinones Jr, DO Date:06/03/23 Plan Transfer/Discharge: Transfer/Discharge Discharge when meets criteria ( To home ). Extracted from: Title:EU -left ureteroureter ostomy, left ureteral stent placement Author:Lucy Roper MD. Date:06/03/23 Impression and Plan Diagnosis Rectal mass (GLV30-FA K62.89, Discharge, Medical). Intraoperative ureteral injury (QUG95-NP N99.81, Working, Medical). Diagnosis Rectal mass (LVV02-JG K62.89, Discharge, Medical). Intraoperative ureteral injury (HET06-GE N99.81, Working, Medical). Extracted from: Title:EU- Urology Consultation Note Author:Lucy Ferro. Date:06/03/23 Impression and Plan Genitourinary/Renal Diagnosis Rectal mass (MEB24-NF K62.89, Discharge, Medical). Intraoperative ureteral injury (IOS54-FW N99.81, Working, Medical). BPH (benign prostatic hyperplasia) (GTQ65-SE N40.0, Discharge, Medical). 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 Urology consulted intraoperatively for further evaluation and management. Please see operative note for further details -Continue Hudson catheter postop. Does not need prolonged indwelling time as long as patient is awake and able to void. If patient develops flank pain or increased drainage output, recommend replacing Hudson catheter. -Continue BETH drain to bulb suction. Recommend checking BETH creatinine prior to removal, particularly if high output. If BETH creatinine positive, take off suction and continue until drain output minimal. -Continue home tamsulosin for BPH and stent irritation -Would avoid oxybutynin for stent irritation/bladder spasms given risk of constipation and recent bowel surgery -Continue left ureteral stent for 6 weeks. Patient will be seen in the urology office after discharge to discuss and schedule cystoscopy, left ureteral stent placement under local. Intra-Op findings and plan discussed with patient's family.. Extracted from: Title:GUSTAVO Pre-operative Note 2022 Author:Yemi Quinones Jr, DO Date:06/03/23 Plan [place] [employer] (ASA) physical status classification: Class IV, E. Anesthetic Preoperative Plan: Anesthesia General. Extracted from: Title:GUSTAVO Post Op - General Author:MD Allen Ahmad F Date:06/01/23 Plan Transfer/Discharge: Transfer/Discharge Discharge when meets criteria ( To home ). Extracted from: Title:Inpatient Consultation -Floor Code* Author:Jimmy Lea MD Date:06/01/23 Impression and Plan This is a 72-year-old gentleman with past medical history hypertension, A-fib, heart failure and CKD was found to have rectal mass on CT therefore he was sent for colonoscopy. He could not tolerate the oral prep, therefore he was sent to ER and then was admitted to the hospital for further evaluation and treatment. He reports abdominal cramping likely due to obstructive symptoms. Reports also nausea, no vomiting. He also endorsed weight loss and poor appetite Given the obstructive symptoms, he will likely not tolerate oral prep Therefore I prefer flexible sigmoidoscopy can enema if tolerated gently N.p.o. for now Extracted from: Title:ANES Pre Op - Adult General Author:Charito streeter MD, Ahmad F Date:06/01/23 Plan [place] [employer] (ASA) physical status classification: Class III. Anesthetic Preoperative Plan Anesthesia: General. . Anesthetic plan, risks, benefits, and alternatives discussed with the patient and/or family. Risks discussed: nausea, vomiting, headache, sore throat, dental injury, serious complications. Patient verbalized understanding. Communication: face to face with patient 5 minutes. Extracted from: Title:ED Note Author:Tamela Diaz PA-C Date :05/31/23 1. Rectal mass (K62.89: Othe r specified diseases of anus and rectum) 2. CHRIS (acute kidney injury) (N17.9: Acute kidney failure, unspecified) 3. Hypokalemia (E87.6: Hypokalemia) 4. Atrial fibrillation (I48.91: Unspecified atrial fibrillation) 5. Anemia (D64.9: Anemia, unspecified) 6. CHF (congestive heart failure) (I50.9: Heart failure, unspecified) 7. Chronic kidney disease (CKD), stage III (moderate) (N18.30: Chronic kidney disease, stage 3 unspecified) 8. Hypercholesterolemia (E78.00: Pure hypercholesterolemia, unspecified) 9. Hypertension (I10: Essential (primary) hypertension) 10. Parkinson's disease (G20: Parkinson's disease) 11. Type 2 diabetes mellitus with diabetic dermatitis, with long-term current use of insulin (E11.620: Type 2 diabetes mellitus with diabetic dermatitis) 12. 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) use of insulin (Z79.4: residential (current) use of insulin) Orders: potassium bicarbonate, 50 mEq = 2 tab(s), Tab-Eff, Oral, Once, Stop date 05/31/23 14:39:00 EST, STAT, Start date 05/31/23 14:39:00 EST, 05/31/23 14:39:00 EST Automated Diff Basic Metabolic Panel CBC w/ Auto Diff ED Physician consult Hospitalist for continued care eGFR Saline Lock Insert Extracted from: Title:Admission H & P Author:Steve GARCIA MD te:05/31/23 72-year-old white male past medical history of diabetes type 2, hypertension, hyperlipidemia, history of A-fib, history of chronic heart failure, history of chronic kidney disease stage III, history of nephrolithiasis, BPH, Parkinson disease, and recent diagnosis of rectal mass who was sent by GI for inpatient colonoscopy. Patient 4 months ago had colonoscopy for rectal bleeding but the colonoscopy was not completed due to anatomy. Patient was seen by GI as outpatient and outpatient preparation and colonoscopy was tried but he could not tolerate the colon prep. He was found to have inpatient colonoscopy. Has been complaining of lower abdominal cramping pain. It is 5/10 intensity. Associated with nausea. No vomiting. Last bowel movement was last night. Associated with weight loss and poor appetite. Associated with generalized weakness and dizziness. He denies any chest pain or shortness of breath. No orthopnea or PND. IMP 1. Rectal mass (K62.89: Other specified diseases of anus and rectum) 23-hour observation Patient will not require more than 1 night in the hospital Clear liquid diet for now Normal saline 75 cc/h N.p.o. after midnight GI consult Plan for colonoscopy tomorrow Surgery consult 2. Atrial fibrillation (I48.91: Unspecified atrial fibrillation) Resume Toprol-XL Keep holding Eliquis 3. 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 Hemoglobin hematocrit in the morning 4. CHF (congestive heart failure) (I50.9: Heart failure, unspecified) Stable hold Lasix for now 5. Chronic kidney disease (CKD), stage III (moderate) (N18.30: Chronic kidney disease, stage 3 unspecified) BMP in the morning 6. Hypercholesterolemia (E78.00: Pure hypercholesterolemia, unspecified) Resume Lipitor 7. Hypertension (I10: Essential (primary) hypertension) Resume Toprol-XL 8. Parkinson's disease (G20: Parkinson's disease) Resume carbidopa 9. Type 2 diabetes mellitus with diabetic dermatitis, with long-term current use of insulin (E11.620: Type 2 diabetes mellitus with diabetic dermatitis) Accu-Chek ACHS sliding scale 10. BPH (benign prostatic hyperplasia) (N40.0: Benign prostatic hyperplasia without lower urinary tract symptoms) Resume home medication Orders: acetaminophen, 650 mg = 2 tab(s), Tab, Oral, q6hr PRN Pain, Routine, Start date 05/31/23 14:32:00 EST, 05/31/23 14:32:00 EST Al hydroxide/Mg hydroxide/simethicone, 30 mL, Susp-Oral, Oral, q6hr PRN Indigestion, STAT, Start date 05/31/23 14:32:00 EST diphenhydrAMINE, 25 mg = 1 cap(s), Cap, Oral, q6hr PRN Itching, Routine, Start date 05/31/23 14:32:00 EST, 05/31/23 14:32:00 EST magnesium hydroxide, 30 mL, Susp-Oral, Oral, q6hr PRN Constipation, STAT, Start date 05/31/23 14:32:00 EST promethazine, 12.5 mg = 0.5 mL, Injection, IV Push, q6hr PRN Nausea, Routine, Start date 05/31/23 14:32:00 EST, 05/31/23 14:32:00 EST senna, 17.2 mg = 2 tab(s), Tab, Oral, BID PRN Other (see comment), Routine, Start date 05/31/23 14:32:00 EST Sodium Chloride 0.9% intravenous solution 1,000 mL, 1,000 mL, IV, 75 mL/hr, Routine, Start date 05/31/23 14:32:00 EST, 13.3 hour(s), Total volume (mL): 1,000, 71.1 kg, 1.84, m2 Basic Metabolic Panel Clear Liquid Diet Consult to Gastroenterology Notify Provider Vital Signs Notify Provider Vital Signs NPO Diet Place in Status Resuscitation Status - Full Saline Lock Convert From IV Up ad Lurdes Vital Signs Weight Future Appointments Appointment Date:07/29/2023 11:00:00 AM Scheduled Provider:Jens RUFF MD Location:[facility] Appointment Type:URO Office Visit Appointment Date:01/06/2024 08:00:00 AM Scheduled Provider: Location:[facility] Appointment Type:FM Medicare Wellness Subsequent Diagnostic Tests Pending * KRAS Mutation Analysis, CRC 06/03/23 Future Scheduled Tests Radiology* US Bladder 05/29/23 [facility]11-20-2023 NoteOstomy consult done, education provided to patient and son. Started kit ordered from [employer]. [facility]Result Comment: Electronically Signed By: Arminda Morin MD.br\Date and Time Signed: 06/03/23 14:04 [id number] NoteCleveland Clinic Union HospitalComment on above:Result Comment: Electronically Signed By: RADHA MONTES, Steve\.br\Date and Time Signed: 05/31/23 14:[id number] Note Patient here for 2 mo follow up echo and colonoscopy. Had labs last week. Says they weren't able to complete his colonoscopy because he has a curvy colon . Still not on Eliquis. Denies chest pain, SOB, and palpitations. Review of Systems Cardiovascular: Positive for leg swelling. Skin: Positive for color change. Neurological: Positive for tremors. All other systems reviewed and are negative.[facility] 04-05-2023 NoteUT Electrophysiology Consult Note Reason for visit: s/p flutter ablation, s/p loop implant HPI: Patient is s/p flutter ablation on 05/05/2022. he is maintaining sinus rhythm and doing well. He had hematuria which has since resolved. Patient has had Eliquis held per PCP due to bright red blood per rectum since 12/06/2022 he is pending colonoscopy to evaluate bright red blood per rectum-- he had an attempted colonoscopy But GI specialist could not pass probe through the colon and was referred to [facility]. He is still waiting to hear back from [facility]. I discussed with him he needs to reach out to them and if he needs me to I will gladly reach out to the team to reiterate the urgency of his colonoscopy so we can restart Eliquis. Discussed with patient given we have no evidence of A-fib and so far loop data does not show any arrhythmia we can continue to monitor at this time but if I do see episodes of A-fib we will need to consider at least an antiarrhythmic to try to suppress until we know the plan with anticoagulation. he has had no bright red blood per rectum since about December 2022 Loop data review: 04/05/23 no arrhythmia seen 11/2022 no events ECG 01/28/2023 normal sinus rhythm per care everywhere 09/07/2021 ECG atrial fib with rapid RVR, this EKG is not visible to me but was interpreted as A-fib Prior HPI Laura Jolly is a 72 y.o. year old with past medical history of atrial flutter, Parkinson's disease, diabetes mellitus type 2, hypertension was recently evaluated for watchman procedure by Dr. RAGLAND. He was noted to have atrial flutter throughout our EKG that has been reviewed. However patient said that he was recently admitted to [facility] in [place] following fall and noted to have some hip issues. At that time he was mentioned to have A. fib although I do not have records to confirm this. He was previously taking sotalol which was discontinued. He is fully functional and is independent. He has 4 children but one of them being in [place] and another in the [facility] and 2 others in [place]. 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 EKG 01/11/2022 shows atrial flutter 09/21/2021 shows atrial flutter 08/26/2021 shows sinus rhythm 03/14/2020 shows sinus rhythm with artifact 10/30/2018 shows sinus rhythm 10/17/2018 shows atrial flutter Echocardiogram performed on 10/18/2018 shows EF of 50% with diffuse global hypokinesis and mildly enlarged left atrium and right atrium PMH: Past Medical History: Diagnosis Date Atrial flutter (CMS/HCC) Chronic kidney disease Diabetes mellitus (CMS/HCC) DJD (degenerative joint disease) Hypertension Parkinson disease (CMS/HCC) Recurrent falls PSH: Past Surgical History: Procedure Laterality Date ABLATION OF DYSRHYTHMIC FOCUS BASAL CELL CARCINOMA EXCISION CARDIAC CATHETERIZATION 09/22/2018 CATARACT EXTRACTION Left 08/2022 CATARACT EXTRACTION Right 2020 PARTIAL HIP ARTHROPLASTY Left 08/27/2021 TOTAL KNEE ARTHROPLASTY TOTAL SHOULDER ARTHROPLASTY SH: Social Determinants of Health Tobacco Use: Medium Risk (10/11/2022) Patient History Smoking Tobacco Use: Former Smokeless Tobacco Use: Never Passive Exposure: Not on file Alcohol Use: Not on file Financial Resource Strain: Not on file Food Insecurity: Not on file Transportation Needs: Not on file Physical Activity: Not on file Stress: Not on file Social Connections: Not on file Intimate Partner Violence: Not on file Depression: Not on file Housing Stability: Not on file Allergies: Allergies Allergen Reactions Cipro [Ciprofloxacin Hcl] Codeine Other reaction(s): Unknown Epinephrine Sulfa (Sulfonamide Antibiotics) Allopurinol Rash Weight: 76.7kg Visit Vitals BP 116/72 (BP Location: Left arm, Patient Position: Sitting) Pulse 77 Ht 1.778 m (5' 10 ) Wt 76.7 kg (169 lb) SpO2 97% BMI 24.25 kg/m??? Smoking Status Former BSA 1.95 m??? Meds: Current Outpatient Medications on File Prior to Visit Medication Sig Dispense Refill atorvastatin (Lipitor) 40 mg tablet Take 1 tablet (40 mg) by mouth at bedtime. 90 tablet 3 carbidopa-levodopa (Sinemet) 25-100 mg tablet Take 1 tablet by mouth in the morning and at bedtime. docosahexaenoic acid/epa (FISH OIL ORAL) Take 1 tablet by mouth in the morning. furosemide (Lasix) 20 mg tablet Take 20 mg by mouth in the morning. gemfibrozil (Lopid) 600 mg tablet Take 600 mg by mouth 1 (one) time each day. insulin aspart (NovoLOG) 100 unit/mL injection Inject under the skin 1 (one) time. metFORMIN (Glucophage) 1,000 mg tablet Take 1,000 mg by mouth with breakfast. metoprolol succinate XL (Toprol-XL) 100 mg 24 hr tablet Take 100 mg by mouth in the morning. Do not crush or chew. potassium chloride CR (Klor-Con M10) 10 mEq ER tablet Take 10 mEq by mouth in the morning. Do not crush or chew. tamsulosin (Floma (more content not included)...[facility]09-15-2023 [id number] Hospital Discharge instructions Patient Education 03/31/2023 13:21:56 Colonoscopy, Adult, Care After Colonoscopy, Adult, Care After The following information offers guidance on how to care for yourself after your procedure. Your health care provider may also give you more specific instructions. If you have problems or questions, contact your health care provider. What can I expect after the procedure? After the procedure, it is common to have: A small amount of blood in your stool for 24 hours after the procedure. Some gas. Mild cramping or bloating of your abdomen. Follow these instructions at home: Eating and drinking Drink enough fluid to keep your urine pale yellow. Follow instructions from your health care provider about eating or drinking restrictions. Resume your normal diet as told by your health care provider. Avoid heavy or fried foods that are hard to digest. Activity Rest as told by your health care provider. Avoid sitting for a long time without moving. Get up to take short walks every 1 2 hours. This is important to improve blood flow and breathing. Ask for help if you feel weak or unsteady. Return to your normal activities as told by your health care provider. Ask your health care provider what activities are safe for you. Managing cramping and bloating Try walking around when you have cramps or feel bloated. If directed, apply heat to your abdomen as told by your health care provider. Use the heat source that your health care provider recommends, such as a moist heat pack or a heating pad. ?Place a towel between your skin and the heat source. ?Leave the heat on for 20 30 minutes. ?Remove the heat if your skin turns bright red. This is especially important if you are unable to feel pain, heat, or cold. You have a greater risk of getting burned. General instructions If you were given a sedative during the procedure, it can affect you for several hours. Do not drive or operate machinery until your health care provider says that it is safe. For the first 24 hours after the procedure: ?Do not sign important documents. ?Do not drink alcohol. ?Do your regular daily activities at a slower pace than normal. ?Eat soft foods that are easy to digest. Take [id number] and prescription medicines only as told by your health care provider. Keep all follow-up visits. This is important. Contact a health care provider if: You have blood in your stool 2 3 days after the procedure. Get help right away if: You have more than a small spotting of blood in your stool. You have large blood clots in your stool. You have swelling of your abdomen. You have nausea or vomiting. You have a fever. You have increasing pain in your abdomen that is not relieved with medicine. These symptoms may be an emergency. Get help right away. Call 911. Do not wait to see if the symptoms will go away. Do not drive yourself to the hospital. Summary After the procedure, it is common to have a small amount of blood in your stool. You may also have mild cramping and bloating of your abdomen. If you were given a sedative during the procedure, it can affect you for several hours. Do not drive or operate machinery until your health care provider says that it is safe. Get help right away if you have a lot of blood in your stool, nausea or vomiting, a fever, or increased pain in your abdomen. This information is not intended to replace advice given to you by your health care provider. Make sure you discuss any questions you have with your health care provider. Document Revised: 02/24/2022 Document Reviewed: 02/24/2022 [employer] Patient Education 2022 [employer]. [facility]09-14-2023 Evaluation + Plan noteExtracted from: Title:ANES Post General Author:Elliot Cadet DO Date:03/31/23 Plan Transfer/Discharge: Patient exhibiting no signs of N/V. Hydration status is adequate. Extracted from: Title:Helio Basic PRE Author:Mundo Cadet DO Date:03/31/23 Plan [place] [employer] (ASA) physical status classification: Class III. Anesthetic Preoperative Plan: Anesthesia General, and Monitored anethesia care. Future Appointments Appointment Date:07/29/2023 11:00:00 AM Scheduled Provider:Jens RUFF MD Location:[facility] Appointment Type:URO Office Visit Appointment Date:01/06/2024 08:00:00 AM Scheduled Provider: Location:[facility] Appointment Type: Medicare Wellness Subsequent [facility]07-14-2023 NotePatient here for 3 mo follow up atrial flutter. He has been off of Eliquis for awhile due to positive occult blood. He needs cleared for colonoscopy, which is not yet scheduled. Denies chest pain, SOB, and palpitations. Review of Systems Cardiovascular: Positive for leg swelling. Skin: Positive for color change. Neurological: Positive for tremors. All other systems reviewed and are negative.[facility] 01-28-2023 NoteUT Electrophysiology Consult Note Reason for visit: s/p flutter ablation, s/p loop implant HPI: Patient is s/p flutter ablation on 05/05/2022. he is maintaining sinus rhythm and doing well. He had hematuria which has since resolved. Reviewed his loop in clinic he had no episodes of arrhythmia. Patient has had Eliquis held per PCP due to bright red blood per rectum since 12/06/2022 he is pending colonoscopy to evaluate bright red blood per rectum ECG 01/28/2023 normal sinus rhythm per care everywhere 09/07/2021 ECG right atrial fib with rapid RVR, this EKG is not visible to me but was interpreted as A-fib Prior HPI Laura Jolly is a 72 y.o. year old with past medical history of atrial flutter, Parkinson's disease, diabetes mellitus type 2, hypertension was recently evaluated for watchman procedure by Dr. RAGLAND. He was noted to have atrial flutter throughout our EKG that has been reviewed. However patient said that he was recently admitted to [facility] in [place] following fall and noted to have some hip issues. At that time he was mentioned to have A. fib although I do not have records to confirm this. He was previously taking sotalol which was discontinued. He is fully functional and is independent. He has 4 children but one of them being in [place] and another in the [facility] and 2 others in [place]. 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 EKG 01/11/2022 shows atrial flutter 09/21/2021 shows atrial flutter 08/26/2021 shows sinus rhythm 03/14/2020 shows sinus rhythm with artifact 10/30/2018 shows sinus rhythm 10/17/2018 shows atrial flutter Echocardiogram performed on 10/18/2018 shows EF of 50% with diffuse global hypokinesis and mildly enlarged left atrium and right atrium PMH: Past Medical History: Diagnosis Date Atrial flutter (CMS/HCC) Chronic kidney disease Diabetes mellitus (CMS/HCC) DJD (degenerative joint disease) Hypertension Parkinson disease (CMS/HCC) Recurrent falls PSH: Past Surgical History: Procedure Laterality Date ABLATION OF DYSRHYTHMIC FOCUS BASAL CELL CARCINOMA EXCISION CARDIAC CATHETERIZATION 09/22/2018 CATARACT EXTRACTION Left 08/2022 CATARACT EXTRACTION Right 2020 PARTIAL HIP ARTHROPLASTY Left 08/27/2021 TOTAL KNEE ARTHROPLASTY TOTAL SHOULDER ARTHROPLASTY SH: Social Determinants of Health Tobacco Use: Medium Risk (10/11/2022) Patient History Smoking Tobacco Use: Former Smokeless Tobacco Use: Never Passive Exposure: Not on file Alcohol Use: Not on file Financial Resource Strain: Not on file Food Insecurity: Not on file Transportation Needs: Not on file Physical Activity: Not on file Stress: Not on file Social Connections: Not on file Intimate Partner Violence: Not on file Depression: Not on file Housing Stability: Not on file Allergies: Allergies Allergen Reactions Cipro [Ciprofloxacin Hcl] Codeine Other reaction(s): Unknown Epinephrine Sulfa (Sulfonamide Antibiotics) Allopurinol Rash Weight: 77.1kg Visit Vitals BP 128/76 (BP Location: Left arm, Patient Position: Sitting) Pulse 71 Ht 1.778 m (5' 10 ) Wt 77.1 kg (170 lb) SpO2 96% BMI 24.39 kg/m??? Smoking Status Former BSA 1.95 m??? Meds: Current Outpatient Medications on File Prior to Visit Medication Sig Dispense Refill atorvastatin (Lipitor) 40 mg tablet Take 1 tablet (40 mg) by mouth at bedtime. 90 tablet 3 carbidopa-levodopa (Sinemet) 25-100 mg tablet Take 1 tablet by mouth in the morning and at bedtime. docosahexaenoic acid/epa (FISH OIL ORAL) Take 1 tablet by mouth in the morning. furosemide (Lasix) 20 mg tablet Take 20 mg by mouth in the morning. gemfibrozil (Lopid) 600 mg tablet Take 600 mg by mouth 1 (one) time each day. insulin aspart (NovoLOG) 100 unit/mL injection Inject under the skin 1 (one) time. metFORMIN (Glucophage) 1,000 mg tablet Take 1,000 mg by mouth with breakfast. metoprolol succinate XL (Toprol-XL) 100 mg 24 hr tablet Take 100 mg by mouth in the morning and at bedtime. Do not crush or chew. potassium chloride CR (Klor-Con M10) 10 mEq ER tablet Take 10 mEq by mouth in the morning. Do not crush or chew. tamsulosin (Flomax) 0.4 mg 24 hr capsule Take 0.4 mg by mouth in the morning. Tresiba FlexTouch U-100 100 unit/mL (3 mL) injection INJECT 20 UNITS VIA SUBCUTANEOUS ROUTE ONCE DAILY IN THE MORNING DIRECTED (TITRATE UP TO MAX 30 UNITS DAILY) [DISCONTINUED] amantadine (Symmetrel) 100 mg capsule Take 100 mg by mouth 1 (one) time each day. PRN [DISCONTINUED] apixaban (ELIQUIS ORAL) Take 5 mg by mouth in the morning and at bedtime. [DISCONTINUED] BD Ultra-Fine Marce Pen Needle 32 gauge x 5/32 needle USE DIRECTED FOUR TIMES A DAY VIA SUBCUTANEOUS ROUTE [DISCONTINUED] Effer-K 25 mEq effervescent tablet Take 25 mEq by mouth in the morning and at bedtime. No current facility-administered medications on file prior to v (more content not included)...[facility]06-27-2023 Hospital Discharge instructions Patient Education 01/11/2023 10:34:55 Obesity, Adult Obesity, Adult Obesity is the condition of having too much total body fat. Being overweight or obese means that your weight is greater than what is considered healthy for your body size. Obesity is determined by a measurement called BMI (body mass index). BMI is an estimate of body fat and is calculated from height and weight. For adults, a BMI of 30 or higher is considered obese. Obesity can lead to other health concerns and major illnesses, including: Stroke. Coronary artery disease (CAD). Type 2 diabetes. Some types of cancer, including cancers of the colon, breast, uterus, and gallbladder. High blood pressure (hypertension). High cholesterol. Gallbladder stones. Obesity can also contribute to: Osteoarthritis. Sleep apnea. Infertility problems. What are the causes? Common causes of this condition include: Eating daily meals that are high in calories, sugar, and fat. Drinking high amounts of sugar-sweetened beverages, such as soft drinks. Being born with genes that may make you more likely to become obese. Having a medical condition that causes obesity, including: ?Hypothyroidism. ?Polycystic ovarian syndrome (PCOS). ?Binge-eating disorder. ?Una syndrome. Taking certain medicines, such as steroids, antidepressants, and seizure medicines. Not being physically active (sedentary lifestyle). Not getting enough sleep. What increases the risk? The following factors may make you more likely to develop this condition: Having a family history of obesity. Living in an area with limited access to: ?[place], recreation centers, or sidewalks. ?Healthy food choices, such as grocery stores and [employer]. What are the signs or symptoms? The main sign of this condition is having too much body fat. How is this diagnosed? This condition is diagnosed based on: Your BMI. If you are an adult with a BMI of 30 or higher, you are considered obese. Your waist circumference. This measures the distance around your waistline. Your skinfold thickness. Your health care provider may gently pinch a fold of your skin and measureit. You may have other tests to check for underlying conditions. How is this treated? Treatment for this condition often includes changing your lifestyle. Treatment may include some or all of the following: Dietary changes. This may include developing a healthy meal plan. Regular physical activity. This may include activity that causes your heart to beat faster (aerobicexercise) and strength training. Work with your health care provider to design an exercise program that works for you. Medicine to help you lose weight if you are unable to lose one pound a week after six weeks of healthy eating and more physical activity. Treating conditions that cause the obesity (underlying conditions). Surgery. Surgical options may include gastric banding and gastric bypass. Surgery may be done if: ?Other treatments have not helped to improve your condition. ?You have a BMI of 40 or higher. ?You have life-threatening health problems related to obesity. Follow these instructions at home: Eating and drinking Follow recommendations from your health care provider about what you eat and drink. Your health care provider may advise you to: ?Limit fast food, sweets, and processed snack foods. ?Choose low-fat options, such as low-fat milk instead of whole milk. ?Eat five or more servings of fruits or vegetables every day. ?Choose healthy foods when you eat out. ?Keep low-fat snacks available. ?Limit sugary drinks, such as soda, fruit juice, sweetened iced tea, and flavored milk. Drink enough water to keep your urine pale yellow. Do not follow a fad diet. Fad diets can be unhealthy and even dangerous. Other healthful choices include: ?Eat at home more often. This gives you more control over what you eat. ?Learn to read food labels. This will help you understand how much food is considered one serving. ?Learn what a healthy serving size is. Physical activity Exercise regularly, as told by your health care provider. ?Most adults should get up to 150 minutes of moderate-intensity exercise every week. ?Ask your health care provider what types of exercise are safe for you and how often you should exercise. Warm up and stretch before being active. Cool down and stretch after being active. Rest between periods of activity. Lifestyle Work with your health care provider and a dietitian to set a weight-loss goal that is healthy and reasonable for you. Limit your screen time. Find ways to reward yourself that do not involve food. Do not drink alcohol if: ?Your health care provider tells you not to drink. ?You are , may be , or are planning to become . If you drink alcohol: ?Limit how much you have to: ?0 1 drink a day for women. ?0 2 drinks a day for men. ?Know how much alcohol is in your drink. In the [place] one drink equals one 12 oz bottle of beer (355 mL), one 5 oz glass of wine (148 mL), or one 1 oz glass of hard liquor (44 mL). General instructions Keep a weight-loss journal to keep track of the food you eat and how much exercise you get. Take [id number]-[id number] and prescription medicines only as told by your health care provider. Take vitamins and supplements only as told by your health care provider. Consider joining a support group. Your health care provider may be able to recommend a support group. Pay attention to your mental health as obesity can lead to depression or self esteem issues. Keep all follow-up visits. This is important. Contact a health care provider if: You are unable to meet your weight-loss goal after six weeks of dietary and lifestyle changes. You have trouble breathing. Summary Obesity is the condition of having too much total body fat. Being overweight or obese means that your weight is greater than what is considered healthy for your body size. Work with your health care provider and a dietitian to set a weight-loss goal that is healthy and reasonable for you. Exercise regularly, as told by your health care provider. Ask your health care provider what types of exercise are safe for you and how often you should exercise. This information is not intended to replace advice given to you by your health care provider. Make sure you discuss any questions you have with your health care provider. Document Revised: 02/09/2022 Document Reviewed: 02/09/2022 [employer] Patient Education 2022 [employer]. [facility] General [facility] [place] 05-31-2023 Evaluation note* Encounter Date Diagnosis Assessment Notes Treatment Notes Treatment Clinical Notes November, Type 2 diabetes mellitus with diabetic chronic kidney disease (ICD-10 - E11.22) Managing type 2 diabetes material was published 1. Controlled, Type 2 diabetes with A1c of 7.7% for age/comorbidities. 2. Blood glucose levels improved, remain above target. According to [employer] cgm download 12/02/2022-12/15/2022: Avg glucose 169. >250-5%, >180-33%, 70-180-62%, <70-0%, <54-0%, CV 26.2%. Reviewed download with pt, no incidence of hypoglycemia. Glucose above target postprandial from missed/late meal dosing or underestimation of insulin for meal. Reviewed with pt importance of bolusing 15 minutes ac for improved postprandial glycemia. Reviewed with pt how to titrate basal/bolus insulin according to fasting am/meal to meal glucose pattern. Pt verbalizes understanding. Note: declined sglt2 cost prohibitive. 3. Patient is alert, oriented and receptive to making changes or counseling. Notes: Seen for an assessment of current glucose pattern, changes in treatment plan, with this time spent in counseling and coordination of care related to diabetes, risks, and benefits of treatment, medications, and side effects. TOPICS REVIEWED: 1. Time was spent reviewing: a. Basic concepts of diabetes, progressive beta cell , concepts of basal/bolus/correcti ve insulin requirements. Basal: The goal is fasting blood glucose of 90-130mg. IF fasting blood glucose starts to run under 100mg 3x's/ week, decrease dose by 10%. Bolus: The goal is to hold the blood glucose level steady meal to meal. If pt. is going to have increased physical activity after a meal, decrease the schedule meal dose prior to the activity by 30-50%. If pt. skips a meal do not take this dose. Correction: The goal is to correct an elevated glucose back into the 100-150mg range b. Nutrition: Concepts of healthy diet, encouraged to decrease saturated fat in diet and increase non-starchy vegetables and fruits in diet. BMI: Pt. needs to select one small change to decrease caloric intake or increase physical activity to help decrease weight. c. Correct treatment of hypoglycemia, carry a glucose source at all times on your person, in vehicles, and at bedside. Can use glucose tablets/4, four ounces of pop or juice equal to 15 G of carbohydrate. Blood glucose should be 100 mg/dl or higher when driving. d. ADA glucose goals for age and medical complexity reviewed e. Patient questions addressed 2. Activity/exercise: Encouraged to start any form of physical activity. Start low level and increase slowly to a minimal goal of 150 minutes/week. Limit activity to what is allowed by other issues such as cardiac, pulmonary or orthopedic restrictions. 3. Standards of care: Reminded to have an annual dilated eye exam, A1C every 3 months, urine testing for microalbumin once/year, check feet daily and report any cuts or sores that do not appear to be healing. 4. Meter: Plan to check blood glucose: Please check blood glucose levels 4 times/day. Back to back meals reveal effectiveness of bolus dosing. 5. [facility]. Contact office if any issues or concerns with patterns of hypoglycemia, hyperglycemia, or diabetes medication issues. 6. Prescriptions: MEDICINE ANGIE HARMAN: None at this time. 7. Prescriptions will not be filled unless you are compliant with follow up appointments or have a follow up appointment scheduled as ordered by your provider. Refills should be requested at the time of your visit. November, Hyperlipidemia LDL goal <100 (ICD-10 - E78.5) Managing your cholesterol material was published 04/08 ldl 24 at goal, on statin. November, Benign essential HTN (ICD-10 - I10) Managing high blood pressure material was published November, Dietary counseling and surveillance (ICD-10 - Z71.3) Maintaining a healthful weight material was published see above November, Vitamin B 12 deficiency (ICD-10 - E53.8) Good food sources of vitamin B12 material was published 03/2022 Vit b12 653 at target November, BMI 24.0-24.9, adult (ICD-10 - Z68.24) Deciphering the nutrition facts label material was published [employer] Other 04-06-2023 NoteCardiovascular Medicine [facility] SUBJECTIVE Chief Complaint Patient presents with office visit Wound Check Laura Jolly is a 72 y.o. male here for follow-up. Wound Check S/p loop recorder implant. He has been feeling well. Denies c/o fevers/chills, chest pain, dyspnea, palpitations, dizziness/LH. Patient Active Problem List Diagnosis Atrial flutter by electrocardiogram ([facility]) Benign essential HTN Parkinson disease ([facility]) Recurrent falls Type 2 diabetes mellitus without complication, without long-term current use of insulin ([facility]) Paroxysmal atrial fibrillation ([facility]) Past Medical History: Diagnosis Date Atrial flutter ([facility]) Chronic kidney disease Diabetes mellitus ([facility]) DJD (degenerative joint disease) Hypertension Parkinson disease ([facility]) Recurrent falls Family History Problem Relation Name Age of Onset Heart attack Father COPD Father Social History Tobacco Use Smoking status: Former Packs/day: 1.00 Years: 40.00 Pack years: 40.00 Types: Cigarettes Quit date: 2007 Years since quittin.2 Smokeless tobacco: Never Vaping Use Vaping Use: Never used Substance Use Topics Alcohol use: Yes Comment: Couple times a year Drug use: Never Allergies Allergen Reactions Cipro [Ciprofloxacin Hcl] Codeine Other reaction(s): Unknown Epinephrine Sulfa (Sulfonamide Antibiotics) Allopurinol Rash Review of Systems Constitutional: Negative for chills, decreased appetite, fever and malaise/fatigue. Cardiovascular: Negative for chest pain, dyspnea on exertion, irregular heartbeat, leg swelling, near-syncope, orthopnea, palpitations, paroxysmal nocturnal dyspnea and syncope. Neurological: Positive for tremors. OBJECTIVE Visit Vitals Smoking Status Former Medications: Current Outpatient Medications: amantadine (Symmetrel) 100 mg capsule, Take 100 mg by mouth 1 (one) time each day. PRN, Disp: , Rfl: apixaban (ELIQUIS ORAL), Take 5 mg by mouth in the morning and at bedtime., Disp: , Rfl: atorvastatin (Lipitor) 40 mg tablet, TAKE ONE TABLET BY MOUTH ONCE DAILY, Disp: 30 tablet, Rfl: 0 BD Ultra-Fine Marce Pen Needle 32 gauge x 5/32 needle, USE DIRECTED FOUR TIMES A DAY VIA SUBCUTANEOUS ROUTE, Disp: , Rfl: carbidopa-levodopa (Sinemet) 25-100 mg tablet, Take 1 tablet by mouth in the morning and at bedtime., Disp: , Rfl: docosahexaenoic acid/epa (FISH OIL ORAL), Take 1 tablet by mouth in the morning., Disp: , Rfl: Effer-K 25 mEq effervescent tablet, Take 25 mEq by mouth in the morning and at bedtime., Disp: , Rfl: furosemide (Lasix) 20 mg tablet, Take 20 mg by mouth in the morning., Disp: , Rfl: gemfibrozil (Lopid) 600 mg tablet, Take 600 mg by mouth 1 (one) time each day., Disp: , Rfl: insulin aspart (NovoLOG) 100 unit/mL injection, Inject under the skin 1 (one) time., Disp: , Rfl: metFORMIN (Glucophage) 1,000 mg tablet, Take 1,000 mg by mouth with breakfast., Disp: , Rfl: metoprolol succinate XL (Toprol-XL) 100 mg 24 hr tablet, Take 100 mg by mouth in the morning and at bedtime. Do not crush or chew., Disp: , Rfl: potassium chloride CR (Klor-Con M10) 10 mEq ER tablet, Take 10 mEq by mouth in the morning. Do not crush or chew., Disp: , Rfl: tamsulosin (Flomax) 0.4 mg 24 hr capsule, Take 0.4 mg by mouth in the morning., Disp: , Rfl: Tresiba FlexTouch U-100 100 unit/mL (3 mL) injection, INJECT 20 UNITS VIA SUBCUTANEOUS ROUTE ONCE DAILY IN THE MORNING DIRECTED (TITRATE UP TO MAX 30 UNITS DAILY), Disp: , Rfl: Physical Exam Constitutional: Appearance: Normal appearance. He is normal weight. Chest: Comments: Left upper chest loop recorder incision C/D/I with surrounding resolving ecchymosis. No redness/warmth/drainage. Skin: General: Skin is warm and dry. Neurological: Mental Status: He is alert. Labs/Testing/Procedures: Admission on 05/05/2022, Discharged on 05/05/2022 Component Date Value Ref Range Status WBC 05/03/2022 8.8 Final Hemoglobin, Serum 05/03/2022 15.3 Final Hematocrit 05/03/2022 47.0 39.0 - 55.0 % Final Platelets 05/03/2022 155 Final Sodium 05/03/2022 142 Final Potassium, Bld 05/03/2022 4.2 Final Chloride 05/03/2022 101 Final Glucose, Bld 05/03/2022 191 Final BUN, Bld 05/03/2022 20 Final Creatine, Serum 05/03/2022 1.2 Final SARS-CoV-2 05/03/2022 Not Detected Not Detected, Invalid Final Ventricular Rate 05/05/2022 104 BPM Final Atrial Rate 05/05/2022 275 BPM Final QRS DURATION 05/05/2022 106 ms Final QT Interval 05/05/2022 346 ms Final QTC CALCULATION(BAZETT) 05/05/2022 454 ms Final P [place] 05/05/2022 218 degrees Final R-[place] 05/05/2022 56 degrees Final T Wave [place] 05/05/2022 37 degrees Final Ventricular Rate 05/05/2022 88 BPM Final Atrial Rate 05/05/2022 88 BPM Final GA Interval 05/05/2022 188 ms Final QRS DURATION 05/05/2022 88 ms Final QT Interval 05/05/2022 384 ms Final QTC CALCULATION(BAZETT) 05/05/2022 464 ms Final (more content not included)... [facility]03-30-2023 NoteLOOP IMPLANT PROCEDURE NOTE DATE OF PROCEDURE: 10/14/2022 PERFORMING PHYSICIAN: Dr. Alber Sanchez/ Dr Lucy Lenz INDICATIONS FOR PROCEDURE: 1. SVT/AF surveillance CONSENT: Patient LOCATION: EP lab PROCEDURAL SEDATION: None FLUOROSCOPY TIME: 0min PREPARATION: Preoperative antibiotics was administered. EBL:0cc SPECIMEN REMOVED: None PROCEDURES PERFORMED: 1. LOOP implant PROCEDURE NOTE: Patient was brought to the EP lab in the post absorptive state. A procedural pause was performed verifying the patient, the procedure. Sterile prep and drape were performed over the left precordium and anesthesia with 1% lidocaine was followed by a small incision was made in the 3rd intercostal space near the sternum on the left using the [employer] tool. The loop recorder was then injected subcutaneously and noted to have good sensing parameters. Technical details of the device as noted below. The skin was then closed with 3-0 absorbable monofilament suture and glue applied to hold the edges together. Tegaderm was applied to cover the wound. The patient appeared to tolerate the procedure well and was returned to the room in stable condition. No complications were immediately observed. Sensin.26mV. IMPRESSION: Successful placement of LOOP implant with excellent sensing parameters. COMPLICATIONS: None RECOMMENDATIONS: 1. Occlusive dressing to be changed after 7 days. 2. Do not wet the incision. Alber Sanchez MD Cardiac Electrophysiology.[facility]03-21-2023 NoteUT Electrophysiology Consult Note Reason for visit: s/p flutter ablation HPI: Patient is s/p flutter ablation on 05/05/2022. he is maintaining sinus rhythm and doing well. He had hematuria which has since resolved. we had a discussion about coming off the blood thinner and I stated that this is only feasible once we have ruled out A-fib. he will be scheduled for a loop Prior HPI Laura Jolly is a 72 y.o. year old with past medical history of atrial flutter, Parkinson's disease, diabetes mellitus type 2, hypertension was recently evaluated for watchman procedure by Dr. RAGLAND. He was noted to have atrial flutter throughout our EKG that has been reviewed. However patient said that he was recently admitted to [facility] in [place] following fall and noted to have some hip issues. At that time he was mentioned to have A. fib although I do not have records to confirm this. He was previously taking sotalol which was discontinued. He is fully functional and is independent. He has 4 children but one of them being in [place] and another in the [facility] and 2 others in [place]. 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 EKG 01/11/2022 shows atrial flutter 09/21/2021 shows atrial flutter 08/26/2021 shows sinus rhythm 03/14/2020 shows sinus rhythm with artifact 10/30/2018 shows sinus rhythm 10/17/2018 shows atrial flutter Echocardiogram performed on 10/18/2018 shows EF of 50% with diffuse global hypokinesis and mildly enlarged left atrium and right atrium PMH: Past Medical History: Diagnosis Date Atrial flutter (CMS/HCC) Chronic kidney disease Diabetes mellitus (CMS/HCC) DJD (degenerative joint disease) Hypertension Parkinson disease (CMS/HCC) Recurrent falls PSH: Past Surgical History: Procedure Laterality Date ABLATION OF DYSRHYTHMIC FOCUS BASAL CELL CARCINOMA EXCISION CARDIAC CATHETERIZATION 09/22/2018 CATARACT EXTRACTION Left 08/2022 CATARACT EXTRACTION Right 2020 PARTIAL HIP ARTHROPLASTY Left 08/27/2021 TOTAL KNEE ARTHROPLASTY TOTAL SHOULDER ARTHROPLASTY SH: Social Determinants of Health Tobacco Use: Medium Risk Smoking Tobacco Use: Former Smokeless Tobacco Use: Never Passive Exposure: Not on file Alcohol Use: Not on file Financial Resource Strain: Not on file Food Insecurity: Not on file Transportation Needs: Not on file Physical Activity: Not on file Stress: Not on file Social Connections: Not on file Intimate Partner Violence: Not on file Depression: Not on file Housing Stability: Not on file Allergies: Allergies Allergen Reactions Cipro [Ciprofloxacin Hcl] Codeine Other reaction(s): Unknown Epinephrine Sulfa (Sulfonamide Antibiotics) Allopurinol Rash Weight: 78.9kg Visit Vitals BP 109/67 (BP Location: Right arm, Patient Position: Sitting, BP Cuff Size: Adult) Pulse 70 Ht 1.778 m (5' 10 ) Wt 78.9 kg (174 lb) SpO2 98% BMI 24.97 kg/m??? Smoking Status Former BSA 1.97 m??? Meds: Current Outpatient Medications on File Prior to Visit Medication Sig Dispense Refill amantadine (Symmetrel) 100 mg capsule Take 100 mg by mouth 1 (one) time each day. PRN apixaban (ELIQUIS ORAL) Take 5 mg by mouth in the morning and at bedtime. atorvastatin (Lipitor) 40 mg tablet TAKE ONE TABLET BY MOUTH ONCE DAILY 30 tablet 0 BD Ultra-Fine Marce Pen Needle 32 gauge x 5/32 needle USE DIRECTED FOUR TIMES A DAY VIA SUBCUTANEOUS ROUTE carbidopa-levodopa (Sinemet) 25-100 mg tablet Take 1 tablet by mouth in the morning and at bedtime. docosahexaenoic acid/epa (FISH OIL ORAL) Take by mouth. Effer-K 25 mEq effervescent tablet Take 25 mEq by mouth in the morning and at bedtime. furosemide (Lasix) 20 mg tablet Take by mouth in the morning. gemfibrozil (Lopid) 600 mg tablet Take 600 mg by mouth 1 (one) time each day. insulin aspart (NovoLOG) 100 unit/mL (3 mL) pen INJECT THREE TIMES A DAY BEFORE MEALS 110 CORRECTIVE SCALE 140 VIA SUBCUTANEOUS ROUTE DIRECTED FOR 30 DAYS (EXPECT UP TO 30 UNITS DAILY metFORMIN (Glucophage) 1,000 mg tablet Take 1,000 mg by mouth with breakfast. metoprolol succinate XL (Toprol-XL) 100 mg 24 hr tablet Take 100 mg by mouth in the morning and at bedtime. Do not crush or chew. potassium chloride CR (Klor-Con M10) 10 mEq ER tablet Take 10 mEq by mouth in the morning. Do not crush or chew. tamsulosin (Flomax) 0.4 mg 24 hr capsule Take 0.4 mg by mouth in the morning. Tresiba FlexTouch U-100 100 unit/mL (3 mL) injection INJECT 20 UNITS VIA SUBCUTANEOUS ROUTE ONCE DAILY IN THE MORNING DIRECTED (TITRATE UP TO MAX 30 UNITS DAILY) glipiZIDE (Glucotrol) 5 mg tablet Take 5 mg by mouth in the morning. insulin lispro (HumaLOG) 100 unit/mL injection Inject 3 Units under the skin with breakfast, with lunch, and with evening meal. insulin NPH, Isophane, (HumuLIN N,NovoLIN N) 100 unit/mL injection Inject 18 Units under the skin in the morning. No current facility-administered medications on file prior to vis (more content not included)...[facility]02-15-2023 Evaluation note* Encounter Date Diagnosis Assessment Notes Treatment Notes Treatment Clinical Notes Aug, Type 2 diabetes mellitus with diabetic chronic kidney disease (ICD-10 - E11.22) Managing type 2 diabetes material was published 1. Uncontrolled, Type 2 diabetes with A1c of 8.3% 2. Blood glucose levels above target. According to [employer] cgm download 08/19/2022-09/01/2022 : Avg glucose 226. >250-39%, >180-27%, 70-180-34%, <70-0%, <54-0%. Reviewed download with pt, infrequent incidence of hypoglycemia. Glucose above target postprandial from missed meal dosing. Discussed with pt using longer acting insulin i.e. tresiba and fast acting i.e. novolog to reduce variability in glucose pattern- pt agreeable. Reviewed with pt how to use insulin pens, pt verbalizes understanding. Note: declined sglt2 cost prohibitive. 3. Patient is alert, oriented and receptive to making changes or counseling. Notes: Seen for an assessment of current glucose pattern, changes in treatment plan, with this time spent in counseling and coordination of care related to diabetes, risks, and benefits of treatment, medications, and side effects. TOPICS REVIEWED: 1. Time was spent reviewing: a. Basic concepts of diabetes, progressive beta cell , concepts of basal/bolus/correc tive insulin requirements. Basal: The goal is fasting blood glucose of 90-130mg. IF fasting blood glucose starts to run under 100mg 3x's/ week, decrease dose by 10%. Bolus: The goal is to hold the blood glucose level steady meal to meal. If pt. is going to have increased physical activity after a meal, decrease the schedule meal dose prior to the activity by 30-50%. If pt. skips a meal do not take this dose. Correction: The goal is to correct an elevated glucose back into the 100-150mg range b. Nutrition: Concepts of healthy diet, encouraged to decrease saturated fat in diet and increase non-starchy vegetables and fruits in diet. BMI: Pt. needs to select one small change to decrease caloric intake or increase physical activity to help decrease weight. c. Correct treatment of hypoglycemia, carry a glucose source at all times on your person, in vehicles, and at bedside. Can use glucose tablets/4, four ounces of pop or juice equal to 15 G of carbohydrate. Blood glucose should be 100 mg/dl or higher when driving. d. ADA glucose goals for age and medical complexity reviewed e. Patient questions addressed 2. Activity/exercise: Encouraged to start any form of physical activity. Start low level and increase slowly to a minimal goal of 150 minutes/week. Limit activity to what is allowed by other issues such as cardiac, pulmonary or orthopedic restrictions. 3. Standards of care: Reminded to have an annual dilated eye exam, A1C every 3 months, urine testing for microalbumin once/year, check feet daily and report any cuts or sores that do not appear to be healing. 4. Meter: Plan to check blood glucose: Please check blood glucose levels 4 times/day. Back to back meals reveal effectiveness of bolus dosing. 5. [facility]. Contact office if any issues or concerns with patterns of hypoglycemia, hyperglycemia, or diabetes medication issues. 6. Prescriptions: tresiba/novolog/pe n needles sent. 7. Prescriptions will not be filled unless you are compliant with follow up appointments or have a follow up appointment scheduled as ordered by your provider. Refills should be requested at the time of your visit. 8. F/u 1 month w/ [place] for cgm download. Aug, Hyperlipidemia LDL goal <100 (ICD-10 - E78.5) Managing your cholesterol material was published 04/08 ldl 24 at goal, on statin. Aug, Benign essential HTN (ICD-10 - I10) Managing high blood pressure material was published Aug, Dietary counseling and surveillance (ICD-10 - Z71.3) Maintaining a healthful weight material was published see above Aug, Vitamin B 12 deficiency (ICD-10 - E53.8) Good food sources of vitamin B12 material was published 03/2022 Vit b12 653 at target Aug, BMI 24.0-24.9, adult (ICD-10 - Z68.24) Deciphering the nutrition facts label material was published [employer] Other 02-02-2023 NoteOPERATIVE NOTE OPERATION DATE: 08/19/2022 SURGEON: Lorenza Valladares D.O. PREOPERATIVE DIAGNOSIS: 1. Nuclear sclerotic cataract left eye. 2. Intraoperative floppy iris syndrome left eye. POSTOPERATIVE DIAGNOSIS: 1. Nuclear sclerotic cataract left eye. 2. Intraoperative floppy iris syndrome left eye. PROCEDURE NAME: Complex cataract extraction with intraocular lens placement of the left eye. ANESTHESIA: Topical ESTIMATED BLOOD LOSS: Zero. COMPLICATIONS: None. PROCEDURE: The patient was brought to the Operating Room in supine position. After proper identification, the left eye was prepped and draped in a sterile ophthalmic fashion. A paracentesis created at the 5 o'clock position. Approximately 1 mL of unpreserved Xylocaine was injected into the anterior chamber followed by Amvisc Plus. Using a 2.6 mm Keratome blade, a clear corneal incision was created at the 3 o'clock limbus. Healon 5 was injected beneath the iris plane at the 9, 6 and 12 o'clock locations. A Malyugin ring 7. 0 mm was inserted into the anterior chamber, engaging the islets with the iris at the 9, 6 and 12 o'clock locations. The trailing islet was engaged at the iris with the assistance of a Kuglen hook at the 6 o'clock location. A cystotome was then used to begin a curvilinear capsulorrhexis that was continued for 360 degrees with the Utrata forceps. BSS on a 26 gauge cannula was injected beneath the anterior capsule to hydrodissect as well as hydrodelineate the lens. After ensuring mobility, phacoemulsification was performed in a owjwrdz-pfk-[id number]-type fashion. After all nuclear material had been removed from the eye, IA was introduced and all residual cortical material was cleaned up. Additional Amvisc Plus was injected into the posterior bag and a lens model MX60, 20.5 diopters was injected and dialed into position. After ensuring centration, a second hand piece instrument was utilized to disengage the islets of the Malyugin ring at the 3 and 9 o'clock location. This was then removed from the eye without difficulty. IA was introduced into the anterior chamber and all residual Amvisc Plus and Healon 5 were removed from the eye. BSS on a 30 gauge cannula was then injected into the stroma of both the clear corneal incision as well as paracentesis to hydrate the wounds. Additional BSS was injected into the anterior chamber to pressurize the eye at approximately 20 to 22 mmHg by finger tension. 0.1 mL of antibiotic was injected into the anterior chamber, maintaining the pressure as above. Weck-Bri sponges were used to check the wounds to be watertight. One drop of apraclonidine and one drop of prednisolone acetate were placed into the eye and a shield was placed over top. The patient was sent to the postoperative area in satisfactory condition to follow up the following day for postoperative care.[id number] NoteHISTORY AND PHYSICAL EXAMINATION Date:08/18/2022 HISTORY: The patient is a 72-year-old white male with complaints of declining vision out of his left eye. He believes in the past few years he has had more and more difficulty seeing the television and seeing road signs at a distance. He has difficulty with night time driving because of headlights creating glare and halos. PAST OCULAR HISTORY: 1. Status post cataract extraction with intraocular lens placement for the right eye. 2. Cataract left eye. PAST MEDICAL HISTORY: 1. Hip replacement in 2021. 2. History of Parkinson's disease. 3. Knee surgery on the left side. 4. Shoulder replacement on the right side. 5. Insulin dependent diabetes mellitus. 6. Atrial fibrillation, status post cardioversion, in normal sinus rhythm. 7. Hypertension. 8. Hypercholesterolemia. 9. Benign prostatic hypertrophy. SYSTEMIC MEDICATIONS: Include potassium chloride, metoprolol, furosemide, carbidopa levodopa, metformin, lisinopril, gemfibrozil, atorvastatin, tamsulosin, sotalol, Eliquis, amantadine and Novolin. ALLERGIES: To sulfa and ciprofloxacin. REVIEW OF SYSTEMS: No pertinent positives. PHYSICAL EXAM: VITALS: Blood pressure measured at 131/62 with a respiratory rate of 12 and pulse of 62. GENERAL: He is awake, alert and oriented x3, well developed, well nourished, in no acute distress. HEART: Regular rate and rhythm. LUNGS: Clear bilaterally. ABDOMEN: Soft, non-tender, non-distended. EXTREMITIES: No pitting edema. OPHTHALMIC EXAM: Revealed a visual acuity of 20/25 -1 in the right eye and 20/400 in the left eye. Pupils motility, muscle balance, confrontational visual long within normal limits bilaterally. Pressures measured at 17 bilaterally. Slit lamp exam revealed blepharitis with a severe decrease in tear film bilaterally. Conjunctiva, cornea, anterior chamber and iris were within normal limits bilaterally. Lens status demonstrated a well centered posterior chamber intraocular lens in the right eye with and a 3-4+ nuclear sclerosis with vacuoles in the left eye. FUNDUS EXAM: Revealed good view with good dilation bilaterally. Optic discs, macula, vessels, periphery and vitreous were within normal limits bilaterally. ASSESSMENT AND PLAN: 1. Visually significant cataract, left eye. After risks, benefits, alternatives, as well as expectations were delivered to the patient, he elected to go forward with cataract removal. He understands the risks include but not limited to infection, bleeding, loss of vision, loss of the eye itself. Secondly, he understands postoperatively he is likely to require spectacle correction for his best visual acuity. Finally, a complete ophthalmic exam was performed, there is not determined to be any other source of visual decline other than that of the cataract. 2. COVID-19, the patient was briefed in the office and consented for elective cataract surgery in the setting of the pandemic of coronavirus. He understands that he is at heightened risk going into a hospital setting; however, feels that his activities of daily living are depleted severe enough by his cataracts that he is willing to incur this risk and go forward with his elective procedure.The [facility] [id number] Hospital Discharge instructions Patient Education 07/30/2022 11:55:48 Benign Prostatic Hyperplasia Benign Prostatic Hyperplasia Benign prostatic hyperplasia (BPH) is an enlarged prostate gland that is caused by the normal agingprocess and not by cancer. The prostate is a walnut-sized gland that is involved in the production of semen. It is located in front of the rectum and below the bladder. The bladder stores urine and the urethra is the tube that carries the urine out of the body. The prostate may get bigger as a man gets older. An enlarged prostate can press on the urethra. This can make it harder to pass urine. The build-up of urine in the bladder can cause infection. Back pressure and infection may progress to bladder damage and kidney (renal) failure. What are the causes? This condition is part of a normal aging process. However, not all men develop problems from this condition. If the prostate enlarges away from the urethra, urine flow will not be blocked. If it enlarges toward the urethra and compresses it, there will be problems passing urine. What increases the risk? This condition is more likely to develop in men over the age of 50 years. What are the signs or symptoms? Symptoms of this condition include: Getting up often during the night to urinate. Needing to urinate frequently during the day. Difficulty starting urine flow. Decrease in size and strength of your urine stream. Leaking (dribbling) after urinating. Inability to pass urine. This needs immediate treatment. Inability to completely empty your bladder. Pain when you pass urine. This is more common if there is also an infection. Urinary tract infection (UTI). How is this diagnosed? This condition is diagnosed based on your medical history, a physical exam, and your symptoms. Tests will also be done, such as: A post-void bladder scan. This measures any amount of urine that may remain in your bladder after you finish urinating. A digital rectal exam. In a rectal exam, your health care provider checks your prostate by putting a lubricated, gloved finger into your rectum to feel the back of your prostate gland. This exam detects the size of your gland and any abnormal lumps or growths. An exam of your urine (urinalysis). A prostate specific antigen (PSA) screening. This is a blood test used to screen for prostate cancer. An ultrasound. This test uses sound waves to electronically produce a picture of your prostate gland. Your health care provider may refer you to a specialist in kidney and prostate diseases (urologist). How is this treated? Once symptoms begin, your health care provider will monitor your condition (active surveillance or watchful waiting). Treatment for this condition will depend on the severity of your condition. Treatment may include: Observation and yearly exams. This may be the only treatment needed if your condition and symptoms are mild. Medicines to relieve your symptoms, including: ?Medicines to shrink the prostate. ?Medicines to relax the muscle of the prostate. Surgery in severe cases. Surgery may include: ?Prostatectomy. In this procedure, the prostate tissue is removed completely through an open incision or with a laparoscope or robotics. ?Transurethral resection of the prostate (TURP). In this procedure, a tool is inserted through the opening at the tip of the penis (urethra). It is used to cut away tissue of the inner core of the prostate. The pieces are removed through the same opening of the penis. This removes the blockage. ?Transurethral incision (TUIP). In this procedure, small cuts are made in the prostate. This lessens the prostate's pressure on the urethra. ?Transurethral microwave thermotherapy (TUMT). This procedure uses microwaves to create heat. The heat destroys and removes a small amount of prostate tissue. ?Transurethral needle ablation (TUNA). This procedure uses radio frequencies to destroy and remove a small amount of prostate tissue. ?Interstitial laser coagulation (ILC). This procedure uses a laser to destroy and remove a small amount of prostate tissue. ?Transurethral electrovaporization (TUVP). This procedure uses electrodes to destroy and remove a small amount of prostate tissue. ?Prostatic urethral lift. This procedure inserts an implant to push the lobes of the prostate away from the urethra. Follow these instructions at home: Take elma-bxt-qursqza and prescription medicines only as told by your health care provider. Monitor your symptoms for any changes. Contact your health care provider with any changes. Avoid drinking large amounts of liquid before going to bed or out in public. Avoid or reduce how much caffeine or alcohol you drink. Give yourself time when you urinate. Keep all follow-up visits as told by your health care provider. This is important. Contact a health care provider if: You have unexplained back pain. Your symptoms do not get better with treatment. You develop side effects from the medicine you are taking. Your urine becomes very dark or has a bad smell. Your lower abdomen becomes distended and you have trouble passing your urine. Get help right away if: You have a fever or chills. You suddenly cannot urinate. You feel lightheaded, or very dizzy, or you faint. There are large amounts of blood or clots in the urine. Your urinary problems become hard to manage. You develop moderate to severe low back or flank pain. The flank is the side of your body between the ribs and the hip. These symptoms may represent a serious problem that is an emergency. Do not wait to see if the symptoms will go away. Get medical help right away. Call your local emergency services (911 in the [place] Do not drive yourself to the hospital. Summary Benign prostatic hyperplasia (BPH) is an enlarged prostate that is caused by the normal aging process and not by cancer. An enlarged prostate can press on the urethra. This can make it hard to pass urine. This condition is part of a normal aging process and is more likely to develop in men over the age of 50 years. Get help right away if you suddenly cannot urinate. This information is not intended to replace advice given to you by your health care provider. Make sure you discuss any questions you have with your health care provider. Document Released: 07/04/2006 Document Revised: 05/29/2019 Document Reviewed: 08/08/2017 [employer] Patient Education 2020 [employer]. Follow Up Care 07/27/2021 15:41:09 With:SPEEDY MONTES, Jens Pack, URL Address: [address] [place] [address]- When: Unknown [facility] NoteReports last fall was this past August- [facility]F/U with PCP No [facility] recentlyUn[facility] NoteCurrently EKG today pt remains in sinus rhythm Denied palpitations or feeling any tachycardia, states he feels better since the ablation Denied any bleeding tendencies or falls Continue metoprolol and eliquis anticoagulation RTC with Dr Sacnhez in 2-3 months Plan for Loop recorder placementUnMain Campus [facility] Center11-30-2022 NoteUTP CARDIOLOGY PROGRESS NOTE HPI: Laura Jolly is a 71 y.o. male here for Atrial Flutter and Hypertension PMH- A flutter, DM type 2, HTN, Parkinsons. Patient here for follow up atrial flutter ablation on 05/05/[address] Sanchez. Hematuria has resolved. Denies chest pain, SOB, and palpitations. States he feels better in regular rhythm. Denied any bleeding tendencies and has not fallen since August. Denied leg pain, abd or back pain. Review of Systems Cardiovascular: Positive for leg swelling. Hematologic/Lymphatic: Bruises/bleeds easily. All other systems reviewed and are negative. Visit Vitals BP (!) 147/91 (BP Location: Right arm, Patient Position: Sitting) Pulse 67 Ht 1.778 m (5' 10 ) Wt 76.2 kg (168 lb) SpO2 95% BMI 24.11 kg/m??? Smoking Status Former BSA 1.94 m??? Allergies Allergen Reactions Cipro [Ciprofloxacin Hcl] Epinephrine Sulfa (Sulfonamide Antibiotics) Medications: Current Outpatient Medications on File Prior to Visit Medication Sig Dispense Refill amantadine (Symmetrel) 100 mg capsule Take 100 mg by mouth 1 (one) time each day. apixaban (ELIQUIS ORAL) Take 5 mg by mouth in the morning and at bedtime. atorvastatin (Lipitor) 40 mg tablet Take 40 mg by mouth at bedtime. carbidopa-levodopa (Sinemet) 25-100 mg tablet Take 1 tablet by mouth in the morning and at bedtime. furosemide (Lasix) 20 mg tablet Take by mouth in the morning. gemfibrozil (Lopid) 600 mg tablet Take 600 mg by mouth 1 (one) time each day. insulin lispro (HumaLOG) 100 unit/mL injection Inject 3 Units under the skin with breakfast, with lunch, and with evening meal. insulin NPH, Isophane, (HumuLIN N,NovoLIN N) 100 unit/mL injection Inject 18 Units under the skin in the morning. metFORMIN (Glucophage) 1,000 mg tablet Take 1,000 mg by mouth with breakfast. metoprolol succinate XL (Toprol-XL) 100 mg 24 hr tablet Take 100 mg by mouth in the morning and at bedtime. Do not crush or chew. potassium chloride CR (Klor-Con M10) 10 mEq ER tablet Take 10 mEq by mouth in the morning. Do not crush or chew. tamsulosin (Flomax) 0.4 mg 24 hr capsule Take 0.4 mg by mouth in the morning. No current facility-administered medications on file prior to visit. Physical Exam: Constitutional: Appearance: Normal appearance. Without apparent distress, chronically ill, thin appearing HENT: Head: Normocephalic and atraumatic. Nose: Nose normal. Mouth/Throat: Mouth: Mucous membranes are moist. Eyes: Extraocular Movements: Extraocular movements intact. Conjunctiva/sclera: Conjunctivae normal. Neck: Vascular: No JVD. Cardiovascular: Rate and Rhythm: Normal rate and regular rhythm. Pulses: Dorsalis pedis pulses are 3 on the right side and 3on the left side. Posterior tibial pulses are 3 on the right side and 3 on the left side. Heart sounds: Normal heart sounds, S1 normal and S2 normal. Pulmonary: Effort: Pulmonary effort is normal. Breath sounds: Normal breath sounds. Abdominal: General: Bowel sounds are normal. Palpations: Abdomen is soft. Musculoskeletal: General: Normal range of motion. Cervical back: Normal range of motion. Right lower leg: No edema. Left lower leg: No edema. Skin: General: Skin is warm and dry. Capillary Refill: Capillary refill takes less than 2 seconds. Neurological: General: No focal deficit present. + tremor Mental Status: alert and oriented to person, place, and time. Psychiatric: Mood and Affect: Mood normal. Behavior: Behavior normal. Thought Content: Thought content normal. Judgment: Judgment normal. Labs: 05/03/22 CBC normal BUN 20 CR 1.2 normal Last lab values have been reviewed CV Testin05/05/22 EP POST PROCEDURE DIAGNOSIS 1. Symptomatic atrial flutter s/p CTI ablation. 2. EP study revealing no retrograde accessory conduction. 3. No inducible arrhythmia. Echocardiogram performed on 10/18/2018 shows EF of 50% with diffuse global hypokinesis and mildly enlarged left atrium and right atrium CHARO done on 09/22/2018 had normal EF prior to cardioversion Assessment/Plan: Atrial flutter by electrocardiogram ([facility]) Currently EKG today pt remains in sinus rhythm Denied palpitations or feeling any tachycardia, states he feels better since the ablation Denied any bleeding tendencies or falls Continue metoprolol and eliquis anticoagulation RTC with Dr Sanchez in 2-3 months Plan for Loop recorder placement Parkinson disease ([facility]) F/U with PCP No fall recently Recurrent falls Reports last fall was this past August- of which he fractured his hip [facility]11-[facility] NotePatient here for follow up atrial flutter ablation on 05/05/[address] Sanchez. Hematuria has resolved. Denies chest pain, SOB, and palpitations. Review of Systems Cardiovascular: Positive for leg swelling. Hematologic/Lymphatic: Bruises/bleeds easily. All other systems reviewed and are negative.[facility] 05-05-2022 NoteATRIAL FLUTTER ABLATION PROCEDURE NOTE DATE OF PROCEDURE: 05/05/2022 PERFORMING PHYSICIAN: Dr. Alber Sanchez CONSENT: Patient NAME OF THE PROCEDURE: Flutter ablation and Comprehensive EP study. INDICATIONS FOR PROCEDURE: Atrial flutter PROCEDURES PERFORMED: 1. Sonosite guided venous access as noted below and images stored in PACS. 2. Comprehensive EP study and catheter ablation for persistent atrial flutter. This includes right atrial recording and pacing, His bundle recording and right ventricular recording and pacing. 3. Intracardiac EP 3D mapping. 4. Intracardiac echocardiogram 5. Left atrial and coronary sinus recording and pacing to assess ablation results. 6. Conscious sedation. PROCEDURAL SEDATION: Versed and Fentanyl. Moderate sedation was administered by the sedation nurse under my supervision and noted in the CVL log. Intraprocedural face to face sedation time: 49min. Monitoring: Cardiac telemetry, Blood pressure, continuous pulse oxymetry. FLUOROSCOPY: 1min 30sec/ 20mGray EBL: 15cc SPECIMEN REMOVED: None INDICATION: 71 y.o. year old with past medical history of atrial flutter, Parkinson's disease, diabetes mellitus type 2, hypertension was recently evaluated for watchman procedure by Dr. RAGLAND. He was noted to have atrial flutter throughout our EKG that has been reviewed. However patient said that he was recently admitted to [facility] in [place] following fall and noted to have some hip issues. At that time he was mentioned to have A. fib although I do not have records to confirm this. He was previously taking sotalol which was discontinued. He presented in atrial flutter with RVR. PROCEDURE NOTE: Risks, benefits and alternatives of the procedure were discussed with the patient and family who agreed to proceed. Please refer to my consult note for details of the discussion and of indications. The patient was brought to the EP lab and a procedural pause was performed identifying the patient, the procedure. The patient presented in atrial flutter rhythm and ICE imaging was used to rule out GEGE clot. Both the groins were then prepared and draped. Ultrasound was used to determine the course and patency of the femoral veins on both sides and they were noted to be patent and the image stored in PACS. After infiltration with 1% lidocaine, 3 venous sheaths were placed in the right. RFV: 8Fx3 [employer] ThermoCool SF Bi-Directional over SL1/ Vizigo, CS Catheter (EZ Steer), 8F upsized to 9F:ICE catheter. Heparin 3000U bolus was given followed by continuous intravenous drip to target ACT around 300. An intracardiac ultrasound catheter was inserted into the right atrium to examine the right atrial anatomy, atrial septum, pulmonary vein anatomy and to monitor for pericardial effusion. At baseline, there was no pericardial effusion and no GEGE clot. CS os was mapped using the [employer] 3D mapping software. Using ICE, the His and IVC junctions were marked with 3D CARTO mapping software. Vizigo sheath was exchanged for a short 8F sheath. Vizigo sheath was placed instead of short 8F sheath. The ablation catheter was advanced over to the CTI. The tachycardia CL was noted to be 224ms. Entrainment was then performed with PPI as follows; Prox CS: 224ms, Distal CS: 325ms, mid CTI: 225ms. This confirmed this to be CTUI Dependent flutter. Ablation was performed on the CTI line starting at the tricuspid valve aspect. 35W was utilized and as I extended the ablation to the IVC aspect, the tachycardia terminated to sinus rhythm. Extending the ablation to the IVC demonstrated bidirectional block with timing of 154ms. Mapping was performed with CS pacing and this confirmed bidirectional CTI block. Pacing from the proximal CS as well as lateral aspect of RA confirmed this. Differential pacing also confirmed CTI block. EP study was then performed. Atrial pacing was performed from CS poles. Burst atrial pacing down to 200ms did not induce any tachycardia. Repeat EP study could no longer demonstrate any tachycardia. EP study and ablation were then stopped at this time. ICE imaging confirmed no pericardial effusion. Sheaths were pulled and hemostasis was confirmed with manual compression. ICE catheter and all catheters were removed. Venous sheaths were pulled and hemostasis noted. He was transferred to [facility]. AHms 100 HVms 55 VERPms 600/220 VA conduction+ AV Wenkebach ms 400 AH jump ms NA AVNERP ms 600/290ms AERP ms 600/200 POST PROCEDURE DIAGNOSIS 1. Symptomatic atrial flutter s/p CTI ablation. 2. EP study revealing no retrograde accessory conduction. 3. No inducible arrhythmia. PLAN: 1. Anticoagulation after 6 hrs of sheath removal with DOAC 2. Groin precautions. 3. LOOP implant as outpt. 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 Use of blood products discussed with patient who. Additional [facility]2022 Note [facility] Cardiology Consult Note Reason for Consultation: Atrial flutter HPI: Laura Jolly is a 71 y.o. year old with past medical history of atrial flutter, Parkinson's disease, diabetes mellitus type 2, hypertension was recently evaluated for watchman procedure by Dr. RAGLAND. He was noted to have atrial flutter throughout our EKG that has been reviewed. However patient said that he was recently admitted to [facility] in [place] following fall and noted to have some hip issues. At that time he was mentioned to have A. fib although I do not have records to confirm this. He was previously taking sotalol which was discontinued. He is fully functional and is independent. He has 4 children but one of them being in [place] and another in the [facility] and 2 others in [place]. 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 EKG 01/11/2022 shows atrial flutter 09/21/2021 shows atrial flutter 08/26/2021 shows sinus rhythm 03/14/2020 shows sinus rhythm with artifact 10/30/2018 shows sinus rhythm 10/17/2018 shows atrial flutter Echocardiogram performed on 10/18/2018 shows EF of 50% with diffuse global hypokinesis and mildly enlarged left atrium and right atrium CHARO done on 09/22/2018 had normal EF prior to cardioversion PMH: Past Medical History: Diagnosis Date Atrial flutter (CMS/HCC) Chronic kidney disease Diabetes mellitus (CMS/HCC) DJD (degenerative joint disease) Hypertension Parkinson disease (CMS/HCC) Recurrent falls PSH: Past Surgical History: Procedure Laterality Date BASAL CELL CARCINOMA EXCISION CARDIAC CATHETERIZATION 09/22/2018 TOTAL KNEE ARTHROPLASTY TOTAL SHOULDER ARTHROPLASTY SH: Social Determinants of Health Tobacco Use: Medium Risk Smoking Tobacco Use: Former Smokeless Tobacco Use: Never Alcohol Use: Not on file Financial Resource Strain: Not on file Food Insecurity: Not on file Transportation Needs: Not on file Physical Activity: Not on file Stress: Not on file Social Connections: Not on file Intimate Partner Violence: Not on file Depression: Not on file Housing Stability: Not on file Meds: No current facility-administered medications on file prior to encounter. Current Outpatient Medications on File Prior to Encounter Medication Sig Dispense Refill amantadine (Symmetrel) 100 mg capsule Take 100 mg by mouth 1 (one) time each day. apixaban (ELIQUIS ORAL) Take 5 mg by mouth in the morning and at bedtime. atorvastatin (Lipitor) 40 mg tablet Take 40 mg by mouth in the morning. carbidopa-levodopa (Sinemet) 25-100 mg tablet Take 1 tablet by mouth in the morning and at bedtime. furosemide (Lasix) 20 mg tablet Take by mouth in the morning. gemfibrozil (Lopid) 600 mg tablet Take 600 mg by mouth 1 (one) time each day. insulin lispro (HumaLOG) 100 unit/mL injection Inject 3 Units under the skin with breakfast, with lunch, and with evening meal. insulin NPH, Isophane, (HumuLIN N,NovoLIN N) 100 unit/mL injection Inject 18 Units under the skin in the morning. metFORMIN (Glucophage) 1,000 mg tablet Take 1,000 mg by mouth with breakfast. metoprolol succinate XL (Toprol-XL) 100 mg 24 hr tablet Take 100 mg by mouth in the morning and at bedtime. Do not crush or chew. potassium chloride CR (Klor-Con M10) 10 mEq ER tablet Take 10 mEq by mouth in the morning. Do not crush or chew. tamsulosin (Flomax) 0.4 mg 24 hr capsule Take 0.4 mg by mouth in the morning. ROS: Cardio Basic Cardiovascular Symptoms: no lightheadedness, no leg edema, no syncope, no orthopnea, no PND, no claudication, Constitutional Constitutional: no fever, no night sweats, no significant weight gain, no significant weight loss, no exercise intolerance Eyes Eyes: no dry eyes, no irritation, no vision change ENMT Ears: no difficulty hearing, no ear pain Nose: no frequent nosebleeds, Mouth/Throat: no sore throat, no bleeding gums, no snoring, no dry mouth, no mouth ulcers, no oral abnormalities, no teeth problems Respiratory Respiratory: no cough, no wheezing, no coughing up blood, no sleep apnea Musculoskeletal Musculoskeletal: no muscle aches, no muscle weakness, joint pain+, no back pain, no swelling in the extremities Integumentary Skin no rash, no ulcer, no varicosities, no discoloration, no pruritus Neurologic Neurologic: no loss of consciousness, no weakness, no numbness, no seizures, no dizziness, no headaches Psychiatric Psych: no depression, feeling safe in relationship, no alcohol abuse, Hematologic/Lymphatic Hematologic/Lymphatic no swollen glands, no bruising Physical Exam: Constitutional General Appearance: well-nourished, well-developed, appears stated age Level of Distress: comfortable Psychiatric Mental Status: alert, normal affect Orientation: oriented to time, place, and person Insight: good judgement Eyes Lids and Conjunctivae: non-injected, no xanthelasma ENMT Ears: no lesions on external ear Nose: no lesions on external nose (more content not included)...[facility]09-12-2022 Evaluation note* Encounter Date Diagnosis Assessment Notes Treatment Notes Treatment Clinical Notes Mar, Type 2 diabetes mellitus with diabetic chronic kidney disease (ICD-10 - E11.22) Managing type 2 diabetes material was published 1. Uncontrolled, Type 2 diabetes with A1c of 7.6% 2. Blood glucose levels variable. According to [employer] cgm download 03/15/2022- 2: Avg glucose 146. >250-7%, >180-20%, 70-180-65%, <70-8%, <54-0%. Reviewed download with pt, noted several incidence of hypoglycemia nocturnal and meal to meal. Pt had stopped taking night time nph about 3 days ago d/t having low blood sugars at night. He has lost 9 pound from last visit, will modify his basal/bolus/correc tive insulin see above. Discussed with pt using longer acting insulin i.e. tresiba/toujeo and fast acting i.e. novolog/humalog to reduce variability in glucose pattern- pt declines for now d/t cost of of nph/r being <$25/vial. Note: declined sglt2 cost prohibitive. 3. Patient is alert, oriented and receptive to making changes or counseling. Notes: Seen for an assessment of current glucose pattern, changes in treatment plan, with this time spent in counseling and coordination of care related to diabetes, risks, and benefits of treatment, medications, and side effects. TOPICS REVIEWED: 1. Time was spent reviewing: a. Basic concepts of diabetes, progressive beta cell , concepts of basal/bolus/correc tive insulin requirements. Basal: The goal is fasting blood glucose of 90-130mg. IF fasting blood glucose starts to run under 100mg 3x's/ week, decrease dose by 10%. Bolus: The goal is to hold the blood glucose level steady meal to meal. If pt. is going to have increased physical activity after a meal, decrease the schedule meal dose prior to the activity by 30-50%. If pt. skips a meal do not take this dose. Correction: The goal is to correct an elevated glucose back into the 100-150mg range b. Nutrition: Concepts of healthy diet, encouraged to decrease saturated fat in diet and increase non-starchy vegetables and fruits in diet. BMI: Pt. needs to select one small change to decrease caloric intake or increase physical activity to help decrease weight. c. Correct treatment of hypoglycemia, carry a glucose source at all times on your person, in vehicles, and at bedside. Can use glucose tablets/4, four ounces of pop or juice equal to 15 G of carbohydrate. Blood glucose should be 100 mg/dl or higher when driving. d. ADA glucose goals for age and medical complexity reviewed e. Patient questions addressed 2. Activity/exercise: Encouraged to start any form of physical activity. Start low level and increase slowly to a minimal goal of 150 minutes/week. Limit activity to what is allowed by other issues such as cardiac, pulmonary or orthopedic restrictions. 3. Standards of care: Reminded to have an annual dilated eye exam, A1C every 3 months, urine testing for microalbumin once/year, check feet daily and report any cuts or sores that do not appear to be healing. 4. Meter: Plan to check blood glucose: Please check blood glucose levels 4 times/day. Back to back meals reveal effectiveness of bolus dosing. 5. [facility] Contact office if any issues or concerns with patterns of hypoglycemia, hyperglycemia, or diabetes medication issues. 6. Prescriptions: Will call when needed. Mar, Hyperlipidemia LDL goal <100 (ICD-10 - E78.5) Managing your cholesterol material was published 04/08 ldl 24 at goal, on statin. Mar, Benign essential HTN (ICD-10 - I10) Managing high blood pressure material was published Mar, Dietary counseling and surveillance (ICD-10 - Z71.3) Maintaining a healthful weight material was published see above Mar, Vitamin B 12 deficiency (ICD-10 - E53.8) Good food sources of vitamin B12 material was published 03/2022 Vit b12 653 at target Mar, BMI 23.0-23.9, adult (ICD-10 - Z68.23) Deciphering the nutrition facts label material was published 9 pound weight loss from last visit [email or web address] Other 04-26-2022 Evaluation note* Encounter Date Diagnosis Assessment Notes Treatment Notes Treatment Clinical Notes Oct, Type 2 diabetes mellitus with diabetic chronic kidney disease (ICD-10 - E11.22) Managing type 2 diabetes material was published 1. Controlled, Type 2 diabetes with A1c of 6.5% 2. Blood glucose levels improved. According to [employer] cgm download 10/28/2021- 2: Avg glucose 169. >250-8%, >180-33%, 70-180-56%, <70-3%, <54-0%. Reviewed download with pt, reading above target often after supper from missed meal dosing, recommend he dose with 1:5 carb ratio ac for improved postprandial glycemia. Isolated incident of hypoglycemia after dosing correction dose 4 units; will stop hs correction dosing. Pt verbalizes understanding. Note: declined sglt2 cost prohibitive. Relion n/r from earlene. 3. Patient is alert, oriented and receptive to making changes or counseling. Notes: Seen for an assessment of current glucose pattern, changes in treatment plan, with this time spent in counseling and coordination of care related to diabetes, risks, and benefits of treatment, medications, and side effects. TOPICS REVIEWED: 1. Time was spent reviewing: a. Basic concepts of diabetes, progressive beta cell , concepts of basal/bolus/correc tive insulin requirements. Basal: The goal is fasting blood glucose of 90-130mg. IF fasting blood glucose starts to run under 100mg 3x's/ week, decrease dose by 10%. Bolus: The goal is to hold the blood glucose level steady meal to meal. If pt. is going to have increased physical activity after a meal, decrease the schedule meal dose prior to the activity by 30-50%. If pt. skips a meal do not take this dose. Correction: The goal is to correct an elevated glucose back into the 100-150mg range b. Nutrition: Concepts of healthy diet, encouraged to decrease saturated fat in diet and increase non-starchy vegetables and fruits in diet. BMI: Pt. needs to select one small change to decrease caloric intake or increase physical activity to help decrease weight. c. Correct treatment of hypoglycemia, carry a glucose source at all times on your person, in vehicles, and at bedside. Can use glucose tablets/4, four ounces of pop or juice equal to 15 G of carbohydrate. Blood glucose should be 100 mg/dl or higher when driving. d. ADA glucose goals for age and medical complexity reviewed e. Patient questions addressed 2. Activity/exercise: Encouraged to start any form of physical activity. Start low level and increase slowly to a minimal goal of 150 minutes/week. Limit activity to what is allowed by other issues such as cardiac, pulmonary or orthopedic restrictions. 3. Standards of care: Reminded to have an annual dilated eye exam, A1C every 3 months, urine testing for microalbumin once/year, check feet daily and report any cuts or sores that do not appear to be healing. 4. Meter: Plan to check blood glucose: Please check blood glucose levels 4 times/day. Back to back meals reveal effectiveness of bolus dosing. 5. [facility]. Contact office if any issues or concerns with patterns of hypoglycemia, hyperglycemia, or diabetes medication issues. 6. Prescriptions: Will call when needed. Oct, Hyperlipidemia LDL goal <100 (ICD-10 - E78.5) Managing your cholesterol material was published 04/07 ldl 22 at goal, on statin. Oct, Benign essential HTN (ICD-10 - I10) Managing high blood pressure material was published on [employer] Oct, Dietary counseling and surveillance (ICD-10 - Z71.3) Maintaining a healthful weight material was published see above Oct, Vitamin B 12 deficiency (ICD-10 - E53.8) Good food sources of vitamin B12 material was published 03/2021 Vit b12 855 at target Oct, BMI 24.0-24.9, adult (ICD-10 - Z68.24) Deciphering the nutrition facts label material was published [email or web address] Other 01-17-2022 Evaluation note* Encounter Date Diagnosis Assessment Notes Treatment Notes Treatment Clinical Notes Jul, Type 2 diabetes mellitus with diabetic chronic kidney disease (ICD-10 - E11.22) Managing type 2 diabetes material was published 1. Controlled, Type 2 diabetes with A1c of 7% 2. Blood glucose levels improved. According to [employer] cgm download 07/21/2021-08/03/2021: Avg glucose 156. >250-5%, >180-27%, 70-180-64%, <70-3%, <54-1%. CV 34.8%. Reviewed download with pt, reading above target often after supper either from missed meal dose or underestimation of insulin for carbs. Readings under target from corrective dosing at hs. Will stop corrective insulin at hs. Reviewed with pt for improved posprandial glycemia after supper to be more consistent with taking meal dose of regular insulin 30 minutes ac. Discussed with pt with dkd hx adding sglt2, pt declines at this time. Pt using relion N/R d/t cost being concern. 3. Patient is alert, oriented and receptive to making changes or counseling. Notes: Seen for an assessment of current glucose pattern, changes in treatment plan, with this time spent in counseling and coordination of care related to diabetes, risks, and benefits of treatment, medications, and side effects. TOPICS REVIEWED: 1. Time was spent reviewing: a. Basic concepts of diabetes, progressive beta cell , concepts of basal/bolus/correcti ve insulin requirements. Basal: The goal is fasting blood glucose of 90-130mg. IF fasting blood glucose starts to run under 100mg 3x's/ week, decrease dose by 10%. Bolus: The goal is to hold the blood glucose level steady meal to meal. If pt. is going to have increased physical activity after a meal, decrease the schedule meal dose prior to the activity by 30-50%. If pt. skips a meal do not take this dose. Correction: The goal is to correct an elevated glucose back into the 100-150mg range b. Nutrition: Concepts of healthy diet, encouraged to decrease saturated fat in diet and increase non-starchy vegetables and fruits in diet. BMI: Pt. needs to select one small change to decrease caloric intake or increase physical activity to help decrease weight. c. Correct treatment of hypoglycemia, carry a glucose source at all times on your person, in vehicles, and at bedside. Can use glucose tablets/4, four ounces of pop or juice equal to 15 G of carbohydrate. Blood glucose should be 100 mg/dl or higher when driving. d. ADA glucose goals for age and medical complexity reviewed e. Patient questions addressed 2. Activity/exercise: Encouraged to start any form of physical activity. Start low level and increase slowly to a minimal goal of 150 minutes/week. Limit activity to what is allowed by other issues such as cardiac, pulmonary or orthopedic restrictions. 3. Standards of care: Reminded to have an annual dilated eye exam, A1C every 3 months, urine testing for microalbumin once/year, check feet daily and report any cuts or sores that do not appear to be healing. 4. Meter: Plan to check blood glucose: Please check blood glucose levels 4 times/day. Back to back meals reveal effectiveness of bolus dosing. 5. [facility]. Contact office if any issues or concerns with patterns of hypoglycemia, hyperglycemia, or diabetes medication issues. 6. Prescriptions: Will call when needed. Jul, Hyperlipidemia LDL goal <100 (ICD-10 - E78.5) Managing your cholesterol material was published 04/07 ldl 22 at goal, on statin. Jul, Benign essential HTN (ICD-10 - I10) Managing high blood pressure material was published on [employer] Jul, Vitamin D deficiency (ICD-10 - E55.9) Vitamin D: let the sun shine material was published 03/2021 Vit D 46.8 at goal Jul, Dietary counseling and surveillance (ICD-10 - Z71.3) Maintaining a healthful weight material was published see above Jul, Vitamin B 12 deficiency (ICD-10 - E53.8) Good food sources of vitamin B12 material was published 03/2021 Vit b12 855 at target Jul, BMI 25.0-25.9,adult (ICD-10 - Z68.25) Deciphering the nutrition facts label material was published [email or web address] Other 09-28-2021 Evaluation note* Encounter Date Diagnosis Assessment Notes Treatment Notes Treatment Clinical Notes Mar, Type 2 diabetes mellitus with diabetic chronic kidney disease (ICD-10 - E11.22) Managing type 2 diabetes material was published 1. Controlled, Type 2 diabetes with A1c of 6.5% 2. Blood glucose levels improved. According to [employer] cgm download 04/01/2021-04/14/2021: Avg glucose 144. >250-5%, >180-20%, 70-180-70%, <70-4%, <54-1%. CV 38%. Reviewed download with pt, reading above target often after supper either from missed meal dose or underestimation of insulin for carbs. Readings under target from corrective dosing at hs, reviewed with pt if hs glucose above target most likely from underestimation of carbs for meal at supper- encouraged more accurate carb counts at supper and pre bolus 30 minutes for improved postprandial glycemia. Pt has significant tremor discussed with pt option of a insulin delivery device i.e. vgo for ease of use vs insulin syringes. Pt will think about it and discuss at next apt. 3. Patient is alert, oriented and receptive to making changes or counseling. Notes: Seen for an assessment of current glucose pattern, changes in treatment plan, with this time spent in counseling and coordination of care related to diabetes, risks, and benefits of treatment, medications, and side effects. TOPICS REVIEWED: 1. Time was spent reviewing: a. Basic concepts of diabetes, progressive beta cell , concepts of basal/bolus/correcti ve insulin requirements. Basal: The goal is fasting blood glucose of 90-130mg. IF fasting blood glucose starts to run under 100mg 3x's/ week, decrease dose by 10%. Bolus: The goal is to hold the blood glucose level steady meal to meal. If pt. is going to have increased physical activity after a meal, decrease the schedule meal dose prior to the activity by 30-50%. If pt. skips a meal do not take this dose. Correction: The goal is to correct an elevated glucose back into the 100-150mg range b. Nutrition: Concepts of healthy diet, encouraged to decrease saturated fat in diet and increase non-starchy vegetables and fruits in diet. BMI: Pt. needs to select one small change to decrease caloric intake or increase physical activity to help decrease weight. c. Correct treatment of hypoglycemia, carry a glucose source at all times on your person, in vehicles, and at bedside. Can use glucose tablets/4, four ounces of pop or juice equal to 15 G of carbohydrate. Blood glucose should be 100 mg/dl or higher when driving. d. ADA glucose goals for age and medical complexity reviewed e. Patient questions addressed 2. Activity/exercise: Encouraged to start any form of physical activity. Start low level and increase slowly to a minimal goal of 150 minutes/week. Limit activity to what is allowed by other issues such as cardiac, pulmonary or orthopedic restrictions. 3. Standards of care: Reminded to have an annual dilated eye exam, A1C every 3 months, urine testing for microalbumin once/year, check feet daily and report any cuts or sores that do not appear to be healing. 4. Meter: Plan to check blood glucose: Please check blood glucose levels 4 times/day. Back to back meals reveal effectiveness of bolus dosing. 5. [facility]. Contact office if any issues or concerns with patterns of hypoglycemia, hyperglycemia, or diabetes medication issues. 6. Prescriptions: Will call when needed. Mar, Hyperlipidemia LDL goal <100 (ICD-10 - E78.5) Managing your cholesterol material was published 04/07 ldl 22 at goal, on statin. Mar, Benign essential HTN (ICD-10 - I10) Managing high blood pressure material was published on abhinav Mar, Vitamin D deficiency (ICD-10 - E55.9) Vitamin D: let the sun shine material was published 03/2021 Vit D 46.8 at goal Mar, Dietary counseling and surveillance (ICD-10 - Z71.3) Maintaining a healthful weight material was published see above Mar, Vitamin B 12 deficiency (ICD-10 - E53.8) Good food sources of vitamin B12 material was published 03/2021 Vit b12 855 at target Mar, BMI 26.0-26.9,adult (ICD-10 - Z68.26) Deciphering the nutrition facts label material was published [employer] Other Evaluation + Plan note Future Appointments Appointment Date:07/29/2023 11:00:00 AM Scheduled Provider:Jens RUFF [place] [place] Appointment Type:URO Office Visit [facility] evaluation + Plan note Future Appointments Appointment Date:07/29/2023 11:00:00 AM Scheduled Provider:Jens RUFF MD Location:[facility] [place] Appointment Type:URO Office Visit Appointment Date:01/06/2024 08:00:00 AM Scheduled Provider: Location:[facility] Appointment Type:FM Medicare Wellness Subsequent [facility] [place] Evaluation + Plan note Future Appointments Appointment Date:06/30/2023 10:00:00 AM Scheduled Provider: Location:[facility] Appointment Type:Surgery FT Appointment Date:07/29/2023 11:00:00 AM Scheduled Provider:[facility] Type:URO Office Visit Appointment Date:01/06/2024 08:00:00 AM Scheduled Provider: Location:[facility] Appointment Type:FM Medicare Wellness Subsequent Diagnostic Tests Pending * [facility] Future App[facility]ments Appointment Date:06/30/2023 10:00:00 AM Scheduled Provider: Location:[facility] Appointment Type:Surgery FT Appointment Date:07/29/2023 11:00:00 AM Scheduled Provider:Jens RUFF MD Location:[facility] [place] Appointment Type:URO Office Visit Appointment Date:01/06/2024 08:00:00 AM Scheduled Provider: Location:[facility] Appointment Type: Medicare Wellness Subsequent Future Scheduled Tests Radiology* US Bladder [facility] Future Appointments Appointment Date:07/29/2023 11:00:00 AM Scheduled Provider:Jens RUFF MD Location:[facility] [place] Appointment Type:URO Office Visit Appointment Date:01/06/2024 08:00:00 AM Scheduled Provider: Location:[facility] Appointment Type: Medicare Wellness Subsequent Future Scheduled Tests Radiology* US Bladder [facility] Future Appointments Appointment Date:07/29/2023 11:00:00 AM Scheduled Provider:Jens RUFF MD Location:[facility] [place] Appointment Type:URO Office Visit Appointment Date:01/06/2024 08:00:00 AM Scheduled Provider: Location:[facility] Appointment Type:FM Medicare Wellness Subsequent Future Scheduled Tests Radiology* US Bladder [facility] - [facility]orted* Type Description Date Medical History HTN Medical History DM2 Medical History basal cell skin cancer Medical History sclorosis Medical History KIDNEY STONES Medical History CKD stage 3 Medical History AFib Medical History Parkinson symptoms Surgical History left knee replacement Surgical History cataract surgery in right eye Surgical History T&A Surgical History uretoscopy Surgical History shoulder replacement 2015 Surgical History basal cell removed from forehea d 04/03 Surgical History Cardioversion 10/03 Surgical History Basal cell removed from left si de of neck 12/2020 Hospitalization History as above Hospitalization History cardio version [facility] 10/03 [employer] Other [employer] general Narrative - Reported* Type Description Date Medical History HTN Medical History DM2 Medical History basal cell skin cancer Medical History sclorosis Medical History KIDNEY STONES Medical History CKD stage 3 Medical History AFib Medical History Parkinson symptoms Surgical History left knee replacement Surgical History cataract surgery in right eye Surgical History T&A Surgical History uretoscopy Surgical History shoulder replacement 2015 Surgical History basal cell removed from forehea d 04/03 Surgical History Cardioversion 10/03 Surgical History Basal cell removed from left si de of neck 12/2020 Surgical History Left hip replacement 08/31/2021 Hospitalization History as above Hospitalization History cardio version [facility] 10/03 Hospitalization History Left hip replacement-[facility] 08/2021 Hospitalization History [facility]-for Afib [employer] Other history general Narrative - Reported* Type Description Date Medical History HTN Medical History DM2 Medical History basal cell skin cancer Medical History sclorosis Medical History KIDNEY STONES Medical History CKD stage 3 Medical History AFib Medical History Parkinson symptoms Surgical History left knee replacement Surgical History cataract surgery in right eye Surgical History T&A Surgical History uretoscopy Surgical History shoulder replacement 2015 Surgical History basal cell removed from forehea d 04/03 Surgical History Cardioversion 10/03 Surgical History Basal cell removed from left si de of neck 12/2020 Surgical History Left hip replacement 08/31/2021 Surgical History Cardiac ablation 05/2022 Hospitalization History as above Hospitalization History cardio version [facility] 10/03 Hospitalization History Left hip replacement-[facility] 08/2021 Hospitalization History [facility]-for Afib [employer] Other Hospital course Narrative No data available for this section [facility] Hospital Discharge instructions No data available for this section [facility] No data available for this section [facility] Summary Purpose Family History No Family History Records FoundNo Family History Records FoundNo Family History Records FoundNo Family History Records FoundNo Family History Records FoundNo Family History Records FoundNo Family History Records Found No data available for this section No data available for this section No data available for this section No data available for this section No data available for this section No data available for this section No Family History Records Found Advance Directives No Advanced Directives Records FoundNo Advanced Directives Records FoundNo Advanced Directives Records FoundNo Advanced Directives Records FoundNo Advanced Directives Records FoundNo Advanced Directives Records FoundNo Advanced Directives Records FoundNo Advanced Directives Records Found Hospital Course Note MR#: [id number] [facility] Pt. Name: Laura Jolly Admitted: 09/22/2018 Discharged: 09/23/2018 Date of : 1950 Physician: Shoaib Mendez MD DISCHARGE SUMMARY SHORTY OF ADMISSION: 09/22/18 DATE OF DISCHARGE: 09/23/2018 PRIMARY CARE PHYSICIAN: ELIDIA MACHADO M.D., CONSULTING PHYSICIANS: CARDIOLOGY ADMITTING DIAGNOSIS: Shortness of breath Elective cardiac cath Elective CHARO with cardioversion New onset A. fib with RVR DISCHARGE DIAGNOSIS: Shortness of breath Status post CHARO with cardioversion New onset A. fib with RVR Anticoagulation initiation SECONDARY DIAGNOSIS: CK D stage III B Type II diabetes [id number] Essential hypertension Hyperlipidemia/triglyceridemia CHIEF COMPLAINT: Exertional Shortness of breath HISTORY OF PRESENT ILLNESS/HOSPITAL COURSE: 68-year-old male with past medical history as listed above is admitted here by cardiology service for elective CHARO with cardioversion for new onset poorly controlled A. fib flutte (more content not included)... Note MR#: [id number] [facility] Pt. Name: Laura Jolly Admitted: 10/17/2018 Discharged: 10/20/2018 Date of : 1950 Physician: Robert Ordaz M.D. DISCHARGE SUMMARY PRIMARY DIAGNOSIS: Atrial fibrillation with RVR. SECONDARY DIAGNOSES: 1. Nonobstructive coronary artery disease. 2. Diabetes mellitus type 2. 3. Hypertension. 4. Chronic kidney disease, stage 3. HISTORY OF PRESENT ILLNESS AND HOSPITAL COURSE: The patient is a 68-year-old male who presented as a direct admit from [facility] after being found in atrial fibrillation with RVR. He was recently admitted and discharged last month with the same presentation. During that visit, he had CHARO/cardioversion and cardiac cath, which showed moderate proximal disease of the LAD and mild disease of the RCA. He was discharged on Eliquis and metoprolol 12.5 mg. Over the last 2 days, his blood pressure was elevated in the 160s and 170s. He was at home today and felt his pulse to be irregular. He also felt short (more content not included)... Additional Source Comments (unrecognized sect ion and content) No Status Records FoundNo Status Records FoundNo Status Records FoundNo Status Records FoundNo Status Records FoundNo Status Records FoundNo Status Records FoundNo Status Records Found INFORMATION SOURCE (unrecogn ized section and content) DATE CREATED AUTHOR 10/30/2018 [facility] DATE CREATED AUTHOR AUTHOR'S ORGANIZ ATION 09/12/2021 [facility] DATE CREATED AUTHOR AUTHOR'S ORGANIZ ATION 09/24/2021 [facility] DATE CREATED AUTHOR AUTHOR'S ORGANIZ ATION 09/24/[address] [facility] DATE CREATED AUTHOR AUTHOR'S ORGANIZ ATION 11/26/2022 [facility] DATE CREATED AUTHOR AUTHOR'S ORGANIZ ATION 03/29/2023 [facility] DATE CREATED AUTHOR AUTHOR'S ORGANIZ ATION 04/06/2023 [facility] DATE CREATED AUTHOR AUTHOR'S ORGANIZ ATION 07/02/2023 [facility] REASON FOR VISIT (unrecogniz ed section and content) Type 2 IDDM abilio cgm 3 JEREMY H FOLLOW UP with [employer] [facility]ICIAN MATHEMATICAL, PREDATOR CONTROL TRAPPER-C, BC-ADMDM 3 month F/U, Type 2 IDDM abilio cgm FOLLOW UP with [employer] [facility] [employer]HE[employer], PREDATOR CONTROL TRAPPER-C, BC-ADMDM 3 month follow up, Type 2 IDDM abilio cgm FOLLOW UP with [employer]IC[facility] MATHEMATICAL, PREDATOR CONTROL TRAPPER-C, BC-ADMDM 3 month follow up, Type 2 IDDM abilio cgm FOLLOW UP with [employer] [facility]IC[facility] MATHEMATICAL, PREDATOR CONTROL TRAPPER-C, BC-ADM, Review labsDM 3 month follow up pt rescheduled apt, Type 2 IDDM abilio cgm FOLLOW UP with [employer]IC[facility] MATHEMATICAL, PREDATOR CONTROL TRAPPER-C, BC-ADMDM 3 month F/U, Type 2 IDDM abilio cgm FOLLOW UP with [employer] STATISTICIAN MATHEMATICAL, PREDATOR CONTROL TRAPPER-C, BC-ADM Patient Care team informatio n (unrecognized section and content) Personnel Name: ELIDIA MACHADO MD Address: Address: [address] [place] [address] Personnel Name: Yasir Morocho MD Address: Address: [address] [place] [address] Personnel Name: Yasir Morocho MD Address: Address: [address] [place] [address] Personnel Name: Yasir Morocho MD Address: Address: [address] [place] [address] Personnel Name: Yasir Morocho MD Address: Address: [address] [place] [address] Personnel Name: Yasir Morocho MD Address: Address: [address] [place] [address] Personnel Name: Yasir Morocho MD Address: Address: [address] [place] [address] Personnel Name: Yasir Morocho MD Address: Address: [facility] [place] Harman[address] Personnel Name: Yasir Morocho MD Address: [facility] FOR RECORDS PERTAINING TO PATIENTS WHO ARE OR HAVE BEEN ENROLLED IN A CHEMICAL DEPENDENCY/SUBSTANCEABUSE PROGRAM, SOME INFORMATION MAY BE OMITTED. This clinical summary was aggregated from multiple sources. Caution should be exercised in using it in the provision of clinical care. This summary normalizes information from multiple sources, and as a consequence, information in this document may materially change the coding, format and clinical context of patient data. In addition, data may be omitted in some cases. CLINICAL DECISIONS SHOULD BE BASED ON THE PRIMARY CLINICAL RECORDS. [facility] [employer] [facility]. provides no warranty or guarantee of the accuracy or completeness of information in this document.
== END 2023-05-30 12:12 | disposition home or self-care (01) ==
PROVIDERS: Emergency Provider Emergency Medicine; PCP Family Medicine
DX: R10.9 Unspecified abdominal pain (principal); K62.89 Other specified diseases of anus and rectum; Z79.899 Other long term (current) drug therapy; Z79.4 Long term (current) use of insulin; Z79.84 Long term (current) use of oral hypoglycemic drugs
CPT/HCPCS: 36415; 74022; 74177; 80048; 85025; 99285; Q9967